=== PATIENT | female | born 1960 | race Caucasian/White ===

== ENCOUNTER 2022-02-03 14:49 | Emergency (ER) | payer MEDICARE, OTHER ==
[2022-02-03 15:02] VITALS: TEMP 98.2
[2022-02-03] MEDS ORDERED: IPRATROPIUM-ALBUTEROL 3 ML NEB INHALATION STA ×2 (15:13→16:11)
[2022-02-03] MEDS ORDERED: SODIUM CHLORIDE 0.9% 1,000 ML IV STA (15:13)
[2022-02-03] MEDS ORDERED: methylPREDNISolone SOD SUCCI 125 MG/2 ML VIAL IV STA (15:13)
[2022-02-03 15:46] LABS: Basophils # (A) 0.1 k/uL (0-0.2); Basophils % (A) 1 %; Eosinophils # (A) 0.1 k/uL (0-0.7); Eosinophils % (A) 1 %; HGB 11.3 gm/dL (11.4-16.0); Lymphocytes # (A) 1.2 k/uL (1.0-4.8); Lymphocytes % (A) 8 %; MCH 28.9 pg (25.0-35.0); MCHC 33.3 g/dL (31.0-37.0); MCV 86.7 fL (80.0-100.0); Mean Platelet Volume 7.1; Monocytes # (A) 0.4 k/uL (0-1.0); Monocytes % (A) 3 %; Neutrophils # (A) 12.4 k/uL (1.3-7.7); Neutrophils % (A) 88 %; Platelet Count 276 k/uL (150-450); RBC 3.92 m/uL (3.80-5.40); RDW 15.2 % (11.5-15.5); WBC 14.2 k/uL (3.8-10.6)
[2022-02-03 15:56] LABS: ALT 45 U/L (4-34); AST 24 U/L (14-36); African American GFR (CKD) >90 (>60 ml/min/1.73 sqM); Albumin 4.1 g/dL (3.5-5.0); Alkaline Phosphatase 73 U/L (38-126); Anion Gap 10 mmol/L; Blood Urea Nitrogen 16 mg/dL (7-17); Calcium 9.3 mg/dL (8.4-10.2); Carbon Dioxide 25 mmol/L (22-30); Chloride 102 mmol/L (98-107); Glucose 116 mg/dL (74-99); Non-African American GFR(CKD) >90 (>60 ml/min/1.73 sqM); Potassium 3.7 mmol/L (3.5-5.1); Sodium 137 mmol/L (137-145); Total Bilirubin 1.2 mg/dL (0.2-1.3); Total Protein 6.4 g/dL (6.3-8.2)
--- NOTE | 2022-02-03 15:58 | XR ---
EXAMINATION TYPE: XR chest 2V DATE OF EXAM: 02/03/2022 COMPARISON: NONE HISTORY: Short of breath TECHNIQUE: 2 views FINDINGS: Heart is normal. Lungs are clear of infiltrate. No heart failure. There are no hilar masses . Costophrenic angles are clear. IMPRESSION: No active cardiopulmonary disease. Normal heart.
[2022-02-03 16:02] LABS: INR 0.9 (<1.2); Prothrombin Time 10.1 sec (9.0-12.0)
[2022-02-03] MEDS ORDERED: AZITHROMYCIN 500 MG in SODIUM CHLORIDE 0.9% 250 ML IVPB STA (16:08)
[2022-02-03 16:14] LABS: Partial Thromboplastin Time 20.3 sec (22.0-30.0)
[2022-02-03 16:16] VITALS: RESP 18
[2022-02-03 17:11] VITALS: PULSE 92
--- NOTE | 2022-02-03 17:29 | ED ---
SOB HPI - General Chief Complaint: Shortness of Breath Stated Complaint: RUSTY,COPD Time Seen by Provider: 02/03/22 15:05 Source: patient Mode of arrival: ambulatory Limitations: no limitations - History of Present Illness Initial Comments: Patient is a 61-year-old female with past medical history of COPD who presents with a chief complaint of shortness of breath. Patient states she noticed "her breathing is worse than normal". Reports dry cough. Family states patient refuses to use her inhaler and nebulizer at home for shortness of breath. She denies fever, chills, upper respiratory symptoms, chest pain, palpitations, dizziness, abdominal pain, nausea, vomiting, diarrhea. Denies leg pain or leg swelling. Patient states she quit smoking tobacco 7-8 months ago. States she smoked half a pack of cigarettes per day for several years. She wears supplemental oxygen at home nasal cannula 3 L. She follows with Dr. Cardona. - Related Data Previous Rx's Medication Instructions Recorded Azithromycin [Zithromax Z Pack] 1 tab PO DIRECTED #6 tab 02/03/22 predniSONE 50 mg PO DAILY #5 tab 02/03/22 Allergies Allergy/AdvReac Type Severity Reaction Status Date / Time ampicillin Allergy Rash/Hives Verified 02/03/22 15:02 Review of Systems ROS Statement: Those systems with pertinent positive or pertinent negative responses have been documented in the HPI. ROS Other: All systems not noted in ROS Statement are negative. Past Medical History Past Medical History: Asthma, Coronary Artery Disease (CAD), COPD History of Any Multi-Drug Resistant Organisms: None Reported Past Surgical History: Unable to Obtain Past Psychological History: No Psychological Hx Reported Smoking Status: Former smoker Past Alcohol Use History: None Reported Past Drug Use History: None Reported General Exam Limitations: no limitations General appearance: alert, in no apparent distress Head exam: Present: atraumatic, normocephalic, normal inspection Eye exam: Present: normal appearance, PERRL, EOMI. Absent: scleral icterus, conjunctival injection, periorbital swelling Respiratory exam: Present: normal lung sounds bilaterally, wheezes (mild in upper airways). Absent: respiratory distress, rales, rhonchi, stridor, decreased breath sounds, prolonged expiratory Cardiovascular Exam: Present: normal rhythm, tachycardia, normal heart sounds. Absent: regular rate, systolic murmur, diastolic murmur, rubs, gallop, clicks GI/Abdominal exam: Present: soft, normal bowel sounds. Absent: distended, tenderness, guarding, rebound, rigid Neurological exam: Present: alert, oriented X3, CN II-XII intact Psychiatric exam: Present: normal affect, normal mood Skin exam: Present: warm, dry, intact, normal color. Absent: rash Course Vital Signs 02/03/22 02/03/22 02/03/22 14:59 15:13 15:58 Temperature 98.2 F Pulse Rate 116 H 90 Respiratory 20 18 Rate Blood Pressure 150/100 O2 Sat by Pulse 99 Oximetry 02/03/22 02/03/22 02/03/22 16:06 17:00 17:10 Temperature Pulse Rate 90 96 92 Respiratory Rate Blood Pressure O2 Sat by Pulse Oximetry 02/03/22 17:40 Temperature Pulse Rate 92 Respiratory 18 Rate Blood Pressure 142/84 O2 Sat by Pulse 96 Oximetry Medical Decision Making - Medical Decision Making This is a COPD patient presenting with shortness of breath. Patient in no apparent distress. Oxygen saturation is 99% on 3 L nasal cannula. Mild wheezing heard throughout the upper airways. Laboratory studies obtained. There is mild leukocytosis of 14.2. COVID-19 and influenza are not detected. Other laboratory studies are relatively unremarkable. Patient given Solu-Medrol and prophylactically treated with azithromycin. She had 2 breathing treatments with some improvement of wheezing and breathing. I did recommend patient receive a third breathing treatment however patient refused. Patient stable condition and will be discharged with prednisone and azithromycin. She will follow up with a corn cutter. Dr. Del Rio is my attending. - Lab Data Result diagrams: 02/03/22 15:32 02/03/22 15:32 Lab Results 02/03/22 02/03/22 02/03/22 Range/Units 15:32 15:32 15:32 WBC 14.2 H (3.8-10.6) k/uL RBC 3.92 (3.80-5.40) m/uL Hgb 11.3 L (11.4-16.0) gm/dL Hct 34.0 (34.0-46.0) % MCV 86.7 (80.0-100.0) fL MCH 28.9 (25.0-35.0) pg MCHC 33.3 (31.0-37.0) g/dL RDW 15.2 (11.5-15.5) % Plt Count 276 (150-450) k/uL MPV 7.1 Neutrophils % 88 % Lymphocytes % 8 % Monocytes % 3 % Eosinophils % 1 % Basophils % 1 % Neutrophils # 12.4 H (1.3-7.7) k/uL Lymphocytes # 1.2 (1.0-4.8) k/uL Monocytes # 0.4 (0-1.0) k/uL Eosinophils # 0.1 (0-0.7) k/uL Basophils # 0.1 (0-0.2) k/uL PT 10.1 (9.0-12.0) sec INR 0.9 (<1.2) APTT 20.3 L (22.0-30.0) sec Sodium 137 (137-145) mmol/L Potassium 3.7 (3.5-5.1) mmol/L Chloride 102 (98-107) mmol/L Carbon Dioxide 25 (22-30) mmol/L Anion Gap 10 mmol/L BUN 16 (7-17) mg/dL Creatinine 0.55 (0.52-1.04) mg/dL Est GFR (CKD-EPI)AfAm >90 (>60 ml/min/1.73 sqM) Est GFR (CKD-EPI)NonAf >90 (>60 ml/min/1.73 sqM) Glucose 116 H (74-99) mg/dL Plasma Lactic Acid Omer (0.7-2.0) mmol/L Calcium 9.3 (8.4-10.2) mg/dL Total Bilirubin 1.2 (0.2-1.3) mg/dL AST 24 (14-36) U/L ALT 45 H (4-34) U/L Alkaline Phosphatase 73 (38-126) U/L Troponin I (0.000-0.034) ng/mL NT-Pro-B Natriuret Pep pg/mL Total Protein 6.4 (6.3-8.2) g/dL Albumin 4.1 (3.5-5.0) g/dL Coronavirus (PCR) (Not Detectd) Influenza Type A RNA (Not Detectd) Influenza Type B (PCR) (Not Detectd) 02/03/22 02/03/22 02/03/22 Range/Units 15:32 15:32 15:32 WBC (3.8-10.6) k/uL RBC (3.80-5.40) m/uL Hgb (11.4-16.0) gm/dL Hct (34.0-46.0) % MCV (80.0-100.0) fL MCH (25.0-35.0) pg MCHC (31.0-37.0) g/dL RDW (11.5-15.5) % Plt Count (150-450) k/uL MPV Neutrophils % % Lymphocytes % % Monocytes % % Eosinophils % % Basophils % % Neutrophils # (1.3-7.7) k/uL Lymphocytes # (1.0-4.8) k/uL Monocytes # (0-1.0) k/uL Eosinophils # (0-0.7) k/uL Basophils # (0-0.2) k/uL PT (9.0-12.0) sec INR (<1.2) APTT (22.0-30.0) sec Sodium (137-145) mmol/L Potassium (3.5-5.1) mmol/L Chloride (98-107) mmol/L Carbon Dioxide (22-30) mmol/L Anion Gap mmol/L BUN (7-17) mg/dL Creatinine (0.52-1.04) mg/dL Est GFR (CKD-EPI)AfAm (>60 ml/min/1.73 sqM) Est GFR (CKD-EPI)NonAf (>60 ml/min/1.73 sqM) Glucose (74-99) mg/dL Plasma Lactic Acid Omer 0.8 (0.7-2.0) mmol/L Calcium (8.4-10.2) mg/dL Total Bilirubin (0.2-1.3) mg/dL AST (14-36) U/L ALT (4-34) U/L Alkaline Phosphatase (38-126) U/L Troponin I <0.012 (0.000-0.034) ng/mL NT-Pro-B Natriuret Pep 60 pg/mL Total Protein (6.3-8.2) g/dL Albumin (3.5-5.0) g/dL Coronavirus (PCR) (Not Detectd) Influenza Type A RNA (Not Detectd) Influenza Type B (PCR) (Not Detectd) 02/03/22 02/03/22 Range/Units 15:32 15:32 WBC (3.8-10.6) k/uL RBC (3.80-5.40) m/uL Hgb (11.4-16.0) gm/dL Hct (34.0-46.0) % MCV (80.0-100.0) fL MCH (25.0-35.0) pg MCHC (31.0-37.0) g/dL RDW (11.5-15.5) % Plt Count (150-450) k/uL MPV Neutrophils % % Lymphocytes % % Monocytes % % Eosinophils % % Basophils % % Neutrophils # (1.3-7.7) k/uL Lymphocytes # (1.0-4.8) k/uL Monocytes # (0-1.0) k/uL Eosinophils # (0-0.7) k/uL Basophils # (0-0.2) k/uL PT (9.0-12.0) sec INR (<1.2) APTT (22.0-30.0) sec Sodium (137-145) mmol/L Potassium (3.5-5.1) mmol/L Chloride (98-107) mmol/L Carbon Dioxide (22-30) mmol/L Anion Gap mmol/L BUN (7-17) mg/dL Creatinine (0.52-1.04) mg/dL Est GFR (CKD-EPI)AfAm (>60 ml/min/1.73 sqM) Est GFR (CKD-EPI)NonAf (>60 ml/min/1.73 sqM) Glucose (74-99) mg/dL Plasma Lactic Acid Omer (0.7-2.0) mmol/L Calcium (8.4-10.2) mg/dL Total Bilirubin (0.2-1.3) mg/dL AST (14-36) U/L ALT (4-34) U/L Alkaline Phosphatase (38-126) U/L Troponin I (0.000-0.034) ng/mL NT-Pro-B Natriuret Pep pg/mL Total Protein (6.3-8.2) g/dL Albumin (3.5-5.0) g/dL Coronavirus (PCR) Not Detected (Not Detectd) Influenza Type A RNA Not Detected (Not Detectd) Influenza Type B (PCR) Not Detected (Not Detectd) Disposition Clinical Impression: COPD exacerbation Disposition: HOME SELF-CARE Instructions (If sedation given, give patient instructions): COPD (Chronic Obstructive Pulmonary Disease) (ED), Chronic Lung Disease and Infection Prevention (ED) Additional Instructions: Please take medication as directed. It is very important you'll continue breathing treatments at home. Follow-up with corn cutter in one to 2 days. Return to the emergency department if you experience new, concerning, or worsen ing symptoms. Prescriptions: predniSONE 50 mg PO DAILY #5 tab Azithromycin [Zithromax Z Pack] 1 tab PO DIRECTED #6 tab Is patient prescribed a controlled substance at d/c from ED?: No Referrals: None,Stated [Primary Care Provider] - 1-2 days Time of Disposition: 17:29
[2022-02-03 17:41] VITALS: BP 142/84
== END 2022-02-03 18:10 | disposition home or self-care (01) ==
LOC: EC 14:49
DX: J44.1 Chronic obstructive pulmonary disease with (acute) exacerbation (principal); I25.10 Atherosclerotic heart disease of native coronary artery without angina pectoris; Z87.891 Personal history of nicotine dependence; Z20.822 Contact with and (suspected) exposure to COVID-19; Z88.1 Allergy status to other antibiotic agents
CPT/HCPCS: 36415; 94640 ×2; 93005; 83880; 80053; 83605; 84484; 85025; 85610; 85730; 87502; 87635; 71046; 99285; 96375; 96365; 96361; J2930; J0456

== ENCOUNTER 2023-01-24 14:20 | Inpatient (IN) | payer MEDICARE, OTHER ==
[2023-01-24] MEDS ORDERED: ETOMIDATE 2 MG/ML 10 ML VIAL IVP STA (14:30)
[2023-01-24] MEDS ORDERED: SUCCINYLCHOLINE CHLORIDE 200 MG/10 ML VIAL IV ONE (14:30)
[2023-01-24] MEDS ORDERED: ALBUTEROL NEBULIZED 2.5 MG/3 ML INHALATION STA (14:31)
[2023-01-24] MEDS ORDERED: IPRATROPIUM 0.5 MG/2.5 ML NEBU INHALATION STA (14:31)
[2023-01-24] MEDS ORDERED: DEXAMETHASONE SOD PHOSPHATE 10 MG/ML 1 ML VIAL IVP STA (14:34)
[2023-01-24] MEDS: MAGNESIUM SULFATE-D5W PMX 1 GM in DEXTROSE/WATER 1 100ML.BAG IVPB SCH ×2 (14:53→17:02)
[2023-01-24 14:56] LABS: ALT 33 U/L (4-34); AST 61 U/L (14-36); African American GFR (CKD) >90 (>60 ml/min/1.73 sqM); Albumin 4.6 g/dL (3.5-5.0); Alkaline Phosphatase 100 U/L (38-126); Anion Gap 11 mmol/L; Blood Urea Nitrogen 25 mg/dL (7-17); Calcium 8.9 mg/dL (8.4-10.2); Carbon Dioxide 33 mmol/L (22-30); Chloride 99 mmol/L (98-107); Glucose 154 mg/dL (74-99); Lipase 49 U/L (23-300); Magnesium 2.1 mg/dL (1.6-2.3); Non-African American GFR(CKD) >90 (>60 ml/min/1.73 sqM); Sodium 143 mmol/L (137-145); Total Bilirubin 1.1 mg/dL (0.2-1.3)
[2023-01-24] MEDS ORDERED: ALBUTEROL NEB (CONC) 2.5 MG/0.5 ML INHALATION STA (14:56)
[2023-01-24 15:04] LABS: NT-Pro-B-Type Natriuretic Pept 1450 pg/mL
--- NOTE | 2023-01-24 15:17 | XR ---
EXAMINATION TYPE: XR chest 1V portable DATE OF EXAM: 01/24/2023 COMPARISON: 02/03/2022 HISTORY: ET tube placement TECHNIQUE: Single frontal view of the chest is obtained. FINDINGS: There is no focal air space opacity, pleural effusion, or pneumothorax seen. The cardiac silhouette size is within normal limits. The osseous structures are intact. ET tube 3 cm above britta na. NG tube seen coursing into the abdomen. Tip not included. Underlying COPD and pulmonary fibrosis. Linear density right upper lobe typical scar or atelectasis. IMPRESSION: 1. ET tube 3 cm above prerna. 2. Correlate for COPD and pulmonary fibrosis.
[2023-01-24 15:27] LABS: Anisocytosis Slight; Basophils % (A) 0 %; Eosinophils % (A) 0 %; HGB 8.7 gm/dL (11.4-16.0); Hypochromasia Marked; Lymphocytes # (A) 0.7 k/uL (1.0-4.8); Lymphocytes % (A) 8 %; MCH 22.8 pg (25.0-35.0); MCHC 29.9 g/dL (31.0-37.0); MCV 76.3 fL (80.0-100.0); Mean Platelet Volume 7.9; Microcytosis Slight; Monocytes # (A) 0.5 k/uL (0-1.0); Monocytes % (A) 6 %; Neutrophils # (A) 7.1 k/uL (1.3-7.7); Neutrophils % (A) 84 %; Platelet Count 483 k/uL (150-450); Poikilocytosis Slight; RDW 17.7 % (11.5-15.5); WBC 8.4 k/uL (3.8-10.6)
[2023-01-24 15:33] LABS: Allen Test Performed? Yes
[2023-01-24 15:35] LABS: ABG Base Excess 6.2 mmol/L; ABG HCO3 34 mmol/L (21-25); ABG Oxygen Saturation 99.5 % (94-97); ABG PCO2 88 mmHg (35-45); ABG PO2 >400 mmHg (83-108); ABG TCO2 37 mmol/L (19-24)
[2023-01-24 15:51] LABS: Prothrombin Time 10.2 sec (9.0-12.0)
[2023-01-24 15:55] LABS: Partial Thromboplastin Time 20.6 sec (22.0-30.0)
[2023-01-24] MEDS ORDERED: NALOXONE 0.4 MG/ML 1 ML VIAL IV PRN (16:47)
--- NOTE | 2023-01-24 16:47 | ED ---
General Adult HPI - General Chief complaint: Shortness of Breath Stated complaint: RUSTY Time Seen by Provider: 01/24/23 14:30 Source: EMS Mode of arrival: EMS Limitations: altered mental status - History of Present Illness Initial comments: This is a 62-year-old female with a reported past medical history including COPD presents emergency department via EMS for increasing short of breath or difficulty in breathing. The patient on arrival was unable to speak any words secondary to her shortness of breath and was using accessory muscles for breathing. The patient cannot for any further history at this time and EMS cannot provide any further history at this time either. - Related Data Home Medications Medication Instructions Recorded Confirmed Albuterol Sulfate [Albuterol 2 puff PO RT-QID 01/24/23 01/24/23 Sulfate Hfa] Budesonide/Formoterol Fumarate 2 puff INHALATION RT-BID 01/24/23 01/24/23 [Symbicort 160-4.5 Mcg Inhaler] Escitalopram [Lexapro] 20 mg PO DAILY 01/24/23 01/24/23 Ipratropium-Albuterol Nebulize 3 ml INHALATION RT-Q4H 01/24/23 01/24/23 [Duoneb 0.5 mg-3 mg/3 ml Soln] Mirtazapine [Remeron] 15 mg PO HS 01/24/23 01/24/23 Montelukast Sodium 10 mg PO HS 01/24/23 01/24/23 Pantoprazole Sodium [Protonix] 40 mg PO DAILY PRN 01/24/23 01/24/23 Pregabalin [Lyrica] 100 mg PO BID 01/24/23 01/24/23 dilTIAZem HCL [dilTIAZem HCL 24Hr 120 mg PO DAILY 01/24/23 01/24/23 ER] Allergies Allergy/AdvReac Type Severity Reaction Status Date / Time ampicillin Allergy Rash/Hives Verified 02/03/22 15:02 Review of Systems ROS Statement: Those systems with pertinent positive or pertinent negative responses have been documented in the HPI. ROS Other: All systems not noted in ROS Statement are negative. Past Medical History Past Medical History: Asthma, Coronary Artery Disease (CAD), COPD History of Any Multi-Drug Resistant Organisms: None Reported Past Surgical History: Unable to Obtain Past Psychological History: No Psychological Hx Reported Smoking Status: Former smoker Past Alcohol Use History: None Reported Past Drug Use History: None Reported General Exam Limitations: altered mental status (ANOx0) General appearance: obtunded, in distress (2/2 respiratory distress) Head exam: Present: atraumatic, normocephalic, normal inspection Eye exam: Present: normal appearance, PERRL Pupils: Present: normal accommodation ENT exam: Present: normal exam, normal oropharynx, mucous membranes moist Neck exam: Present: normal inspection, full ROM Respiratory exam: Present: respiratory distress, wheezes, accessory muscle use, decreased breath sounds, prolonged expiratory Cardiovascular Exam: Present: normal rhythm, tachycardia GI/Abdominal exam: Present: soft, normal bowel sounds Extremities exam: Present: normal inspection, full ROM Back exam: Present: normal inspection, full ROM Neurological exam: Present: altered (ANOx0) Psychiatric exam: Present: agitated Skin exam: Present: warm, dry Course Vital Signs 01/24/23 01/24/23 01/24/23 14:30 14:40 14:45 Temperature 98.7 F Pulse Rate 136 H Respiratory 24 24 Rate Blood Pressure 134/95 O2 Sat by Pulse 100 Oximetry Fraction of 100 Inspired Oxygen (FIO2) 01/24/23 01/24/23 01/24/23 14:50 15:10 15:15 Temperature 98.1 F Pulse Rate 113 H 117 H 111 H Respiratory 18 Rate Blood Pressure 133/84 O2 Sat by Pulse 100 Oximetry Fraction of Inspired Oxygen (FIO2) 01/24/23 01/24/23 01/24/23 15:30 15:42 15:44 Temperature Pulse Rate 109 H Respiratory 18 Rate Blood Pressure 133/81 O2 Sat by Pulse 100 Oximetry Fraction of 50 50 Inspired Oxygen (FIO2) 01/24/23 01/24/23 01/24/23 15:45 16:00 16:15 Temperature Pulse Rate 111 H 108 H 110 H Respiratory 18 18 18 Rate Blood Pressure 132/78 130/78 124/73 O2 Sat by Pulse 100 100 100 Oximetry Fraction of Inspired Oxygen (FIO2) EKG Findings - EKG Comments: EKG Findings:: An EKG was obtained and was interpreted by myself showing a rate of 132, CO interval 118, QR jain of 81 and QTC of 357. This EKG showed a sinus tachycardia with a short CO interval however there was no ST segment elevation or depression noted. Procedures - Intubation Sedative: Etomidate Mg Given: 20 Paralytic: Succinylcholine Mg Given: 80 Laryngoscope: Sona Size: 4 ET Tube Size: 7.5 ET Tube Uncuffed: No Tube Secured Depth (cm): 24 Tube Secured Location: lips Tube Placement Confirmation: visualized tube passing through cords, equal breath sounds bilaterally Patient Tolerated Procedure: well Intubation Complications: none Medical Decision Making - Medical Decision Making Was pt. sent in by a medical professional or institution ([facility], [facility], urgent care, hospital, or senior living...) When possible be specific @ -No Did you speak to anyone other than the patient for history (EMS, parent, family, police, friend...)? What history was obtained from this source @ -Yes, EMS gave a limited history of worsening shortness of breath today and a history of COPD. Did you review nursing and triage notes (agree or disagree)? Why? @ -I reviewed and agree with nursing and triage notes Were old charts reviewed (outside hosp., previous admission, EMS record, old EKG, old radiological studies, urgent care reports/EKG's, senior living records)? Report findings @ -No old charts were reviewed Differential Diagnosis (chest pain, altered mental status, abdominal pain women, abdominal pain men, vaginal bleeding, weakness, fever, dyspnea, syncope, headache, dizziness, GI bleed, back pain, seizure, CVA, palpatations, mental health)? @ -COPD exacerbation, pneumonia, pneumothorax EKG interpreted by me (3pts min.). @ -As above X-rays interpreted by me (1pt min.). @ -CXR was obtained and was interpreted by myself showing COPD and pulmonary fibrosis with an ET tube in place at 3 cm above the prerna. CT interpreted by me (1pt min.). @ -None done U/S interpreted by me (1pt. min.). @ -None done What testing was considered but not performed or refused? (CT, X-rays, U/S, labs)? Why? @ -None What meds were considered but not given or refused? Why? @ -None Did you discuss the management of the patient with other professionals (professionals i.e. [facility] Murguia, [facility], lab, RT, psych nurse, criminal justice social worker, documentation liaison, teacher, fire officer, case finisher)? Give summary @ -Yes, group burner machine, Dr. Dubon was contacted and accepted the patient to the ICU. The primary care physician covering was also accepted for admission. Was smoking cessation discussed for >3mins.? @ -No Was critical care preformed (if so, how long)? @ -Yes, see above Were there social determinants of health that impacted care today? How? (Homelessness, low income, unemployed, alcoholism, drug addiction, transportation, low edu. Level, literacy, decrease access to med. care, senior living, rehab)? @ -No Was there de-escalation of care discussed even if they declined (Discuss DNR or withdrawal of care, Hospice)? DNR status @ -No What co-morbidities impacted this encounter? (DM, HTN, Smoking, COPD, CAD, Cancer, CVA, ARF, Chemo, Hep., AIDS, mental health diagnosis, sleep apnea, morbid obesity)? @ -COPD Was patient admitted / discharged? Hospital course, mention meds given and route, prescriptions, significant lab abnormalities, going to OR and other pertinent info. @ -The patient was seen and evaluated in emergency department. Immediately on arrival, the patient was in severe respiratory distress and could not speak any words. Due to this, the patient was intubated on arrival for airway protection. Laboratory workup was otherwise within normal limits and the patient did have improvement while on the ventilator. The patient did receive an in-line breathing treatment of albuterol and ipratropium as well as Decadron and magnesium. The patient did remain stable and was accepted for admission to the intensive care unit. The patient was admitted in stable condition. Undiagnosed new problem with uncertain prognosis? @ -No Drug Therapy requiring intensive monitoring for toxicity (Heparin, Nitro, Insulin, Cardizem)? @ -Propofol Were any procedures done? @ -Intubation Diagnosis/symptom? @ -Ventilator dependent respiratory failure, COPD exacerbation Acute, or Chronic, or Acute on Chronic? @ -Acute Uncomplicated (without systemic symptoms) or Complicated (systemic symptoms)? @ -Complicated Side effects of treatment? @ -No Exacerbation, Progression, or Severe Exacerbation? @ -Severe exacerbation Poses a threat to life or bodily function? How? (Chest pain, [place], [place], pneumonia, PE, COPD, DKA, ARF, appy, cholecystitis, CVA, Diverticulitis, Homicidal, Suicidal, threat to staff... and all critical care pts) @ -Yes, ventilator dependency can lead to permanent damage and possible . - Lab Data Result diagrams: 01/24/23 15:10 01/24/23 14:37 Lab Results 01/24/23 01/24/23 01/24/23 Range/Units 14:37 14:37 15:10 WBC 8.4 (3.8-10.6) k/uL RBC 3.80 (3.80-5.40) m/uL Hgb 8.7 L (11.4-16.0) gm/dL Hct 29.0 L (34.0-46.0) % MCV 76.3 L (80.0-100.0) fL MCH 22.8 L (25.0-35.0) pg MCHC 29.9 L (31.0-37.0) g/dL RDW 17.7 H (11.5-15.5) % Plt Count 483 H (150-450) k/uL MPV 7.9 Neutrophils % 84 % Lymphocytes % 8 % Monocytes % 6 % Eosinophils % 0 % Basophils % 0 % Neutrophils # 7.1 (1.3-7.7) k/uL Lymphocytes # 0.7 L (1.0-4.8) k/uL Monocytes # 0.5 (0-1.0) k/uL Eosinophils # 0.0 (0-0.7) k/uL Basophils # 0.0 (0-0.2) k/uL Hypochromasia Marked Poikilocytosis Slight Anisocytosis Slight Microcytosis Slight PT (9.0-12.0) sec INR (<1.2) APTT (22.0-30.0) sec Sample Site ABG pH (7.35-7.45) ABG pCO2 (35-45) mmHg ABG pO2 (83-108) mmHg ABG HCO3 (21-25) mmol/L ABG Total CO2 (19-24) mmol/L ABG O2 Saturation (94-97) % ABG Base Excess mmol/L Edgardo Test FiO2 % Sodium 143 (137-145) mmol/L Potassium 5.0 (3.5-5.1) mmol/L Chloride 99 (98-107) mmol/L Carbon Dioxide 33 H (22-30) mmol/L Anion Gap 11 mmol/L BUN 25 H (7-17) mg/dL Creatinine 0.71 (0.52-1.04) mg/dL Est GFR (CKD-EPI)AfAm >90 (>60 ml/min/1.73 sqM) Est GFR (CKD-EPI)NonAf >90 (>60 ml/min/1.73 sqM) Glucose 154 H (74-99) mg/dL Calcium 8.9 (8.4-10.2) mg/dL Magnesium 2.1 (1.6-2.3) mg/dL Total Bilirubin 1.1 (0.2-1.3) mg/dL AST 61 H (14-36) U/L ALT 33 (4-34) U/L Alkaline Phosphatase 100 (38-126) U/L Troponin I 0.053 H* (0.000-0.034) ng/mL NT-Pro-B Natriuret Pep 1450 pg/mL Total Protein 8.0 (6.3-8.2) g/dL Albumin 4.6 (3.5-5.0) g/dL Lipase 49 (23-300) U/L 01/24/23 01/24/23 Range/Units 15:10 15:28 WBC (3.8-10.6) k/uL RBC (3.80-5.40) m/uL Hgb (11.4-16.0) gm/dL Hct (34.0-46.0) % MCV (80.0-100.0) fL MCH (25.0-35.0) pg MCHC (31.0-37.0) g/dL RDW (11.5-15.5) % Plt Count (150-450) k/uL MPV Neutrophils % % Lymphocytes % % Monocytes % % Eosinophils % % Basophils % % Neutrophils # (1.3-7.7) k/uL Lymphocytes # (1.0-4.8) k/uL Monocytes # (0-1.0) k/uL Eosinophils # (0-0.7) k/uL Basophils # (0-0.2) k/uL Hypochromasia Poikilocytosis Anisocytosis Microcytosis PT 10.2 (9.0-12.0) sec INR 1.0 (<1.2) APTT 20.6 L (22.0-30.0) sec Sample Site rrad ABG pH 7.20 L (7.35-7.45) ABG pCO2 88 H* (35-45) mmHg ABG pO2 >400 H (83-108) mmHg ABG HCO3 34 H (21-25) mmol/L ABG Total CO2 37 H (19-24) mmol/L ABG O2 Saturation 99.5 H (94-97) % ABG Base Excess 6.2 mmol/L Edgardo Test Yes FiO2 100 % Sodium (137-145) mmol/L Potassium (3.5-5.1) mmol/L Chloride (98-107) mmol/L Carbon Dioxide (22-30) mmol/L Anion Gap mmol/L BUN (7-17) mg/dL Creatinine (0.52-1.04) mg/dL Est GFR (CKD-EPI)AfAm (>60 ml/min/1.73 sqM) Est GFR (CKD-EPI)NonAf (>60 ml/min/1.73 sqM) Glucose (74-99) mg/dL Calcium (8.4-10.2) mg/dL Magnesium (1.6-2.3) mg/dL Total Bilirubin (0.2-1.3) mg/dL AST (14-36) U/L ALT (4-34) U/L Alkaline Phosphatase (38-126) U/L Troponin I (0.000-0.034) ng/mL NT-Pro-B Natriuret Pep pg/mL Total Protein (6.3-8.2) g/dL Albumin (3.5-5.0) g/dL Lipase (23-300) U/L Critical Care Time Critical Care Time: Yes Total Critical Care Time: 38 Disposition Clinical Impression: COPD exacerbation, Respiratory failure requiring intubation Disposition: ADMITTED IP TO THIS [facility] Condition: Serious Is patient prescribed a controlled substance at d/c from ED?: No Referrals: Dayanna Singh [Primary Care Provider] - 1-2 days Time of Disposition: 16:00 Decision to Admit Reason: Admit from EC Decision Date: 01/24/23 Decision Time: 16:00
[2023-01-24 18:17] LABS: Glucose,Whole Blood 164 mg/dL (70-110)
[2023-01-24] MEDS ORDERED: IPRATROPIUM-ALBUTEROL 3 ML NEB INHALATION PRN (18:36)
[2023-01-24 19:32] LABS: ABG Base Excess 8.2 mmol/L; ABG Glucose Whole Blood 140 mg/dL (75-99); ABG HCO3 35 mmol/L (21-25); ABG Hematocrit 25 % (34.0-46.0); ABG Ionized Calcium 4.7 mg/dL (4.5-5.3); ABG Lactic Acid Whole Blood 0.8 mmol/L (0.5-1.6); ABG Oxygen Saturation 98.8 % (94-97); ABG PCO2 67 mmHg (35-45); ABG PH 7.33 (7.35-7.45); ABG PO2 136 mmHg (83-108); ABG Potassium Whole Blood 3.9 mmol/L (3.4-4.5); ABG Sodium Whole Blood 146 mmol/L (135-146); ABG TCO2 37 mmol/L (19-24); Allen Test Performed? Yes
[2023-01-24] MEDS ORDERED: IPRATROPIUM-ALBUTEROL 3 ML NEB INHALATION SCH (20:00)
[2023-01-24] MEDS: PREGABALIN 100 MG CAP PO SCH (20:19)
[2023-01-24] MEDS: CHLORHEXIDINE GLUCONATE 15 ML CUP MUCOUS MEM SCH (20:19)
[2023-01-24] MEDS: MONTELUKAST 10 MG TAB PO SCH (20:19)
[2023-01-24] MEDS: methylPREDNISolone SOD SUCCI 125 MG/2 ML VIAL IV SCH (20:19)
[2023-01-24] MEDS: IPRATROPIUM-ALBUTEROL 3 ML NEB INHALATION SCH (20:25)
[2023-01-24] MEDS: SYMBICORT 160-4.5 MCG INHALER INHALATION SCH (20:25)
[2023-01-24] MEDS ORDERED: FUROSEMIDE 10 MG/ML 4 ML VIAL IV STA (21:08)
[2023-01-25 00:02] LABS: Glucose,Whole Blood 161 mg/dL (70-110)
[2023-01-25] MEDS: methylPREDNISolone SOD SUCCI 125 MG/2 ML VIAL IV SCH ×4 (00:30→17:59)
[2023-01-25] MEDS: HEPARIN SODIUM,PORCINE 5,000 UNIT/ML 1 ML VIAL SQ SCH ×3 (00:30→15:58)
[2023-01-25] MEDS: IPRATROPIUM-ALBUTEROL 3 ML NEB INHALATION SCH ×7 (01:49→23:32)
[2023-01-25 04:48] LABS: Anisocytosis Slight; Basophils % (A) 0 %; Eosinophils % (A) 0 %; HCT 28.7 % (34.0-46.0); HGB 8.7 gm/dL (11.4-16.0); Hypochromasia Marked; Lymphocytes # (A) 0.8 k/uL (1.0-4.8); Lymphocytes % (A) 10 %; MCH 22.8 pg (25.0-35.0); MCHC 30.4 g/dL (31.0-37.0); MCV 75.1 fL (80.0-100.0); Mean Platelet Volume 8.3; Microcytosis Moderate; Monocytes # (A) 0.3 k/uL (0-1.0); Monocytes % (A) 3 %; Neutrophils # (A) 6.6 k/uL (1.3-7.7); Neutrophils % (A) 86 %; Platelet Count 450 k/uL (150-450); RBC 3.83 m/uL (3.80-5.40); RDW 17.3 % (11.5-15.5); WBC 7.6 k/uL (3.8-10.6)
[2023-01-25 04:55] LABS: African American GFR (CKD) >90 (>60 ml/min/1.73 sqM); Blood Urea Nitrogen 22 mg/dL (7-17); Chloride 97 mmol/L (98-107); Glucose 147 mg/dL (74-99); Non-African American GFR(CKD) >90 (>60 ml/min/1.73 sqM); Potassium 3.8 mmol/L (3.5-5.1); Sodium 142 mmol/L (137-145)
[2023-01-25 05:02] LABS: Anion Gap 12 mmol/L; Carbon Dioxide 33 mmol/L (22-30)
[2023-01-25] MEDS ORDERED: Potassium Replacement Protocol 1 EACH MISC MISCELLANE PRN (05:33)
[2023-01-25 05:50] LABS: ABG Base Excess 12.1 mmol/L; ABG Glucose Whole Blood 140 mg/dL (75-99); ABG HCO3 38 mmol/L (21-25); ABG Ionized Calcium 4.5 mg/dL (4.5-5.3); ABG Oxygen Saturation 98.1 % (94-97); ABG PCO2 60 mmHg (35-45); ABG PH 7.41 (7.35-7.45); ABG PO2 98 mmHg (83-108); ABG Potassium Whole Blood 3.3 mmol/L (3.4-4.5); ABG Sodium Whole Blood 146 mmol/L (135-146); ABG TCO2 40 mmol/L (19-24); Allen Test Performed? Yes
[2023-01-25 05:56] LABS: ABG Hematocrit 24 % (34.0-46.0)
[2023-01-25] MEDS ORDERED: POTASSIUM BICARBONATE/CIT AC 20 MEQ TABLET.EFF NG-TUBE SCH (06:00)
[2023-01-25 06:08] LABS: Glucose,Whole Blood 158 mg/dL (70-110)
--- NOTE | 2023-01-25 07:45 | XR ---
EXAMINATION TYPE: XR chest 1V portable DATE OF EXAM: 01/25/2023 COMPARISON: 01/24/2023 HISTORY: Shortness of breath TECHNIQUE: Single frontal view of the chest is obtained. FINDINGS: ET and NG tube are stable. Underlying COPD with basilar atelectasis. No overt failure. No pneumothorax. No pleural effusion. Mild underlying pulmonary fibrosis suspected. IMPRESSION: COPD stable.
--- NOTE | 2023-01-25 08:25 | P.HPIM ---
History of Present Illness This is a pleasant 62 years old female with past medical history of Asthma, Coronary Artery Disease, COPD Patient presents because of shortness of breath and altered mental status, as per documentation patient has difficulty talking because of her dysonea and she was using accessory muscles. Her respiratory distress was severe and patient required intubation and mechanical ventilation while in the emergency room. patient is afebrile. Blood pressure stable Hemoglobin is 8.7. W68.4. INR 1.0 PH 7.73, pCO2 88 and 67 BMP showing creatinine 0.7, glucose 154, liver enzymes not elevated. Troponin mildly elevated at 0.05. EKG showing sinus tachycardia at 130 ProBNP is elevated 1450 chest x-ray showed COPD however there is linear right upper lobe typical scar or atelectasis per radiologist. However I think fluid overload and cephalization is also suspected per my review especially patient has elevated proBNP. Such changes did not been seen in chest x-ray about 6 months ago. Review of Systems ROS unobtainable: due to endotracheal tube Past Medical History Past Medical History: Asthma, Coronary Artery Disease (CAD), COPD History of Any Multi-Drug Resistant Organisms: None Reported Past Surgical History: Unable to Obtain Past Anesthesia/Blood Transfusion Reactions: Unable to Obtain Past Psychological History: No Psychological Hx Reported Smoking Status: Former smoker Past Alcohol Use History: None Reported Past Drug Use History: None Reported Medications and Allergies Home Medications Medication Instructions Recorded Confirmed Type Albuterol Sulfate [Albuterol 2 puff PO RT-QID 01/24/23 01/24/23 History Sulfate Hfa] Budesonide/Formoterol Fumarate 2 puff INHALATION RT-BID 01/24/23 01/24/23 Histo ry [Symbicort 160-4.5 Mcg Inhaler] Escitalopram [Lexapro] 20 mg PO DAILY 01/24/23 01/24/23 History Ipratropium-Albuterol Nebulize 3 ml INHALATION RT-Q4H 01/24/23 01/24/23 History [Duoneb 0.5 mg-3 mg/3 ml Soln] Mirtazapine [Remeron] 15 mg PO HS 01/24/23 01/24/23 History Montelukast Sodium 10 mg PO HS 01/24/23 01/24/23 History Pantoprazole Sodium [Protonix] 40 mg PO DAILY PRN 01/24/23 01/24/23 History Pregabalin [Lyrica] 100 mg PO BID 01/24/23 01/24/23 History dilTIAZem HCL [dilTIAZem HCL 24Hr 120 mg PO DAILY 01/24/23 01/24/23 History ER] Allergies Allergy/AdvReac Type Severity Reaction Status Date / Time ampicillin Allergy Rash/Hives Verified 02/03/22 15:02 Physical Exam Vitals: Vital Signs Temp Pulse Resp BP Pulse Ox FiO2 01/25/23 07:00 116 H 26 H 109/82 98 01/25/23 06:00 94 18 112/62 97 01/25/23 05:00 98 18 104/67 99 01/25/23 04:00 98.6 F 95 17 108/62 100 50 01/25/23 03:30 50 01/25/23 03:00 104 H 17 99/57 98 01/25/23 02:00 108 H 18 111/66 99 01/25/23 01:59 107 H 01/25/23 01:49 106 H 01/25/23 01:00 96 23 106/66 98 01/25/23 00:00 98.5 F 96 18 111/69 96 50 01/24/23 23:53 50 01/24/23 23:00 96 20 116/75 98 01/24/23 22:00 92 20 111/68 98 01/24/23 21:00 96 18 114/69 99 01/24/23 20:26 97 01/24/23 20:00 98.3 F 98 20 115/72 98 50 01/24/23 19:50 50 01/24/23 19:45 94 01/24/23 19:42 50 01/24/23 19:00 100 20 112/73 99 01/24/23 18:45 102 H 20 137/77 99 01/24/23 18:30 105 H 22 137/77 97 01/24/23 18:15 98.2 F 104 H 22 146/86 97 50 01/24/23 18:10 110 H 18 01/24/23 17:00 98.2 F 105 H 20 118/75 100 01/24/23 16:15 110 H 18 124/73 100 01/24/23 16:00 108 H 18 130/78 100 01/24/23 15:45 111 H 18 132/78 100 01/24/23 15:44 50 01/24/23 15:42 50 01/24/23 15:30 109 H 18 133/81 100 01/24/23 15:15 98.1 F 111 H 18 133/84 100 01/24/23 15:10 117 H 01/24/23 14:50 113 H 01/24/23 14:45 100 01/24/23 14:40 24 01/24/23 14:30 98.7 F 136 H 24 134/95 100 Intake and Output 01/24/23 01/25/23 01/25/23 22:59 06:59 14:59 Intake Total 149.660 140.659 1.837 Output Total 295 1225 30 Balance -145.340 -1084.341 -28.163 Intake: Intake, IV Titration 149.660 140.659 1.837 Amount propofoL 1,000 mg In 149.660 140.659 1.837 Empty Bag 1 bag @ 15 MCG/ KG/MIN 7.348 mls/hr IV . [id number] [facility] Rx#:[id number] Output: Urine 295 1225 30 Other: Voiding Method Indwelling Catheter Indwelling Catheter Weight 81.647 kg 70.1 kg GENERAL: The patient is intubated and sedated HEENT: Pupils are round and equally reacting to light. EOMI. No scleral icterus. No conjunctival pallor. Normocephalic, atraumatic. No pharyngeal erythema. No thyromegaly. CARDIOVASCULAR: S1 and S2 present. No murmurs, rubs, or gallops. PULMONARY: Chest is clear to auscultation, no wheezing , no crackles. ABDOMEN: Soft, nontender, nondistended, normoactive bowel sounds. No palpable organomegaly. MUSCULOSKELETAL: No joint swelling or deformity. EXTREMITIES: No cyanosis, clubbing, or pedal edema. -NEUROLOGICAL: Exam is limited by patient condition. There was suspicion of a regular in the pupils but both they are reactive to ligh.t. SKIN: No rashes. no petechiae. Results CBC & Chem 7: 01/25/23 04:21 01/25/23 04:21 Labs: Abnormal Lab Results - Last 24 Hours (Table) 01/24/23 01/24/23 01/24/23 Range/Units 14:37 14:37 15:10 Hgb 8.7 L (11.4-16.0) gm/dL Hct 29.0 L (34.0-46.0) % MCV 76.3 L (80.0-100.0) fL MCH 22.8 L (25.0-35.0) pg MCHC 29.9 L (31.0-37.0) g/dL RDW 17.7 H (11.5-15.5) % Plt Count 483 H (150-450) k/uL Lymphocytes # 0.7 L (1.0-4.8) k/uL APTT (22.0-30.0) sec ABG pH (7.35-7.45) ABG pCO2 (35-45) mmHg ABG pO2 (83-108) mmHg ABG HCO3 (21-25) mmol/L ABG Total CO2 (19-24) mmol/L ABG O2 Saturation (94-97) % ABG Hematocrit (34.0-46.0) % ABG Potassium (3.4-4.5) mmol/L ABG Glucose (75-99) mg/dL Hemoglobin (11.4-16.0) gm/dL Chloride (98-107) mmol/L Carbon Dioxide 33 H (22-30) mmol/L BUN 25 H (7-17) mg/dL Glucose 154 H (74-99) mg/dL POC Glucose (mg/dL) (70-110) mg/dL AST 61 H (14-36) U/L Troponin I 0.053 H* (0.000-0.034) ng/mL Arterial Blood Potassium (3.4-4.5) mmol/L Arterial Blood Glucose (75-99) mg/dL 01/24/23 01/24/23 01/24/23 Range/Units 15:10 15:28 18:15 Hgb (11.4-16.0) gm/dL Hct (34.0-46.0) % MCV (80.0-100.0) fL MCH (25.0-35.0) pg MCHC (31.0-37.0) g/dL RDW (11.5-15.5) % Plt Count (150-450) k/uL Lymphocytes # (1.0-4.8) k/uL APTT 20.6 L (22.0-30.0) sec ABG pH 7.20 L (7.35-7.45) ABG pCO2 88 H* (35-45) mmHg ABG pO2 >400 H (83-108) mmHg ABG HCO3 34 H (21-25) mmol/L ABG Total CO2 37 H (19-24) mmol/L ABG O2 Saturation 99.5 H (94-97) % ABG Hematocrit (34.0-46.0) % ABG Potassium (3.4-4.5) mmol/L ABG Glucose (75-99) mg/dL Hemoglobin (11.4-16.0) gm/dL Chloride (98-107) mmol/L Carbon Dioxide (22-30) mmol/L BUN (7-17) mg/dL Glucose (74-99) mg/dL POC Glucose (mg/dL) 164 H (70-110) mg/dL AST (14-36) U/L Troponin I (0.000-0.034) ng/mL Arterial Blood Potassium (3.4-4.5) mmol/L Arterial Blood Glucose (75-99) mg/dL 01/24/23 01/25/23 01/25/23 Range/Units 19:25 00:01 04:21 Hgb 8.7 L (11.4-16.0) gm/dL Hct 28.7 L (34.0-46.0) % MCV 75.1 L (80.0-100.0) fL MCH 22.8 L (25.0-35.0) pg MCHC 30.4 L (31.0-37.0) g/dL RDW 17.3 H (11.5-15.5) % Plt Count (150-450) k/uL Lymphocytes # 0.8 L (1.0-4.8) k/uL APTT (22.0-30.0) sec ABG pH 7.33 L (7.35-7.45) ABG pCO2 67 H (35-45) mmHg ABG pO2 136 H (83-108) mmHg ABG HCO3 35 H (21-25) mmol/L ABG Total CO2 37 H (19-24) mmol/L ABG O2 Saturation 98.8 H (94-97) % ABG Hematocrit 25 L (34.0-46.0) % ABG Potassium (3.4-4.5) mmol/L ABG Glucose 140 H (75-99) mg/dL Hemoglobin 8.1 L (11.4-16.0) gm/dL Chloride (98-107) mmol/L Carbon Dioxide (22-30) mmol/L BUN (7-17) mg/dL Glucose (74-99) mg/dL POC Glucose (mg/dL) 161 H (70-110) mg/dL AST (14-36) U/L Troponin I (0.000-0.034) ng/mL Arterial Blood Potassium (3.4-4.5) mmol/L Arterial Blood Glucose 140 H (75-99) mg/dL 01/25/23 01/25/23 01/25/23 Range/Units 04:21 05:55 06:07 Hgb (11.4-16.0) gm/dL Hct (34.0-46.0) % MCV (80.0-100.0) fL MCH (25.0-35.0) pg MCHC (31.0-37.0) g/dL RDW (11.5-15.5) % Plt Count (150-450) k/uL Lymphocytes # (1.0-4.8) k/uL APTT (22.0-30.0) sec ABG pH (7.35-7.45) ABG pCO2 60 H (35-45) mmHg ABG pO2 (83-108) mmHg ABG HCO3 38 H (21-25) mmol/L ABG Total CO2 40 H (19-24) mmol/L ABG O2 Saturation 98.1 H (94-97) % ABG Hematocrit 24 L (34.0-46.0) % ABG Potassium 3.3 L (3.4-4.5) mmol/L ABG Glucose 140 H (75-99) mg/dL Hemoglobin 8.0 L (11.4-16.0) gm/dL Chloride 97 L (98-107) mmol/L Carbon Dioxide 33 H (22-30) mmol/L BUN 22 H (7-17) mg/dL Glucose 147 H (74-99) mg/dL POC Glucose (mg/dL) 158 H (70-110) mg/dL AST (14-36) U/L Troponin I (0.000-0.034) ng/mL Arterial Blood Potassium 3.3 L (3.4-4.5) mmol/L Arterial Blood Glucose 140 H (75-99) mg/dL Assessment and Plan Assessment: Acute asthma/COPD exacerbation. There also may be some elements of fluid overload. Acute hypoxemic respiratory failure requiring intubation and mechanical ventilation History of depression Acute respiratory acidosis with metabolic compensation Altered mental status most likely metabolic/toxic encephalopathy. Plan: Continue with mechanical ventilation with pulmonary/critical care team on the case already the recommendation Continue with IV Solu-Medrol Continue with a bronchodilator Patient has evidence of acidosis however it looks this is gradually progressive over time as bicarb is elevated at [address] of the brain Labs and medication were reviewed.. Continue same treatment. Continue with symptomatic treatment. Resume home medication. Monitor labs and vitals. DVT and GI prophylaxis. Further recommendations as per clinical course of the patient DVT prophylaxis: Subcutaneous heparin GI Prophylaxis: Ppi PT/OT: Pending Prognosis is guarded Discussed with staff
[2023-01-25] MEDS ORDERED: FUROSEMIDE 10 MG/ML 2 ML VIAL IV ONE (08:30)
[2023-01-25] MEDS: FORMOTEROL FUMARATE 20 MCG/2 ML NEBU INHALATION SCH ×2 (08:57→20:18)
[2023-01-25] MEDS: BUDESONIDE 1 MG/2 ML NEBU INHALATION SCH ×2 (08:57→20:18)
[2023-01-25] MEDS ORDERED: DILTIAZEM CD 120 MG CAP.ER.24H PO SCH (09:00)
[2023-01-25] MEDS: SYMBICORT 160-4.5 MCG INHALER INHALATION SCH (09:01)
[2023-01-25] MEDS ORDERED: SODIUM CHLORIDE 0.9% 1,000 ML IV ONE ×2 (09:06→16:12)
[2023-01-25] MEDS: PANTOPRAZOLE 40 MG/10 ML VIAL IV SCH (09:13)
[2023-01-25] MEDS: CHLORHEXIDINE GLUCONATE 15 ML CUP MUCOUS MEM SCH ×2 (09:14→19:44)
[2023-01-25] MEDS: PREGABALIN 100 MG CAP PO SCH ×2 (09:14→19:43)
[2023-01-25] MEDS: DILTIAZEM ORAL 30 MG TAB PO SCH ×5 (09:14→22:01)
[2023-01-25] MEDS: SODIUM CHLORIDE 0.9% 1,000 ML IV SCH ×2 (09:14→17:59)
--- NOTE | 2023-01-25 11:17 | XR ---
EXAMINATION TYPE: XR chest 1V portable DATE OF EXAM: 01/25/2023 COMPARISON: 01/25/2023 HISTORY: Central line TECHNIQUE: Single frontal view of the chest is obtained. FINDINGS: There is no focal air space opacity, pleural effusion, or pneumothorax seen. The cardiac silhouette size is within normal limits. The osseous structures are intact. ET and NG tubes stable. Right-sided central line seen with tip overlying the SVC. Underlying emphysematous changes. Atherosc lerotic change aorta. IMPRESSION: Central line appears in good position with no sizable pneumothorax.
[2023-01-25 11:40] LABS: Glucose,Whole Blood 154 mg/dL (70-110)
--- NOTE | 2023-01-25 11:54 | CA ---
Transthoracic Echo Report Name: Diya Flores Age: 62 Gender: F : 1960 Exam Date: 01/25/2023 08:26 Exam Location: [facility] Ht (in): 62 Wt (lb): 180 Ordering Physician: Fadi Polanco MD Attending/Referring Phys: [id number], [employer] Person Pieter Wang Procedure CPT: Indications: rule out heart dis , chf Cardiac Hx: Technical Quality: Technically difficult study Contrast 1: Total Dose (mL): Contrast 2: Total Dose (mL): MEASUREMENTS (Male / Female) Normal Values 2D ECHO LV Diastolic Diameter PLAX 3.1 cm 4.2 - 5.9 / 3.9 - 5.3 cm IVS Diastolic Thickness 0.7 cm 0.6 - 1.0 / 0.6 - 0.9 cm LVPW Diastolic Thickness 1.1 cm 0.6 - 1.0 / 0.6 - 0.9 cm LV Relative Wall Thickness 0.6 RV Internal Dim ED PLAX 2.6 cm LV Diastolic Volume MOD BP 25.9 cm??? 67 - 155 / 56 - 104 cm??? LV Systolic Volume MOD BP 8.8 cm??? 22 - 58 / 19 - 49 cm??? LV Ejection Fraction MOD BP 66.0 % >= 55 % LV Cardiac Index MOD BP 1049.7 cm???/min???m??? LV Diastolic Volume MOD 4C 32.8 cm??? LV Systolic Volume MOD 4C 11.2 cm??? LV Ejection Fraction MOD 4C 66.0 % LV Cardiac Index MOD 4C 1325.6 cm???/min???m??? LV Diastolic Length 4C 6.1 cm LV Systolic Length 4C 4.9 cm LV Diastolic Volume MOD 2C 20.0 cm??? LV Systolic Volume MOD 2C 7.1 cm??? LV Ejection Fraction MOD 2C 64.6 % LV Cardiac Index MOD 2C 791.0 cm???/min???m??? LV Diastolic Length 2C 5.8 cm LV Systolic Length 2C 4.9 cm DOPPLER AV Peak Velocity 118.2 cm/s AV Peak Gradient 5.6 mmHg TR Peak Velocity 215.3 cm/s TR Peak Gradient 18.5 mmHg Right Ventricular Systolic Press 23.5 mmHg FINDINGS Left Ventricle Normal LV size and wall thickness. Left ventricular ejection fraction is estimated at 55-60 %. Right Ventricle Normal right ventricular size. RVSP= 23.5mmHg. Right Atrium Normal right atrial size. Left Atrium Normal left atrial size. Mitral Valve Structurally normal mitral valve. MV max gradient= 5.1mmHg. MV mean gradient= 1.7mmHg. Aortic Valve Aortic valve not well visualized. No aortic valve stenosis or regurgitation. Tricuspid Valve Tricuspid valve not well visualized. Mild TR. Pulmonic Valve Pulmonic valve not well visualized. No pulmonic regurgitation. Pericardium Normal pericardium. Aorta Normal size aortic root. CONCLUSIONS Technically difficult study Left ventricular ejection fraction 55-60% RVSP 23 No mitral regurgitation Mild tricuspid regurgitation Previewed by: Dr. Brodie Anton DO (Electronically Signed) Final Date: 25 January 2023 11:53
--- NOTE | 2023-01-25 12:30 | P.CNPUL ---
History of Present Illness Consult date: 01/25/23 Requesting physician: Fadi Polanco Reason for consult: COPD Chief complaint: Shortness of breath History of present illness: This is a 62-year-old female with known history of COPD, coronary artery disease, not familiar to our service, patient was brought into the ER yesterday in extreme respiratory distress. Patient was noted to have acute hypoxic and hypercapnic respiratory failure, she was intubated almost upon her initial presentation to the ER because she was mostly in severe respiratory distress. Shortly after intubation the patient was noted to have a pO2 of more than 400 pCO2 88 pH of 7.20. Repeat blood gases after the patient was sent to the ICU showed a pO2 of 136 pCO2 67 pH of 7.33 and her ABG this morning showed a pO2 of 98 pCO2 60 pH of 7.41. Chest x-ray on admission showed no evidence of acute process except for emphysematous changes. No evidence of infiltrate. And no evidence of congestive heart failure. Patient is now on assist control rate of 20 tidal volume 350 FiO2 50% and PEEP of 5. She is not requiring any pressors patient is on propofol at 60 mcg/kg/m. Earlier this morning on a lower dose of propofol, patient was noted to be agitated, wheezing, and clearly was not ready for weaning. Hence the dose of propofol was increased, in the meantime we are giving the patient bronchodilators in the form of one nap, she is also on Pulmicort and Perforomist, and I added Solu-Medrol. Patient is also on antibiotics empirically. WBC count is 7.6 hemoglobin is 8.7, basic metabolic profile is normal bicarb is high 33 BUN is 22 creatinine 0.70 Review of Systems ROS unobtainable: due to endotracheal tube Past Medical History Past Medical History: Asthma, Coronary Artery Disease (CAD), COPD History of Any Multi-Drug Resistant Organisms: None Reported Past Surgical History: Unable to Obtain Past Anesthesia/Blood Transfusion Reactions: Unable to Obtain Past Psychological History: No Psychological Hx Reported Smoking Status: Former smoker Past Alcohol Use History: None Reported Past Drug Use History: None Reported Medications and Allergies Home Medications Medication Instructions Recorded Confirmed Type Albuterol Sulfate [Albuterol 2 puff PO RT-QID 01/24/23 01/24/23 History Sulfate Hfa] Budesonide/Formoterol Fumarate 2 puff INHALATION RT-BID 01/24/23 01/24/23 History [Symbicort 160-4.5 Mcg Inhaler] Escitalopram [Lexapro] 20 mg PO DAILY 01/24/23 01/24/23 History Ipratropium-Albuterol Nebulize 3 ml INHALATION RT-Q4H 01/24/23 01/24/23 History [Duoneb 0.5 mg-3 mg/3 ml Soln] Mirtazapine [Remeron] 15 mg PO HS 01/24/23 01/24/23 History Montelukast Sodium 10 mg PO HS 01/24/23 01/24/23 History Pantoprazole Sodium [Protonix] 40 mg PO DAILY PRN 01/24/23 01/24/23 History Pregabalin [Lyrica] 100 mg PO BID 01/24/23 01/24/23 History dilTIAZem HCL [dilTIAZem HCL 24Hr 120 mg PO DAILY 01/24/23 01/24/23 History ER] Allergies Allergy/AdvReac Type Severity Reaction Status Date / Time ampicillin Allergy Rash/Hives Verified 02/03/22 15:02 Physical Exam Vitals: Vital Signs Temp Pulse Resp BP Pulse Ox FiO2 01/25/23 12:15 96 01/25/23 12:00 50 01/25/23 09:30 98 01/25/23 09:14 100 01/25/23 09:13 100 01/25/23 08:58 100 01/25/23 08:43 50 01/25/23 08:30 50 01/25/23 08:15 50 01/25/23 08:00 99.4 F 120 H 26 H 127/75 98 50 01/25/23 07:45 114 H 23 126/82 97 50 01/25/23 07:30 116 H 25 H 125/74 97 50 01/25/23 07:15 118 H 25 H 130/113 93 L 50 01/25/23 07:00 116 H 26 H 109/82 98 50 01/25/23 06:45 50 01/25/23 06:30 50 01/25/23 06:15 50 01/25/23 06:00 94 18 112/62 97 50 01/25/23 05:45 50 01/25/23 05:30 50 01/25/23 05:16 50 01/25/23 05:00 98 18 104/67 99 50 01/25/23 04:45 50 01/25/23 04:30 50 01/25/23 04:15 50 01/25/23 04:00 98.6 F 95 17 108/62 100 50 01/25/23 03:45 50 01/25/23 03:30 50 01/25/23 03:00 104 H 17 99/57 98 01/25/23 02:00 108 H 18 111/66 99 01/25/23 01:59 107 H 01/25/23 01:49 106 H 01/25/23 01:00 96 23 106/66 98 01/25/23 00:00 98.5 F 96 18 111/69 96 50 01/24/23 23:53 50 01/24/23 23:00 96 20 116/75 98 01/24/23 22:00 92 20 111/68 98 01/24/23 21:00 96 18 114/69 99 01/24/23 20:26 97 01/24/23 20:00 98.3 F 98 20 115/72 98 50 01/24/23 19:50 50 01/24/23 19:45 94 01/24/23 19:42 50 01/24/23 19:00 100 20 112/73 99 01/24/23 18:45 102 H 20 137/77 99 01/24/23 18:30 105 H 22 137/77 97 01/24/23 18:15 98.2 F 104 H 22 146/86 97 50 01/24/23 18:10 110 H 18 01/24/23 17:00 98.2 F 105 H 20 118/75 100 01/24/23 16:15 110 H 18 124/73 100 01/24/23 16:00 108 H 18 130/78 100 01/24/23 15:45 111 H 18 132/78 100 01/24/23 15:44 50 01/24/23 15:42 50 01/24/23 15:30 109 H 18 133/81 100 01/24/23 15:15 98.1 F 111 H 18 133/84 100 01/24/23 15:10 117 H 01/24/23 14:50 113 H 01/24/23 14:45 100 01/24/23 14:40 24 01/24/23 14:30 98.7 F 136 H 24 134/95 100 Intake and Output 01/24/23 01/25/23 01/25/23 22:59 06:59 14:59 Intake Total 149.660 394.915 8955.408 Output Total 295 1225 110 Balance -145.340 -5880.435 2015.408 Intake: IV 1226 0.9 20 Pressure Bags 6 Sodium Chloride 0.9% 1, 200 000 ml @ 100 mls/hr IV . Q10H [facility] Rx#:[id number] Sodium Chloride 0.9% 1, 1000 000 ml @ 999 mls/hr IV . Q1H1M [facility] Rx#:[id number] Intake, IV Titration 149.660 140.659 96.408 Amount propofoL 1,000 mg In 149.660 140.659 96.408 Empty Bag 1 bag @ 15 MCG/ KG/MIN 7.348 mls/hr IV . [id number] [facility] Rx#:[id number] Other 60 Output: Urine 295 1225 110 Other: Voiding Method Indwelling Catheter Indwelling Catheter Indwelling Catheter Weight 81.647 kg 70.1 kg 68.4 kg GENERAL: Revealed a 62-year-old female intubated, mechanically ventilated, sedated, on propofol. HEENT: PERRLA, EOMI, nonicteric, no neck masses, no JVD, endotracheal tube and orogastric tube are intact CARDIOVASCULAR: Distant S1 and S2, no S3 gallop, no murmur. PULMONARY: Scattered rhonchi noted bilaterally. Some wheezing. Symmetrical chest expansion ABDOMEN: Soft nontender no megaly no rebound no guarding MUSCULOSKELETAL: No deformities, cannot assess range of motion EXTREMITIES: No clubbing edema or cyanosis. -NEUROLOGICAL: Could not be assessed patient is fully sedated. SKIN: No rashes Psychiatric: Could not assess Results - Laboratory Findings CBC and BMP: 01/25/23 04:21 01/25/23 04:21 ABG ABG pH 7.41 (7.35-7.45) 01/25/23 05:55 ABG pCO2 60 mmHg (35-45) H 01/25/23 05:55 ABG pO2 98 mmHg (83-108) 01/25/23 05:55 ABG O2 Saturation 98.1 % (94-97) H 01/25/23 05:55 PT/INR, D-dimer PT 10.2 sec (9.0-12.0) 01/24/23 15:10 INR 1.0 (<1.2) 01/24/23 15:10 Abnormal lab findings: Abnormal Labs 01/24/23 01/24/23 01/24/23 14:37 14:37 15:10 Hgb 8.7 L Hct 29.0 L MCV 76.3 L MCH 22.8 L MCHC 29.9 L RDW 17.7 H Plt Count 483 H Lymphocytes # 0.7 L APTT ABG pH ABG pCO2 ABG pO2 ABG HCO3 ABG Total CO2 ABG O2 Saturation ABG Hematocrit ABG Potassium ABG Glucose Hemoglobin Chloride Carbon Dioxide 33 H BUN 25 H Glucose 154 H POC Glucose (mg/dL) AST 61 H Troponin I 0.053 H* Procalcitonin Arterial Blood Potassium Arterial Blood Glucose 01/24/23 01/24/23 01/24/23 15:10 15:28 18:15 Hgb Hct MCV MCH MCHC RDW Plt Count Lymphocytes # APTT 20.6 L ABG pH 7.20 L ABG pCO2 88 H* ABG pO2 >400 H ABG HCO3 34 H ABG Total CO2 37 H ABG O2 Saturation 99.5 H ABG Hematocrit ABG Potassium ABG Glucose Hemoglobin Chloride Carbon Dioxide BUN Glucose POC Glucose (mg/dL) 164 H AST Troponin I Procalcitonin Arterial Blood Potassium Arterial Blood Glucose 01/24/23 01/25/23 01/25/23 19:25 00:01 04:21 Hgb 8.7 L Hct 28.7 L MCV 75.1 L MCH 22.8 L MCHC 30.4 L RDW 17.3 H Plt Count Lymphocytes # 0.8 L APTT ABG pH 7.33 L ABG pCO2 67 H ABG pO2 136 H ABG HCO3 35 H ABG Total CO2 37 H ABG O2 Saturation 98.8 H ABG Hematocrit 25 L ABG Potassium ABG Glucose 140 H Hemoglobin 8.1 L Chloride Carbon Dioxide BUN Glucose POC Glucose (mg/dL) 161 H AST Troponin I Procalcitonin Arterial Blood Potassium Arterial Blood Glucose 140 H 01/25/23 01/25/23 01/25/23 04:21 04:21 05:55 Hgb Hct MCV MCH MCHC RDW Plt Count Lymphocytes # APTT ABG pH ABG pCO2 60 H ABG pO2 ABG HCO3 38 H ABG Total CO2 40 H ABG O2 Saturation 98.1 H ABG Hematocrit 24 L ABG Potassium 3.3 L ABG Glucose 140 H Hemoglobin 8.0 L Chloride 97 L Carbon Dioxide 33 H BUN 22 H Glucose 147 H POC Glucose (mg/dL) AST Troponin I Procalcitonin 0.14 H Arterial Blood Potassium 3.3 L Arterial Blood Glucose 140 H 01/25/23 01/25/23 06:07 11:38 Hgb Hct MCV MCH MCHC RDW Plt Count Lymphocytes # APTT ABG pH ABG pCO2 ABG pO2 ABG HCO3 ABG Total CO2 ABG O2 Saturation ABG Hematocrit ABG Potassium ABG Glucose Hemoglobin Chloride Carbon Dioxide BUN Glucose POC Glucose (mg/dL) 158 H 154 H AST Troponin I Procalcitonin Arterial Blood Potassium Arterial Blood Glucose - Diagnostic Findings Chest x-ray: image reviewed (No evidence of acute process noted on the chest x- ray, endotracheal tube is in proper position) Assessment and Plan Assessment: Impression: Acute hypoxic and hypercapnic respiratory failure, requiring intubation and mechanical ventilation Acute exacerbation of COPD No evidence of pneumonia based on chest x-ray findings History of depression History of underlying coronary artery disease Recommendation: Continue ventilatory support, patient is not ready for weaning Continue IV Solu-Medrol Continue bronchodilators and steroids 6 nutritional support/enteral feeding to be started today Continue sedation patient is not ready for weaning Continue GI and DVT prophylaxis. Empiric antibiotics considering her COPD presentation and possible tracheobronchitis again no clear-cut evidence of pneumonia., Patient does have slightly elevated protein at the level Patient is critically ill We will continue to follow. Time with Patient: Greater than 30
--- NOTE | 2023-01-25 12:51 | OP ---
OPERATIVE REPORT DATE OF SERVICE : PROCEDURE PERFORMED: Placement of right subclavian triple-lumen catheter. PREOPERATIVE DIAGNOSIS: Acute hypoxic and hypercapnic respiratory failure. POSTOPERATIVE DIAGNOSIS: Acute hypoxic and hypercapnic respiratory failure. ANESTHESIA USED: 2 mL of 1% lidocaine. DESCRIPTION OF PROCEDURE: The patient was placed in a Trendelenburg position, the area of the right IJ region and the right subclavian region were prepared in a sterile fashion, drapes were applied. Attempts were made to cannulate the right internal jugular vein, but could not access the right internal jugular vein. Then, using the infraclavicular approach, I was able to cannulate the right subclavian vein easily, a guidewire was placed, and the area around the guidewire was dilated. Then a triple-lumen catheter was inserted over the guidewire, and the guidewire was removed. Good blood flow in the 3 different ports of the triple-lumen catheter. Line was secured using 3.0 silk sutures. Chest x-ray showed no complications and adequate placement of the triple-lumen catheter going through the right subclavian vein. MMODL / IJN: [id number] /
--- NOTE | 2023-01-25 12:58 | OP ---
OPERATIVE REPORT DATE OF SERVICE : PROCEDURE PERFORMED: Placement of left radial arterial line. PREOPERATIVE DIAGNOSIS: Acute hypoxic and hypercapnic respiratory failure. POSTOPERATIVE DIAGNOSIS: Acute hypoxic and hypercapnic respiratory failure. ANESTHESIA USED: None deployed. DESCRIPTION OF PROCEDURE: The left wrist was prepared in a sterile fashion. Drapes were applied. The left radial artery was palpated, cannulated easily and a guidewire was placed. A Cook's catheter was inserted over the guidewire, and the guidewire was removed. Good blood flow, good waveform, no complications, line was secured using 3.0 silk sutures. MMODL / IJN: [id number] /
[2023-01-25 17:58] LABS: Glucose,Whole Blood 158 mg/dL (70-110)
[2023-01-25] MEDS: MONTELUKAST 10 MG TAB PO SCH (19:43)
--- NOTE | 2023-01-25 21:57 | CT ---
EXAMINATION TYPE: CT brain wo con DATE OF EXAM: 01/25/2023 HISTORY: AMS, pupils asymmetry CT DLP: 1092.4 mGycm. Automated Exposure Control for Dose Reduction was Utilized. TECHNIQUE: CT scan of the head is performed without contrast. COMPARISON: None. FINDINGS: There is no acute intracranial hemorrhage or midline shift identified. There is no mass or mass effect. No definite new attenuation defect. The globes are intact and the visualized sinuses are clear. IMPRESSION: No acute process.
[2023-01-26] MEDS: HEPARIN SODIUM,PORCINE 5,000 UNIT/ML 1 ML VIAL SQ SCH ×3 (00:05→16:27)
[2023-01-26] MEDS: methylPREDNISolone SOD SUCCI 125 MG/2 ML VIAL IV SCH ×4 (00:05→17:55)
[2023-01-26 00:14] LABS: Glucose,Whole Blood 197 mg/dL (70-110)
[2023-01-26] MEDS: IPRATROPIUM-ALBUTEROL 3 ML NEB INHALATION SCH ×5 (03:44→19:58)
[2023-01-26] MEDS: SODIUM CHLORIDE 0.9% 1,000 ML IV SCH ×2 (04:09→14:45)
[2023-01-26 05:51] LABS: Glucose,Whole Blood 176 mg/dL (70-110)
[2023-01-26 06:15] LABS: ABG Base Excess 8.5 mmol/L; ABG HCO3 34 mmol/L (21-25); ABG Oxygen Saturation 95.9 % (94-97); ABG PCO2 61 mmHg (35-45); ABG PH 7.36 (7.35-7.45); ABG PO2 83 mmHg (83-108); ABG TCO2 36 mmol/L (19-24); Allen Test Performed? Yes
[2023-01-26 06:27] LABS: African American GFR (CKD) >90 (>60 ml/min/1.73 sqM); Anion Gap 4 mmol/L; Blood Urea Nitrogen 21 mg/dL (7-17); Calcium 8.4 mg/dL (8.4-10.2); Carbon Dioxide 34 mmol/L (22-30); Chloride 104 mmol/L (98-107); Glucose 161 mg/dL (74-99); Non-African American GFR(CKD) >90 (>60 ml/min/1.73 sqM); Potassium 3.6 mmol/L (3.5-5.1); Sodium 142 mmol/L (137-145)
[2023-01-26 06:31] LABS: Anisocytosis Slight; Basophils % (A) 0 %; Eosinophils % (A) 0 %; HCT 25.7 % (34.0-46.0); HGB 7.7 gm/dL (11.4-16.0); Hypochromasia Marked; Lymphocytes # (A) 0.4 k/uL (1.0-4.8); Lymphocytes % (A) 3 %; MCH 23.1 pg (25.0-35.0); MCHC 30.1 g/dL (31.0-37.0); MCV 76.7 fL (80.0-100.0); Mean Platelet Volume 8.5; Microcytosis Slight; Monocytes # (A) 0.7 k/uL (0-1.0); Monocytes % (A) 5 %; Neutrophils % (A) 91 %; Platelet Count 433 k/uL (150-450); RBC 3.35 m/uL (3.80-5.40); RDW 17.2 % (11.5-15.5); WBC 13.2 k/uL (3.8-10.6)
--- NOTE | 2023-01-26 06:49 | XR ---
EXAMINATION TYPE: XR chest 1V portable DATE OF EXAM: 01/26/2023 CLINICAL HISTORY: Difficulty breathing tube placement. TECHNIQUE: Single AP portable semiupright view of the chest is obtained. COMPARISON: Chest x-ray from one day earlier and older studies. FINDINGS: Stable endotracheal and orogastric tubes. Stable right-sided subclavian central venous cat heter. Lungs remain grossly clear. Some chronic changes are felt present. Cardiac silhouette size stable and within normal limits. Osseous structures are intact. IMPRESSION: 1. No new acute pulmonary process. No significant change from one day earlier.
[2023-01-26] MEDS ORDERED: POTASSIUM BICARBONATE/CIT AC 20 MEQ TABLET.EFF NG-TUBE SCH (07:00)
[2023-01-26] MEDS: FORMOTEROL FUMARATE 20 MCG/2 ML NEBU INHALATION SCH ×2 (08:25→19:58)
[2023-01-26] MEDS: BUDESONIDE 1 MG/2 ML NEBU INHALATION SCH ×2 (08:25→19:58)
[2023-01-26] MEDS: CHLORHEXIDINE GLUCONATE 15 ML CUP MUCOUS MEM SCH ×2 (08:31→21:41)
[2023-01-26] MEDS: PANTOPRAZOLE 40 MG/10 ML VIAL IV SCH (08:32)
[2023-01-26] MEDS: DILTIAZEM ORAL 30 MG TAB PO SCH ×4 (08:32→22:09)
[2023-01-26] MEDS: PREGABALIN 100 MG CAP PO SCH ×2 (08:33→21:41)
[2023-01-26] MEDS ORDERED: VANCOMYCIN IV PER PHARMACY 1 EACH MISC MISCELLANE PRN (11:36)
--- NOTE | 2023-01-26 11:40 | P.PN ---
"Subjective Progress Note Date: 01/26/23 Principal diagnosis: Acute hypoxic and hypercapnic respiratory failure secondary to acute exacerbation of COPD This is a 62-year-old female with known history of COPD, coronary artery disease, not familiar to our service, patient was brought into the ER yesterday in extreme respiratory distress. Patient was noted to have acute hypoxic and hypercapnic respiratory failure, she was intubated almost upon her initial presentation to the ER because she was mostly in severe respiratory distress. Shortly after intubation the patient was noted to have a pO2 of more than 400 pCO2 88 pH of 7.20. Repeat blood gases after the patient was sent to the ICU showed a pO2 of 136 pCO2 67 pH of 7.33 and her ABG this morning showed a pO2 of 98 pCO2 60 pH of 7.41. Chest x-ray on admission showed no evidence of acute process except for emphysematous changes. No evidence of infiltrate. And no evidence of congestive heart failure. Patient is now on assist control rate of 20 tidal volume 350 FiO2 50% and PEEP of 5. She is not requiring any pressors patient is on propofol at 60 mcg/kg/m. Earlier this morning on a lower dose of propofol, patient was noted to be agitated, wheezing, and clearly was not ready for weaning. Hence the dose of propofol was increased, in the meantime we are giving the patient bronchodilators in the form of one nap, she is also on Pulmicort and Perforomist, and I added Solu-Medrol. Patient is also on antibiotics empirically. WBC count is 7.6 hemoglobin is 8.7, basic metabolic profile is normal bicarb is high 33 BUN is 22 creatinine 0.70 Patient was reevaluated today on 01/26/2023, patient is basically about the same. Remains intubated and mechanically ventilated, she is on assist control rate of 20 tidal volume 350 FiO2 40% and PEEP of 5 ABG showed a pO2 of 83 pCO2 61 pH of 7.36. This morning the patient is noted to be not synchronous with the ventilator, she is having breath stacking, hence I had to increase her propofol to 75 mcg/kg/m from 60 mcg/kg/m. And obviously the patient is not quite ready for any weaning trials. Remains on ceftriaxone empirically, patient has good urine output, brain CT is negative, Dilaudid was added for agitation along with higher dose of propofol. Chest x-ray no evidence of active disease. WBC count is 13.2 hemoglobin is 7.7 electrolytes are normal sputum Gram stain is showing presumptive staph aureus. Hence we will give the patient is dose of vancomycin and decide on further treatment if this turns out to be MRSA or MSSA. Objective - Vital Signs Vital signs: Vital Signs Temp 99.9 F H 01/26/23 08:00 Pulse 90 01/26/23 11:00 Resp 20 01/26/23 11:00 BP 109/69 01/25/23 21:00 Pulse Ox 96 01/26/23 11:00 FiO2 40 01/26/23 08:56 Intake & Output 01/25/23 01/26/23 01/26/23 18:59 06:59 18:59 Intake Total 3477.959 1905.416 806.736 Output Total 320 685 460 Balance 3157.959 1220.416 346.736 Weight 68.4 kg 71.3 kg Intake: IV 3018 1272 580 0.9 20 Pressure Bags 48 72 30 Sodium Chloride 0.9% 1, 900 1200 500 000 ml @ 100 mls/hr IV . Q10H [facility] Rx#:[id number] Sodium Chloride 0.9% 1, 1000 000 ml @ 999 mls/hr IV . Q1H1M [facility] Rx#:[id number] Sodium Chloride 0.9% 1, 1000 000 ml @ 999 mls/hr IV . Q1H1M [facility] Rx#:[id number] cefTRIAXone 1 gm In 50 50 Sodium Chloride 0.9% 50 ml @ 100 mls/hr IVPB Q24HR [facility] Rx#:[id number] Intake, IV Titration 309.959 240.416 108.736 Amount propofoL 1,000 mg In 309.959 240.416 108.736 Empty Bag 1 bag @ 15 MCG/ KG/MIN 7.348 mls/hr IV . [id number] [facility] Rx#:[id number] Tube Feeding 60 303 88 Other 90 90 30 Output: Urine 320 685 460 Other: Voiding Method Indwelling Catheter Indwelling Catheter ABP, PAP, CO, CI - Last Documented Arterial Blood Pressure 123/67 - Exam Physical exam: GENERAL: Revealed a 62-year-old female intubated, mechanically ventilated, on fentanyl and she is also on propofol HEENT: PERRLA, EOMI, nonicteric, no neck masses, no JVD, endotracheal tube and orogastric tube are intact CARDIOVASCULAR: Distant S1 and S2, no S3 gallop, no murmur. PULMONARY: Scattered rhonchi noted bilaterally. Diminished breath sounds at the bases ABDOMEN: Soft nontender no megaly no rebound no guarding MUSCULOSKELETAL: No deformities, cannot assess range of motion EXTREMITIES: No clubbing edema or cyanosis. -NEUROLOGICAL: Could not be assessed patient is fully sedated. SKIN: No rashes Psychiatric: Could not assess - Labs CBC & Chem 7: 01/26/23 06:00 01/26/23 06:00 Labs: Abnormal Lab Results - Last 24 Hours (Table) 01/25/23 01/25/23 01/26/23 Range/Units 11:38 17:56 00:13 WBC (3.8-10.6) k/uL RBC (3.80-5.40) m/uL Hgb (11.4-16.0) gm/dL Hct (34.0-46.0) % MCV (80.0-100.0) fL MCH (25.0-35.0) pg MCHC (31.0-37.0) g/dL RDW (11.5-15.5) % Neutrophils # (1.3-7.7) k/uL Lymphocytes # (1.0-4.8) k/uL ABG pCO2 (35-45) mmHg ABG HCO3 (21-25) mmol/L ABG Total CO2 (19-24) mmol/L Carbon Dioxide (22-30) mmol/L BUN (7-17) mg/dL Glucose (74-99) mg/dL POC Glucose (mg/dL) 154 H 158 H 197 H (70-110) mg/dL 01/26/23 01/26/23 01/26/23 Range/Units 05:49 06:00 06:00 WBC 13.2 H (3.8-10.6) k/uL RBC 3.35 L (3.80-5.40) m/uL Hgb 7.7 L (11.4-16.0) gm/dL Hct 25.7 L (34.0-46.0) % MCV 76.7 L (80.0-100.0) fL MCH 23.1 L (25.0-35.0) pg MCHC 30.1 L (31.0-37.0) g/dL RDW 17.2 H (11.5-15.5) % Neutrophils # 12.0 H (1.3-7.7) k/uL Lymphocytes # 0.4 L (1.0-4.8) k/uL ABG pCO2 (35-45) mmHg ABG HCO3 (21-25) mmol/L ABG Total CO2 (19-24) mmol/L Carbon Dioxide 34 H (22-30) mmol/L BUN 21 H (7-17) mg/dL Glucose 161 H (74-99) mg/dL POC Glucose (mg/dL) 176 H (70-110) mg/dL 01/26/23 Range/Units 06:08 WBC (3.8-10.6) k/uL RBC (3.80-5.40) m/uL Hgb (11.4-16.0) gm/dL Hct (34.0-46.0) % MCV (80.0-100.0) fL MCH (25.0-35.0) pg MCHC (31.0-37.0) g/dL RDW (11.5-15.5) % Neutrophils # (1.3-7.7) k/uL Lymphocytes # (1.0-4.8) k/uL ABG pCO2 61 H (35-45) mmHg ABG HCO3 34 H (21-25) mmol/L ABG Total CO2 36 H (19-24) mmol/L Carbon Dioxide (22-30) mmol/L BUN (7-17) mg/dL Glucose (74-99) mg/dL POC Glucose (mg/dL) (70-110) mg/dL Microbiology - Last 24 Hours (Table) 01/24/23 22:17 Gram Stain - Preliminary Sputum Sputum Culture - Preliminary Presumptive Staph aureus Assessment and Plan Assessment: Impression: Acute hypoxic and hypercapnic respiratory failure, requiring intubation and mechanical ventilation Acute exacerbation of COPD No evidence of pneumonia based on chest x-ray findings History of depression History of underlying coronary artery disease Positive sputum for staph aureus, sensitivity and final identification is pending Recommendation: Continue ventilatory support, patient is not ready for weaning Continue IV Solu-Medrol Continue bronchodilators and steroids Continue nutritional support/enteral feeding patient does have some residual will give the patient |trickle feedings Continue sedation patient is not ready for weaning Continue GI and DVT prophylaxis. Empiric antibiotics considering her COPD presentation and possible tracheobronchitis again no clear-cut evidence of pneumonia., Considering the patient has staph aureus in the sputum, will empirically start vancomycin Patient is critically ill Critical care time is over 30 minutes We will continue to follow. Time with Patient: Greater than 30"
[2023-01-26 12:06] LABS: Glucose,Whole Blood 176 mg/dL (70-110)
[2023-01-26] MEDS: HYDROmorphone 1 MG/ML 1 ML SYRINGE IVP PRN ×2 (12:21→21:08)
--- NOTE | 2023-01-26 12:50 | P.PN ---
Subjective Progress Note Date: 01/26/23 62 years old female with past medical history of Asthma, Coronary Artery Disease, COPD Patient presents because of shortness of breath and altered mental status, as per documentation patient has difficulty talking because of her dysonea and she was using accessory muscles. Her respiratory distress was severe and patient required intubation and mechanical ventilation while in the emergency room. PH 7.73, pCO2 88 and 67 BMP showing creatinine 0.7, glucose 154, liver enzymes not elevated. Troponin mildly elevated at 0.05. EKG showing sinus tachycardia at 130 ProBNP is elevated 1450 chest x-ray showed COPD however there is linear right upper lobe typical scar or atelectasis per radiologist. 01/26: Patient seen and evaluated and bedside. Intubated, sedated with propofol. Critical care team following Objective - Vital Signs Vital signs: Vital Signs Temp 97.8 F 01/26/23 12:30 Pulse 98 01/26/23 12:41 Resp 16 01/26/23 12:30 BP 109/69 01/26/23 12:00 Pulse Ox 95 01/26/23 12:30 FiO2 40 01/26/23 12:30 Intake & Output 01/25/23 01/26/23 01/26/23 18:59 06:59 18:59 Intake Total 3477.959 1905.416 806.736 Output Total 320 685 460 Balance 3157.959 1220.416 346.736 Weight 68.4 kg 71.3 kg Intake: IV 3018 1272 580 0.9 20 Pressure Bags 48 72 30 Sodium Chloride 0.9% 1, 900 1200 500 000 ml @ 100 mls/hr IV . Q10H [facility] Rx#:[id number] Sodium Chloride 0.9% 1, 1000 000 ml @ 999 mls/hr IV . Q1H1M [facility] Rx#:[id number] Sodium Chloride 0.9% 1, 1000 000 ml @ 999 mls/hr IV . Q1H1M [facility] Rx#:[id number] cefTRIAXone 1 gm In 50 50 Sodium Chloride 0.9% 50 ml @ 100 mls/hr IVPB Q24HR [facility] Rx#:[id number] Intake, IV Titration 309.959 240.416 108.736 Amount propofoL 1,000 mg In 309.959 240.416 108.736 Empty Bag 1 bag @ 15 MCG/ KG/MIN 7.348 mls/hr IV . [id number] [facility] Rx#:[id number] Tube Feeding 60 303 88 Other 90 90 30 Output: Urine 320 685 460 Other: Voiding Method Indwelling Catheter Indwelling Catheter ABP, PAP, CO, CI - Last Documented Arterial Blood Pressure 83/72 - Exam PHYSICAL EXAMINATION: GENERAL: The patient is alert and oriented x0, intubated and sedated HEENT: Pupils are round and equally reacting to light. CARDIOVASCULAR: S1 and S2 present. No murmurs, rubs, or gallops. PULMONARY: Intubated, breath sounds equal bilaterally ABDOMEN: Soft, nontender, nondistended, normoactive bowel sounds. MUSCULOSKELETAL: No joint swelling or deformity. EXTREMITIES: No cyanosis, clubbing, or pedal edema. NEUROLOGICAL: Intubated and sedated, exam limited - Labs CBC & Chem 7: 01/26/23 06:00 01/26/23 06:00 Labs: Abnormal Lab Results - Last 24 Hours (Table) 01/25/23 01/26/23 01/26/23 Range/Units 17:56 00:13 05:49 WBC (3.8-10.6) k/uL RBC (3.80-5.40) m/uL Hgb (11.4-16.0) gm/dL Hct (34.0-46.0) % MCV (80.0-100.0) fL MCH (25.0-35.0) pg MCHC (31.0-37.0) g/dL RDW (11.5-15.5) % Neutrophils # (1.3-7.7) k/uL Lymphocytes # (1.0-4.8) k/uL ABG pCO2 (35-45) mmHg ABG HCO3 (21-25) mmol/L ABG Total CO2 (19-24) mmol/L Carbon Dioxide (22-30) mmol/L BUN (7-17) mg/dL Glucose (74-99) mg/dL POC Glucose (mg/dL) 158 H 197 H 176 H (70-110) mg/dL 01/26/23 01/26/23 01/26/23 Range/Units 06:00 06:00 06:08 WBC 13.2 H (3.8-10.6) k/uL RBC 3.35 L (3.80-5.40) m/uL Hgb 7.7 L (11.4-16.0) gm/dL Hct 25.7 L (34.0-46.0) % MCV 76.7 L (80.0-100.0) fL MCH 23.1 L (25.0-35.0) pg MCHC 30.1 L (31.0-37.0) g/dL RDW 17.2 H (11.5-15.5) % Neutrophils # 12.0 H (1.3-7.7) k/uL Lymphocytes # 0.4 L (1.0-4.8) k/uL ABG pCO2 61 H (35-45) mmHg ABG HCO3 34 H (21-25) mmol/L ABG Total CO2 36 H (19-24) mmol/L Carbon Dioxide 34 H (22-30) mmol/L BUN 21 H (7-17) mg/dL Glucose 161 H (74-99) mg/dL POC Glucose (mg/dL) (70-110) mg/dL 01/26/23 Range/Units 12:05 WBC (3.8-10.6) k/uL RBC (3.80-5.40) m/uL Hgb (11.4-16.0) gm/dL Hct (34.0-46.0) % MCV (80.0-100.0) fL MCH (25.0-35.0) pg MCHC (31.0-37.0) g/dL RDW (11.5-15.5) % Neutrophils # (1.3-7.7) k/uL Lymphocytes # (1.0-4.8) k/uL ABG pCO2 (35-45) mmHg ABG HCO3 (21-25) mmol/L ABG Total CO2 (19-24) mmol/L Carbon Dioxide (22-30) mmol/L BUN (7-17) mg/dL Glucose (74-99) mg/dL POC Glucose (mg/dL) 176 H (70-110) mg/dL Microbiology - Last 24 Hours (Table) 01/24/23 22:17 Gram Stain - Preliminary Sputum Sputum Culture - Preliminary Presumptive Staph aureus Assessment and Plan Assessment: Assessment and plan * Acute hypoxic respiratory failure with COPD exacerbation * Staph aureus pneumonia * Status post intubation requiring mechanical ventilation * Acute encephalopathy metabolic * Coronary artery disease * In regards to COPD exacerbation continue patient on steroids, continue breathing treatments, intubated and sedated, managed by ICU * Continue patient on Rocephin, day 2, continue vancomycin * Follow up on sputum cultures, growing staph aureus * In regards to encephalopathy CT head obtained negative * CODE STATUS is full code patient remains critically ill
[2023-01-26] MEDS ORDERED: VANCOMYCIN 1,500 MG in SODIUM CHLORIDE 0.9% 500 ML 500 ML IVPB ONE (13:00)
[2023-01-26 18:10] LABS: Glucose,Whole Blood 172 mg/dL (70-110)
[2023-01-26] MEDS ORDERED: DILTIAZEM ORAL 30 MG TAB PO STA (21:32)
[2023-01-26] MEDS: MONTELUKAST 10 MG TAB PO SCH (21:41)
[2023-01-27] MEDS ORDERED: DILTIAZEM ORAL 30 MG TAB PO ONE
[2023-01-27] MEDS: IPRATROPIUM-ALBUTEROL 3 ML NEB INHALATION SCH ×6 (00:19→19:57)
[2023-01-27] MEDS: HEPARIN SODIUM,PORCINE 5,000 UNIT/ML 1 ML VIAL SQ SCH ×4 (00:23→23:21)
[2023-01-27] MEDS: VANCOMYCIN 1,250 MG in SODIUM CHLORIDE 0.9% 250 ML IVPB SCH ×3 (00:23→23:22)
[2023-01-27] MEDS: methylPREDNISolone SOD SUCCI 125 MG/2 ML VIAL IV SCH ×5 (00:23→23:21)
[2023-01-27] MEDS: SODIUM CHLORIDE 0.9% 1,000 ML IV SCH ×3 (00:34→19:03)
[2023-01-27 00:39] LABS: Glucose,Whole Blood 171 mg/dL (70-110)
[2023-01-27] MEDS: HYDROmorphone 1 MG/ML 1 ML SYRINGE IVP PRN ×5 (01:15→23:59)
--- NOTE | 2023-01-27 01:15 | XR ---
EXAM: XR Chest, 1 View CLINICAL HISTORY: ITS.REASON XR Reason: NG placement. TECHNIQUE: Frontal view of the chest. COMPARISON: 01/26/2023 FINDINGS: Lungs: No consolidation. No overt edema. Pleural space: No pleural effusion. No pneumothorax. Heart: Unremarkable. No cardiomegaly. Tubes, lines and devices: Endotracheal tube terminates 2.8 cm above the prerna. Right subclavian central line terminates within the right atrium. Esophagogastric tube is looped within the gastric fundus, distal end pointed retrograde within the distal thoracic esophagus. IMPRESSION: Esophagogastric tube is looped within the gastric fundus, distal end pointed retrograde within the distal thoracic esophagus.
[2023-01-27 05:38] LABS: Glucose,Whole Blood 187 mg/dL (70-110)
[2023-01-27 06:06] LABS: Allen Test Performed? Yes
[2023-01-27 06:07] LABS: ABG PCO2 63 mmHg (35-45); ABG PH 7.29 (7.35-7.45); ABG PO2 76 mmHg (83-108)
--- NOTE | 2023-01-27 06:40 | XR ---
EXAMINATION TYPE: XR chest 1V portable DATE OF EXAM: 01/27/2023 CLINICAL HISTORY: Difficulty breathing progress study. TECHNIQUE: Single AP portable semiupright view of the chest is obtained. COMPARISON: Chest x-ray from one day earlier and older studies FINDINGS: Stable endotracheal and orogastric tubes. Stable right-sided subclavian central venous cat heter. Chronic parenchymal changes are redemonstrated. No new suspicious focal airspace opacity. Cardiac debi houette size stable and within normal limits. Osseous structures are intact. IMPRESSION: 1. No new acute pulmonary process. No significant change from one day earlier.
[2023-01-27] MEDS: INSULIN ASPART (NovoLOG) 100 UNIT/ML VIAL SQ SCH ×3 (06:59→17:30)
[2023-01-27 08:03] LABS: Anisocytosis Slight; HCT 26.6 % (34.0-46.0); HGB 7.8 gm/dL (11.4-16.0); Hypochromasia Marked; MCHC 29.5 g/dL (31.0-37.0); Mean Platelet Volume 8.1; Microcytosis Slight; Platelet Count 455 k/uL (150-450); RBC 3.41 m/uL (3.80-5.40); RDW 17.8 % (11.5-15.5); WBC 12.6 k/uL (3.8-10.6)
[2023-01-27 08:16] LABS: African American GFR (CKD) >90 (>60 ml/min/1.73 sqM); Anion Gap 4 mmol/L; Blood Urea Nitrogen 24 mg/dL (7-17); Calcium 8.2 mg/dL (8.4-10.2); Carbon Dioxide 30 mmol/L (22-30); Chloride 110 mmol/L (98-107); Glucose 151 mg/dL (74-99); Non-African American GFR(CKD) >90 (>60 ml/min/1.73 sqM); Potassium 4.2 mmol/L (3.5-5.1); Sodium 144 mmol/L (137-145)
[2023-01-27] MEDS: FORMOTEROL FUMARATE 20 MCG/2 ML NEBU INHALATION SCH ×2 (08:52→19:57)
[2023-01-27] MEDS: BUDESONIDE 1 MG/2 ML NEBU INHALATION SCH ×2 (08:52→19:57)
[2023-01-27] MEDS: PREGABALIN 100 MG CAP PO SCH ×2 (09:18→20:19)
[2023-01-27] MEDS: PANTOPRAZOLE 40 MG/10 ML VIAL IV SCH (09:18)
[2023-01-27] MEDS: CHLORHEXIDINE GLUCONATE 15 ML CUP MUCOUS MEM SCH ×2 (09:19→20:19)
[2023-01-27] MEDS: DILTIAZEM ORAL 30 MG TAB PO SCH ×4 (09:19→22:11)
--- NOTE | 2023-01-27 10:32 | P.PN ---
"Subjective Progress Note Date: 01/27/23 Principal diagnosis: Acute hypoxic and hypercapnic respiratory failure secondary to acute exacerbation of COPD This is a 62-year-old female with known history of COPD, coronary artery disease, not familiar to our service, patient was brought into the ER yesterday in extreme respiratory distress. Patient was noted to have acute hypoxic and hypercapnic respiratory failure, she was intubated almost upon her initial presentation to the ER because she was mostly in severe respiratory distress. Shortly after intubation the patient was noted to have a pO2 of more than 400 pCO2 88 pH of 7.20. Repeat blood gases after the patient was sent to the ICU showed a pO2 of 136 pCO2 67 pH of 7.33 and her ABG this morning showed a pO2 of 98 pCO2 60 pH of 7.41. Chest x-ray on admission showed no evidence of acute process except for emphysematous changes. No evidence of infiltrate. And no evidence of congestive heart failure. Patient is now on assist control rate of 20 tidal volume 350 FiO2 50% and PEEP of 5. She is not requiring any pressors patient is on propofol at 60 mcg/kg/m. Earlier this morning on a lower dose of propofol, patient was noted to be agitated, wheezing, and clearly was not ready for weaning. Hence the dose of propofol was increased, in the meantime we are giving the patient bronchodilators in the form of one nap, she is also on Pulmicort and Perforomist, and I added Solu-Medrol. Patient is also on antibiotics empirically. WBC count is 7.6 hemoglobin is 8.7, basic metabolic profile is normal bicarb is high 33 BUN is 22 creatinine 0.70 Patient was reevaluated today on 01/26/2023, patient is basically about the same. Remains intubated and mechanically ventilated, she is on assist control rate of 20 tidal volume 350 FiO2 40% and PEEP of 5 ABG showed a pO2 of 83 pCO2 61 pH of 7.36. This morning the patient is noted to be not synchronous with the ventilator, she is having breath stacking, hence I had to increase her propofol to 75 mcg/kg/m from 60 mcg/kg/m. And obviously the patient is not quite ready for any weaning trials. Remains on ceftriaxone empirically, patient has good urine output, brain CT is negative, Dilaudid was added for agitation along with higher dose of propofol. Chest x-ray no evidence of active disease. WBC count is 13.2 hemoglobin is 7.7 electrolytes are normal sputum Gram stain is showing presumptive staph aureus. Hence we will give the patient is dose of vancomycin and decide on further treatment if this turns out to be MRSA or MSSA. Reevaluated today on 01/27/2023, patient remains in the ICU, intubated and mechanically ventilated. Patient is on assist control rate of 20 increased to 22 today tidal volume 350 FiO2 50% PEEP of 5 ABG showed a pO2 of 76 pCO2 63 pH of 7.29 continues to have enteral feeding but this is more of a trickle feeding, patient has relatively intermittently high residual. She is on propofol at 70 mcg/kg/m 0.9 normal saline at 100 mL/h vital HPI at 10 mL per hour she is receiving Dilaudid intermittently and she remains on vancomycin and ceftriaxone empirically. Chest x-ray is not showing any significant abnormality her staph aureus in the sputum is MSSA hence we will discontinue vancomycin. However will continue Rocephin. WBC count is 12.6 hemoglobin 7.8 electrolytes are normal renal profile is normal, chest x-ray showed no evidence of infiltrate. Objective - Vital Signs Vital signs: Vital Signs Temp 97.6 F 01/27/23 09:00 Pulse 70 01/27/23 09:09 Resp 10 L 01/27/23 09:00 BP 132/72 01/27/23 09:00 Pulse Ox 98 01/27/23 09:00 FiO2 50 01/27/23 09:00 Intake & Output 01/26/23 01/27/23 01/27/23 18:59 06:59 18:59 Intake Total 2412.815 2189.637 694.000 Output Total 665 370 140 Balance 8109.945 4389.637 554.000 Intake: IV 1822 1522 524 Pressure Bags 72 72 24 Sodium Chloride 0.9% 1, 1200 1200 400 000 ml @ 100 mls/hr IV . Q10H [facility] Rx#:[id number] Vancomycin 1,500 mg In 500 250 Sodium Chloride 0.9% 500 ml 500 ml @ 167 mls/hr IVPB ONCE [facility] Rx#: [id number] cefTRIAXone 1 gm In 50 100 Sodium Chloride 0.9% 50 ml @ 100 mls/hr IVPB Q24HR [facility] Rx#:[id number] Intake, IV Titration 292.815 442.637 100.000 Amount propofoL 1,000 mg In 292.815 442.637 100.000 Empty Bag 1 bag @ 15 MCG/ KG/MIN 7.348 mls/hr IV . [id number] [facility] Rx#:[id number] Tube Feeding 148 135 10 Other 150 90 60 Output: Urine 665 370 140 Other: Voiding Method Indwelling Catheter Indwelling Catheter ABP, PAP, CO, CI - Last Documented Arterial Blood Pressure 112/70 - Exam Physical exam: GENERAL: Revealed a 62-year-old female intubated, mechanically ventilated, on propofol, and Dilaudid as needed HEENT: PERRLA, EOMI, nonicteric, no neck masses, no JVD, endotracheal tube and orogastric tube are intact CARDIOVASCULAR: Distant S1 and S2, no S3 gallop, no murmur. PULMONARY: Scattered rhonchi noted bilaterally. Diminished breath sounds at the bases ABDOMEN: Soft nontender no megaly no rebound no guarding MUSCULOSKELETAL: No deformities, cannot assess range of motion EXTREMITIES: No clubbing edema or cyanosis. -NEUROLOGICAL: Could not assess because of sedation however the patient will be given a sedation interruption today and hopefully could assess mental status SKIN: No rashes Psychiatric: Could not assess - Labs CBC & Chem 7: 01/27/23 07:05 01/27/23 07:00 Labs: Abnormal Lab Results - Last 24 Hours (Table) 01/26/23 01/26/23 01/27/23 Range/Units 12:05 18:09 00:37 WBC (3.8-10.6) k/uL RBC (3.80-5.40) m/uL Hgb (11.4-16.0) gm/dL Hct (34.0-46.0) % MCV (80.0-100.0) fL MCH (25.0-35.0) pg MCHC (31.0-37.0) g/dL RDW (11.5-15.5) % Plt Count (150-450) k/uL ABG pH (7.35-7.45) ABG pCO2 (35-45) mmHg ABG pO2 (83-108) mmHg Chloride (98-107) mmol/L BUN (7-17) mg/dL Glucose (74-99) mg/dL POC Glucose (mg/dL) 176 H 172 H 171 H (70-110) mg/dL Calcium (8.4-10.2) mg/dL 01/27/23 01/27/23 01/27/23 Range/Units 05:35 06:00 07:00 WBC (3.8-10.6) k/uL RBC (3.80-5.40) m/uL Hgb (11.4-16.0) gm/dL Hct (34.0-46.0) % MCV (80.0-100.0) fL MCH (25.0-35.0) pg MCHC (31.0-37.0) g/dL RDW (11.5-15.5) % Plt Count (150-450) k/uL ABG pH 7.29 L (7.35-7.45) ABG pCO2 63 H (35-45) mmHg ABG pO2 76 L (83-108) mmHg Chloride 110 H (98-107) mmol/L BUN 24 H (7-17) mg/dL Glucose 151 H (74-99) mg/dL POC Glucose (mg/dL) 187 H (70-110) mg/dL Calcium 8.2 L (8.4-10.2) mg/dL 01/27/23 Range/Units 07:05 WBC 12.6 H (3.8-10.6) k/uL RBC 3.41 L (3.80-5.40) m/uL Hgb 7.8 L (11.4-16.0) gm/dL Hct 26.6 L (34.0-46.0) % MCV 78.0 L (80.0-100.0) fL MCH 23.0 L (25.0-35.0) pg MCHC 29.5 L (31.0-37.0) g/dL RDW 17.8 H (11.5-15.5) % Plt Count 455 H (150-450) k/uL ABG pH (7.35-7.45) ABG pCO2 (35-45) mmHg ABG pO2 (83-108) mmHg Chloride (98-107) mmol/L BUN (7-17) mg/dL Glucose (74-99) mg/dL POC Glucose (mg/dL) (70-110) mg/dL Calcium (8.4-10.2) mg/dL Microbiology - Last 24 Hours (Table) 01/24/23 22:17 Gram Stain - Final Sputum Sputum Culture - Final Staphylococcus aureus Assessment and Plan Assessment: Impression: Acute hypoxic and hypercapnic respiratory failure, requiring intubation and mechanical ventilation Acute exacerbation of COPD No evidence of pneumonia based on chest x-ray findings History of depression History of underlying coronary artery disease Positive sputum for staph aureus,/MSSA Recommendation: Continue ventilatory support, patient is not ready for weaning however will hold sedation today and hopefully addressed mental status Continue IV Solu-Medrol Continue bronchodilators and steroids Continue nutritional support/enteral feeding patient does have some residual will give the patient |trickle feedings Discontinue vancomycin and continue Rocephin Continue GI and DVT prophylaxis. Patient is critically ill Not ready for weaning or extubation at this point. Critical care time is over 30 minutes We will continue to follow. Time with Patient: Greater than 30"
--- NOTE | 2023-01-27 11:57 | P.PN ---
Subjective Progress Note Date: 01/27/23 62 years old female with past medical history of Asthma, Coronary Artery Disease, COPD Patient presents because of shortness of breath and altered mental status, as per documentation patient has difficulty talking because of her dysonea and she was using accessory muscles. Her respiratory distress was severe and patient required intubation and mechanical ventilation while in the emergency room. PH 7.73, pCO2 88 and 67 BMP showing creatinine 0.7, glucose 154, liver enzymes not elevated. Troponin mildly elevated at 0.05. EKG showing sinus tachycardia at 130 ProBNP is elevated 1450 chest x-ray showed COPD however there is linear right upper lobe typical scar or atelectasis per radiologist. 01/26: Patient seen and evaluated and bedside. Intubated, sedated with propofol. Critical care team following 01/27: Patient continued to remain intubated, failed trial of weaning from ventilation back on propofol. Continue current medications including Cardizem, Rocephin electrolytes reviewed, vitals reviewed Objective - Vital Signs Vital signs: Vital Signs Temp 97.6 F 01/27/23 09:00 Pulse 76 01/27/23 11:00 Resp 22 01/27/23 11:00 BP 97/52 01/27/23 11:00 Pulse Ox 97 01/27/23 11:00 FiO2 50 01/27/23 09:00 Intake & Output 01/26/23 01/27/23 01/27/23 18:59 06:59 18:59 Intake Total 2412.815 2189.637 826.371 Output Total 665 370 175 Balance 5614.455 8193.637 651.371 Weight 74.2 kg Intake: IV 1822 1522 630 Pressure Bags 72 72 30 Sodium Chloride 0.9% 1, 1200 1200 500 000 ml @ 100 mls/hr IV . Q10H [facility] Rx#:[id number] Vancomycin 1,500 mg In 500 250 Sodium Chloride 0.9% 500 ml 500 ml @ 167 mls/hr IVPB ONCE ONE Rx#: [id number] cefTRIAXone 1 gm In 50 100 Sodium Chloride 0.9% 50 ml @ 100 mls/hr IVPB Q24HR [facility] Rx#:[id number] Intake, IV Titration 292.815 442.637 116.371 Amount propofoL 1,000 mg In 292.815 442.637 116.371 Empty Bag 1 bag @ 15 MCG/ KG/MIN 7.348 mls/hr IV . [id number] [facility] Rx#:[id number] Tube Feeding 148 135 20 Other 150 90 60 Output: Urine 665 370 175 Other: Voiding Method Indwelling Catheter Indwelling Catheter ABP, PAP, CO, CI - Last Documented Arterial Blood Pressure 103/58 - Exam PHYSICAL EXAMINATION: GENERAL: The patient is alert and oriented x0, intubated and sedated HEENT: Pupils are round and equally reacting to light. CARDIOVASCULAR: S1 and S2 present. No murmurs, rubs, or gallops. PULMONARY: Intubated, breath sounds equal bilaterally ABDOMEN: Soft, nontender, nondistended, normoactive bowel sounds. MUSCULOSKELETAL: No joint swelling or deformity. EXTREMITIES: Bilateral lower extremity edema NEUROLOGICAL: Intubated and sedated, exam limited - Labs CBC & Chem 7: 01/27/23 07:05 01/27/23 07:00 Labs: Abnormal Lab Results - Last 24 Hours (Table) 01/26/23 01/26/23 01/27/23 Range/Units 12:05 18:09 00:37 WBC (3.8-10.6) k/uL RBC (3.80-5.40) m/uL Hgb (11.4-16.0) gm/dL Hct (34.0-46.0) % MCV (80.0-100.0) fL MCH (25.0-35.0) pg MCHC (31.0-37.0) g/dL RDW (11.5-15.5) % Plt Count (150-450) k/uL ABG pH (7.35-7.45) ABG pCO2 (35-45) mmHg ABG pO2 (83-108) mmHg Chloride (98-107) mmol/L BUN (7-17) mg/dL Glucose (74-99) mg/dL POC Glucose (mg/dL) 176 H 172 H 171 H (70-110) mg/dL Calcium (8.4-10.2) mg/dL 01/27/23 01/27/23 01/27/23 Range/Units 05:35 06:00 07:00 WBC (3.8-10.6) k/uL RBC (3.80-5.40) m/uL Hgb (11.4-16.0) gm/dL Hct (34.0-46.0) % MCV (80.0-100.0) fL MCH (25.0-35.0) pg MCHC (31.0-37.0) g/dL RDW (11.5-15.5) % Plt Count (150-450) k/uL ABG pH 7.29 L (7.35-7.45) ABG pCO2 63 H (35-45) mmHg ABG pO2 76 L (83-108) mmHg Chloride 110 H (98-107) mmol/L BUN 24 H (7-17) mg/dL Glucose 151 H (74-99) mg/dL POC Glucose (mg/dL) 187 H (70-110) mg/dL Calcium 8.2 L (8.4-10.2) mg/dL 01/27/23 Range/Units 07:05 WBC 12.6 H (3.8-10.6) k/uL RBC 3.41 L (3.80-5.40) m/uL Hgb 7.8 L (11.4-16.0) gm/dL Hct 26.6 L (34.0-46.0) % MCV 78.0 L (80.0-100.0) fL MCH 23.0 L (25.0-35.0) pg MCHC 29.5 L (31.0-37.0) g/dL RDW 17.8 H (11.5-15.5) % Plt Count 455 H (150-450) k/uL ABG pH (7.35-7.45) ABG pCO2 (35-45) mmHg ABG pO2 (83-108) mmHg Chloride (98-107) mmol/L BUN (7-17) mg/dL Glucose (74-99) mg/dL POC Glucose (mg/dL) (70-110) mg/dL Calcium (8.4-10.2) mg/dL Microbiology - Last 24 Hours (Table) 01/24/23 22:17 Gram Stain - Final Sputum Sputum Culture - Final Staphylococcus aureus Assessment and Plan Assessment: Assessment and plan * Acute hypoxic respiratory failure with COPD exacerbation * Staph aureus pneumonia * Status post intubation requiring mechanical ventilation * Acute encephalopathy metabolic * Coronary artery disease * In regards to COPD exacerbation continue patient on steroids, continue br eathing treatments, intubated and sedated, managed by ICU * Continue patient on Rocephin, day 3, continue vancomycin * Follow up on sputum cultures, growing staph aureus * In regards to encephalopathy CT head obtained negative * CODE STATUS is full code patient remains critically ill
[2023-01-27 12:00] LABS: Glucose,Whole Blood 154 mg/dL (70-110)
[2023-01-27 16:58] LABS: Glucose,Whole Blood 161 mg/dL (70-110)
[2023-01-27] MEDS: MONTELUKAST 10 MG TAB PO SCH (20:19)
[2023-01-27 23:37] LABS: Glucose,Whole Blood 193 mg/dL (70-110)
[2023-01-28] MEDS: INSULIN ASPART (NovoLOG) 100 UNIT/ML VIAL SQ SCH ×4 (00:13→18:39)
[2023-01-28] MEDS: IPRATROPIUM-ALBUTEROL 3 ML NEB INHALATION SCH ×6 (01:28→20:49)
[2023-01-28] MEDS ORDERED: CISATRACURIUM 2 MG/ML 5 ML VIAL IV ONE ×2 (02:04→02:07)
[2023-01-28] MEDS: fentaNYL (PF). 1,000 MCG in SODIUM CHLORIDE 0.9% 80 ML IV SCH (02:18)
[2023-01-28] MEDS: CISATRACURIUM 200 MG in SODIUM CHLORIDE 0.9% 180 ML IV SCH (02:32)
--- NOTE | 2023-01-28 02:34 | XR ---
EXAM: XR Chest, 1 View CLINICAL HISTORY: ITS.REASON XR Reason: Assess lung status, desaturation TECHNIQUE: Frontal view of the chest. COMPARISON: No relevant prior studies available. FINDINGS: Lungs: The lungs are moderately expanded without focal airspace consolidation. The pulmonary vascular demonstrates no significant radiographic abnormality. Pleural space: Unremarkable. No pneumothorax. No large pleural effusion. Heart: Unremarkable. No cardiomegaly. Mediastinum: The mediastinal contours are unremarkable. No tracheal deviation. Bones/joints: Unremarkable. Tubes, lines and devices: The endotracheal tube (ETT) is in satisfactory position with tip 3.2 cm above the prerna. Nasogastric tube tip cannot be seen but is below the diaphragm. A right subclavian central line extends to the cavoatrial junction. IMPRESSION: No focal consolidation. No pleural effusion or pneumothorax. Support tubes and lines, as detailed above.
[2023-01-28 05:21] LABS: Anisocytosis Slight; HCT 25.5 % (34.0-46.0); HGB 7.3 gm/dL (11.4-16.0); Hypochromasia Marked; MCHC 28.5 g/dL (31.0-37.0); MCV 80.7 fL (80.0-100.0); Mean Platelet Volume 8.3; Microcytosis Slight; Platelet Count 432 k/uL (150-450); RBC 3.16 m/uL (3.80-5.40); RDW 17.5 % (11.5-15.5); WBC 12.2 k/uL (3.8-10.6)
[2023-01-28 05:34] LABS: Glucose,Whole Blood 176 mg/dL (70-110)
[2023-01-28 05:46] LABS: African American GFR (CKD) >90 (>60 ml/min/1.73 sqM); Anion Gap 6 mmol/L; Blood Urea Nitrogen 27 mg/dL (7-17); Calcium 7.9 mg/dL (8.4-10.2); Carbon Dioxide 26 mmol/L (22-30); Chloride 113 mmol/L (98-107); Glucose 159 mg/dL (74-99); Non-African American GFR(CKD) >90 (>60 ml/min/1.73 sqM); Potassium 4.6 mmol/L (3.5-5.1); Sodium 145 mmol/L (137-145)
[2023-01-28] MEDS: SODIUM CHLORIDE 0.9% 1,000 ML IV SCH ×2 (06:11→16:51)
[2023-01-28] MEDS: methylPREDNISolone SOD SUCCI 125 MG/2 ML VIAL IV SCH ×4 (06:11→23:09)
[2023-01-28 06:21] LABS: ABG HCO3 30 mmol/L (21-25); ABG PCO2 66 mmHg (35-45); ABG PH 7.26 (7.35-7.45); ABG PO2 119 mmHg (83-108); Allen Test Performed? Yes
[2023-01-28 06:22] LABS: ABG TCO2 32 mmol/L (19-24)
[2023-01-28] MEDS: FORMOTEROL FUMARATE 20 MCG/2 ML NEBU INHALATION SCH ×2 (07:56→20:49)
[2023-01-28] MEDS: BUDESONIDE 1 MG/2 ML NEBU INHALATION SCH ×2 (07:56→20:49)
[2023-01-28] MEDS: ARTIFICIAL TEARS-HYPROMELLOSE DROPS 15 ML BTL BOTH EYES SCH ×5 (08:10→23:09)
[2023-01-28] MEDS: HEPARIN SODIUM,PORCINE 5,000 UNIT/ML 1 ML VIAL SQ SCH ×3 (08:10→23:08)
[2023-01-28] MEDS: DILTIAZEM ORAL 30 MG TAB PO SCH ×4 (08:11→21:02)
[2023-01-28] MEDS: PANTOPRAZOLE 40 MG/10 ML VIAL IV SCH (08:11)
[2023-01-28] MEDS: PREGABALIN 100 MG CAP PO SCH ×2 (08:11→21:02)
[2023-01-28] MEDS: CHLORHEXIDINE GLUCONATE 15 ML CUP MUCOUS MEM SCH ×2 (08:12→19:46)
[2023-01-28] MEDS ORDERED: VANCOMYCIN TROUGH DUE 1 EACH MISC MISCELLANE ONE (11:00)
--- NOTE | 2023-01-28 11:24 | P.PN ---
Subjective Progress Note Date: 01/28/23 Principal diagnosis: Respiratory failure. This is a 62-year-old female with known history of COPD, coronary artery disease, not familiar to our service, patient was brought into the ER yesterday in extreme respiratory distress. Patient was noted to have acute hypoxic and hypercapnic respiratory failure, she was intubated almost upon her initial presentation to the ER because she was mostly in severe respiratory distress. Shortly after intubation the patient was noted to have a pO2 of more than 400 pCO2 88 pH of 7.20. Repeat blood gases after the patient was sent to the ICU showed a pO2 of 136 pCO2 67 pH of 7.33 and her ABG this morning showed a pO2 of 98 pCO2 60 pH of 7.41. Chest x-ray on admission showed no evidence of acute process except for emphysematous changes. No evidence of infiltrate. And no evidence of congestive heart failure. Patient is now on assist control rate of 20 tidal volume 350 FiO2 50% and PEEP of 5. She is not requiring any pressors patient is on propofol at 60 mcg/kg/m. Earlier this morning on a lower dose of propofol, patient was noted to be agitated, wheezing, and clearly was not ready for weaning. Hence the dose of propofol was increased, in the meantime we are giving the patient bronchodilators in the form of one nap, she is also on Pulmicort and Perforomist, and I added Solu-Medrol. Patient is also on antibiotics empirically. WBC count is 7.6 hemoglobin is 8.7, basic metabolic profile is normal bicarb is high 33 BUN is 22 creatinine 0.70 Patient was reevaluated today on 01/26/2023, patient is basically about the same. Remains intubated and mechanically ventilated, she is on assist control rate of 20 tidal volume 350 FiO2 40% and PEEP of 5 ABG showed a pO2 of 83 pCO2 61 pH of 7.36. This morning the patient is noted to be not synchronous with the ventilator, she is having breath stacking, hence I had to increase her propofol to 75 mcg/kg/m from 60 mcg/kg/m. And obviously the patient is not quite ready for any weaning trials. Remains on ceftriaxone empirically, patient has good urine output, brain CT is negative, Dilaudid was added for agitation along with higher dose of propofol. Chest x-ray no evidence of active disease. WBC count is 13.2 hemoglobin is 7.7 electrolytes are normal sputum Gram stain is showing presumptive staph aureus. Hence we will give the patient is dose of vancomycin and decide on further treatment if this turns out to be MRSA or MSSA. Reevaluated today on 01/27/2023, patient remains in the ICU, intubated and mechanically ventilated. Patient is on assist control rate of 20 increased to 22 today tidal volume 350 FiO2 50% PEEP of 5 ABG showed a pO2 of 76 pCO2 63 pH of 7.29 continues to have enteral feeding but this is more of a trickle feeding, patient has relatively intermittently high residual. She is on propofol at 70 mcg/kg/m 0.9 normal saline at 100 mL/h vital HPI at 10 mL per hour she is receiving Dilaudid intermittently and she remains on vancomycin and ceftriaxone empirically. Chest x-ray is not showing any significant abnormality her staph aureus in the sputum is MSSA hence we will discontinue vancomycin. However will continue Rocephin. WBC count is 12.6 hemoglobin 7.8 electrolytes are normal renal profile is normal, chest x-ray showed no evidence of infiltrate. Progress note dated 01/28/2023. This is a 62-year-old female admitted to the hospital on January 24. She was admitted with a diagnosis of COPD exacerbation. The patient was intubated on the same day, January 24. She remains on the ventilator. She is on volume assist control, rate 22, tidal volume 350, FiO2 40%, PEEP of 5. Blood gases show pO2 of 119, pCO2 of 66, and a pH is 7.26. Last night, the patient had very high peak airway pressures, and a large difference between peak airway pressure and plateau pressure. The patient was adequately sedated, and receiving pain medication, and thus, was paralyzed. I spoke to my nurse practitioner about that this morning. The patient is currently on Nimbex at 1 mcg/kg/m, fentanyl at 0.5 mcg/kg/h, propofol at 60 mcg/kg/m. The patient's getting saline at 100 mL an hour, and vital high protein, at 10 mL, with a goal of 29. The blood gases were done on 50%. White count 12.2, hemoglobin 7.3, hematocrit 25.5, and platelet count 432,000. Sodium 145, potassium 4.6, chlorides 113, CO2 26, BUN 27, creatinine 0.58. Sputum was positive for Staphylococcus aureus. Chest x- ray shows no focal consolidation, pleural effusion, or pneumothorax. Objective - Vital Signs Vital signs: Vital Signs Temp 98 F 01/28/23 08:00 Pulse 82 01/28/23 11:07 Resp 22 01/28/23 11:07 BP 104/54 01/28/23 11:00 Pulse Ox 95 01/28/23 11:00 FiO2 40 01/28/23 11:02 Intake & Output 01/27/23 01/28/23 01/28/23 18:59 06:59 18:59 Intake Total 2263.707 1984.914 840.293 Output Total 450 510 230 Balance 4289.475 0931.914 610.293 Weight 74.2 kg 78.7 kg Intake: IV 1728 1383 515 Pressure Bags 78 33 15 Sodium Chloride 0.9% 1, 1300 1100 500 000 ml @ 100 mls/hr IV . Q10H [facility] Rx#:[id number] Vancomycin 1,250 mg In 250 250 Sodium Chloride 0.9% 250 ml @ 125 mls/hr IVPB Q12H [facility] Rx#:[id number] cefTRIAXone 1 gm In 100 Sodium Chloride 0.9% 50 ml @ 100 mls/hr IVPB Q24HR [facility] Rx#:[id number] Intake, IV Titration 285.707 401.914 195.293 Amount Cisatracurium 200 mg In 55.99 Sodium Chloride 0.9% 180 ml @ 1 MCG/KG/MIN 4.452 mls/hr IV .Q24H [facility] Rx#: [id number] cefTRIAXone 1 gm In 50 Sodium Chloride 0.9% 50 ml @ 100 mls/hr IVPB Q24HR [facility] Rx#:[id number] fentaNYL (PF). 1,000 mcg 14.8 In Sodium Chloride 0.9% 80 ml @ 0.5 MCG/KG/HR 3. 71 mls/hr IV .Q24H [facility] Rx #:[id number] propofoL 1,000 mg In 285.707 401.914 74.503 Empty Bag 1 bag @ 15 MCG/ KG/MIN 7.348 mls/hr IV . [id number] [facility] Rx#:[id number] Tube Feeding 100 110 60 Other 150 90 70 Output: Urine 450 510 230 Other: Voiding Method Indwelling Catheter Indwelling Catheter Indwelling Catheter ABP, PAP, CO, CI - Last Documented Arterial Blood Pressure 111/73 - Exam No acute distress, sedated, paralyzed, with an orally placed endotracheal tube. HEENT examination is grossly unremarkable. Neck supple. Full range of motion. No adenopathy thyromegaly or neck vein distention. Cardiovascular examination reveals regular rhythm rate. S1-S2 normal. No S3 or S4. No discernible murmur noted. Heart rate 82 bpm. Lungs reveal scattered expiratory rhonchi. No wheezes or crackles. Breath sounds are equal bilaterally. Saturations are in the mid 90s. Abdomen soft bowel sounds are heard. No masses or tenderness. Extremities are intact. No cyanosis clubbing or edema. Skin is without rash or lesion. Neurologic examination cannot be assessed as the patient's currently sedated and paralyzed. - Labs CBC & Chem 7: 01/28/23 04:31 01/28/23 04:31 Labs: Abnormal Lab Results - Last 24 Hours (Table) 01/27/23 01/27/23 01/27/23 Range/Units 11:59 16:56 23:36 WBC (3.8-10.6) k/uL RBC (3.80-5.40) m/uL Hgb (11.4-16.0) gm/dL Hct (34.0-46.0) % MCH (25.0-35.0) pg MCHC (31.0-37.0) g/dL RDW (11.5-15.5) % ABG pH (7.35-7.45) ABG pCO2 (35-45) mmHg ABG pO2 (83-108) mmHg ABG HCO3 (21-25) mmol/L ABG Total CO2 (19-24) mmol/L ABG O2 Saturation (94-97) % Chloride (98-107) mmol/L BUN (7-17) mg/dL Glucose (74-99) mg/dL POC Glucose (mg/dL) 154 H 161 H 193 H (70-110) mg/dL Calcium (8.4-10.2) mg/dL 01/28/23 01/28/23 01/28/23 Range/Units 04:31 04:31 05:32 WBC 12.2 H (3.8-10.6) k/uL RBC 3.16 L (3.80-5.40) m/uL Hgb 7.3 L (11.4-16.0) gm/dL Hct 25.5 L (34.0-46.0) % MCH 23.0 L (25.0-35.0) pg MCHC 28.5 L (31.0-37.0) g/dL RDW 17.5 H (11.5-15.5) % ABG pH (7.35-7.45) ABG pCO2 (35-45) mmHg ABG pO2 (83-108) mmHg ABG HCO3 (21-25) mmol/L ABG Total CO2 (19-24) mmol/L ABG O2 Saturation (94-97) % Chloride 113 H (98-107) mmol/L BUN 27 H (7-17) mg/dL Glucose 159 H (74-99) mg/dL POC Glucose (mg/dL) 176 H (70-110) mg/dL Calcium 7.9 L (8.4-10.2) mg/dL 01/28/23 Range/Units 06:11 WBC (3.8-10.6) k/uL RBC (3.80-5.40) m/uL Hgb (11.4-16.0) gm/dL Hct (34.0-46.0) % MCH (25.0-35.0) pg MCHC (31.0-37.0) g/dL RDW (11.5-15.5) % ABG pH 7.26 L (7.35-7.45) ABG pCO2 66 H (35-45) mmHg ABG pO2 119 H (83-108) mmHg ABG HCO3 30 H (21-25) mmol/L ABG Total CO2 32 H (19-24) mmol/L ABG O2 Saturation 99.0 H (94-97) % Chloride (98-107) mmol/L BUN (7-17) mg/dL Glucose (74-99) mg/dL POC Glucose (mg/dL) (70-110) mg/dL Calcium (8.4-10.2) mg/dL Microbiology - Last 24 Hours (Table) 01/24/23 22:17 Gram Stain - Final Sputum Sputum Culture - Final Staphylococcus aureus Assessment and Plan Assessment: Acute hypoxemic and hypercapnic respiratory failure, requiring intubation and mechanical ventilation, beginning on January 24. Acute exacerbation of COPD. History of depression. Coronary artery disease. Methicillin sensitive staph aureus tracheobronchitis/bronchopneumonia. Plan: Plan dated 01/28/2023. The patient will continue on ventilatory support. The patient had very high peak airway pressures last night, and a significant difference between peak and plateau pressure, and required paralysis. The patient will continue on Solu- Medrol, and bronchodilators. In addition, the patient continues on antibiotics in the form of Rocephin. Also, the patient continues on tube feedings, with vital high protein. We continue with GI and DVT prophylaxis. Patient is very critically ill. Not ready for extubation at this time. Additional recommendations and suggestions are forthcoming. Prognosis is certainly guarded. Time with Patient: Greater than 30
[2023-01-28 11:45] LABS: Glucose,Whole Blood 182 mg/dL (70-110)
[2023-01-28 18:30] LABS: Glucose,Whole Blood 170 mg/dL (70-110)
[2023-01-28] MEDS: MONTELUKAST 10 MG TAB PO SCH (21:02)
--- NOTE | 2023-01-28 23:39 | P.PN ---
Subjective This is a pleasant 62 years old female with past medical history of Asthma, Coronary Artery Disease, COPD Patient presents because of shortness of breath and altered mental status, as per documentation patient has difficulty talking because of her dysonea and she was using accessory muscles. Her respiratory distress was severe and patient required intubation and mechanical ventilation while in the emergency room. patient is afebrile. Blood pressure stable Hemoglobin is 8.7. W68.4. INR 1.0 PH 7.73, pCO2 88 and 67 BMP showing creatinine 0.7, glucose 154, liver enzymes not elevated. Troponin mildly elevated at 0.05. EKG showing sinus tachycardia at 130 ProBNP is elevated 1450 chest x-ray showed COPD however there is linear right upper lobe typical scar or atelectasis per radiologist. However I think fluid overload and cephalization is also suspected per my review especially patient has elevated proBNP. Such changes did not been seen in chest x-ray about 6 months ago. 01/28/2023 Patient remains intubated and sedated with pulmonary/critical care team followed closely She has high PEEP normal she remains on ceftriaxone, salmeterol 60 mg and normal saline Patient also sputum culture is growing MSSA. Residual thousand, hemoglobin 7.3. Objective - Vital Signs Vital signs: Vital Signs Temp 98 F 01/28/23 08:00 Pulse 76 01/28/23 13:00 Resp 22 01/28/23 13:00 BP 100/54 01/28/23 13:00 Pulse Ox 97 01/28/23 13:00 FiO2 40 01/28/23 12:00 Intake & Output 01/27/23 01/28/23 01/28/23 18:59 06:59 18:59 Intake Total 2263.707 5932.215 1137.693 Output Total 450 510 350 Balance 4158.218 1051.914 873.693 Weight 74.2 kg 78.7 kg 78.7 kg Intake: IV 1728 1383 721 Pressure Bags 78 33 21 Sodium Chloride 0.9% 1, 1300 1100 700 000 ml @ 100 mls/hr IV . Q10H [facility] Rx#:[id number] Vancomycin 1,250 mg In 250 250 Sodium Chloride 0.9% 250 ml @ 125 mls/hr IVPB Q12H [facility] Rx#:[id number] cefTRIAXone 1 gm In 100 Sodium Chloride 0.9% 50 ml @ 100 mls/hr IVPB Q24HR [facility] Rx#:[id number] Intake, IV Titration 285.707 401.914 302.693 Amount Cisatracurium 200 mg In 55.99 Sodium Chloride 0.9% 180 ml @ 1 MCG/KG/MIN 4.452 mls/hr IV .Q24H [facility] Rx#: [id number] cefTRIAXone 1 gm In 50 Sodium Chloride 0.9% 50 ml @ 100 mls/hr IVPB Q24HR [facility] Rx#:[id number] fentaNYL (PF). 1,000 mcg 22.2 In Sodium Chloride 0.9% 80 ml @ 0.5 MCG/KG/HR 3. 71 mls/hr IV .Q24H [facility] Rx #:[id number] propofoL 1,000 mg In 285.707 401.914 174.503 Empty Bag 1 bag @ 15 MCG/ KG/MIN 7.348 mls/hr IV . [id number] [facility] Rx#:[id number] Tube Feeding 100 110 100 Other 150 90 100 Output: Urine 450 510 350 Other: Voiding Method Indwelling Catheter Indwelling Catheter Indwelling Catheter ABP, PAP, CO, CI - Last Documented Arterial Blood Pressure 111/73 - Exam -GENERAL: The patient is intubated and sedated. HEENT: Pupils are round and equally reacting to light. EOMI. No scleral icterus. No conjunctival pallor. Normocephalic, atraumatic. No pharyngeal erythema. No thyromegaly. CARDIOVASCULAR: S1 and S2 present. No murmurs, rubs, or gallops. PULMONARY: Chest is clear to auscultation, no wheezing , no crackles. ABDOMEN: Soft, nontender, nondistended, normoactive bowel sounds. No palpable organomegaly. MUSCULOSKELETAL: No joint swelling or deformity. EXTREMITIES: No cyanosis, clubbing, or pedal edema. NEUROLOGICAL: Gross neurological examination did not reveal any focal deficits. SKIN: No rashes. no petechiae. - Labs CBC & Chem 7: 01/28/23 04:31 01/28/23 04:31 Labs: Abnormal Lab Results - Last 24 Hours (Table) 01/27/23 01/27/23 01/28/23 Range/Units 16:56 23:36 04:31 WBC 12.2 H (3.8-10.6) k/uL RBC 3.16 L (3.80-5.40) m/uL Hgb 7.3 L (11.4-16.0) gm/dL Hct 25.5 L (34.0-46.0) % MCH 23.0 L (25.0-35.0) pg MCHC 28.5 L (31.0-37.0) g/dL RDW 17.5 H (11.5-15.5) % ABG pH (7.35-7.45) ABG pCO2 (35-45) mmHg ABG pO2 (83-108) mmHg ABG HCO3 (21-25) mmol/L ABG Total CO2 (19-24) mmol/L ABG O2 Saturation (94-97) % Chloride (98-107) mmol/L BUN (7-17) mg/dL Glucose (74-99) mg/dL POC Glucose (mg/dL) 161 H 193 H (70-110) mg/dL Calcium (8.4-10.2) mg/dL 01/28/23 01/28/23 01/28/23 Range/Units 04:31 05:32 06:11 WBC (3.8-10.6) k/uL RBC (3.80-5.40) m/uL Hgb (11.4-16.0) gm/dL Hct (34.0-46.0) % MCH (25.0-35.0) pg MCHC (31.0-37.0) g/dL RDW (11.5-15.5) % ABG pH 7.26 L (7.35-7.45) ABG pCO2 66 H (35-45) mmHg ABG pO2 119 H (83-108) mmHg ABG HCO3 30 H (21-25) mmol/L ABG Total CO2 32 H (19-24) mmol/L ABG O2 Saturation 99.0 H (94-97) % Chloride 113 H (98-107) mmol/L BUN 27 H (7-17) mg/dL Glucose 159 H (74-99) mg/dL POC Glucose (mg/dL) 176 H (70-110) mg/dL Calcium 7.9 L (8.4-10.2) mg/dL 01/28/23 Range/Units 11:44 WBC (3.8-10.6) k/uL RBC (3.80-5.40) m/uL Hgb (11.4-16.0) gm/dL Hct (34.0-46.0) % MCH (25.0-35.0) pg MCHC (31.0-37.0) g/dL RDW (11.5-15.5) % ABG pH (7.35-7.45) ABG pCO2 (35-45) mmHg ABG pO2 (83-108) mmHg ABG HCO3 (21-25) mmol/L ABG Total CO2 (19-24) mmol/L ABG O2 Saturation (94-97) % Chloride (98-107) mmol/L BUN (7-17) mg/dL Glucose (74-99) mg/dL POC Glucose (mg/dL) 182 H (70-110) mg/dL Calcium (8.4-10.2) mg/dL Microbiology - Last 24 Hours (Table) 01/24/23 22:17 Gram Stain - Final Sputum Sputum Culture - Final Staphylococcus aureus Assessment and Plan Assessment: Acute asthma/COPD exacerbation. Acute hypoxemic respiratory failure requiring intubation and mechanical ventilation Acute tracheobronchitis secondary to MSSA History of depression Acute respiratory acidosis with metabolic compensation Altered mental status most likely metabolic/toxic encephalopathy. Plan: Continue with mechanical ventilation with pulmonary/critical care team on the case already the recommendation Continue with IV Solu-Medrol Continue with a bronchodilator Continue ceftriaxone Labs and medication were reviewed.. Continue same treatment. Continue with symptomatic treatment. Resume home medication. Monitor labs and vitals. DVT and GI prophylaxis. Further recommendations as per clinical course of the patient DVT prophylaxis: Subcutaneous heparin GI Prophylaxis: Ppi PT/OT: Pending Prognosis is guarded Discussed with staff
[2023-01-28 23:52] LABS: Glucose,Whole Blood 175 mg/dL (70-110)
[2023-01-29] MEDS: INSULIN ASPART (NovoLOG) 100 UNIT/ML VIAL SQ SCH ×4 (00:04→17:43)
[2023-01-29] MEDS: IPRATROPIUM-ALBUTEROL 3 ML NEB INHALATION SCH ×7 (00:15→23:20)
[2023-01-29] MEDS: fentaNYL (PF). 1,000 MCG in SODIUM CHLORIDE 0.9% 80 ML IV SCH (03:40)
[2023-01-29] MEDS: ARTIFICIAL TEARS-HYPROMELLOSE DROPS 15 ML BTL BOTH EYES SCH ×5 (04:20→20:46)
[2023-01-29] MEDS: SODIUM CHLORIDE 0.9% 1,000 ML IV SCH ×3 (04:22→23:09)
[2023-01-29 05:54] LABS: Glucose,Whole Blood 179 mg/dL (70-110)
[2023-01-29 05:55] LABS: ABG Base Excess 5.4 mmol/L; ABG HCO3 29 mmol/L (21-25); ABG Oxygen Saturation 98.7 % (94-97); ABG PCO2 37 mmHg (35-45); ABG PO2 139 mmHg (83-108); ABG TCO2 30 mmol/L (19-24); Allen Test Performed? Yes
[2023-01-29] MEDS: methylPREDNISolone SOD SUCCI 125 MG/2 ML VIAL IV SCH ×3 (06:05→17:43)
[2023-01-29] MEDS: CISATRACURIUM 200 MG in SODIUM CHLORIDE 0.9% 180 ML IV SCH (07:01)
[2023-01-29 07:52] LABS: Anisocytosis Slight; Basophils % (A) 0 %; Eosinophils % (A) 0 %; HGB 7.6 gm/dL (11.4-16.0); Hypochromasia Marked; Lymphocytes # (A) 0.5 k/uL (1.0-4.8); Lymphocytes % (A) 4 %; MCH 23.1 pg (25.0-35.0); MCHC 29.1 g/dL (31.0-37.0); MCV 79.5 fL (80.0-100.0); Mean Platelet Volume 8.5; Microcytosis Slight; Monocytes # (A) 0.5 k/uL (0-1.0); Monocytes % (A) 4 %; Neutrophils # (A) 11.1 k/uL (1.3-7.7); Neutrophils % (A) 91 %; Platelet Count 425 k/uL (150-450); RBC 3.28 m/uL (3.80-5.40); RDW 17.7 % (11.5-15.5); WBC 12.3 k/uL (3.8-10.6)
[2023-01-29] MEDS: BUDESONIDE 1 MG/2 ML NEBU INHALATION SCH ×2 (07:52→19:41)
[2023-01-29] MEDS: FORMOTEROL FUMARATE 20 MCG/2 ML NEBU INHALATION SCH ×2 (07:52→19:41)
[2023-01-29] MEDS: PANTOPRAZOLE 40 MG/10 ML VIAL IV SCH (08:11)
[2023-01-29] MEDS: CHLORHEXIDINE GLUCONATE 15 ML CUP MUCOUS MEM SCH ×2 (08:11→20:46)
[2023-01-29] MEDS: HEPARIN SODIUM,PORCINE 5,000 UNIT/ML 1 ML VIAL SQ SCH ×2 (08:12→16:02)
[2023-01-29] MEDS: PREGABALIN 100 MG CAP PO SCH ×2 (08:12→20:46)
[2023-01-29] MEDS: DILTIAZEM ORAL 30 MG TAB PO SCH ×4 (08:12→20:58)
[2023-01-29 08:15] LABS: African American GFR (CKD) >90 (>60 ml/min/1.73 sqM); Anion Gap 5 mmol/L; Blood Urea Nitrogen 30 mg/dL (7-17); Calcium 7.8 mg/dL (8.4-10.2); Carbon Dioxide 26 mmol/L (22-30); Chloride 113 mmol/L (98-107); Glucose 170 mg/dL (74-99); Magnesium 2.7 mg/dL (1.6-2.3); Non-African American GFR(CKD) >90 (>60 ml/min/1.73 sqM); Potassium 4.6 mmol/L (3.5-5.1); Sodium 144 mmol/L (137-145)
--- NOTE | 2023-01-29 09:07 | XR ---
EXAMINATION TYPE: XR chest 1V portable DATE OF EXAM: 01/29/2023 COMPARISON: 01/28/2023 HISTORY: Shortness of breath TECHNIQUE: Single frontal view of the chest is obtained. FINDINGS: ET and NG tube and central line stable. Diffuse emphysematous changes bilateral consolidat ion small effusion. Coarsened interstitium. Diffuse osteopenia. IMPRESSION: COPD with bilateral infiltrate and small effusion correlate for mild venous congestion.
--- NOTE | 2023-01-29 11:12 | P.PN ---
Subjective This is a pleasant 62 years old female with past medical history of Asthma, Coronary Artery Disease, COPD Patient presents because of shortness of breath and altered mental status, as per documentation patient has difficulty talking because of her dysonea and she was using accessory muscles. Her respiratory distress was severe and patient required intubation and mechanical ventilation while in the emergency room. patient is afebrile. Blood pressure stable Hemoglobin is 8.7. W68.4. INR 1.0 PH 7.73, pCO2 88 and 67 BMP showing creatinine 0.7, glucose 154, liver enzymes not elevated. Troponin mildly elevated at 0.05. EKG showing sinus tachycardia at 130 ProBNP is elevated 1450 chest x-ray showed COPD however there is linear right upper lobe typical scar or atelectasis per radiologist. However I think fluid overload and cephalization is also suspected per my review especially patient has elevated proBNP. Such changes did not been seen in chest x-ray about 6 months ago. 01/28/2023 Patient remains intubated and sedated with pulmonary/critical care team followed closely She has high PEEP normal she remains on ceftriaxone, salmeterol 60 mg and normal saline Patient also sputum culture is growing MSSA. Residual thousand, hemoglobin 7.3. 01/29/2023 Patient remains intubated and sedated. Her PEEP today is 5 and FiO2 40%. Afebrile. Vitals stable. Labs looked the same, WBC 12.3 K, hemoglobin 7.6. Chest x-ray from today showing COPD with bilateral infiltrates She is on ceftriaxone, salu medrol 60 mg and normal saline at 100 mL per hour Objective - Vital Signs Vital signs: Vital Signs Temp 98 F 01/29/23 08:00 Pulse 89 01/29/23 09:00 Resp 22 01/29/23 09:00 BP 111/57 01/29/23 09:00 Pulse Ox 94 L 01/29/23 09:00 FiO2 30 01/29/23 10:58 Intake & Output 01/28/23 01/29/23 01/29/23 18:59 06:59 18:59 Intake Total 5342.683 8514.492 727.182 Output Total 675 665 175 Balance 1711.135 9426.492 552.182 Weight 78.7 kg 81.2 kg Intake: IV 1236 1236 309 Pressure Bags 36 36 9 Sodium Chloride 0.9% 1, 1200 1200 300 000 ml @ 100 mls/hr IV . Q10H [facility] Rx#:[id number] Intake, IV Titration 421.193 460.492 282.182 Amount Cisatracurium 200 mg In 55.99 133.226 Sodium Chloride 0.9% 180 ml @ 1 MCG/KG/MIN 4.452 mls/hr IV .Q24H [facility] Rx#: [id number] cefTRIAXone 1 gm In 50 50 Sodium Chloride 0.9% 50 ml @ 100 mls/hr IVPB Q24HR [facility] Rx#:[id number] fentaNYL (PF). 1,000 mcg 40.7 97.81 In Sodium Chloride 0.9% 80 ml @ 0.5 MCG/KG/HR 3. 71 mls/hr IV .Q24H [facility] Rx #:[id number] propofoL 1,000 mg In 274.503 362.682 98.956 Empty Bag 1 bag @ 15 MCG/ KG/MIN 7.348 mls/hr IV . [id number] [facility] Rx#:[id number] Tube Feeding 202 264 66 Other 130 160 70 Output: Urine 675 665 175 Other: Voiding Method Indwelling Catheter Indwelling Catheter ABP, PAP, CO, CI - Last Documented Arterial Blood Pressure 111/73 - Exam -GENERAL: The patient is intubated and sedated. HEENT: Pupils are round and equally reacting to light. EOMI. No scleral icterus. No conjunctival pallor. Normocephalic, atraumatic. No pharyngeal erythema. No thyromegaly. CARDIOVASCULAR: S1 and S2 present. No murmurs, rubs, or gallops. PULMONARY: Chest is clear to auscultation, no wheezing , no crackles. ABDOMEN: Soft, nontender, nondistended, normoactive bowel sounds. No palpable organomegaly. MUSCULOSKELETAL: No joint swelling or deformity. EXTREMITIES: No cyanosis, clubbing, or pedal edema. NEUROLOGICAL: Gross neurological examination did not reveal any focal deficits. SKIN: No rashes. no petechiae. - Labs CBC & Chem 7: 01/29/23 05:08 01/29/23 05:08 Labs: Abnormal Lab Results - Last 24 Hours (Table) 01/28/23 01/28/23 01/28/23 Range/Units 11:44 18:28 23:50 WBC (3.8-10.6) k/uL RBC (3.80-5.40) m/uL Hgb (11.4-16.0) gm/dL Hct (34.0-46.0) % MCV (80.0-100.0) fL MCH (25.0-35.0) pg MCHC (31.0-37.0) g/dL RDW (11.5-15.5) % Neutrophils # (1.3-7.7) k/uL Lymphocytes # (1.0-4.8) k/uL ABG pH (7.35-7.45) ABG pO2 (83-108) mmHg ABG HCO3 (21-25) mmol/L ABG Total CO2 (19-24) mmol/L ABG O2 Saturation (94-97) % Chloride (98-107) mmol/L BUN (7-17) mg/dL Creatinine (0.52-1.04) mg/dL Glucose (74-99) mg/dL POC Glucose (mg/dL) 182 H 170 H 175 H (70-110) mg/dL Calcium (8.4-10.2) mg/dL Magnesium (1.6-2.3) mg/dL 01/29/23 01/29/23 01/29/23 Range/Units 05:08 05:08 05:46 WBC 12.3 H (3.8-10.6) k/uL RBC 3.28 L (3.80-5.40) m/uL Hgb 7.6 L (11.4-16.0) gm/dL Hct 26.0 L (34.0-46.0) % MCV 79.5 L (80.0-100.0) fL MCH 23.1 L (25.0-35.0) pg MCHC 29.1 L (31.0-37.0) g/dL RDW 17.7 H (11.5-15.5) % Neutrophils # 11.1 H (1.3-7.7) k/uL Lymphocytes # 0.5 L (1.0-4.8) k/uL ABG pH 7.50 H (7.35-7.45) ABG pO2 139 H (83-108) mmHg ABG HCO3 29 H (21-25) mmol/L ABG Total CO2 30 H (19-24) mmol/L ABG O2 Saturation 98.7 H (94-97) % Chloride 113 H (98-107) mmol/L BUN 30 H (7-17) mg/dL Creatinine 0.50 L (0.52-1.04) mg/dL Glucose 170 H (74-99) mg/dL POC Glucose (mg/dL) (70-110) mg/dL Calcium 7.8 L (8.4-10.2) mg/dL Magnesium 2.7 H (1.6-2.3) mg/dL 01/29/23 Range/Units 05:53 WBC (3.8-10.6) k/uL RBC (3.80-5.40) m/uL Hgb (11.4-16.0) gm/dL Hct (34.0-46.0) % MCV (80.0-100.0) fL MCH (25.0-35.0) pg MCHC (31.0-37.0) g/dL RDW (11.5-15.5) % Neutrophils # (1.3-7.7) k/uL Lymphocytes # (1.0-4.8) k/uL ABG pH (7.35-7.45) ABG pO2 (83-108) mmHg ABG HCO3 (21-25) mmol/L ABG Total CO2 (19-24) mmol/L ABG O2 Saturation (94-97) % Chloride (98-107) mmol/L BUN (7-17) mg/dL Creatinine (0.52-1.04) mg/dL Glucose (74-99) mg/dL POC Glucose (mg/dL) 179 H (70-110) mg/dL Calcium (8.4-10.2) mg/dL Magnesium (1.6-2.3) mg/dL Assessment and Plan Assessment: Acute asthma/COPD exacerbation. Acute hypoxemic respiratory failure requiring intubation and mechanical ventilation Acute tracheobronchitis secondary to MSSA History of depression Acute respiratory acidosis with metabolic compensation Altered mental status most likely metabolic/toxic encephalopathy. Plan: Continue with mechanical ventilation with pulmonary/critical care team on the case already the recommendation Continue with IV Solu-Medrol Continue with a bronchodilator Continue ceftriaxone Labs and medication were reviewed.. Continue same treatment. Continue with symptomatic treatment. Resume home medication. Monitor labs and vitals. DVT and GI prophylaxis. Further recommendations as per clinical course of the wilmer ent DVT prophylaxis: Subcutaneous heparin GI Prophylaxis: Ppi PT/OT: Pending Prognosis is guarded Discussed with staff
--- NOTE | 2023-01-29 12:09 | P.PN ---
Subjective Progress Note Date: 01/29/23 Principal diagnosis: Respiratory failure. This is a 62-year-old female with known history of COPD, coronary artery disease, not familiar to our service, patient was brought into the ER yesterday in extreme respiratory distress. Patient was noted to have acute hypoxic and hypercapnic respiratory failure, she was intubated almost upon her initial presentation to the ER because she was mostly in severe respiratory distress. Shortly after intubation the patient was noted to have a pO2 of more than 400 pCO2 88 pH of 7.20. Repeat blood gases after the patient was sent to the ICU showed a pO2 of 136 pCO2 67 pH of 7.33 and her ABG this morning showed a pO2 of 98 pCO2 60 pH of 7.41. Chest x-ray on admission showed no evidence of acute process except for emphysematous changes. No evidence of infiltrate. And no evidence of congestive heart failure. Patient is now on assist control rate of 20 tidal volume 350 FiO2 50% and PEEP of 5. She is not requiring any pressors patient is on propofol at 60 mcg/kg/m. Earlier this morning on a lower dose of propofol, patient was noted to be agitated, wheezing, and clearly was not ready for weaning. Hence the dose of propofol was increased, in the meantime we are giving the patient bronchodilators in the form of one nap, she is also on Pulmicort and Perforomist, and I added Solu-Medrol. Patient is also on antibiotics empirically. WBC count is 7.6 hemoglobin is 8.7, basic metabolic profile is normal bicarb is high 33 BUN is 22 creatinine 0.70 Patient was reevaluated today on 01/26/2023, patient is basically about the same. Remains intubated and mechanically ventilated, she is on assist control rate of 20 tidal volume 350 FiO2 40% and PEEP of 5 ABG showed a pO2 of 83 pCO2 61 pH of 7.36. This morning the patient is noted to be not synchronous with the ventilator, she is having breath stacking, hence I had to increase her propofol to 75 mcg/kg/m from 60 mcg/kg/m. And obviously the patient is not quite ready for any weaning trials. Remains on ceftriaxone empirically, patient has good urine output, brain CT is negative, Dilaudid was added for agitation along with higher dose of propofol. Chest x-ray no evidence of active disease. WBC count is 13.2 hemoglobin is 7.7 electrolytes are normal sputum Gram stain is showing presumptive staph aureus. Hence we will give the patient is dose of vancomycin and decide on further treatment if this turns out to be MRSA or MSSA. Reevaluated today on 01/27/2023, patient remains in the ICU, intubated and mechanically ventilated. Patient is on assist control rate of 20 increased to 22 today tidal volume 350 FiO2 50% PEEP of 5 ABG showed a pO2 of 76 pCO2 63 pH of 7.29 continues to have enteral feeding but this is more of a trickle feeding, patient has relatively intermittently high residual. She is on propofol at 70 mcg/kg/m 0.9 normal saline at 100 mL/h vital HPI at 10 mL per hour she is receiving Dilaudid intermittently and she remains on vancomycin and ceftriaxone empirically. Chest x-ray is not showing any significant abnormality her staph aureus in the sputum is MSSA hence we will discontinue vancomycin. However will continue Rocephin. WBC count is 12.6 hemoglobin 7.8 electrolytes are normal renal profile is normal, chest x-ray showed no evidence of infiltrate. Progress note dated 01/28/2023. This is a 62-year-old female admitted to the hospital on January 24. She was admitted with a diagnosis of COPD exacerbation. The patient was intubated on the same day, January 24. She remains on the ventilator. She is on volume assist control, rate 22, tidal volume 350, FiO2 40%, PEEP of 5. Blood gases show pO2 of 119, pCO2 of 66, and a pH is 7.26. Last night, the patient had very high peak airway pressures, and a large difference between peak airway pressure and plateau pressure. The patient was adequately sedated, and receiving pain medication, and thus, was paralyzed. I spoke to my nurse practitioner about that this morning. The patient is currently on Nimbex at 1 mcg/kg/m, fentanyl at 0.5 mcg/kg/h, propofol at 60 mcg/kg/m. The patient's getting saline at 100 mL an hour, and vital high protein, at 10 mL, with a goal of 29. The blood gases were done on 50%. White count 12.2, hemoglobin 7.3, hematocrit 25.5, and platelet count 432,000. Sodium 145, potassium 4.6, chlorides 113, CO2 26, BUN 27, creatinine 0.58. Sputum was positive for Staphylococcus aureus. Chest x- ray shows no focal consolidation, pleural effusion, or pneumothorax. Progress note dated 01/29/2023. This is a 62-year-old female admitted to the hospital on January 24. She was admitted with a diagnosis of COPD exacerbation. The patient was intubated on the same day, January 24. She remains on the ventilator. The patient's current ventilator settings include the volume assist control, rate of 22, tidal volume 350, FiO2 40%, and PEEP of 5. Arterial blood gases show a PaO2 of 139, pCO2 37, and pH is 7.5. The FiO2 was reduced from 40%, down to 30%. The patient's getting saline at 100 mL an hour, fentanyl at 0.5 mcg/kg/h, propofol 60 mcg/kg/m, and Nimbex at 1.5 mcg/kg/m. The patient's getting vital high protein at 22 mL an hour. The goal today is to get the patient off Nimbex if possible. The patient's peak airway pressures in the high 30 range. White count 12.3, hemoglobin 7.6, hematocrit 26, and platelet count normal. Sodium 144, potassium 4.6, chlorides 113, CO2 26, BUN 30, creatinine 0.5. Sputum was positive for oxacillin sensitive Staphylococcus aureus. Chest x-ray shows changes of COPD, with bilateral basilar infiltrates. Objective - Vital Signs Vital signs: Vital Signs Temp 98 F 01/29/23 08:00 Pulse 90 01/29/23 11:00 Resp 22 01/29/23 11:00 BP 105/55 01/29/23 11:00 Pulse Ox 85 L 01/29/23 11:00 FiO2 30 01/29/23 11:00 Intake & Output 01/28/23 01/29/23 01/29/23 18:59 06:59 18:59 Intake Total 2695.388 9232.492 977.182 Output Total 675 665 300 Balance 8991.403 0270.492 677.182 Weight 78.7 kg 81.2 kg Intake: IV 1236 1236 515 Pressure Bags 36 36 15 Sodium Chloride 0.9% 1, 1200 1200 500 000 ml @ 100 mls/hr IV . Q10H [facility] Rx#:[id number] Intake, IV Titration 421.193 460.492 282.182 Amount Cisatracurium 200 mg In 55.99 133.226 Sodium Chloride 0.9% 180 ml @ 1 MCG/KG/MIN 4.452 mls/hr IV .Q24H [facility] Rx#: [id number] cefTRIAXone 1 gm In 50 50 Sodium Chloride 0.9% 50 ml @ 100 mls/hr IVPB Q24HR [facility] Rx#:[id number] fentaNYL (PF). 1,000 mcg 40.7 97.81 In Sodium Chloride 0.9% 80 ml @ 0.5 MCG/KG/HR 3. 71 mls/hr IV .Q24H [facility] Rx #:[id number] propofoL 1,000 mg In 274.503 362.682 98.956 Empty Bag 1 bag @ 15 MCG/ KG/MIN 7.348 mls/hr IV . [id number] [facility] Rx#:[id number] Tube Feeding 202 264 110 Other 130 160 70 Output: Urine 675 665 300 Other: Voiding Method Indwelling Catheter Indwelling Catheter Indwelling Catheter ABP, PAP, CO, CI - Last Documented Arterial Blood Pressure 111/73 - Exam No acute distress, sedated, paralyzed, with an orally placed endotracheal tube. HEENT examination is grossly unremarkable. Neck supple. Full range of motion. No adenopathy thyromegaly or neck vein distention. Cardiovascular examination reveals regular rhythm rate. S1-S2 normal. No S3 or S4. No discernible murmur noted. Heart rate 90 bpm. Lungs reveal scattered expiratory rhonchi. No wheezes or crackles. Breath sounds are equal bilaterally. Saturations are in the mid 90s. Abdomen soft bowel sounds are heard. No masses or tenderness. Extremities are intact. No cyanosis clubbing or edema. Skin is without rash or lesion. Neurologic examination cannot be assessed as the patient's currently sedated and paralyzed. - Labs CBC & Chem 7: 01/29/23 05:08 01/29/23 05:08 Labs: Abnormal Lab Results - Last 24 Hours (Table) 01/28/23 01/28/23 01/29/23 Range/Units 18:28 23:50 05:08 WBC 12.3 H (3.8-10.6) k/uL RBC 3.28 L (3.80-5.40) m/uL Hgb 7.6 L (11.4-16.0) gm/dL Hct 26.0 L (34.0-46.0) % MCV 79.5 L (80.0-100.0) fL MCH 23.1 L (25.0-35.0) pg MCHC 29.1 L (31.0-37.0) g/dL RDW 17.7 H (11.5-15.5) % Neutrophils # 11.1 H (1.3-7.7) k/uL Lymphocytes # 0.5 L (1.0-4.8) k/uL ABG pH (7.35-7.45) ABG pO2 (83-108) mmHg ABG HCO3 (21-25) mmol/L ABG Total CO2 (19-24) mmol/L ABG O2 Saturation (94-97) % Chloride (98-107) mmol/L BUN (7-17) mg/dL Creatinine (0.52-1.04) mg/dL Glucose (74-99) mg/dL POC Glucose (mg/dL) 170 H 175 H (70-110) mg/dL Calcium (8.4-10.2) mg/dL Magnesium (1.6-2.3) mg/dL 01/29/23 01/29/23 01/29/23 Range/Units 05:08 05:46 05:53 WBC (3.8-10.6) k/uL RBC (3.80-5.40) m/uL Hgb (11.4-16.0) gm/dL Hct (34.0-46.0) % MCV (80.0-100.0) fL MCH (25.0-35.0) pg MCHC (31.0-37.0) g/dL RDW (11.5-15.5) % Neutrophils # (1.3-7.7) k/uL Lymphocytes # (1.0-4.8) k/uL ABG pH 7.50 H (7.35-7.45) ABG pO2 139 H (83-108) mmHg ABG HCO3 29 H (21-25) mmol/L ABG Total CO2 30 H (19-24) mmol/L ABG O2 Saturation 98.7 H (94-97) % Chloride 113 H (98-107) mmol/L BUN 30 H (7-17) mg/dL Creatinine 0.50 L (0.52-1.04) mg/dL Glucose 170 H (74-99) mg/dL POC Glucose (mg/dL) 179 H (70-110) mg/dL Calcium 7.8 L (8.4-10.2) mg/dL Magnesium 2.7 H (1.6-2.3) mg/dL Assessment and Plan Assessment: Acute hypoxemic and hypercapnic respiratory failure, requiring intubation and mechanical ventilation, beginning on January 24. Acute exacerbation of COPD, severe, with high peak airway pressures, and severe bronchospasm, requiring heavy sedation and paralysis. History of depression. Coronary artery disease. Methicillin sensitive staph aureus tracheobronchitis/bronchopneumonia. Plan: Plan dated 01/28/2023. The patient will continue on ventilatory support. The patient had very high peak airway pressures last night, and a significant difference between peak and plateau pressure, and required paralysis. The patient will continue on Solu- Medrol, and bronchodilators. In addition, the patient continues on antibiotics in the form of Rocephin. Also, the patient continues on tube feedings, with vital high protein. We continue with GI and DVT prophylaxis. Patient is very critically ill. Not ready for extubation at this time. Additional recommendations and suggestions are forthcoming. Prognosis is certainly guarded. Plan dated 01/29/2023. The patient continues with ventilatory support. The patient continues on propofol, fentanyl, and Nimbex. We will attempt to wean the patient off of Ni mbex today. Labs, x-rays, and medications are reviewed. The patient remains critically ill. She remains on GI and DVT prophylaxis. The patient's sputum revealed evidence of oxacillin sensitive Staphylococcus aureus. The patient remains on Rocephin. Additional recommendations and suggestions are forthcoming. We will continue to follow the patient, and make recommendations along the way. Prognosis is certainly guarded. Time with Patient: Greater than 30
[2023-01-29 12:11] LABS: Glucose,Whole Blood 172 mg/dL (70-110)
[2023-01-29 17:24] LABS: Glucose,Whole Blood 177 mg/dL (70-110)
[2023-01-29] MEDS: MONTELUKAST 10 MG TAB PO SCH (20:46)
[2023-01-29 23:56] LABS: Glucose,Whole Blood 176 mg/dL (70-110)
[2023-01-30] MEDS: ARTIFICIAL TEARS-HYPROMELLOSE DROPS 15 ML BTL BOTH EYES SCH ×6 (00:10→20:12)
[2023-01-30] MEDS: methylPREDNISolone SOD SUCCI 125 MG/2 ML VIAL IV SCH ×5 (00:11→23:54)
[2023-01-30] MEDS: INSULIN ASPART (NovoLOG) 100 UNIT/ML VIAL SQ SCH ×4 (00:11→18:05)
[2023-01-30] MEDS: HEPARIN SODIUM,PORCINE 5,000 UNIT/ML 1 ML VIAL SQ SCH ×3 (00:11→17:07)
[2023-01-30] MEDS: fentaNYL (PF). 1,000 MCG in SODIUM CHLORIDE 0.9% 80 ML IV SCH (03:50)
[2023-01-30] MEDS: IPRATROPIUM-ALBUTEROL 3 ML NEB INHALATION SCH ×6 (04:02→23:43)
[2023-01-30 04:46] LABS: Anisocytosis Slight; Basophils % (A) 0 %; Eosinophils % (A) 0 %; HCT 26.5 % (34.0-46.0); HGB 7.7 gm/dL (11.4-16.0); Hypochromasia Marked; Lymphocytes # (A) 0.5 k/uL (1.0-4.8); Lymphocytes % (A) 4 %; MCH 22.6 pg (25.0-35.0); MCHC 29.1 g/dL (31.0-37.0); MCV 77.7 fL (80.0-100.0); Mean Platelet Volume 8.2; Microcytosis Slight; Monocytes # (A) 0.5 k/uL (0-1.0); Monocytes % (A) 4 %; Neutrophils # (A) 12.4 k/uL (1.3-7.7); Neutrophils % (A) 92 %; Platelet Count 456 k/uL (150-450); Poikilocytosis Slight; RBC 3.41 m/uL (3.80-5.40); RDW 17.9 % (11.5-15.5); WBC 13.6 k/uL (3.8-10.6)
[2023-01-30 04:51] LABS: ABG Base Excess 7.5 mmol/L; ABG HCO3 32 mmol/L (21-25); ABG Oxygen Saturation 94.8 % (94-97); ABG PCO2 52 mmHg (35-45); ABG PO2 64 mmHg (83-108); ABG TCO2 34 mmol/L (19-24); Allen Test Performed? Yes
[2023-01-30 04:59] LABS: African American GFR (CKD) >90 (>60 ml/min/1.73 sqM); Anion Gap 0 mmol/L; Blood Urea Nitrogen 34 mg/dL (7-17); Calcium 7.9 mg/dL (8.4-10.2); Carbon Dioxide 32 mmol/L (22-30); Chloride 114 mmol/L (98-107); Glucose 166 mg/dL (74-99); Non-African American GFR(CKD) >90 (>60 ml/min/1.73 sqM); Potassium 4.7 mmol/L (3.5-5.1); Sodium 146 mmol/L (137-145)
[2023-01-30 06:14] LABS: Glucose,Whole Blood 173 mg/dL (70-110)
[2023-01-30] MEDS: CISATRACURIUM 200 MG in SODIUM CHLORIDE 0.9% 180 ML IV SCH (06:49)
[2023-01-30] MEDS: FORMOTEROL FUMARATE 20 MCG/2 ML NEBU INHALATION SCH ×2 (08:07→21:02)
[2023-01-30] MEDS: BUDESONIDE 1 MG/2 ML NEBU INHALATION SCH ×2 (08:07→21:02)
--- NOTE | 2023-01-30 08:24 | XR ---
EXAMINATION TYPE: XR chest 1V portable DATE OF EXAM: 01/30/2023 COMPARISON: 01/29/2023 HISTORY: Shortness of breath TECHNIQUE: Single frontal view of the chest is obtained. FINDINGS: ET and NG tube and central line stable. Diffuse emphysematous changes bilateral consolidat ion small effusion. Coarsened interstitium. Diffuse osteopenia. IMPRESSION: COPD with bilateral infiltrate and small effusion correlate for mild venous congestion.
[2023-01-30] MEDS: PANTOPRAZOLE 40 MG/10 ML VIAL IV SCH (09:02)
[2023-01-30] MEDS: CHLORHEXIDINE GLUCONATE 15 ML CUP MUCOUS MEM SCH ×2 (09:03→20:13)
[2023-01-30] MEDS: SODIUM CHLORIDE 0.9% 1,000 ML IV SCH ×2 (09:03→17:07)
--- NOTE | 2023-01-30 10:47 | OP ---
OPERATIVE REPORT DATE OF SERVICE : PROCEDURES PERFORMED: Bronchoscopy, airway examination, therapeutic lavage, BAL of right lower lobe. The operators were Dr. Hernandez and Dr. Katy Kemp. The patient's procedure took place in room #255 ICU. There was informed consent and universal timeout. The patient was sedated with propofol and paralyzed with Nimbex. The patient was placed on 100% oxygen on the ventilator. PREOPERATIVE DIAGNOSES: Airway secretions and increased airways resistance and bronchospasm. POSTOPERATIVE DIAGNOSES: Airway secretions and increased airways resistance and bronchospasm. The patient was placed on 100% oxygen. The bronchoscope was inserted through the bronchoscope adapter connected to the endotracheal tube. The bronchoscope was pushed through the endotracheal tube into the trachea. There were thick secretions noted in the distal trachea. The tip of the tube was above the tracheal prerna. There were thick secretions noted going across the tracheal prerna. Next, we did a thorough examination of the right upper lobe and its 3 segments, right middle lobe and its 3 segments, right lower lobe and its 5 segments, left upper lobe proper and its 2 segments, lingula and its 2 segments, and left lower lobe and its 4 segments. There was thick viscid secretions noted throughout. They were purulent in nature. They were difficult to suction. Saline was used to help suction the secretions. The underlying mucosa was very erythematous and hyperemic. It bled very easily. There was no dominant mass or tumor. The bronchoscope was then wedged into the right lower lobe. We did a formal BAL. Roughly 25-30 mL of fluid was recovered. The patient tolerated the procedure well. Additional saline was used to suction any additional secretions. The bronchoscope was then withdrawn. The patient tolerated the procedure well. There was no immediate complication. MMODL / IJN: [id number] / MTDD
[2023-01-30] MEDS: DILTIAZEM ORAL 30 MG TAB PO SCH ×4 (10:49→21:00)
[2023-01-30] MEDS: PREGABALIN 100 MG CAP PO SCH ×2 (10:49→21:00)
--- NOTE | 2023-01-30 10:50 | PCN ---
PROCEDURE NOTE PROCEDURE: Right femoral arterial line. PREOPERATIVE DIAGNOSES: 1. Hypotension. 2. Administration of fluids. 3. Frequent blood draws. POSTOPERATIVE DIAGNOSES: 1. Hypotension. 2. Administration of fluids. 3. Frequent blood draws. Director Of Strategic Communications: Dr. Hernandez CO-GAS ANALYST: Dr. Kemp. There was informed consent and universal timeout. ARTERIAL LINE PLACEMENT: Indications: Hemodynamic monitoring. A time-out was completed verifying correct patient, procedure, site, positioning, and implant(s) or special equipment if applicable. Edgardo's test was performed to ensure adequate perfusion. The patient's right/left wrist or right/left groin was prepped and draped in sterile fashion. 1% Lidocaine was used to anesthetize the area. An 18G Arrow arterial line was introduced into the radial/femoral artery. The catheter was threaded over the guide wire and the needle was removed with appropriate pulsatile blood return. Blood loss was minimal. The catheter was then sutured in place to the skin and a sterile dressing applied. Perfusion to the extremity distal to the point of catheter insertion was checked and found to be adequate. The patient tolerated the procedure well and there were no complications. We used the right femoral artery. There was no immediate complication. There was good blood return and waveform. The patient tolerated the procedure well. The catheter was sutured in place. A sterile dressing was applied by the nurse. VARGHESE / DERRICKN: [id number] / MTDD
[2023-01-30 12:27] LABS: Glucose,Whole Blood 172 mg/dL (70-110)
--- NOTE | 2023-01-30 12:54 | P.PN ---
Subjective Progress Note Date: 01/30/23 Principal diagnosis: Respiratory failure. This is a 62-year-old female with known history of COPD, coronary artery disease, not familiar to our service, patient was brought into the ER yesterday in extreme respiratory distress. Patient was noted to have acute hypoxic and hypercapnic respiratory failure, she was intubated almost upon her initial presentation to the ER because she was mostly in severe respiratory distress. Shortly after intubation the patient was noted to have a pO2 of more than 400 pCO2 88 pH of 7.20. Repeat blood gases after the patient was sent to the ICU showed a pO2 of 136 pCO2 67 pH of 7.33 and her ABG this morning showed a pO2 of 98 pCO2 60 pH of 7.41. Chest x-ray on admission showed no evidence of acute process except for emphysematous changes. No evidence of infiltrate. And no evidence of congestive heart failure. Patient is now on assist control rate of 20 tidal volume 350 FiO2 50% and PEEP of 5. She is not requiring any pressors patient is on propofol at 60 mcg/kg/m. Earlier this morning on a lower dose of propofol, patient was noted to be agitated, wheezing, and clearly was not ready for weaning. Hence the dose of propofol was increased, in the meantime we are giving the patient bronchodilators in the form of one nap, she is also on Pulmicort and Perforomist, and I added Solu-Medrol. Patient is also on antibiotics empirically. WBC count is 7.6 hemoglobin is 8.7, basic metabolic profile is normal bicarb is high 33 BUN is 22 creatinine 0.70 Patient was reevaluated today on 01/26/2023, patient is basically about the same. Remains intubated and mechanically ventilated, she is on assist control rate of 20 tidal volume 350 FiO2 40% and PEEP of 5 ABG showed a pO2 of 83 pCO2 61 pH of 7.36. This morning the patient is noted to be not synchronous with the ventilator, she is having breath stacking, hence I had to increase her propofol to 75 mcg/kg/m from 60 mcg/kg/m. And obviously the patient is not quite ready for any weaning trials. Remains on ceftriaxone empirically, patient has good urine output, brain CT is negative, Dilaudid was added for agitation along with higher dose of propofol. Chest x-ray no evidence of active disease. WBC count is 13.2 hemoglobin is 7.7 electrolytes are normal sputum Gram stain is showing presumptive staph aureus. Hence we will give the patient is dose of vancomycin and decide on further treatment if this turns out to be MRSA or MSSA. Reevaluated today on 01/27/2023, patient remains in the ICU, intubated and mechanically ventilated. Patient is on assist control rate of 20 increased to 22 today tidal volume 350 FiO2 50% PEEP of 5 ABG showed a pO2 of 76 pCO2 63 pH of 7.29 continues to have enteral feeding but this is more of a trickle feeding, patient has relatively intermittently high residual. She is on propofol at 70 mcg/kg/m 0.9 normal saline at 100 mL/h vital HPI at 10 mL per hour she is receiving Dilaudid intermittently and she remains on vancomycin and ceftriaxone empirically. Chest x-ray is not showing any significant abnormality her staph aureus in the sputum is MSSA hence we will discontinue vancomycin. However will continue Rocephin. WBC count is 12.6 hemoglobin 7.8 electrolytes are normal renal profile is normal, chest x-ray showed no evidence of infiltrate. Progress note dated 01/28/2023. This is a 62-year-old female admitted to the hospital on January 24. She was admitted with a diagnosis of COPD exacerbation. The patient was intubated on the same day, January 24. She remains on the ventilator. She is on volume assist control, rate 22, tidal volume 350, FiO2 40%, PEEP of 5. Blood gases show pO2 of 119, pCO2 of 66, and a pH is 7.26. Last night, the patient had very high peak airway pressures, and a large difference between peak airway pressure and plateau pressure. The patient was adequately sedated, and receiving pain medication, and thus, was paralyzed. I spoke to my nurse practitioner about that this morning. The patient is currently on Nimbex at 1 mcg/kg/m, fentanyl at 0.5 mcg/kg/h, propofol at 60 mcg/kg/m. The patient's getting saline at 100 mL an hour, and vital high protein, at 10 mL, with a goal of 29. The blood gases were done on 50%. White count 12.2, hemoglobin 7.3, hematocrit 25.5, and platelet count 432,000. Sodium 145, potassium 4.6, chlorides 113, CO2 26, BUN 27, creatinine 0.58. Sputum was positive for Staphylococcus aureus. Chest x- ray shows no focal consolidation, pleural effusion, or pneumothorax. Progress note dated 01/29/2023. This is a 62-year-old female admitted to the hospital on January 24. She was admitted with a diagnosis of COPD exacerbation. The patient was intubated on the same day, January 24. She remains on the ventilator. The patient's current ventilator settings include the volume assist control, rate of 22, tidal volume 350, FiO2 40%, and PEEP of 5. Arterial blood gases show a PaO2 of 139, pCO2 37, and pH is 7.5. The FiO2 was reduced from 40%, down to 30%. The patient's getting saline at 100 mL an hour, fentanyl at 0.5 mcg/kg/h, propofol 60 mcg/kg/m, and Nimbex at 1.5 mcg/kg/m. The patient's getting vital high protein at 22 mL an hour. The goal today is to get the patient off Nimbex if possible. The patient's peak airway pressures in the high 30 range. White count 12.3, hemoglobin 7.6, hematocrit 26, and platelet count normal. Sodium 144, potassium 4.6, chlorides 113, CO2 26, BUN 30, creatinine 0.5. Sputum was positive for oxacillin sensitive Staphylococcus aureus. Chest x-ray shows changes of COPD, with bilateral basilar infiltrates. Progress note dated 01/30/2023. 62-year-old female admitted to the hospital on January 24, with a diagnosis of COPD exacerbation. She ended up being intubated on the same day, remains on the ventilator. The patient is on volume assist control, rate 22, tidal volume, 350, FiO2 40%,. Blood gases show pO2 of 64, pCO2 of 52, and a pH is 7.4. The patient remains on Nimbex at 1.5 mcg/kg/m, saline at 100 mL an hour, propofol 60 mcg/kg/m, and fentanyl 0.5 mcg/kg/h. Tube feedings on hold. The patient is to have a bronchoscopy and BAL today, and, we will replace and arterial line that went bad. White count is 13.6, hemoglobin 7.7, hematocrit 26.5, and platelet count is 456,000. Sodium 146, potassium 4.7, chlorides 114, CO2 32, BUN 34, and creatinine 0.52. Sputum from January 24 shows evidence of Staphylococcus aureus. Chest x-ray shows COPD with bibasilar infiltrates, right greater than left. Objective - Vital Signs Vital signs: Vital Signs Temp 98.5 F 01/30/23 12:00 Pulse 96 01/30/23 12:00 Resp 22 01/30/23 12:00 BP 111/54 01/30/23 11:00 Pulse Ox 96 01/30/23 12:00 FiO2 40 01/30/23 12:00 Intake & Output 01/29/23 01/30/23 01/30/23 18:59 06:59 18:59 Intake Total 2237.789 1909.695 774 Output Total 725 825 420 Balance 1978.881 3980.695 354 Weight 83.7 kg Intake: IV 1236 1236 624 Pressure Bags 36 36 24 Sodium Chloride 0.9% 1, 1200 1200 600 000 ml @ 100 mls/hr IV . Q10H [facility] Rx#:[id number] Intake, IV Titration 577.789 529.695 150 Amount Cisatracurium 200 mg In 168.731 114.973 Sodium Chloride 0.9% 180 ml @ 1 MCG/KG/MIN 4.452 mls/hr IV .Q24H [facility] Rx#: [id number] cefTRIAXone 1 gm In 50 50 Sodium Chloride 0.9% 50 ml @ 100 mls/hr IVPB Q24HR [facility] Rx#:[id number] fentaNYL (PF). 1,000 mcg 60.102 39.898 In Sodium Chloride 0.9% 80 ml @ 0.5 MCG/KG/HR 3. 71 mls/hr IV .Q24H [facility] Rx #:[id number] propofoL 1,000 mg In 298.956 374.824 100 Empty Bag 1 bag @ 15 MCG/ KG/MIN 7.348 mls/hr IV . [id number] [facility] Rx#:[id number] Tube Feeding 264 44 0 Other 160 100 Output: Urine 725 825 420 Other: Voiding Method Indwelling Catheter Indwelling Catheter ABP, PAP, CO, CI - Last Documented Arterial Blood Pressure 128/64 - Exam No acute distress, sedated, paralyzed, with an orally placed endotracheal tube. HEENT examination is grossly unremarkable. Neck supple. Full range of motion. No adenopathy thyromegaly or neck vein distention. Cardiovascular examination reveals regular rhythm rate. S1-S2 normal. No S3 or S4. No discernible murmur noted. Heart rate 96 bpm. Lungs reveal scattered expiratory rhonchi. No wheezes or crackles. Breath sounds are equal bilaterally. Saturations are 96%. Abdomen soft bowel sounds are heard. No masses or tenderness. Extremities are intact. No cyanosis clubbing or edema. Skin is without rash or lesion. Neurologic examination cannot be assessed as the patient's currently sedated and paralyzed. - Labs CBC & Chem 7: 01/30/23 04:04 01/30/23 04:04 Labs: Abnormal Lab Results - Last 24 Hours (Table) 01/29/23 01/29/23 01/30/23 Range/Units 17:22 23:54 04:04 WBC 13.6 H (3.8-10.6) k/uL RBC 3.41 L (3.80-5.40) m/uL Hgb 7.7 L (11.4-16.0) gm/dL Hct 26.5 L (34.0-46.0) % MCV 77.7 L (80.0-100.0) fL MCH 22.6 L (25.0-35.0) pg MCHC 29.1 L (31.0-37.0) g/dL RDW 17.9 H (11.5-15.5) % Plt Count 456 H (150-450) k/uL Neutrophils # 12.4 H (1.3-7.7) k/uL Lymphocytes # 0.5 L (1.0-4.8) k/uL ABG pCO2 (35-45) mmHg ABG pO2 (83-108) mmHg ABG HCO3 (21-25) mmol/L ABG Total CO2 (19-24) mmol/L Sodium (137-145) mmol/L Chloride (98-107) mmol/L Carbon Dioxide (22-30) mmol/L BUN (7-17) mg/dL Glucose (74-99) mg/dL POC Glucose (mg/dL) 177 H 176 H (70-110) mg/dL Calcium (8.4-10.2) mg/dL 01/30/23 01/30/23 01/30/23 Range/Units 04:04 04:37 06:12 WBC (3.8-10.6) k/uL RBC (3.80-5.40) m/uL Hgb (11.4-16.0) gm/dL Hct (34.0-46.0) % MCV (80.0-100.0) fL MCH (25.0-35.0) pg MCHC (31.0-37.0) g/dL RDW (11.5-15.5) % Plt Count (150-450) k/uL Neutrophils # (1.3-7.7) k/uL Lymphocytes # (1.0-4.8) k/uL ABG pCO2 52 H (35-45) mmHg ABG pO2 64 L (83-108) mmHg ABG HCO3 32 H (21-25) mmol/L ABG Total CO2 34 H (19-24) mmol/L Sodium 146 H (137-145) mmol/L Chloride 114 H (98-107) mmol/L Carbon Dioxide 32 H (22-30) mmol/L BUN 34 H (7-17) mg/dL Glucose 166 H (74-99) mg/dL POC Glucose (mg/dL) 173 H (70-110) mg/dL Calcium 7.9 L (8.4-10.2) mg/dL 01/30/23 Range/Units 12:24 WBC (3.8-10.6) k/uL RBC (3.80-5.40) m/uL Hgb (11.4-16.0) gm/dL Hct (34.0-46.0) % MCV (80.0-100.0) fL MCH (25.0-35.0) pg MCHC (31.0-37.0) g/dL RDW (11.5-15.5) % Plt Count (150-450) k/uL Neutrophils # (1.3-7.7) k/uL Lymphocytes # (1.0-4.8) k/uL ABG pCO2 (35-45) mmHg ABG pO2 (83-108) mmHg ABG HCO3 (21-25) mmol/L ABG Total CO2 (19-24) mmol/L Sodium (137-145) mmol/L Chloride (98-107) mmol/L Carbon Dioxide (22-30) mmol/L BUN (7-17) mg/dL Glucose (74-99) mg/dL POC Glucose (mg/dL) 172 H (70-110) mg/dL Calcium (8.4-10.2) mg/dL Assessment and Plan Assessment: Acute hypoxemic and hypercapnic respiratory failure, requiring intubation and mechanical ventilation, beginning on January 24. S/P bronchoscopy, and BAL, right lower lobe, for increased airway secretions, 01/30/2023. Acute exacerbation of COPD, severe, with high peak airway pressures, and severe bronchospasm, requiring heavy sedation and paralysis. History of depression. Coronary artery disease. Methicillin sensitive staph aureus tracheobronchitis/bronchopneumonia. Plan: Plan dated 01/28/2023. The patient will continue on ventilatory support. The patient had very high peak airway pressures last night, and a significant difference between peak and plateau pressure, and required paralysis. The patient will continue on Solu- Medrol, and bronchodilators. In addition, the patient continues on antibiotics in the form of Rocephin. Also, the patient continues on tube feedings, with vital high protein. We continue with GI and DVT prophylaxis. Patient is very critically ill. Not ready for extubation at this time. Additional recommendations and suggestions are forthcoming. Prognosis is certainly guarded. Plan dated 01/29/2023. The patient continues with ventilatory support. The patient continues on propofol, fentanyl, and Nimbex. We will attempt to wean the patient off of Nimbex today. Labs, x-rays, and medications are reviewed. The patient remains critically ill. She remains on GI and DVT prophylaxis. The patient's sputum revealed evidence of oxacillin sensitive Staphylococcus aureus. The patient remains on Rocephin. Additional recommendations and suggestions are forthcoming. We will continue to follow the patient, and make recommendations along the way. Prognosis is certainly guarded. Plan dated 01/30/2023. The patient underwent bronchoscopy, airway examination, and BAL, right lower lobe today. She had significant airway secretions. The secretions are quite thick, and inspissated. Samples from the right lower lobe, were sent to [facility] for analysis. In addition, we placed a right femoral arterial line. The patient tolerated that procedure well. Labs, x-rays, and medications are all reviewed. Yesterday, we attempted a daily interruption of sedation, and the patient's airway pressures became very high. She had to be re-sedated and paralyzed. Continue to follow the patient and make recommendations along the way. She does remain on GI and DVT prophylaxis. The patient remains on Rocephin. Time with Patient: Greater than 30
[2023-01-30 13:40] VITALS: BP 98/55
[2023-01-30 17:36] LABS: Glucose,Whole Blood 170 mg/dL (70-110)
--- NOTE | 2023-01-30 19:13 | P.PN ---
Subjective This is a pleasant 62 years old female with past medical history of Asthma, Coronary Artery Disease, COPD Patient presents because of shortness of breath and altered mental status, as per documentation patient has difficulty talking because of her dysonea and she was using accessory muscles. Her respiratory distress was severe and patient required intubation and mechanical ventilation while in the emergency room. patient is afebrile. Blood pressure stable Hemoglobin is 8.7. W68.4. INR 1.0 PH 7.73, pCO2 88 and 67 BMP showing creatinine 0.7, glucose 154, liver enzymes not elevated. Troponin mildly elevated at 0.05. EKG showing sinus tachycardia at 130 ProBNP is elevated 1450 chest x-ray showed COPD however there is linear right upper lobe typical scar or atelectasis per radiologist. However I think fluid overload and cephalization is also suspected per my review especially patient has elevated proBNP. Such changes did not been seen in chest x-ray about 6 months ago. 01/28/2023 Patient remains intubated and sedated with pulmonary/critical care team followed closely She has high PEEP normal she remains on ceftriaxone, salmeterol 60 mg and normal saline Patient also sputum culture is growing MSSA. Residual thousand, hemoglobin 7.3. 01/29/2023 Patient remains intubated and sedated. Her PEEP today is 5 and FiO2 40%. Afebrile. Vitals stable. Labs looked the same, WBC 12.3 K, hemoglobin 7.6. Chest x-ray from today showing COPD with bilateral infiltrates She is on ceftriaxone, salu medrol 60 mg and normal saline at 100 mL per hour 01/30/2023 Remains intubation and sedated area She is slow to improve therefore she underwent bronchoscopy with bronchoalveolar lavage with removal of thick secretions with normal saline. Mucosa inflamed and bleeds easily. No tumors found. She is on ceftriaxone, salu medrol 60 mg and normal saline at 100 mL per hour repeat checks in the morning Objective - Vital Signs Vital signs: Vital Signs Temp 98.1 F 01/30/23 04:00 Pulse 99 01/30/23 10:41 Resp 22 01/30/23 07:00 BP 103/57 01/30/23 07:00 Pulse Ox 97 01/30/23 07:00 FiO2 100 01/30/23 10:41 Intake & Output 01/29/23 01/30/23 01/30/23 18:59 06:59 18:59 Intake Total 2237.789 1909.695 203 Output Total 725 825 80 Balance 9633.086 7084.695 123 Weight 83.7 kg Intake: IV 1236 1236 103 Pressure Bags 36 36 3 Sodium Chloride 0.9% 1, 1200 1200 100 000 ml @ 100 mls/hr IV . Q10H [facility] Rx#:[id number] Intake, IV Titration 577.789 529.695 100 Amount Cisatracurium 200 mg In 168.731 114.973 Sodium Chloride 0.9% 180 ml @ 1 MCG/KG/MIN 4.452 mls/hr IV .Q24H [facility] Rx#: [id number] cefTRIAXone 1 gm In 50 Sodium Chloride 0.9% 50 ml @ 100 mls/hr IVPB Q24HR [facility] Rx#:[id number] fentaNYL (PF). 1,000 mcg 60.102 39.898 In Sodium Chloride 0.9% 80 ml @ 0.5 MCG/KG/HR 3. 71 mls/hr IV .Q24H [facility] Rx #:[id number] propofoL 1,000 mg In 298.956 374.824 100 Empty Bag 1 bag @ 15 MCG/ KG/MIN 7.348 mls/hr IV . [id number] [facility] Rx#:[id number] Tube Feeding 264 44 0 Other 160 100 Output: Urine 725 825 80 Other: Voiding Method Indwelling Catheter Indwelling Catheter ABP, PAP, CO, CI - Last Documented Arterial Blood Pressure 111/73 - Exam -GENERAL: The patient is intubated and sedated. HEENT: Pupils are round and equally reacting to light. EOMI. No scleral icterus. No conjunctival pallor. Normocephalic, atraumatic. No pharyngeal erythema. No thyromegaly. CARDIOVASCULAR: S1 and S2 present. No murmurs, rubs, or gallops. PULMONARY: Chest is clear to auscultation, no wheezing , no crackles. ABDOMEN: Soft, nontender, nondistended, normoactive bowel sounds. No palpable organomegaly. MUSCULOSKELETAL: No joint swelling or deformity. EXTREMITIES: No cyanosis, clubbing, or pedal edema. NEUROLOGICAL: Gross neurological examination did not reveal any focal deficits. SKIN: No rashes. no petechiae. - Labs CBC & Chem 7: 01/30/23 04:04 01/30/23 04:04 Labs: Abnormal Lab Results - Last 24 Hours (Table) 01/29/23 01/29/23 01/29/23 Range/Units 12:09 17:22 23:54 WBC (3.8-10.6) k/uL RBC (3.80-5.40) m/uL Hgb (11.4-16.0) gm/dL Hct (34.0-46.0) % MCV (80.0-100.0) fL MCH (25.0-35.0) pg MCHC (31.0-37.0) g/dL RDW (11.5-15.5) % Plt Count (150-450) k/uL Neutrophils # (1.3-7.7) k/uL Lymphocytes # (1.0-4.8) k/uL ABG pCO2 (35-45) mmHg ABG pO2 (83-108) mmHg ABG HCO3 (21-25) mmol/L ABG Total CO2 (19-24) mmol/L Sodium (137-145) mmol/L Chloride (98-107) mmol/L Carbon Dioxide (22-30) mmol/L BUN (7-17) mg/dL Glucose (74-99) mg/dL POC Glucose (mg/dL) 172 H 177 H 176 H (70-110) mg/dL Calcium (8.4-10.2) mg/dL 01/30/23 01/30/23 01/30/23 Range/Units 04:04 04:04 04:37 WBC 13.6 H (3.8-10.6) k/uL RBC 3.41 L (3.80-5.40) m/uL Hgb 7.7 L (11.4-16.0) gm/dL Hct 26.5 L (34.0-46.0) % MCV 77.7 L (80.0-100.0) fL MCH 22.6 L (25.0-35.0) pg MCHC 29.1 L (31.0-37.0) g/dL RDW 17.9 H (11.5-15.5) % Plt Count 456 H (150-450) k/uL Neutrophils # 12.4 H (1.3-7.7) k/uL Lymphocytes # 0.5 L (1.0-4.8) k/uL ABG pCO2 52 H (35-45) mmHg ABG pO2 64 L (83-108) mmHg ABG HCO3 32 H (21-25) mmol/L ABG Total CO2 34 H (19-24) mmol/L Sodium 146 H (137-145) mmol/L Chloride 114 H (98-107) mmol/L Carbon Dioxide 32 H (22-30) mmol/L BUN 34 H (7-17) mg/dL Glucose 166 H (74-99) mg/dL POC Glucose (mg/dL) (70-110) mg/dL Calcium 7.9 L (8.4-10.2) mg/dL 01/30/23 Range/Units 06:12 WBC (3.8-10.6) k/uL RBC (3.80-5.40) m/uL Hgb (11.4-16.0) gm/dL Hct (34.0-46.0) % MCV (80.0-100.0) fL MCH (25.0-35.0) pg MCHC (31.0-37.0) g/dL RDW (11.5-15.5) % Plt Count (150-450) k/uL Neutrophils # (1.3-7.7) k/uL Lymphocytes # (1.0-4.8) k/uL ABG pCO2 (35-45) mmHg ABG pO2 (83-108) mmHg ABG HCO3 (21-25) mmol/L ABG Total CO2 (19-24) mmol/L Sodium (137-145) mmol/L Chloride (98-107) mmol/L Carbon Dioxide (22-30) mmol/L BUN (7-17) mg/dL Glucose (74-99) mg/dL POC Glucose (mg/dL) 173 H (70-110) mg/dL Calcium (8.4-10.2) mg/dL Assessment and Plan Assessment: Acute asthma/COPD exacerbation. Acute hypoxemic respiratory failure requiring intubation and mechanical ventilation Acute tracheobronchitis secondary to MSSA History of depression Acute respiratory acidosis with metabolic compensation Altered mental status most likely metabolic/toxic encephalopathy. Plan: Continue with mechanical ventilation with pulmonary/critical care team on the case already the recommendation Continue with IV Solu-Medrol Continue with a bronchodilator Continue ceftriaxone Labs and medication were reviewed.. Continue same treatment. Continue with symptomatic treatment. Resume home medication. Monitor labs and vitals. DVT and GI prophylaxis. Further recommendations as per clinical course of the patient DVT prophylaxis: Subcutaneous heparin GI Prophylaxis: Ppi PT/OT: Pending Prognosis is guarded Discussed with staff
[2023-01-30] MEDS: MONTELUKAST 10 MG TAB PO SCH (21:00)
[2023-01-30 23:40] LABS: Glucose,Whole Blood 177 mg/dL (70-110)
[2023-01-31] MEDS: HEPARIN SODIUM,PORCINE 5,000 UNIT/ML 1 ML VIAL SQ SCH ×4 (00:01→23:38)
[2023-01-31] MEDS: ARTIFICIAL TEARS-HYPROMELLOSE DROPS 15 ML BTL BOTH EYES SCH ×7 (00:01→23:38)
[2023-01-31] MEDS: SODIUM CHLORIDE 0.9% 1,000 ML IV SCH (01:14)
[2023-01-31] MEDS: IPRATROPIUM-ALBUTEROL 3 ML NEB INHALATION SCH ×6 (03:13→23:41)
[2023-01-31 05:08] LABS: Glucose,Whole Blood 164 mg/dL (70-110)
[2023-01-31] MEDS: INSULIN ASPART (NovoLOG) 100 UNIT/ML VIAL SQ SCH ×5 (05:09→23:37)
[2023-01-31] MEDS: methylPREDNISolone SOD SUCCI 125 MG/2 ML VIAL IV SCH ×4 (05:09→23:37)
[2023-01-31 05:52] LABS: ABG Base Excess 7.8 mmol/L; ABG HCO3 34 mmol/L (21-25); ABG Oxygen Saturation 94.1 % (94-97); ABG PCO2 66 mmHg (35-45); ABG PH 7.32 (7.35-7.45); ABG PO2 74 mmHg (83-108); ABG TCO2 36 mmol/L (19-24)
[2023-01-31] MEDS: CISATRACURIUM 200 MG in SODIUM CHLORIDE 0.9% 180 ML IV SCH ×3 (06:02→20:12)
[2023-01-31] MEDS: fentaNYL (PF). 1,000 MCG in SODIUM CHLORIDE 0.9% 80 ML IV SCH ×2 (06:02→06:44)
[2023-01-31 07:17] LABS: Anisocytosis Slight; Basophils % (A) 0 %; Eosinophils % (A) 0 %; HCT 26.8 % (34.0-46.0); HGB 7.8 gm/dL (11.4-16.0); Hypochromasia Marked; Lymphocytes # (A) 0.6 k/uL (1.0-4.8); Lymphocytes % (A) 3 %; MCH 22.6 pg (25.0-35.0); MCHC 29.1 g/dL (31.0-37.0); MCV 77.5 fL (80.0-100.0); Mean Platelet Volume 9.2; Microcytosis Slight; Monocytes # (A) 0.7 k/uL (0-1.0); Monocytes % (A) 4 %; Neutrophils # (A) 16.1 k/uL (1.3-7.7); Neutrophils % (A) 92 %; Platelet Count 422 k/uL (150-450); Poikilocytosis Slight; RBC 3.45 m/uL (3.80-5.40); RDW 17.9 % (11.5-15.5); WBC 17.5 k/uL (3.8-10.6)
[2023-01-31 07:26] LABS: African American GFR (CKD) >90 (>60 ml/min/1.73 sqM); Anion Gap 0 mmol/L; Blood Urea Nitrogen 34 mg/dL (7-17); Calcium 7.7 mg/dL (8.4-10.2); Carbon Dioxide 34 mmol/L (22-30); Chloride 112 mmol/L (98-107); Glucose 168 mg/dL (74-99); Non-African American GFR(CKD) >90 (>60 ml/min/1.73 sqM); Potassium 4.3 mmol/L (3.5-5.1); Sodium 146 mmol/L (137-145)
[2023-01-31] MEDS: CHLORHEXIDINE GLUCONATE 15 ML CUP MUCOUS MEM SCH ×2 (08:02→19:43)
[2023-01-31] MEDS: PANTOPRAZOLE 40 MG/10 ML VIAL IV SCH (08:02)
[2023-01-31] MEDS: PREGABALIN 100 MG CAP PO SCH ×2 (08:04→21:26)
[2023-01-31] MEDS: DILTIAZEM ORAL 30 MG TAB PO SCH ×4 (08:04→21:26)
[2023-01-31] MEDS: BUDESONIDE 1 MG/2 ML NEBU INHALATION SCH ×2 (08:04→19:57)
[2023-01-31] MEDS: FORMOTEROL FUMARATE 20 MCG/2 ML NEBU INHALATION SCH ×2 (08:05→19:57)
[2023-01-31 08:18] LABS: Appearance,BF Cloudy (Clear); RBC, Body Fluid 230 /UL (0-2000)
[2023-01-31] MEDS ORDERED: FUROSEMIDE 10 MG/ML 10 ML VIAL IV STA (09:09)
[2023-01-31] MEDS: HYDROmorphone 1 MG/ML 1 ML SYRINGE IVP PRN ×2 (09:15→18:09)
--- NOTE | 2023-01-31 09:21 | XR ---
EXAMINATION TYPE: XR chest 1V portable DATE OF EXAM: 01/31/2023 Comparison: 01/30/2023 Clinical History: 62-year-old female mechanical ventilation Findings: ET and NG tube are satisfactory. Heart normal size. Mild hyperinflation. Patchy bibasilar opacities. Right subclavian CVC tip in the upper right atrium. Impression: COPD with similar mild patchy bibasilar opacities/infiltrates.
--- NOTE | 2023-01-31 11:43 | P.PN ---
Subjective Progress Note Date: 01/31/23 Principal diagnosis: Respiratory failure. This is a 62-year-old female with known history of COPD, coronary artery disease, not familiar to our service, patient was brought into the ER yesterday in extreme respiratory distress. Patient was noted to have acute hypoxic and hypercapnic respiratory failure, she was intubated almost upon her initial presentation to the ER because she was mostly in severe respiratory distress. Shortly after intubation the patient was noted to have a pO2 of more than 400 pCO2 88 pH of 7.20. Repeat blood gases after the patient was sent to the ICU showed a pO2 of 136 pCO2 67 pH of 7.33 and her ABG this morning showed a pO2 of 98 pCO2 60 pH of 7.41. Chest x-ray on admission showed no evidence of acute process except for emphysematous changes. No evidence of infiltrate. And no evidence of congestive heart failure. Patient is now on assist control rate of 20 tidal volume 350 FiO2 50% and PEEP of 5. She is not requiring any pressors patient is on propofol at 60 mcg/kg/m. Earlier this morning on a lower dose of propofol, patient was noted to be agitated, wheezing, and clearly was not ready for weaning. Hence the dose of propofol was increased, in the meantime we are giving the patient bronchodilators in the form of one nap, she is also on Pulmicort and Perforomist, and I added Solu-Medrol. Patient is also on antibiotics empirically. WBC count is 7.6 hemoglobin is 8.7, basic metabolic profile is normal bicarb is high 33 BUN is 22 creatinine 0.70 Patient was reevaluated today on 01/26/2023, patient is basically about the same. Remains intubated and mechanically ventilated, she is on assist control rate of 20 tidal volume 350 FiO2 40% and PEEP of 5 ABG showed a pO2 of 83 pCO2 61 pH of 7.36. This morning the patient is noted to be not synchronous with the ventilator, she is having breath stacking, hence I had to increase her propofol to 75 mcg/kg/m from 60 mcg/kg/m. And obviously the patient is not quite ready for any weaning trials. Remains on ceftriaxone empirically, patient has good urine output, brain CT is negative, Dilaudid was added for agitation along with higher dose of propofol. Chest x-ray no evidence of active disease. WBC count is 13.2 hemoglobin is 7.7 electrolytes are normal sputum Gram stain is showing presumptive staph aureus. Hence we will give the patient is dose of vancomycin and decide on further treatment if this turns out to be MRSA or MSSA. Reevaluated today on 01/27/2023, patient remains in the ICU, intubated and mechanically ventilated. Patient is on assist control rate of 20 increased to 22 today tidal volume 350 FiO2 50% PEEP of 5 ABG showed a pO2 of 76 pCO2 63 pH of 7.29 continues to have enteral feeding but this is more of a trickle feeding, patient has relatively intermittently high residual. She is on propofol at 70 mcg/kg/m 0.9 normal saline at 100 mL/h vital HPI at 10 mL per hour she is receiving Dilaudid intermittently and she remains on vancomycin and ceftriaxone empirically. Chest x-ray is not showing any significant abnormality her staph aureus in the sputum is MSSA hence we will discontinue vancomycin. However will continue Rocephin. WBC count is 12.6 hemoglobin 7.8 electrolytes are normal renal profile is normal, chest x-ray showed no evidence of infiltrate. Progress note dated 01/28/2023. This is a 62-year-old female admitted to the hospital on January 24. She was admitted with a diagnosis of COPD exacerbation. The patient was intubated on the same day, January 24. She remains on the ventilator. She is on volume assist control, rate 22, tidal volume 350, FiO2 40%, PEEP of 5. Blood gases show pO2 of 119, pCO2 of 66, and a pH is 7.26. Last night, the patient had very high peak airway pressures, and a large difference between peak airway pressure and plateau pressure. The patient was adequately sedated, and receiving pain medication, and thus, was paralyzed. I spoke to my nurse practitioner about that this morning. The patient is currently on Nimbex at 1 mcg/kg/m, fentanyl at 0.5 mcg/kg/h, propofol at 60 mcg/kg/m. The patient's getting saline at 100 mL an hour, and vital high protein, at 10 mL, with a goal of 29. The blood gases were done on 50%. White count 12.2, hemoglobin 7.3, hematocrit 25.5, and platelet count 432,000. Sodium 145, potassium 4.6, chlorides 113, CO2 26, BUN 27, creatinine 0.58. Sputum was positive for Staphylococcus aureus. Chest x- ray shows no focal consolidation, pleural effusion, or pneumothorax. Progress note dated 01/29/2023. This is a 62-year-old female admitted to the hospital on January 24. She was admitted with a diagnosis of COPD exacerbation. The patient was intubated on the same day, January 24. She remains on the ventilator. The patient's current ventilator settings include the volume assist control, rate of 22, tidal volume 350, FiO2 40%, and PEEP of 5. Arterial blood gases show a PaO2 of 139, pCO2 37, and pH is 7.5. The FiO2 was reduced from 40%, down to 30%. The patient's getting saline at 100 mL an hour, fentanyl at 0.5 mcg/kg/h, propofol 60 mcg/kg/m, and Nimbex at 1.5 mcg/kg/m. The patient's getting vital high protein at 22 mL an hour. The goal today is to get the patient off Nimbex if possible. The patient's peak airway pressures in the high 30 range. White count 12.3, hemoglobin 7.6, hematocrit 26, and platelet count normal. Sodium 144, potassium 4.6, chlorides 113, CO2 26, BUN 30, creatinine 0.5. Sputum was positive for oxacillin sensitive Staphylococcus aureus. Chest x-ray shows changes of COPD, with bilateral basilar infiltrates. Progress note dated 01/30/2023. 62-year-old female admitted to the hospital on January 24, with a diagnosis of COPD exacerbation. She ended up being intubated on the same day, remains on the ventilator. The patient is on volume assist control, rate 22, tidal volume, 350, FiO2 40%,. Blood gases show pO2 of 64, pCO2 of 52, and a pH is 7.4. The patient remains on Nimbex at 1.5 mcg/kg/m, saline at 100 mL an hour, propofol 60 mcg/kg/m, and fentanyl 0.5 mcg/kg/h. Tube feedings on hold. The patient is to have a bronchoscopy and BAL today, and, we will replace and arterial line that went bad. White count is 13.6, hemoglobin 7.7, hematocrit 26.5, and platelet count is 456,000. Sodium 146, potassium 4.7, chlorides 114, CO2 32, BUN 34, and creatinine 0.52. Sputum from January 24 shows evidence of Staphylococcus aureus. Chest x-ray shows COPD with bibasilar infiltrates, right greater than left. Progress note dated 01/31/2023. 62-year-old female admitted to the hospital on January 24, with a diagnosis of COPD exacerbation. She was intubated for respiratory failure on the same day. She remains on the ventilator. She is on volume assist control, rate 22, tidal volume 350, FiO2 35%, PEEP of 5. Blood gases show pO2 74, pCO2 of 66, and pH is 7.32. The patient's on propofol at 60 mcg/kg/m, Nimbex at 1.5 mcg/kg/m, and fentanyl at 0.5 mcg/kg/h. The patient is getting saline at 100 mL an hour, and also vital high protein at 10 mL an hour, with a goal of 22. White count 17.5, he moves some 0.8, hematocrit 26.8, and platelet count 422,000. Sodium 146, p otassium 4.3, chlorides 112, CO2 34, BUN 34, and creatinine 0.45. Sputum from January 24 was positive for methicillin sensitive staph aureus. Chest x-ray from this morning shows changes of COPD, and is largely unchanged. Objective - Vital Signs Vital signs: Vital Signs Temp 98.0 F 01/31/23 08:00 Pulse 89 01/31/23 11:00 Resp 22 01/31/23 11:00 BP 98/55 01/30/23 13:00 Pulse Ox 96 01/31/23 11:00 FiO2 35 01/31/23 11:23 Intake & Output 01/30/23 01/31/23 01/31/23 18:59 06:59 18:59 Intake Total 8267.571 5652.805 779.195 Output Total 744 465 3897 Balance 574.582 9571.805 -530.805 Weight 84.8 kg Intake: IV 1260 1272 370 Pressure Bags 60 72 30 Sodium Chloride 0.9% 1, 1200 1200 340 000 ml @ 10 mls/hr IV . Q24H [facility] Rx#:[id number] Intake, IV Titration 347.487 375.805 329.195 Amount Cisatracurium 200 mg In 171.847 Sodium Chloride 0.9% 180 ml @ 1 MCG/KG/MIN 4.452 mls/hr IV .Q24H [facility] Rx#: [id number] cefTRIAXone 1 gm In 50 50 Sodium Chloride 0.9% 50 ml @ 100 mls/hr IVPB Q24HR [facility] Rx#:[id number] propofoL 1,000 mg In 297.487 375.805 107.348 Empty Bag 1 bag @ 15 MCG/ KG/MIN 7.348 mls/hr IV . [id number] [facility] Rx#:[id number] Tube Feeding 0 110 50 Other 150 30 Output: Urine 170 797 9504 Other: Voiding Method Indwelling Catheter Indwelling Catheter Indwelling Catheter ABP, PAP, CO, CI - Last Documented Arterial Blood Pressure 117/57 - Exam No acute distress, sedated, paralyzed, with an orally placed endotracheal tube. HEENT examination is grossly unremarkable. Neck supple. Full range of motion. No adenopathy thyromegaly or neck vein distention. Cardiovascular examination reveals regular rhythm rate. S1-S2 normal. No S3 or S4. No discernible murmur noted. Heart rate 89 bpm. Lungs reveal scattered expiratory rhonchi. No wheezes or crackles. Breath sounds are equal bilaterally. Saturations are 96%. Abdomen soft bowel sounds are heard. No masses or tenderness. Extremities are intact. No cyanosis clubbing or edema. Skin is without rash or lesion. Neurologic examination cannot be assessed as the patient's currently sedated and paralyzed. - Labs CBC & Chem 7: 01/31/23 07:05 01/31/23 07:05 Labs: Abnormal Lab Results - Last 24 Hours (Table) 01/30/23 01/30/23 01/30/23 Range/Units 10:00 12:24 17:35 WBC (3.8-10.6) k/uL RBC (3.80-5.40) m/uL Hgb (11.4-16.0) gm/dL Hct (34.0-46.0) % MCV (80.0-100.0) fL MCH (25.0-35.0) pg MCHC (31.0-37.0) g/dL RDW (11.5-15.5) % Neutrophils # (1.3-7.7) k/uL Lymphocytes # (1.0-4.8) k/uL ABG pH (7.35-7.45) ABG pCO2 (35-45) mmHg ABG pO2 (83-108) mmHg ABG HCO3 (21-25) mmol/L ABG Total CO2 (19-24) mmol/L Sodium (137-145) mmol/L Chloride (98-107) mmol/L Carbon Dioxide (22-30) mmol/L BUN (7-17) mg/dL Creatinine (0.52-1.04) mg/dL Glucose (74-99) mg/dL POC Glucose (mg/dL) 172 H 170 H (70-110) mg/dL Calcium (8.4-10.2) mg/dL Fluid Appearance Cloudy A (Clear) 01/30/23 01/31/23 01/31/23 Range/Units 23:38 05:05 05:06 WBC (3.8-10.6) k/uL RBC (3.80-5.40) m/uL Hgb (11.4-16.0) gm/dL Hct (34.0-46.0) % MCV (80.0-100.0) fL MCH (25.0-35.0) pg MCHC (31.0-37.0) g/dL RDW (11.5-15.5) % Neutrophils # (1.3-7.7) k/uL Lymphocytes # (1.0-4.8) k/uL ABG pH 7.32 L (7.35-7.45) ABG pCO2 66 H (35-45) mmHg ABG pO2 74 L (83-108) mmHg ABG HCO3 34 H (21-25) mmol/L ABG Total CO2 36 H (19-24) mmol/L Sodium (137-145) mmol/L Chloride (98-107) mmol/L Carbon Dioxide (22-30) mmol/L BUN (7-17) mg/dL Creatinine (0.52-1.04) mg/dL Glucose (74-99) mg/dL POC Glucose (mg/dL) 177 H 164 H (70-110) mg/dL Calcium (8.4-10.2) mg/dL Fluid Appearance (Clear) 01/31/23 01/31/23 Range/Units 07:05 07:05 WBC 17.5 H (3.8-10.6) k/uL RBC 3.45 L (3.80-5.40) m/uL Hgb 7.8 L (11.4-16.0) gm/dL Hct 26.8 L (34.0-46.0) % MCV 77.5 L (80.0-100.0) fL MCH 22.6 L (25.0-35.0) pg MCHC 29.1 L (31.0-37.0) g/dL RDW 17.9 H (11.5-15.5) % Neutrophils # 16.1 H (1.3-7.7) k/uL Lymphocytes # 0.6 L (1.0-4.8) k/uL ABG pH (7.35-7.45) ABG pCO2 (35-45) mmHg ABG pO2 (83-108) mmHg ABG HCO3 (21-25) mmol/L ABG Total CO2 (19-24) mmol/L Sodium 146 H (137-145) mmol/L Chloride 112 H (98-107) mmol/L Carbon Dioxide 34 H (22-30) mmol/L BUN 34 H (7-17) mg/dL Creatinine 0.45 L (0.52-1.04) mg/dL Glucose 168 H (74-99) mg/dL POC Glucose (mg/dL) (70-110) mg/dL Calcium 7.7 L (8.4-10.2) mg/dL Fluid Appearance (Clear) Assessment and Plan Assessment: Acute hypoxemic and hypercapnic respiratory failure, requiring intubation and mechanical ventilation, beginning on January 24. S/P bronchoscopy, and BAL, right lower lobe, for increased airway secretions, 01/30/2023. Acute exacerbation of COPD, severe, with high peak airway pressures, and severe bronchospasm, requiring heavy sedation and paralysis. History of depression. Coronary artery disease. Methicillin sensitive staph aureus tracheobronchitis/bronchopneumonia. Plan: Plan dated 01/28/2023. The patient will continue on ventilatory support. The patient had very high peak airway pressures last night, and a significant difference between peak and plateau pressure, and required paralysis. The patient will continue on Solu- Medrol, and bronchodilators. In addition, the patient continues on antibiotics in the form of Rocephin. Also, the patient continues on tube feedings, with vital high protein. We continue with GI and DVT prophylaxis. Patient is very critically ill. Not ready for extubation at this time. Additional recommendations and suggestions are forthcoming. Prognosis is certainly guarded. Plan dated 01/29/2023. The patient continues with ventilatory support. The patient continues on propofol, fentanyl, and Nimbex. We will attempt to wean the patient off of Nimbex today. Labs, x-rays, and medications are reviewed. The patient remains critically ill. She remains on GI and DVT prophylaxis. The patient's sputum revealed evidence of oxacillin sensitive Staphylococcus aureus. The patient remains on Rocephin. Additional recommendations and suggestions are forthcoming. We will continue to follow the patient, and make recommendations along the way. Prognosis is certainly guarded. Plan dated 01/30/2023. The patient underwent bronchoscopy, airway examination, and BAL, right lower lobe today. She had significant airway secretions. The secretions are quite thick, and inspissated. Samples from the right lower lobe, were sent to lab oratory for analysis. In addition, we placed a right femoral arterial line. The patient tolerated that procedure well. Labs, x-rays, and medications are all reviewed. Yesterday, we attempted a daily interruption of sedation, and the patient's airway pressures became very high. She had to be re-sedated and paralyzed. Continue to follow the patient and make recommendations along the way. She does remain on GI and DVT prophylaxis. The patient remains on Rocephin. Plan dated 01/31/2023. The patient will have another trial of being off the paralytic. The patient requires the paralytic to be added back, we will recommend a tracheostomy and PEG tube placement. In addition, the saline running at 100 mL an hour, will be turned down to KVO. The patient will get Lasix 60 mg IV push times one dose. We'll also DC the Rocephin. If the patient is able to stay off the Nimbex, we might consider a daily interruption of sedation with a spontaneous breathing trial. If she does not tolerate it, tracheostomy and PEG tube is recommended. Labs, x-rays, medications are reviewed. The patient's overall prognosis remains guarded. We will continue to follow and make recommendations along the way. Time with Patient: Greater than 30
[2023-01-31 11:50] LABS: Glucose,Whole Blood 196 mg/dL (70-110)
[2023-01-31 11:59] LABS: Nucleated Cells, Body Fluid 165 /UL
--- NOTE | 2023-01-31 12:16 | XR ---
EXAMINATION TYPE: XR abdomen 1V DATE OF EXAM: 01/31/2023 COMPARISON: NONE HISTORY: Abdominal distention TECHNIQUE: One view abdominal series FINDINGS: The osseous structures are intact. The bowel gas pattern is nonspecific. Lung bases are clear. NG t ube noted. A catheter overlying the bladder or rectum. Calcifications in pelvis. There is a right fem oral line. Bilateral hip arthropathy. IMPRESSION: 1. Nonspecific abdomen.
--- NOTE | 2023-01-31 13:25 | P.PN ---
Subjective This is a pleasant 62 years old female with past medical history of Asthma, Coronary Artery Disease, COPD Patient presents because of shortness of breath and altered mental status, as per documentation patient has difficulty talking because of her dysonea and she was using accessory muscles. Her respiratory distress was severe and patient required intubation and mechanical ventilation while in the emergency room. patient is afebrile. Blood pressure stable Hemoglobin is 8.7. W68.4. INR 1.0 PH 7.73, pCO2 88 and 67 BMP showing creatinine 0.7, glucose 154, liver enzymes not elevated. Troponin mildly elevated at 0.05. EKG showing sinus tachycardia at 130 ProBNP is elevated 1450 chest x-ray showed COPD however there is linear right upper lobe typical scar or atelectasis per radiologist. However I think fluid overload and cephalization is also suspected per my review especially patient has elevated proBNP. Such changes did not been seen in chest x-ray about 6 months ago. 01/28/2023 Patient remains intubated and sedated with pulmonary/critical care team followed closely She has high PEEP normal she remains on ceftriaxone, salmeterol 60 mg and normal saline Patient also sputum culture is growing MSSA. Residual thousand, hemoglobin 7.3. 01/29/2023 Patient remains intubated and sedated. Her PEEP today is 5 and FiO2 40%. Afebrile. Vitals stable. Labs looked the same, WBC 12.3 K, hemoglobin 7.6. Chest x-ray from today showing COPD with bilateral infiltrates She is on ceftriaxone, salu medrol 60 mg and normal saline at 100 mL per hour 01/30/2023 Remains intubation and sedated area She is slow to improve therefore she underwent bronchoscopy with bronchoalveolar lavage with removal of thick secretions with normal saline. Mucosa inflamed and bleeds easily. No tumors found. She is on ceftriaxone, salu medrol 60 mg and normal saline at 100 mL per hour repeat checks in the morning 01/31/2023 Patient remains in the ICU intubated and sedated status post bronchoscopy yesterday. Pulmonary/critical care following closely. WBC is 17,000, hemoglobin 7.8 Abdominal x-ray nonspecific, chest x-ray showed COPD with patchy bibasilar opacity. Today, Rocephin was discontinued. Patient normal saline and admitted the per h our was stopped and patient given Lasix 60 mg 1. Discontinue IV fluids and patient given 1 time dose of Lasix. Objective - Vital Signs Vital signs: Vital Signs Temp 98.1 F 01/31/23 12:00 Pulse 120 H 01/31/23 13:00 Resp 16 01/31/23 13:00 BP 98/55 01/30/23 13:00 Pulse Ox 88 L 01/31/23 13:00 FiO2 35 01/31/23 13:01 Intake & Output 01/30/23 01/31/23 01/31/23 18:59 06:59 18:59 Intake Total 3698.202 2091.805 901.181 Output Total 992 365 9003 Balance 401.619 0518.805 -1153.819 Weight 84.8 kg 84.8 kg Intake: IV 1260 1272 422 Pressure Bags 60 72 42 Sodium Chloride 0.9% 1, 1200 1200 380 000 ml @ 10 mls/hr IV . Q24H [facility] Rx#:[id number] Intake, IV Titration 347.487 375.805 349.181 Amount Cisatracurium 200 mg In 178.525 Sodium Chloride 0.9% 180 ml @ 1 MCG/KG/MIN 4.452 mls/hr IV .Q24H [facility] Rx#: [id number] cefTRIAXone 1 gm In 50 50 Sodium Chloride 0.9% 50 ml @ 100 mls/hr IVPB Q24HR [facility] Rx#:[id number] propofoL 1,000 mg In 297.487 375.805 120.656 Empty Bag 1 bag @ 15 MCG/ KG/MIN 7.348 mls/hr IV . [id number] [facility] Rx#:[id number] Tube Feeding 0 110 70 Other 150 60 Output: Urine 513 354 6270 Other: Voiding Method Indwelling Catheter Indwelling Catheter Indwelling Catheter ABP, PAP, CO, CI - Last Documented Arterial Blood Pressure 153/68 - Exam -GENERAL: The patient is intubated and sedated. HEENT: Pupils are round and equally reacting to light. EOMI. No scleral icterus. No conjunctival pallor. Normocephalic, atraumatic. No pharyngeal erythema. No thyromegaly. CARDIOVASCULAR: S1 and S2 present. No murmurs, rubs, or gallops. PULMONARY: Chest is clear to auscultation, no wheezing , no crackles. ABDOMEN: Soft, nontender, nondistended, normoactive bowel sounds. No palpable organomegaly. MUSCULOSKELETAL: No joint swelling or deformity. EXTREMITIES: No cyanosis, clubbing, or pedal edema. NEUROLOGICAL: Gross neurological examination did not reveal any focal deficits. SKIN: No rashes. no petechiae. - Labs CBC & Chem 7: 01/31/23 07:05 01/31/23 07:05 Labs: Abnormal Lab Results - Last 24 Hours (Table) 01/30/23 01/30/23 01/30/23 Range/Units 10:00 17:35 23:38 WBC (3.8-10.6) k/uL RBC (3.80-5.40) m/uL Hgb (11.4-16.0) gm/dL Hct (34.0-46.0) % MCV (80.0-100.0) fL MCH (25.0-35.0) pg MCHC (31.0-37.0) g/dL RDW (11.5-15.5) % Neutrophils # (1.3-7.7) k/uL Lymphocytes # (1.0-4.8) k/uL ABG pH (7.35-7.45) ABG pCO2 (35-45) mmHg ABG pO2 (83-108) mmHg ABG HCO3 (21-25) mmol/L ABG Total CO2 (19-24) mmol/L Sodium (137-145) mmol/L Chloride (98-107) mmol/L Carbon Dioxide (22-30) mmol/L BUN (7-17) mg/dL Creatinine (0.52-1.04) mg/dL Glucose (74-99) mg/dL POC Glucose (mg/dL) 170 H 177 H (70-110) mg/dL Calcium (8.4-10.2) mg/dL Fluid Appearance Cloudy A (Clear) 01/31/23 01/31/23 01/31/23 Range/Units 05:05 05:06 07:05 WBC 17.5 H (3.8-10.6) k/uL RBC 3.45 L (3.80-5.40) m/uL Hgb 7.8 L (11.4-16.0) gm/dL Hct 26.8 L (34.0-46.0) % MCV 77.5 L (80.0-100.0) fL MCH 22.6 L (25.0-35.0) pg MCHC 29.1 L (31.0-37.0) g/dL RDW 17.9 H (11.5-15.5) % Neutrophils # 16.1 H (1.3-7.7) k/uL Lymphocytes # 0.6 L (1.0-4.8) k/uL ABG pH 7.32 L (7.35-7.45) ABG pCO2 66 H (35-45) mmHg ABG pO2 74 L (83-108) mmHg ABG HCO3 34 H (21-25) mmol/L ABG Total CO2 36 H (19-24) mmol/L Sodium (137-145) mmol/L Chloride (98-107) mmol/L Carbon Dioxide (22-30) mmol/L BUN (7-17) mg/dL Creatinine (0.52-1.04) mg/dL Glucose (74-99) mg/dL POC Glucose (mg/dL) 164 H (70-110) mg/dL Calcium (8.4-10.2) mg/dL Fluid Appearance (Clear) 01/31/23 01/31/23 Range/Units 07:05 11:48 WBC (3.8-10.6) k/uL RBC (3.80-5.40) m/uL Hgb (11.4-16.0) gm/dL Hct (34.0-46.0) % MCV (80.0-100.0) fL MCH (25.0-35.0) pg MCHC (31.0-37.0) g/dL RDW (11.5-15.5) % Neutrophils # (1.3-7.7) k/uL Lymphocytes # (1.0-4.8) k/uL ABG pH (7.35-7.45) ABG pCO2 (35-45) mmHg ABG pO2 (83-108) mmHg ABG HCO3 (21-25) mmol/L ABG Total CO2 (19-24) mmol/L Sodium 146 H (137-145) mmol/L Chloride 112 H (98-107) mmol/L Carbon Dioxide 34 H (22-30) mmol/L BUN 34 H (7-17) mg/dL Creatinine 0.45 L (0.52-1.04) mg/dL Glucose 168 H (74-99) mg/dL POC Glucose (mg/dL) 196 H (70-110) mg/dL Calcium 7.7 L (8.4-10.2) mg/dL Fluid Appearance (Clear) Assessment and Plan Assessment: Acute asthma/COPD exacerbation. Acute hypoxemic respiratory failure requiring intubation and mechanical ventilation Acute tracheobronchitis secondary to MSSA History of depression Acute respiratory acidosis with metabolic compensation Altered mental status most likely metabolic/toxic encephalopathy. Plan: Continue with mechanical ventilation with pulmonary/critical care team on the case already the recommendation Continue with IV Solu-Medrol Continue with a bronchodilator Continue ceftriaxone Labs and medication were reviewed.. Continue same treatment. Continue with symptomatic treatment. Resume home medication. Monitor labs and vitals. DVT and GI prophylaxis. Further recommendations as per clinical course of the patient DVT prophylaxis: Subcutaneous heparin GI Prophylaxis: Ppi PT/OT: Pending Prognosis is guarded Discussed with staff
[2023-01-31 17:39] LABS: Glucose,Whole Blood 167 mg/dL (70-110)
[2023-01-31] MEDS: MONTELUKAST 10 MG TAB PO SCH (21:26)
[2023-01-31 23:33] LABS: Glucose,Whole Blood 185 mg/dL (70-110)
[2023-02-01] MEDS: HYDROmorphone 1 MG/ML 1 ML SYRINGE IVP PRN ×5 (01:00→22:05)
[2023-02-01] MEDS: IPRATROPIUM-ALBUTEROL 3 ML NEB INHALATION SCH ×5 (03:37→20:14)
[2023-02-01] MEDS: ARTIFICIAL TEARS-HYPROMELLOSE DROPS 15 ML BTL BOTH EYES SCH ×6 (04:24→23:58)
[2023-02-01 04:42] LABS: Anisocytosis Slight; HCT 25.6 % (34.0-46.0); HGB 7.6 gm/dL (11.4-16.0); Hypochromasia Marked; MCH 22.6 pg (25.0-35.0); MCHC 29.8 g/dL (31.0-37.0); Mean Platelet Volume 8.4; Microcytosis Moderate; Platelet Count 416 k/uL (150-450); Poikilocytosis Slight; RBC 3.37 m/uL (3.80-5.40); RDW 18.1 % (11.5-15.5); WBC 16.4 k/uL (3.8-10.6)
[2023-02-01 04:54] LABS: African American GFR (CKD) >90 (>60 ml/min/1.73 sqM); Anion Gap -3 mmol/L; Blood Urea Nitrogen 42 mg/dL (7-17); Calcium 7.9 mg/dL (8.4-10.2); Carbon Dioxide 40 mmol/L (22-30); Chloride 110 mmol/L (98-107); Glucose 178 mg/dL (74-99); Non-African American GFR(CKD) >90 (>60 ml/min/1.73 sqM); Potassium 4.6 mmol/L (3.5-5.1); Sodium 147 mmol/L (137-145)
[2023-02-01 05:06] LABS: Glucose,Whole Blood 180 mg/dL (70-110)
[2023-02-01] MEDS: methylPREDNISolone SOD SUCCI 125 MG/2 ML VIAL IV SCH ×4 (05:09→23:57)
[2023-02-01] MEDS: INSULIN ASPART (NovoLOG) 100 UNIT/ML VIAL SQ SCH ×4 (05:09→23:58)
[2023-02-01] MEDS: SODIUM CHLORIDE 0.9% 1,000 ML IV SCH (05:10)
[2023-02-01 06:29] LABS: ABG Base Excess 11.8 mmol/L; ABG HCO3 38 mmol/L (21-25); ABG Oxygen Saturation 92.6 % (94-97); ABG PCO2 69 mmHg (35-45); ABG PH 7.35 (7.35-7.45); ABG PO2 68 mmHg (83-108); ABG TCO2 40 mmol/L (19-24); Allen Test Performed? Yes
[2023-02-01] MEDS: BUDESONIDE 1 MG/2 ML NEBU INHALATION SCH ×2 (08:18→20:14)
[2023-02-01] MEDS: FORMOTEROL FUMARATE 20 MCG/2 ML NEBU INHALATION SCH ×2 (08:18→20:14)
--- NOTE | 2023-02-01 08:26 | XR ---
EXAMINATION TYPE: XR chest 1V portable DATE OF EXAM: 02/01/2023 COMPARISON: 01/31/2023 HISTORY: Shortness of breath TECHNIQUE: Single frontal view of the chest is obtained. FINDINGS: ET tube, NG tube and central line stable. Underlying COPD with biapical pleural thickening . Subsegmental atelectasis at the lung bases. Heart size normal. Atherosclerotic change aorta. IMPRESSION: COPD with basilar atelectasis.
[2023-02-01] MEDS: CHLORHEXIDINE GLUCONATE 15 ML CUP MUCOUS MEM SCH ×2 (09:07→20:45)
[2023-02-01] MEDS: PREGABALIN 100 MG CAP PO SCH ×2 (09:08→20:45)
[2023-02-01] MEDS: DILTIAZEM ORAL 30 MG TAB PO SCH ×4 (09:08→21:01)
[2023-02-01] MEDS: HEPARIN SODIUM,PORCINE 5,000 UNIT/ML 1 ML VIAL SQ SCH ×3 (09:08→23:57)
[2023-02-01] MEDS: DEXTROSE 5% IN WATER 1,000 ML IV SCH (09:09)
[2023-02-01] MEDS: PANTOPRAZOLE 40 MG/10 ML VIAL IV SCH (09:12)
[2023-02-01] MEDS ORDERED: bisacodyL 10 MG SUPP RECTAL PRN (09:20)
[2023-02-01] MEDS: polyethylene glycoL 3350 17 GM POWD.PACK PO SCH (10:11)
--- NOTE | 2023-02-01 10:48 | P.GSCN ---
History of Present Illness Consult date: 02/01/23 History of present illness: CHIEF COMPLAINT: Shortness of breath Reason for consult tracheostomy and PEG tube placement HISTORY OF PRESENT ILLNESS: This is a 62-year-old female who presented to the hospital with worsening shortness of breath on 01/24/2023 and diagnosed with a COPD exacerbation, MSSA tracheal bronchitis/bronchopneumonia and respiratory failure. She required to be intubated and placed on mechanical ventilation. Patient remains in the ICU intubated and is currently requiring Nimbex. Surgical service has been consulted for tracheostomy and PEG tube placement. Patient seen and examined with Dr. aj PAST MEDICAL HISTORY: Asthma, Coronary Artery Disease (CAD), COPD PAST SURGICAL HISTORY: See below MEDICATIONS: See below ALLERGIES: See below SOCIAL HISTORY: No illicit drug use. REVIEW OF SYSTEMS: Unable to obtain. Patient intubated and sedated PHYSICAL EXAM: VITAL SIGNS: Reviewed GENERAL: no acute distress. HEENT: Neck supple ABDOMEN: Soft. Obese. Nondistended. NEUROLOGIC: Intubated and sedated LABORATORY DATA: WBC 16.4 Hgb 7.6 platelets 416 Sodium 147 potassium is 4.6 creatinine 0.53 Albumin 4.6 IMAGING: Abdominal x-ray nonspecific abdomen Chest x-ray COPD with basilar atelectasis ASSESSMENT: 1. Acute respiratory failure with COPD exacerbation, tracheal bronchitis/bronchopneumonia 2. Mild protein calorie malnutrition PLAN: -Patient scheduled for tracheostomy and PEG tube placement on 02/04/[address] Aj -Tube feeds will need to be held after midnight Saturday -Continue ICU management -Continue supportive care Thank you for this consultation Physician Court Reporter note has been reviewed by physician. Signing provider agrees with the documented findings, assessment, and plan of care. Past Medical History Past Medical History: Asthma, Coronary Artery Disease (CAD), COPD History of Any Multi-Drug Resistant Organisms: None Reported Past Surgical History: Unable to Obtain Past Anesthesia/Blood Transfusion Reactions: Unable to Obtain Past Psychological History: No Psychological Hx Reported Smoking Status: Former smoker Past Alcohol Use History: None Reported Past Drug Use History: None Reported Medications and Allergies Home Medications Medication Instructions Recorded Confirmed Type Albuterol Sulfate [Albuterol 2 puff PO RT-QID 01/24/23 01/24/23 History Sulfate Hfa] Budesonide/Formoterol Fumarate 2 puff INHALATION RT-BID 01/24/23 01/24/23 History [Symbicort 160-4.5 Mcg Inhaler] Escitalopram [Lexapro] 20 mg PO DAILY 01/24/23 01/24/23 History Ipratropium-Albuterol Nebulize 3 ml INHALATION RT-Q4H 01/24/23 01/24/23 History [Duoneb 0.5 mg-3 mg/3 ml Soln] Mirtazapine [Remeron] 15 mg PO HS 01/24/23 01/24/23 History Montelukast Sodium 10 mg PO HS 01/24/23 01/24/23 History Pantoprazole Sodium [Protonix] 40 mg PO DAILY PRN 01/24/23 01/24/23 History Pregabalin [Lyrica] 100 mg PO BID 01/24/23 01/24/23 History dilTIAZem HCL [dilTIAZem HCL 24Hr 120 mg PO DAILY 01/24/23 01/24/23 History ER] Allergies Allergy/AdvReac Type Severity Reaction Status Date / Time ampicillin Allergy Rash/Hives Verified 02/03/22 15:02 Surgical - Exam Vital Signs Temp Pulse Resp BP Pulse Ox 98.7 F 136 H 24 134/95 100 01/24/23 14:30 01/24/23 14:30 01/24/23 14:30 01/24/23 14:30 01/24/23 14:30 Results - Labs 02/01/23 04:36 02/01/23 04:36 Abnormal Lab Results - Last 24 Hours (Table) 01/30/23 01/31/23 01/31/23 Range/Units 10:00 11:48 17:37 WBC (3.8-10.6) k/uL RBC (3.80-5.40) m/uL Hgb (11.4-16.0) gm/dL Hct (34.0-46.0) % MCV (80.0-100.0) fL MCH (25.0-35.0) pg MCHC (31.0-37.0) g/dL RDW (11.5-15.5) % ABG pCO2 (35-45) mmHg ABG pO2 (83-108) mmHg ABG HCO3 (21-25) mmol/L ABG Total CO2 (19-24) mmol/L ABG O2 Saturation (94-97) % Sodium (137-145) mmol/L Chloride (98-107) mmol/L Carbon Dioxide (22-30) mmol/L BUN (7-17) mg/dL Glucose (74-99) mg/dL POC Glucose (mg/dL) 196 H 167 H (70-110) mg/dL Calcium (8.4-10.2) mg/dL Fluid Appearance Cloudy A (Clear) 01/31/23 02/01/23 02/01/23 Range/Units 23:32 04:36 04:36 WBC 16.4 H (3.8-10.6) k/uL RBC 3.37 L (3.80-5.40) m/uL Hgb 7.6 L (11.4-16.0) gm/dL Hct 25.6 L (34.0-46.0) % MCV 76.0 L (80.0-100.0) fL MCH 22.6 L (25.0-35.0) pg MCHC 29.8 L (31.0-37.0) g/dL RDW 18.1 H (11.5-15.5) % ABG pCO2 (35-45) mmHg ABG pO2 (83-108) mmHg ABG HCO3 (21-25) mmol/L ABG Total CO2 (19-24) mmol/L ABG O2 Saturation (94-97) % Sodium 147 H (137-145) mmol/L Chloride 110 H (98-107) mmol/L Carbon Dioxide 40 H (22-30) mmol/L BUN 42 H (7-17) mg/dL Glucose 178 H (74-99) mg/dL POC Glucose (mg/dL) 185 H (70-110) mg/dL Calcium 7.9 L (8.4-10.2) mg/dL Fluid Appearance (Clear) 02/01/23 02/01/23 Range/Units 05:04 06:25 WBC (3.8-10.6) k/uL RBC (3.80-5.40) m/uL Hgb (11.4-16.0) gm/dL Hct (34.0-46.0) % MCV (80.0-100.0) fL MCH (25.0-35.0) pg MCHC (31.0-37.0) g/dL RDW (11.5-15.5) % ABG pCO2 69 H (35-45) mmHg ABG pO2 68 L (83-108) mmHg ABG HCO3 38 H (21-25) mmol/L ABG Total CO2 40 H (19-24) mmol/L ABG O2 Saturation 92.6 L (94-97) % Sodium (137-145) mmol/L Chloride (98-107) mmol/L Carbon Dioxide (22-30) mmol/L BUN (7-17) mg/dL Glucose (74-99) mg/dL POC Glucose (mg/dL) 180 H (70-110) mg/dL Calcium (8.4-10.2) mg/dL Fluid Appearance (Clear) Microbiology - Last 24 Hours (Table) 01/30/23 10:00 Gram Stain - Preliminary Bronchoalviolar Lavage - Right 01/30/23 10:00 Acid Fast Bacilli Smear - Preliminary Bronchoalviolar Lavage - Right Diabetes panel 02/01/23 Range/Units 04:36 Sodium 147 H (137-145) mmol/L Potassium 4.6 (3.5-5.1) mmol/L Chloride 110 H (98-107) mmol/L Carbon Dioxide 40 H (22-30) mmol/L BUN 42 H (7-17) mg/dL Creatinine 0.53 (0.52-1.04) mg/dL Glucose 178 H (74-99) mg/dL Calcium 7.9 L (8.4-10.2) mg/dL Calcium panel 02/01/23 Range/Units 04:36 Calcium 7.9 L (8.4-10.2) mg/dL Pituitary panel 02/01/23 Range/Units 04:36 Sodium 147 H (137-145) mmol/L Potassium 4.6 (3.5-5.1) mmol/L Chloride 110 H (98-107) mmol/L Carbon Dioxide 40 H (22-30) mmol/L BUN 42 H (7-17) mg/dL Creatinine 0.53 (0.52-1.04) mg/dL Glucose 178 H (74-99) mg/dL Calcium 7.9 L (8.4-10.2) mg/dL Adrenal panel 02/01/23 Range/Units 04:36 Sodium 147 H (137-145) mmol/L Potassium 4.6 (3.5-5.1) mmol/L Chloride 110 H (98-107) mmol/L Carbon Dioxide 40 H (22-30) mmol/L BUN 42 H (7-17) mg/dL Creatinine 0.53 (0.52-1.04) mg/dL Glucose 178 H (74-99) mg/dL Calcium 7.9 L (8.4-10.2) mg/dL
--- NOTE | 2023-02-01 10:58 | P.PN ---
Subjective Progress Note Date: 02/01/23 Principal diagnosis: Respiratory failure. This is a 62-year-old female with known history of COPD, coronary artery disease, not familiar to our service, patient was brought into the ER yesterday in extreme respiratory distress. Patient was noted to have acute hypoxic and hypercapnic respiratory failure, she was intubated almost upon her initial presentation to the ER because she was mostly in severe respiratory distress. Shortly after intubation the patient was noted to have a pO2 of more than 400 pCO2 88 pH of 7.20. Repeat blood gases after the patient was sent to the ICU showed a pO2 of 136 pCO2 67 pH of 7.33 and her ABG this morning showed a pO2 of 98 pCO2 60 pH of 7.41. Chest x-ray on admission showed no evidence of acute process except for emphysematous changes. No evidence of infiltrate. And no evidence of congestive heart failure. Patient is now on assist control rate of 20 tidal volume 350 FiO2 50% and PEEP of 5. She is not requiring any pressors patient is on propofol at 60 mcg/kg/m. Earlier this morning on a lower dose of propofol, patient was noted to be agitated, wheezing, and clearly was not ready for weaning. Hence the dose of propofol was increased, in the meantime we are giving the patient bronchodilators in the form of one nap, she is also on Pulmicort and Perforomist, and I added Solu-Medrol. Patient is also on antibiotics empirically. WBC count is 7.6 hemoglobin is 8.7, basic metabolic profile is normal bicarb is high 33 BUN is 22 creatinine 0.70 Patient was reevaluated today on 01/26/2023, patient is basically about the same. Remains intubated and mechanically ventilated, she is on assist control rate of 20 tidal volume 350 FiO2 40% and PEEP of 5 ABG showed a pO2 of 83 pCO2 61 pH of 7.36. This morning the patient is noted to be not synchronous with the ventilator, she is having breath stacking, hence I had to increase her propofol to 75 mcg/kg/m from 60 mcg/kg/m. And obviously the patient is not quite ready for any weaning trials. Remains on ceftriaxone empirically, patient has good urine output, brain CT is negative, Dilaudid was added for agitation along with higher dose of propofol. Chest x-ray no evidence of active disease. WBC count is 13.2 hemoglobin is 7.7 electrolytes are normal sputum Gram stain is showing presumptive staph aureus. Hence we will give the patient is dose of vancomycin and decide on further treatment if this turns out to be MRSA or MSSA. Reevaluated today on 01/27/2023, patient remains in the ICU, intubated and mechanically ventilated. Patient is on assist control rate of 20 increased to 22 today tidal volume 350 FiO2 50% PEEP of 5 ABG showed a pO2 of 76 pCO2 63 pH of 7.29 continues to have enteral feeding but this is more of a trickle feeding, patient has relatively intermittently high residual. She is on propofol at 70 mcg/kg/m 0.9 normal saline at 100 mL/h vital HPI at 10 mL per hour she is receiving Dilaudid intermittently and she remains on vancomycin and ceftriaxone empirically. Chest x-ray is not showing any significant abnormality her staph aureus in the sputum is MSSA hence we will discontinue vancomycin. However will continue Rocephin. WBC count is 12.6 hemoglobin 7.8 electrolytes are normal renal profile is normal, chest x-ray showed no evidence of infiltrate. Progress note dated 01/28/2023. This is a 62-year-old female admitted to the hospital on January 24. She was admitted with a diagnosis of COPD exacerbation. The patient was intubated on the same day, January 24. She remains on the ventilator. She is on volume assist control, rate 22, tidal volume 350, FiO2 40%, PEEP of 5. Blood gases show pO2 of 119, pCO2 of 66, and a pH is 7.26. Last night, the patient had very high peak airway pressures, and a large difference between peak airway pressure and plateau pressure. The patient was adequately sedated, and receiving pain medication, and thus, was paralyzed. I spoke to my nurse practitioner about that this morning. The patient is currently on Nimbex at 1 mcg/kg/m, fentanyl at 0.5 mcg/kg/h, propofol at 60 mcg/kg/m. The patient's getting saline at 100 mL an hour, and vital high protein, at 10 mL, with a goal of 29. The blood gases were done on 50%. White count 12.2, hemoglobin 7.3, hematocrit 25.5, and platelet count 432,000. Sodium 145, potassium 4.6, chlorides 113, CO2 26, BUN 27, creatinine 0.58. Sputum was positive for Staphylococcus aureus. Chest x- ray shows no focal consolidation, pleural effusion, or pneumothorax. Progress note dated 01/29/2023. This is a 62-year-old female admitted to the hospital on January 24. She was admitted with a diagnosis of COPD exacerbation. The patient was intubated on the same day, January 24. She remains on the ventilator. The patient's current ventilator settings include the volume assist control, rate of 22, tidal volume 350, FiO2 40%, and PEEP of 5. Arterial blood gases show a PaO2 of 139, pCO2 37, and pH is 7.5. The FiO2 was reduced from 40%, down to 30%. The patient's getting saline at 100 mL an hour, fentanyl at 0.5 mcg/kg/h, propofol 60 mcg/kg/m, and Nimbex at 1.5 mcg/kg/m. The patient's getting vital high protein at 22 mL an hour. The goal today is to get the patient off Nimbex if possible. The patient's peak airway pressures in the high 30 range. White count 12.3, hemoglobin 7.6, hematocrit 26, and platelet count normal. Sodium 144, potassium 4.6, chlorides 113, CO2 26, BUN 30, creatinine 0.5. Sputum was positive for oxacillin sensitive Staphylococcus aureus. Chest x-ray shows changes of COPD, with bilateral basilar infiltrates. Progress note dated 01/30/2023. 62-year-old female admitted to the hospital on January 24, with a diagnosis of COPD exacerbation. She ended up being intubated on the same day, remains on the ventilator. The patient is on volume assist control, rate 22, tidal volume, 350, FiO2 40%,. Blood gases show pO2 of 64, pCO2 of 52, and a pH is 7.4. The patient remains on Nimbex at 1.5 mcg/kg/m, saline at 100 mL an hour, propofol 60 mcg/kg/m, and fentanyl 0.5 mcg/kg/h. Tube feedings on hold. The patient is to have a bronchoscopy and BAL today, and, we will replace and arterial line that went bad. White count is 13.6, hemoglobin 7.7, hematocrit 26.5, and platelet count is 456,000. Sodium 146, potassium 4.7, chlorides 114, CO2 32, BUN 34, and creatinine 0.52. Sputum from January 24 shows evidence of Staphylococcus aureus. Chest x-ray shows COPD with bibasilar infiltrates, right greater than left. Progress note dated 01/31/2023. 62-year-old female admitted to the hospital on January 24, with a diagnosis of COPD exacerbation. She was intubated for respiratory failure on the same day. She remains on the ventilator. She is on volume assist control, rate 22, tidal volume 350, FiO2 35%, PEEP of 5. Blood gases show pO2 74, pCO2 of 66, and pH is 7.32. The patient's on propofol at 60 mcg/kg/m, Nimbex at 1.5 mcg/kg/m, and fentanyl at 0.5 mcg/kg/h. The patient is getting saline at 100 mL an hour, and also vital high protein at 10 mL an hour, with a goal of 22. White count 17.5, he moves some 0.8, hematocrit 26.8, and platelet count 422,000. Sodium 146, p otassium 4.3, chlorides 112, CO2 34, BUN 34, and creatinine 0.45. Sputum from January 24 was positive for methicillin sensitive staph aureus. Chest x-ray from this morning shows changes of COPD, and is largely unchanged. Progress note dated 02/01/2023. 62-year-old female admitted to the hospital on January 24, with a diagnosis of COPD exacerbation. She was intubated for respiratory failure on the same day. She remains on the ventilator. Currently, the patient is on volume assist contr ol, rate 22, tidal [place] 350, FiO2 35%, and PEEP of 5. Blood gases show pO2 68, pCO2 69, and a pH is 7.35. Remains on Nimbex at 2 mcg/kg/m, fentanyl at 0.5 mcg/kg/h, saline at 20 mL an hour, and propofol at 40 mcg/kg/m. 2 feedings were on hold for possible tracheostomy and PEG tube placement today. Unfortunately, he cannot be done toe Saturday. Tube feedings will be re-started. In addition, saline is converted D5W at 40 mL an hour. White count of 16.4, hemoglobin 7.6, hematocrit 25.6, and platelet count is 460,000. Sodium 147, potassium 4.6, chlorides 110, CO2 40, BUN 42, and creatinine 0.53. Chest x-ray is essentially unchanged showing COPD, with bibasilar atelectasis. Objective - Vital Signs Vital signs: Vital Signs Temp 98.0 F 02/01/23 08:00 Pulse 98 02/01/23 10:00 Resp 22 02/01/23 10:00 BP 98/55 01/30/23 13:00 Pulse Ox 93 L 02/01/23 10:00 FiO2 35 02/01/23 08:19 Intake & Output 01/31/23 02/01/23 02/01/23 18:59 06:59 18:59 Intake Total 1191.073 644.565 134 Output Total 2405 880 310 Balance -1213.927 -235.435 -176 Weight 84.8 kg 83.5 kg Intake: IV 552 312 134 Dextrose 5% in Water 1, 40 000 ml @ 40 mls/hr IV . Q24H [facility] Rx#:[id number] Pressure Bags 72 72 24 Sodium Chloride 0.9% 1, 480 240 70 000 ml @ 10 mls/hr IV . Q24H [facility] Rx#:[id number] Intake, IV Titration 439.073 224.565 Amount Cisatracurium 200 mg In 178.525 4.749 Sodium Chloride 0.9% 180 ml @ 1 MCG/KG/MIN 4.452 mls/hr IV .Q24H [facility] Rx#: [id number] cefTRIAXone 1 gm In 50 Sodium Chloride 0.9% 50 ml @ 100 mls/hr IVPB Q24HR [facility] Rx#:[id number] propofoL 1,000 mg In 210.548 219.816 Empty Bag 1 bag @ 15 MCG/ KG/MIN 7.348 mls/hr IV . [id number] [facility] Rx#:[id number] Tube Feeding 110 78 Other 90 30 Output: Urine 2405 880 310 Other: Voiding Method Indwelling Catheter Indwelling Catheter Indwelling Catheter ABP, PAP, CO, CI - Last Documented Arterial Blood Pressure 139/62 - Exam No acute distress, sedated, paralyzed, with an orally placed endotracheal tube. HEENT examination is grossly unremarkable. Neck supple. Full range of motion. No adenopathy thyromegaly or neck vein distention. Cardiovascular examination reveals regular rhythm rate. S1-S2 normal. No S3 or S4. No discernible murmur noted. Heart rate 98 bpm. Lungs reveal scattered expiratory rhonchi. No wheezes or crackles. Breath sounds are equal bilaterally. Saturations are 93 %. Abdomen soft bowel sounds are heard. No masses or tenderness. Extremities are intact. No cyanosis clubbing or edema. Skin is without rash or lesion. Neurologic examination cannot be assessed as the patient's currently sedated and paralyzed. - Labs CBC & Chem 7: 02/01/23 04:36 02/01/23 04:36 Labs: Abnormal Lab Results - Last 24 Hours (Table) 01/31/23 01/31/23 01/31/23 Range/Units 11:48 17:37 23:32 WBC (3.8-10.6) k/uL RBC (3.80-5.40) m/uL Hgb (11.4-16.0) gm/dL Hct (34.0-46.0) % MCV (80.0-100.0) fL MCH (25.0-35.0) pg MCHC (31.0-37.0) g/dL RDW (11.5-15.5) % ABG pCO2 (35-45) mmHg ABG pO2 (83-108) mmHg ABG HCO3 (21-25) mmol/L ABG Total CO2 (19-24) mmol/L ABG O2 Saturation (94-97) % Sodium (137-145) mmol/L Chloride (98-107) mmol/L Carbon Dioxide (22-30) mmol/L BUN (7-17) mg/dL Glucose (74-99) mg/dL POC Glucose (mg/dL) 196 H 167 H 185 H (70-110) mg/dL Calcium (8.4-10.2) mg/dL 02/01/23 02/01/23 02/01/23 Range/Units 04:36 04:36 05:04 WBC 16.4 H (3.8-10.6) k/uL RBC 3.37 L (3.80-5.40) m/uL Hgb 7.6 L (11.4-16.0) gm/dL Hct 25.6 L (34.0-46.0) % MCV 76.0 L (80.0-100.0) fL MCH 22.6 L (25.0-35.0) pg MCHC 29.8 L (31.0-37.0) g/dL RDW 18.1 H (11.5-15.5) % ABG pCO2 (35-45) mmHg ABG pO2 (83-108) mmHg ABG HCO3 (21-25) mmol/L ABG Total CO2 (19-24) mmol/L ABG O2 Saturation (94-97) % Sodium 147 H (137-145) mmol/L Chloride 110 H (98-107) mmol/L Carbon Dioxide 40 H (22-30) mmol/L BUN 42 H (7-17) mg/dL Glucose 178 H (74-99) mg/dL POC Glucose (mg/dL) 180 H (70-110) mg/dL Calcium 7.9 L (8.4-10.2) mg/dL 02/01/23 Range/Units 06:25 WBC (3.8-10.6) k/uL RBC (3.80-5.40) m/uL Hgb (11.4-16.0) gm/dL Hct (34.0-46.0) % MCV (80.0-100.0) fL MCH (25.0-35.0) pg MCHC (31.0-37.0) g/dL RDW (11.5-15.5) % ABG pCO2 69 H (35-45) mmHg ABG pO2 68 L (83-108) mmHg ABG HCO3 38 H (21-25) mmol/L ABG Total CO2 40 H (19-24) mmol/L ABG O2 Saturation 92.6 L (94-97) % Sodium (137-145) mmol/L Chloride (98-107) mmol/L Carbon Dioxide (22-30) mmol/L BUN (7-17) mg/dL Glucose (74-99) mg/dL POC Glucose (mg/dL) (70-110) mg/dL Calcium (8.4-10.2) mg/dL Microbiology - Last 24 Hours (Table) 01/30/23 10:00 Gram Stain - Preliminary Bronchoalviolar Lavage - Right 01/30/23 10:00 Acid Fast Bacilli Smear - Preliminary Bronchoalviolar Lavage - Right Assessment and Plan Assessment: Acute hypoxemic and hypercapnic respiratory failure, requiring intubation and mechanical ventilation, beginning on January 24. S/P bronchoscopy, and BAL, right lower lobe, for increased airway secretions, 01/30/2023. Acute exacerbation of COPD, severe, with high peak airway pressures, and severe bronchospasm, requiring heavy sedation and paralysis. History of depression. Coronary artery disease. Methicillin sensitive staph aureus tracheobronchitis/bronchopneumonia. Plan: Plan dated 01/28/2023. The patient will continue on ventilatory support. The patient had very high peak airway pressures last night, and a significant difference between peak and plateau pressure, and required paralysis. The patient will continue on Solu- Medrol, and bronchodilators. In addition, the patient continues on antibiotics in the form of Rocephin. Also, the patient continues on tube feedings, with vital high protein. We continue with GI and DVT prophylaxis. Patient is very critically ill. Not ready for extubation at this time. Additional recommendations and suggestions are forthcoming. Prognosis is certainly guarded. Plan dated 01/29/2023. The patient continues with ventilatory support. The patient continues on propofol, fentanyl, and Nimbex. We will attempt to wean the patient off of Nimbex today. Labs, x-rays, and medications are reviewed. The patient remains critically ill. She remains on GI and DVT prophylaxis. The patient's sputum revealed evidence of oxacillin sensitive Staphylococcus aureus. The patient remains on Rocephin. Additional recommendations and suggestions are forthcoming. We will continue to follow the patient, and make recommendations along the way. Prognosis is certainly guarded. Plan dated 01/30/2023. The patient underwent bronchoscopy, airway examination, and BAL, right lower lobe today. She had significant airway secretions. The secretions are quite thick, and inspissated. Samples from the right lower lobe, were sent to laboratory for analysis. In addition, we placed a right femoral arterial line. The patient tolerated that procedure well. Labs, x-rays, and medications are all reviewed. Yesterday, we attempted a daily interruption of sedation, and the patient's airway pressures became very high. She had to be re-sedated and paralyzed. Continue to follow the patient and make recommendations along the way. She does remain on GI and DVT prophylaxis. The patient remains on Rocephin. Plan dated 01/31/2023. The patient will have another trial of being off the paralytic. The patient requires the paralytic to be added back, we will recommend a tracheostomy and PEG tube placement. In addition, the saline running at 100 mL an hour, will be turned down to KVO. The patient will get Lasix 60 mg IV push times one dose. We'll also DC the Rocephin. If the patient is able to stay off the Nimbex, we might consider a daily interruption of sedation with a spontaneous breathing trial. If she does not tolerate it, tracheostomy and PEG tube is recommended. Labs, x-rays, medications are reviewed. The patient's overall prognosis remains guarded. We will continue to follow and make recommendations along the way. Plan dated 02/01/2023. Unfortunately, the patient could not tolerate being off the paralytic. Sometime last night, we had to re-sedated her, and start the Nimbex going again. The patient will be seen by surgery for possible tracheostomy and PEG tube placement. That may not be able to be done until Saturday. The patient continues on all other appropriate medications. Labs, x-rays, and medications are reviewed. In addition, the patient saline will be converted to D5W at 40 mL an hour. Tube feedings will be resumed. We will continue to follow the patient and make recommendations along the way. Prognosis is guarded. Time with Patient: Greater than 30
[2023-02-01 12:43] LABS: Glucose,Whole Blood 181 mg/dL (70-110)
[2023-02-01] MEDS: fentaNYL (PF). 1,000 MCG in SODIUM CHLORIDE 0.9% 80 ML IV SCH (13:30)
--- NOTE | 2023-02-01 15:12 | P.PN ---
Subjective Progress Note Date: 02/01/23 62 years old female with past medical history of Asthma, Coronary Artery Disease, COPD Patient presents because of shortness of breath and altered mental status, as per documentation patient has difficulty talking because of her dysonea and she was using accessory muscles. Her respiratory distress was severe and patient required intubation and mechanical ventilation while in the emergency room. patient is afebrile. Blood pressure stable Hemoglobin is 8.7. W68.4. INR 1.0 PH 7.73, pCO2 88 and 67 BMP showing creatinine 0.7, glucose 154, liver enzymes not elevated. Troponin mildly elevated at 0.05. EKG showing sinus tachycardia at 130 ProBNP is elevated 1450 chest x-ray showed COPD however there is linear right upper lobe typical scar or atelectasis per radiologist. However I think fluid overload and cephalization is also suspected per my review especially patient has elevated proBNP. Such changes did not been seen in chest x-ray about 6 months ago. Objective - Vital Signs Vital signs: Vital Signs Temp 98.0 F 02/01/23 08:00 Pulse 92 02/01/23 09:00 Resp 22 02/01/23 09:00 BP 98/55 01/30/23 13:00 Pulse Ox 92 L 02/01/23 09:00 FiO2 35 02/01/23 08:19 Intake & Output 01/31/23 02/01/23 02/01/23 18:59 06:59 18:59 Intake Total 1191.073 644.565 78 Output Total 2405 880 210 Balance -1213.927 -235.435 -132 Weight 84.8 kg 83.5 kg Intake: IV 552 312 78 Pressure Bags 72 72 18 Sodium Chloride 0.9% 1, 480 240 60 000 ml @ 10 mls/hr IV . Q24H [facility] Rx#:[id number] Intake, IV Titration 439.073 224.565 Amount Cisatracurium 200 mg In 178.525 4.749 Sodium Chloride 0.9% 180 ml @ 1 MCG/KG/MIN 4.452 mls/hr IV .Q24H [facility] Rx#: [id number] cefTRIAXone 1 gm In 50 Sodium Chloride 0.9% 50 ml @ 100 mls/hr IVPB Q24HR [facility] Rx#:[id number] propofoL 1,000 mg In 210.548 219.816 Empty Bag 1 bag @ 15 MCG/ KG/MIN 7.348 mls/hr IV . [id number] [facility] Rx#:[id number] Tube Feeding 110 78 Other 90 30 Output: Urine 2405 880 210 Other: Voiding Method Indwelling Catheter Indwelling Catheter Indwelling Catheter ABP, PAP, CO, CI - Last Documented Arterial Blood Pressure 131/60 - Exam -GENERAL: The patient is intubated and sedated. HEENT: Pupils are round and equally reacting to light. EOMI. No scleral icterus. No conjunctival pallor. Normocephalic, atraumatic. No pharyngeal erythema. No thyromegaly. CARDIOVASCULAR: S1 and S2 present. No murmurs, rubs, or gallops. PULMONARY: Chest is clear to auscultation, no wheezing , no crackles. ABDOMEN: Soft, nontender, nondistended, normoactive bowel sounds. No palpable organomegaly. MUSCULOSKELETAL: No joint swelling or deformity. EXTREMITIES: No cyanosis, clubbing, or pedal edema. NEUROLOGICAL: Gross neurological examination did not reveal any focal deficits. SKIN: No rashes. no petechiae. - Labs CBC & Chem 7: 02/01/23 04:36 02/01/23 04:36 Labs: Abnormal Lab Results - Last 24 Hours (Table) 01/31/23 01/31/23 01/31/23 Range/Units 11:48 17:37 23:32 WBC (3.8-10.6) k/uL RBC (3.80-5.40) m/uL Hgb (11.4-16.0) gm/dL Hct (34.0-46.0) % MCV (80.0-100.0) fL MCH (25.0-35.0) pg MCHC (31.0-37.0) g/dL RDW (11.5-15.5) % ABG pCO2 (35-45) mmHg ABG pO2 (83-108) mmHg ABG HCO3 (21-25) mmol/L ABG Total CO2 (19-24) mmol/L ABG O2 Saturation (94-97) % Sodium (137-145) mmol/L Chloride (98-107) mmol/L Carbon Dioxide (22-30) mmol/L BUN (7-17) mg/dL Glucose (74-99) mg/dL POC Glucose (mg/dL) 196 H 167 H 185 H (70-110) mg/dL Calcium (8.4-10.2) mg/dL 02/01/23 02/01/23 02/01/23 Range/Units 04:36 04:36 05:04 WBC 16.4 H (3.8-10.6) k/uL RBC 3.37 L (3.80-5.40) m/uL Hgb 7.6 L (11.4-16.0) gm/dL Hct 25.6 L (34.0-46.0) % MCV 76.0 L (80.0-100.0) fL MCH 22.6 L (25.0-35.0) pg MCHC 29.8 L (31.0-37.0) g/dL RDW 18.1 H (11.5-15.5) % ABG pCO2 (35-45) mmHg ABG pO2 (83-108) mmHg ABG HCO3 (21-25) mmol/L ABG Total CO2 (19-24) mmol/L ABG O2 Saturation (94-97) % Sodium 147 H (137-145) mmol/L Chloride 110 H (98-107) mmol/L Carbon Dioxide 40 H (22-30) mmol/L BUN 42 H (7-17) mg/dL Glucose 178 H (74-99) mg/dL POC Glucose (mg/dL) 180 H (70-110) mg/dL Calcium 7.9 L (8.4-10.2) mg/dL 02/01/23 Range/Units 06:25 WBC (3.8-10.6) k/uL RBC (3.80-5.40) m/uL Hgb (11.4-16.0) gm/dL Hct (34.0-46.0) % MCV (80.0-100.0) fL MCH (25.0-35.0) pg MCHC (31.0-37.0) g/dL RDW (11.5-15.5) % ABG pCO2 69 H (35-45) mmHg ABG pO2 68 L (83-108) mmHg ABG HCO3 38 H (21-25) mmol/L ABG Total CO2 40 H (19-24) mmol/L ABG O2 Saturation 92.6 L (94-97) % Sodium (137-145) mmol/L Chloride (98-107) mmol/L Carbon Dioxide (22-30) mmol/L BUN (7-17) mg/dL Glucose (74-99) mg/dL POC Glucose (mg/dL) (70-110) mg/dL Calcium (8.4-10.2) mg/dL Microbiology - Last 24 Hours (Table) 01/30/23 10:00 Gram Stain - Preliminary Bronchoalviolar Lavage - Right 01/30/23 10:00 Acid Fast Bacilli Smear - Preliminary Bronchoalviolar Lavage - Right Assessment and Plan Assessment: Acute asthma/COPD exacerbation. Acute hypoxemic respiratory failure requiring intubation and mechanical ventilat ion Acute tracheobronchitis secondary to MSSA History of depression Acute respiratory acidosis with metabolic compensation Altered mental status most likely metabolic/toxic encephalopathy. Plan: Continue with mechanical ventilation with pulmonary/critical care team on the case already the recommendation Continue with IV Solu-Medrol Continue with a bronchodilator Continue ceftriaxone Labs and medication were reviewed.. Continue same treatment. Continue with symptomatic treatment. Resume home medication. Monitor labs and vitals. DVT and GI prophylaxis. Further recommendations as per clinical course of the patient DVT prophylaxis: Subcutaneous heparin GI Prophylaxis: Ppi PT/OT: Pending Prognosis is guarded
[2023-02-01] MEDS: CISATRACURIUM 200 MG in SODIUM CHLORIDE 0.9% 180 ML IV SCH (17:38)
[2023-02-01 17:40] LABS: Glucose,Whole Blood 189 mg/dL (70-110)
[2023-02-01] MEDS: MONTELUKAST 10 MG TAB PO SCH (20:46)
[2023-02-01 23:48] LABS: Glucose,Whole Blood 218 mg/dL (70-110)
[2023-02-02] MEDS: IPRATROPIUM-ALBUTEROL 3 ML NEB INHALATION SCH ×7 (00:55→23:50)
[2023-02-02] MEDS: HYDROmorphone 1 MG/ML 1 ML SYRINGE IVP PRN ×5 (01:24→23:39)
[2023-02-02] MEDS: ARTIFICIAL TEARS-HYPROMELLOSE DROPS 15 ML BTL BOTH EYES SCH ×6 (04:48→23:41)
[2023-02-02] MEDS: DEXTROSE 5% IN WATER 1,000 ML IV SCH (05:05)
[2023-02-02 05:14] LABS: Anisocytosis Slight; HCT 26.9 % (34.0-46.0); HGB 7.9 gm/dL (11.4-16.0); Hypochromasia Marked; MCH 22.3 pg (25.0-35.0); MCHC 29.2 g/dL (31.0-37.0); MCV 76.3 fL (80.0-100.0); Mean Platelet Volume 8.3; Microcytosis Slight; Platelet Count 402 k/uL (150-450); RBC 3.52 m/uL (3.80-5.40); RDW 18.2 % (11.5-15.5)
[2023-02-02 05:55] LABS: African American GFR (CKD) >90 (>60 ml/min/1.73 sqM); Blood Urea Nitrogen 37 mg/dL (7-17); Calcium 7.7 mg/dL (8.4-10.2); Chloride 106 mmol/L (98-107); Glucose 204 mg/dL (74-99); Magnesium 2.9 mg/dL (1.6-2.3); Non-African American GFR(CKD) >90 (>60 ml/min/1.73 sqM); Phosphorus 3.7 mg/dL (2.5-4.5); Potassium 4.7 mmol/L (3.5-5.1); Sodium 145 mmol/L (137-145)
[2023-02-02 06:04] LABS: Anion Gap 4 mmol/L
[2023-02-02 06:17] LABS: Glucose,Whole Blood 229 mg/dL (70-110)
[2023-02-02 06:22] LABS: Carbon Dioxide 35 mmol/L (22-30)
[2023-02-02 06:22] LABS: ABG Base Excess 11.6 mmol/L; ABG HCO3 37 mmol/L (21-25); ABG Oxygen Saturation 92.4 % (94-97); ABG PCO2 69 mmHg (35-45); ABG PH 7.34 (7.35-7.45); ABG PO2 67 mmHg (83-108); ABG TCO2 40 mmol/L (19-24); Allen Test Performed? Yes
[2023-02-02] MEDS: INSULIN ASPART (NovoLOG) 100 UNIT/ML VIAL SQ SCH ×4 (06:28→23:41)
[2023-02-02] MEDS: methylPREDNISolone SOD SUCCI 125 MG/2 ML VIAL IV SCH ×4 (06:28→23:42)
--- NOTE | 2023-02-02 06:43 | XR ---
EXAMINATION TYPE: XR chest 1V portable DATE OF EXAM: 02/02/2023 COMPARISON: 02/01/2023 HISTORY: Shortness of breath TECHNIQUE: Single frontal view of the chest is obtained. FINDINGS: There is an ET tube approximately 4.7 cm above the prerna. There is a central venous catheter in the SVC. There is an NG tube within the stomach. There is no pleural effusion or pneumothorax. Heart size normal and the pulmonary vasculature is within normal limits. The lungs are clear of airspace consolidation/opacity. The osseous structures are intact. IMPRESSION: 1. ET tube approximately 4.7 cm above the prerna. 2. No acute cardiopulmonary disease. 3. No significant interval change.
[2023-02-02] MEDS: FORMOTEROL FUMARATE 20 MCG/2 ML NEBU INHALATION SCH ×2 (08:10→20:33)
[2023-02-02] MEDS: BUDESONIDE 1 MG/2 ML NEBU INHALATION SCH ×2 (08:10→20:33)
--- NOTE | 2023-02-02 09:34 | P.PN ---
Subjective Progress Note Date: 02/02/23 Principal diagnosis: Respiratory failure Patient remains on the ventilator. FiO2 35%. Hemodynamically stable. Objective - Vital Signs Vital signs: Vital Signs Temp 98.0 F 02/02/23 08:00 Pulse 92 02/02/23 09:00 Resp 22 02/02/23 09:00 BP 98/55 01/30/23 13:00 Pulse Ox 96 02/02/23 09:00 FiO2 35 02/02/23 08:14 Intake & Output 02/01/23 02/02/23 02/02/23 18:59 06:59 18:59 Intake Total 4199.055 6609.739 73 Output Total 850 905 50 Balance 294.191 508.739 23 Weight 83.5 kg 84.9 kg Intake: IV 502 652 46 Dextrose 5% in Water 1, 360 480 40 000 ml @ 40 mls/hr IV . Q24H [facility] Rx#:[id number] Pressure Bags 72 72 6 Sodium Chloride 0.9% 1, 70 100 000 ml @ 10 mls/hr IV . Q24H [facility] Rx#:[id number] Intake, IV Titration 366.191 347.739 Amount Cisatracurium 200 mg In 181.345 Sodium Chloride 0.9% 180 ml @ 1 MCG/KG/MIN 4.452 mls/hr IV .Q24H [facility] Rx#: [id number] fentaNYL (PF). 1,000 mcg 61.586 In Sodium Chloride 0.9% 80 ml @ 0.5 MCG/KG/HR 3. 71 mls/hr IV .Q24H [facility] Rx #:[id number] propofoL 1,000 mg In 184.846 286.153 Empty Bag 1 bag @ 15 MCG/ KG/MIN 7.348 mls/hr IV . [id number] [facility] Rx#:[id number] Tube Feeding 216 324 27 Other 60 90 Output: Urine 850 905 50 Other: Voiding Method Indwelling Catheter Indwelling Catheter # Bowel Movements 1 ABP, PAP, CO, CI - Last Documented Arterial Blood Pressure 119/60 - Exam Abdomen: Soft, nontender, nondistended - Labs CBC & Chem 7: 02/02/23 05:00 02/02/23 05:00 Labs: Abnormal Lab Results - Last 24 Hours (Table) 02/01/23 02/01/23 02/01/23 Range/Units 12:41 17:31 23:46 WBC (3.8-10.6) k/uL RBC (3.80-5.40) m/uL Hgb (11.4-16.0) gm/dL Hct (34.0-46.0) % MCV (80.0-100.0) fL MCH (25.0-35.0) pg MCHC (31.0-37.0) g/dL RDW (11.5-15.5) % ABG pH (7.35-7.45) ABG pCO2 (35-45) mmHg ABG pO2 (83-108) mmHg ABG HCO3 (21-25) mmol/L ABG Total CO2 (19-24) mmol/L ABG O2 Saturation (94-97) % Carbon Dioxide (22-30) mmol/L BUN (7-17) mg/dL Creatinine (0.52-1.04) mg/dL Glucose (74-99) mg/dL POC Glucose (mg/dL) 181 H 189 H 218 H (70-110) mg/dL Calcium (8.4-10.2) mg/dL Magnesium (1.6-2.3) mg/dL 02/02/23 02/02/23 02/02/23 Range/Units 05:00 05:00 06:15 WBC 19.0 H (3.8-10.6) k/uL RBC 3.52 L (3.80-5.40) m/uL Hgb 7.9 L (11.4-16.0) gm/dL Hct 26.9 L (34.0-46.0) % MCV 76.3 L (80.0-100.0) fL MCH 22.3 L (25.0-35.0) pg MCHC 29.2 L (31.0-37.0) g/dL RDW 18.2 H (11.5-15.5) % ABG pH (7.35-7.45) ABG pCO2 (35-45) mmHg ABG pO2 (83-108) mmHg ABG HCO3 (21-25) mmol/L ABG Total CO2 (19-24) mmol/L ABG O2 Saturation (94-97) % Carbon Dioxide 35 H (22-30) mmol/L BUN 37 H (7-17) mg/dL Creatinine 0.45 L (0.52-1.04) mg/dL Glucose 204 H (74-99) mg/dL POC Glucose (mg/dL) 229 H (70-110) mg/dL Calcium 7.7 L (8.4-10.2) mg/dL Magnesium 2.9 H (1.6-2.3) mg/dL 02/02/23 Range/Units 06:16 WBC (3.8-10.6) k/uL RBC (3.80-5.40) m/uL Hgb (11.4-16.0) gm/dL Hct (34.0-46.0) % MCV (80.0-100.0) fL MCH (25.0-35.0) pg MCHC (31.0-37.0) g/dL RDW (11.5-15.5) % ABG pH 7.34 L (7.35-7.45) ABG pCO2 69 H (35-45) mmHg ABG pO2 67 L (83-108) mmHg ABG HCO3 37 H (21-25) mmol/L ABG Total CO2 40 H (19-24) mmol/L ABG O2 Saturation 92.4 L (94-97) % Carbon Dioxide (22-30) mmol/L BUN (7-17) mg/dL Creatinine (0.52-1.04) mg/dL Glucose (74-99) mg/dL POC Glucose (mg/dL) (70-110) mg/dL Calcium (8.4-10.2) mg/dL Magnesium (1.6-2.3) mg/dL Microbiology - Last 24 Hours (Table) 01/30/23 10:00 Gram Stain - Preliminary Bronchoalviolar Lavage - Right Bronchial Washings Culture - Preliminary Presumptive Staph aureus Assessment and Plan (1) Respiratory failure requiring intubation Narrative/Plan: 62-year-old female with Shannon dependence secondary to COPD exacerbation. Patient scheduled for tracheostomy and PEG tube placement on Saturday. Family still considering her options however. Current Visit: Yes Status: Acute Code(s): J96.90 - RESPIRATORY FAILURE, UNSP, UNSP W HYPOXIA OR HYPERCAPNIA SNOMED Code(s): 791095252
[2023-02-02] MEDS: PREGABALIN 100 MG CAP PO SCH ×2 (10:11→20:46)
[2023-02-02] MEDS: DILTIAZEM ORAL 30 MG TAB PO SCH ×4 (10:11→21:00)
[2023-02-02] MEDS: CHLORHEXIDINE GLUCONATE 15 ML CUP MUCOUS MEM SCH ×2 (10:12→20:46)
[2023-02-02] MEDS: bisacodyL 5 MG TABLET.DR PO SCH (10:12)
[2023-02-02] MEDS: HEPARIN SODIUM,PORCINE 5,000 UNIT/ML 1 ML VIAL SQ SCH ×3 (10:12→23:41)
[2023-02-02] MEDS: PANTOPRAZOLE 40 MG/10 ML VIAL IV SCH (10:12)
[2023-02-02] MEDS: polyethylene glycoL 3350 17 GM POWD.PACK PO SCH (10:16)
--- NOTE | 2023-02-02 11:26 | P.PN ---
Subjective Progress Note Date: 02/02/23 Principal diagnosis: Respiratory failure. This is a 62-year-old female with known history of COPD, coronary artery disease, not familiar to our service, patient was brought into the ER yesterday in extreme respiratory distress. Patient was noted to have acute hypoxic and hypercapnic respiratory failure, she was intubated almost upon her initial presentation to the ER because she was mostly in severe respiratory distress. Shortly after intubation the patient was noted to have a pO2 of more than 400 pCO2 88 pH of 7.20. Repeat blood gases after the patient was sent to the ICU showed a pO2 of 136 pCO2 67 pH of 7.33 and her ABG this morning showed a pO2 of 98 pCO2 60 pH of 7.41. Chest x-ray on admission showed no evidence of acute process except for emphysematous changes. No evidence of infiltrate. And no evidence of congestive heart failure. Patient is now on assist control rate of 20 tidal volume 350 FiO2 50% and PEEP of 5. She is not requiring any pressors patient is on propofol at 60 mcg/kg/m. Earlier this morning on a lower dose of propofol, patient was noted to be agitated, wheezing, and clearly was not ready for weaning. Hence the dose of propofol was increased, in the meantime we are giving the patient bronchodilators in the form of one nap, she is also on Pulmicort and Perforomist, and I added Solu-Medrol. Patient is also on antibiotics empirically. WBC count is 7.6 hemoglobin is 8.7, basic metabolic profile is normal bicarb is high 33 BUN is 22 creatinine 0.70 Patient was reevaluated today on 01/26/2023, patient is basically about the same. Remains intubated and mechanically ventilated, she is on assist control rate of 20 tidal volume 350 FiO2 40% and PEEP of 5 ABG showed a pO2 of 83 pCO2 61 pH of 7.36. This morning the patient is noted to be not synchronous with the ventilator, she is having breath stacking, hence I had to increase her propofol to 75 mcg/kg/m from 60 mcg/kg/m. And obviously the patient is not quite ready for any weaning trials. Remains on ceftriaxone empirically, patient has good urine output, brain CT is negative, Dilaudid was added for agitation along with higher dose of propofol. Chest x-ray no evidence of active disease. WBC count is 13.2 hemoglobin is 7.7 electrolytes are normal sputum Gram stain is showing presumptive staph aureus. Hence we will give the patient is dose of vancomycin and decide on further treatment if this turns out to be MRSA or MSSA. Reevaluated today on 01/27/2023, patient remains in the ICU, intubated and mechanically ventilated. Patient is on assist control rate of 20 increased to 22 today tidal volume 350 FiO2 50% PEEP of 5 ABG showed a pO2 of 76 pCO2 63 pH of 7.29 continues to have enteral feeding but this is more of a trickle feeding, patient has relatively intermittently high residual. She is on propofol at 70 mcg/kg/m 0.9 normal saline at 100 mL/h vital HPI at 10 mL per hour she is receiving Dilaudid intermittently and she remains on vancomycin and ceftriaxone empirically. Chest x-ray is not showing any significant abnormality her staph aureus in the sputum is MSSA hence we will discontinue vancomycin. However will continue Rocephin. WBC count is 12.6 hemoglobin 7.8 electrolytes are normal renal profile is normal, chest x-ray showed no evidence of infiltrate. Progress note dated 01/28/2023. This is a 62-year-old female admitted to the hospital on January 24. She was admitted with a diagnosis of COPD exacerbation. The patient was intubated on the same day, January 24. She remains on the ventilator. She is on volume assist control, rate 22, tidal volume 350, FiO2 40%, PEEP of 5. Blood gases show pO2 of 119, pCO2 of 66, and a pH is 7.26. Last night, the patient had very high peak airway pressures, and a large difference between peak airway pressure and plateau pressure. The patient was adequately sedated, and receiving pain medication, and thus, was paralyzed. I spoke to my nurse practitioner about that this morning. The patient is currently on Nimbex at 1 mcg/kg/m, fentanyl at 0.5 mcg/kg/h, propofol at 60 mcg/kg/m. The patient's getting saline at 100 mL an hour, and vital high protein, at 10 mL, with a goal of 29. The blood gases were done on 50%. White count 12.2, hemoglobin 7.3, hematocrit 25.5, and platelet count 432,000. Sodium 145, potassium 4.6, chlorides 113, CO2 26, BUN 27, creatinine 0.58. Sputum was positive for Staphylococcus aureus. Chest x- ray shows no focal consolidation, pleural effusion, or pneumothorax. Progress note dated 01/29/2023. This is a 62-year-old female admitted to the hospital on January 24. She was admitted with a diagnosis of COPD exacerbation. The patient was intubated on the same day, January 24. She remains on the ventilator. The patient's current ventilator settings include the volume assist control, rate of 22, tidal volume 350, FiO2 40%, and PEEP of 5. Arterial blood gases show a PaO2 of 139, pCO2 37, and pH is 7.5. The FiO2 was reduced from 40%, down to 30%. The patient's getting saline at 100 mL an hour, fentanyl at 0.5 mcg/kg/h, propofol 60 mcg/kg/m, and Nimbex at 1.5 mcg/kg/m. The patient's getting vital high protein at 22 mL an hour. The goal today is to get the patient off Nimbex if possible. The patient's peak airway pressures in the high 30 range. White count 12.3, hemoglobin 7.6, hematocrit 26, and platelet count normal. Sodium 144, potassium 4.6, chlorides 113, CO2 26, BUN 30, creatinine 0.5. Sputum was positive for oxacillin sensitive Staphylococcus aureus. Chest x-ray shows changes of COPD, with bilateral basilar infiltrates. Progress note dated 01/30/2023. 62-year-old female admitted to the hospital on January 24, with a diagnosis of COPD exacerbation. She ended up being intubated on the same day, remains on the ventilator. The patient is on volume assist control, rate 22, tidal volume, 350, FiO2 40%,. Blood gases show pO2 of 64, pCO2 of 52, and a pH is 7.4. The patient remains on Nimbex at 1.5 mcg/kg/m, saline at 100 mL an hour, propofol 60 mcg/kg/m, and fentanyl 0.5 mcg/kg/h. Tube feedings on hold. The patient is to have a bronchoscopy and BAL today, and, we will replace and arterial line that went bad. White count is 13.6, hemoglobin 7.7, hematocrit 26.5, and platelet count is 456,000. Sodium 146, potassium 4.7, chlorides 114, CO2 32, BUN 34, and creatinine 0.52. Sputum from January 24 shows evidence of Staphylococcus aureus. Chest x-ray shows COPD with bibasilar infiltrates, right greater than left. Progress note dated 01/31/2023. 62-year-old female admitted to the hospital on January 24, with a diagnosis of COPD exacerbation. She was intubated for respiratory failure on the same day. She remains on the ventilator. She is on volume assist control, rate 22, tidal volume 350, FiO2 35%, PEEP of 5. Blood gases show pO2 74, pCO2 of 66, and pH is 7.32. The patient's on propofol at 60 mcg/kg/m, Nimbex at 1.5 mcg/kg/m, and fentanyl at 0.5 mcg/kg/h. The patient is getting saline at 100 mL an hour, and also vital high protein at 10 mL an hour, with a goal of 22. White count 17.5, he moves some 0.8, hematocrit 26.8, and platelet count 422,000. Sodium 146, p otassium 4.3, chlorides 112, CO2 34, BUN 34, and creatinine 0.45. Sputum from January 24 was positive for methicillin sensitive staph aureus. Chest x-ray from this morning shows changes of COPD, and is largely unchanged. Progress note dated 02/01/2023. 62-year-old female admitted to the hospital on January 24, with a diagnosis of COPD exacerbation. She was intubated for respiratory failure on the same day. She remains on the ventilator. Currently, the patient is on volume assist contr ol, rate 22, tidal [place] 350, FiO2 35%, and PEEP of 5. Blood gases show pO2 68, pCO2 69, and a pH is 7.35. Remains on Nimbex at 2 mcg/kg/m, fentanyl at 0.5 mcg/kg/h, saline at 20 mL an hour, and propofol at 40 mcg/kg/m. 2 feedings were on hold for possible tracheostomy and PEG tube placement today. Unfortunately, he cannot be done toe Saturday. Tube feedings will be re-started. In addition, saline is converted D5W at 40 mL an hour. White count of 16.4, hemoglobin 7.6, hematocrit 25.6, and platelet count is 460,000. Sodium 147, potassium 4.6, chlorides 110, CO2 40, BUN 42, and creatinine 0.53. Chest x-ray is essentially unchanged showing COPD, with bibasilar atelectasis. Progress note dated 02/02/2023. 62-year-old female admitted to the hospital on January 24, with a diagnosis of COPD exacerbation. The patient was intubated for respiratory failure on the same day remains on the ventilator. The patient is on volume assist control, rate 22, tidal volume 350, FiO2 35%, and PEEP of 5. Blood gases show pO2 67, pCO2 69, and a pH is 7.34. The patient's on fentanyl 1 mcg/kg/h, Nimbex at 2 mcg/kg/m, propofol at 45 mcg/kg/m. The patient's getting dextrose at 40 mL an hour, and vital high protein at 22 mL an hour which is goal. The patient is a DO NOT RESUSCITATE. White count 19, he lobe 7.9, hematocrit 26.9, with a normal platelet count. Sodium 145, potassium 4.7, chlorides 106, CO2 35, BUN 37, creatinine 0.45. Sputum from January 24 showed Staphylococcus aureus. BAL from January 30, also shows Staphylococcus aureus. Chest x-rays essentially unchanged. No significant abnormalities seen on chest x-ray. Objective - Vital Signs Vital signs: Vital Signs Temp 98.0 F 02/02/23 08:00 Pulse 92 02/02/23 11:09 Resp 22 02/02/23 09:00 BP 98/55 01/30/23 13:00 Pulse Ox 96 02/02/23 09:00 FiO2 35 02/02/23 10:54 Intake & Output 02/01/23 02/02/23 02/02/23 18:59 06:59 18:59 Intake Total 6901.500 0069.739 143.607 Output Total 850 905 50 Balance 294.191 508.739 93.607 Weight 83.5 kg 84.9 kg Intake: IV 502 652 46 Dextrose 5% in Water 1, 360 480 40 000 ml @ 40 mls/hr IV . Q24H [facility] Rx#:[id number] Pressure Bags 72 72 6 Sodium Chloride 0.9% 1, 70 100 000 ml @ 10 mls/hr IV . Q24H [facility] Rx#:[id number] Intake, IV Titration 366.191 347.739 70.607 Amount Cisatracurium 200 mg In 181.345 Sodium Chloride 0.9% 180 ml @ 1 MCG/KG/MIN 4.452 mls/hr IV .Q24H [facility] Rx#: [id number] fentaNYL (PF). 1,000 mcg 61.586 In Sodium Chloride 0.9% 80 ml @ 0.5 MCG/KG/HR 3. 71 mls/hr IV .Q24H [facility] Rx #:[id number] propofoL 1,000 mg In 184.846 286.153 70.607 Empty Bag 1 bag @ 15 MCG/ KG/MIN 7.348 mls/hr IV . [id number] [facility] Rx#:[id number] Tube Feeding 216 324 27 Other 60 90 Output: Urine 850 905 50 Other: Voiding Method Indwelling Catheter Indwelling Catheter # Bowel Movements 1 ABP, PAP, CO, CI - Last Documented Arterial Blood Pressure 119/60 - Exam No acute distress, sedated, paralyzed, with an orally placed endotracheal tube. HEENT examination is grossly unremarkable. Neck supple. Full range of motion. No adenopathy thyromegaly or neck vein distention. Cardiovascular examination reveals regular rhythm rate. S1-S2 normal. No S3 or S4. No discernible murmur noted. Heart rate 92 bpm. Lungs reveal scattered expiratory rhonchi. No wheezes or crackles. Breath sounds are equal bilaterally. Saturations are 96 %. Abdomen soft bowel sounds are heard. No masses or tenderness. Extremities are intact. No cyanosis clubbing or edema. Skin is without rash or lesion. Neurologic examination cannot be assessed as the patient's currently sedated and paralyzed. - Labs CBC & Chem 7: 02/02/23 05:00 02/02/23 05:00 Labs: Abnormal Lab Results - Last 24 Hours (Table) 02/01/23 02/01/23 02/01/23 Range/Units 12:41 17:31 23:46 WBC (3.8-10.6) k/uL RBC (3.80-5.40) m/uL Hgb (11.4-16.0) gm/dL Hct (34.0-46.0) % MCV (80.0-100.0) fL MCH (25.0-35.0) pg MCHC (31.0-37.0) g/dL RDW (11.5-15.5) % ABG pH (7.35-7.45) ABG pCO2 (35-45) mmHg ABG pO2 (83-108) mmHg ABG HCO3 (21-25) mmol/L ABG Total CO2 (19-24) mmol/L ABG O2 Saturation (94-97) % Carbon Dioxide (22-30) mmol/L BUN (7-17) mg/dL Creatinine (0.52-1.04) mg/dL Glucose (74-99) mg/dL POC Glucose (mg/dL) 181 H 189 H 218 H (70-110) mg/dL Calcium (8.4-10.2) mg/dL Magnesium (1.6-2.3) mg/dL 02/02/23 02/02/23 02/02/23 Range/Units 05:00 05:00 06:15 WBC 19.0 H (3.8-10.6) k/uL RBC 3.52 L (3.80-5.40) m/uL Hgb 7.9 L (11.4-16.0) gm/dL Hct 26.9 L (34.0-46.0) % MCV 76.3 L (80.0-100.0) fL MCH 22.3 L (25.0-35.0) pg MCHC 29.2 L (31.0-37.0) g/dL RDW 18.2 H (11.5-15.5) % ABG pH (7.35-7.45) ABG pCO2 (35-45) mmHg ABG pO2 (83-108) mmHg ABG HCO3 (21-25) mmol/L ABG Total CO2 (19-24) mmol/L ABG O2 Saturation (94-97) % Carbon Dioxide 35 H (22-30) mmol/L BUN 37 H (7-17) mg/dL Creatinine 0.45 L (0.52-1.04) mg/dL Glucose 204 H (74-99) mg/dL POC Glucose (mg/dL) 229 H (70-110) mg/dL Calcium 7.7 L (8.4-10.2) mg/dL Magnesium 2.9 H (1.6-2.3) mg/dL 02/02/23 Range/Units 06:16 WBC (3.8-10.6) k/uL RBC (3.80-5.40) m/uL Hgb (11.4-16.0) gm/dL Hct (34.0-46.0) % MCV (80.0-100.0) fL MCH (25.0-35.0) pg MCHC (31.0-37.0) g/dL RDW (11.5-15.5) % ABG pH 7.34 L (7.35-7.45) ABG pCO2 69 H (35-45) mmHg ABG pO2 67 L (83-108) mmHg ABG HCO3 37 H (21-25) mmol/L ABG Total CO2 40 H (19-24) mmol/L ABG O2 Saturation 92.4 L (94-97) % Carbon Dioxide (22-30) mmol/L BUN (7-17) mg/dL Creatinine (0.52-1.04) mg/dL Glucose (74-99) mg/dL POC Glucose (mg/dL) (70-110) mg/dL Calcium (8.4-10.2) mg/dL Magnesium (1.6-2.3) mg/dL Microbiology - Last 24 Hours (Table) 01/30/23 10:00 Gram Stain - Final Bronchoalviolar Lavage - Right Bronchial Washings Culture - Final Staphylococcus aureus Assessment and Plan Assessment: Acute hypoxemic and hypercapnic respiratory failure, requiring intubation and mechanical ventilation, beginning on January 24. S/P bronchoscopy, and BAL, right lower lobe, for increased airway secretions, 01/30/2023. Acute exacerbation of COPD, severe, with high peak airway pressures, and severe bronchospasm, requiring heavy sedation and paralysis. History of depression. Coronary artery disease. Methicillin sensitive staph aureus tracheobronchitis/bronchopneumonia. Plan: Plan dated 01/28/2023. The patient will continue on ventilatory support. The patient had very high peak airway pressures last night, and a significant difference between peak and plateau pressure, and required paralysis. The patient will continue on Solu- Medrol, and bronchodilators. In addition, the patient continues on antibiotics in the form of Rocephin. Also, the patient continues on tube feedings, with vital high protein. We continue with GI and DVT prophylaxis. Patient is very critically ill. Not ready for extubation at this time. Additional recommendations and suggestions are forthcoming. Prognosis is certainly guarded. Plan dated 01/29/2023. The patient continues with ventilatory support. The patient continues on propofol, fentanyl, and Nimbex. We will attempt to wean the patient off of Nimbex today. Labs, x-rays, and medications are reviewed. The patient remains critically ill. She remains on GI and DVT prophylaxis. The patient's sputum revealed evidence of oxacillin sensitive Staphylococcus aureus. The patient remains on Rocephin. Additional recommendations and suggestions are forthcoming. We will continue to follow the patient, and make recommendations along the way. Prognosis is certainly guarded. Plan dated 01/30/2023. The patient underwent bronchoscopy, airway examination, and BAL, right lower lobe today. She had significant airway secretions. The secretions are quite thick, and inspissated. Samples from the right lower lobe, were sent to [facility] for analysis. In addition, we placed a right femoral arterial line. The patient tolerated that procedure well. Labs, x-rays, and medications are all reviewed. Yesterday, we attempted a daily interruption of sedation, and the patient's airway pressures became very high. She had to be re-sedated and paralyzed. Continue to follow the patient and make recommendations along the way. She does remain on GI and DVT prophylaxis. The patient remains on Rocephin. Plan dated 01/31/2023. The patient will have another trial of being off the paralytic. The patient requires the paralytic to be added back, we will recommend a tracheostomy and PEG tube placement. In addition, the saline running at 100 mL an hour, will be turned down to KVO. The patient will get Lasix 60 mg IV push times one dose. We'll also DC the Rocephin. If the patient is able to stay off the Nimbex, we might consider a daily interruption of sedation with a spontaneous breathing trial. If she does not tolerate it, tracheostomy and PEG tube is recommended. Labs, x-rays, medications are reviewed. The patient's overall prognosis remains guarded. We will continue to follow and make recommendations along the way. Plan dated 02/01/2023. Unfortunately, the patient could not tolerate being off the paralytic. Sometime last night, we had to re-sedated her, and start the Nimbex going again. The patient will be seen by surgery for possible tracheostomy and PEG tube placement. That may not be able to be done until Saturday. The patient continues on all other appropriate medications. Labs, x-rays, and medications are reviewed. In addition, the patient saline will be converted to D5W at 40 mL an hour. Tube feedings will be resumed. We will continue to follow the patient and make recommendations along the way. Prognosis is guarded. Plan dated 02/02/2023. I spoke to the patient's sister today. I explained my rationale why I was pushing for a tracheostomy and PEG tube placement on Saturday. She was going to talk to the other family members, and come to a decision. If they decided not to go forward with a tracheostomy and PEG tube, than likely, this will make the patient comfort care. The patient is ready a no code patient. The patient continues on appropriate medications including fentanyl, Nimbex, propofol. Blood gases are reviewed. The patient is getting tube feedings. We will cont inue to follow make recommendations along the way. The patient is a DO NOT RESUSCITATE patient. Labs, x-rays, and medications are reviewed. Time with Patient: Greater than 30
[2023-02-02 12:19] LABS: Glucose,Whole Blood 189 mg/dL (70-110)
[2023-02-02 16:57] LABS: Glucose,Whole Blood 212 mg/dL (70-110)
[2023-02-02] MEDS: MONTELUKAST 10 MG TAB PO SCH (20:46)
[2023-02-02 23:21] LABS: Glucose,Whole Blood 231 mg/dL (70-110)
[2023-02-03] MEDS: fentaNYL (PF). 1,000 MCG in SODIUM CHLORIDE 0.9% 80 ML IV SCH ×2 (00:31→12:37)
[2023-02-03] MEDS: IPRATROPIUM-ALBUTEROL 3 ML NEB INHALATION SCH ×6 (03:27→23:49)
[2023-02-03 04:20] LABS: Glucose,Whole Blood 228 mg/dL (70-110)
[2023-02-03] MEDS: ARTIFICIAL TEARS-HYPROMELLOSE DROPS 15 ML BTL BOTH EYES SCH ×5 (04:35→22:52)
[2023-02-03] MEDS: DEXTROSE 5% IN WATER 1,000 ML IV SCH (04:36)
[2023-02-03 05:22] LABS: African American GFR (CKD) >90 (>60 ml/min/1.73 sqM); Blood Urea Nitrogen 37 mg/dL (7-17); Calcium 7.7 mg/dL (8.4-10.2); Chloride 103 mmol/L (98-107); Glucose 209 mg/dL (74-99); Non-African American GFR(CKD) >90 (>60 ml/min/1.73 sqM); Sodium 142 mmol/L (137-145)
[2023-02-03 05:29] LABS: Anion Gap 2 mmol/L
[2023-02-03] MEDS: INSULIN ASPART (NovoLOG) 100 UNIT/ML VIAL SQ SCH ×3 (05:40→18:52)
[2023-02-03] MEDS: methylPREDNISolone SOD SUCCI 125 MG/2 ML VIAL IV SCH ×3 (05:41→18:52)
[2023-02-03 05:43] LABS: Carbon Dioxide 37 mmol/L (22-30)
[2023-02-03 06:02] LABS: Anisocytosis Slight; Basophils % (A) 0 %; Eosinophils % (A) 0 %; HCT 27.3 % (34.0-46.0); HGB 7.9 gm/dL (11.4-16.0); Hypochromasia Marked; Lymphocytes # (A) 0.4 k/uL (1.0-4.8); Lymphocytes % (A) 3 %; MCH 22.5 pg (25.0-35.0); MCHC 28.9 g/dL (31.0-37.0); Microcytosis Slight; Monocytes # (A) 0.6 k/uL (0-1.0); Monocytes % (A) 4 %; Neutrophils # (A) 15.7 k/uL (1.3-7.7); Neutrophils % (A) 93 %; Platelet Count 339 k/uL (150-450); RDW 17.9 % (11.5-15.5); WBC 16.9 k/uL (3.8-10.6)
[2023-02-03 06:21] LABS: ABG Base Excess 13.9 mmol/L; ABG HCO3 39 mmol/L (21-25); ABG Oxygen Saturation 93.8 % (94-97); ABG PCO2 68 mmHg (35-45); ABG PH 7.37 (7.35-7.45); ABG PO2 70 mmHg (83-108); ABG TCO2 41 mmol/L (19-24); Allen Test Performed? Yes
[2023-02-03] MEDS: PREGABALIN 100 MG CAP PO SCH ×2 (08:05→22:52)
[2023-02-03] MEDS: CHLORHEXIDINE GLUCONATE 15 ML CUP MUCOUS MEM SCH ×2 (08:05→22:50)
[2023-02-03] MEDS: HEPARIN SODIUM,PORCINE 5,000 UNIT/ML 1 ML VIAL SQ SCH ×2 (08:05→15:40)
[2023-02-03] MEDS: DILTIAZEM ORAL 30 MG TAB PO SCH ×4 (08:05→22:52)
[2023-02-03] MEDS: PANTOPRAZOLE 40 MG/10 ML VIAL IV SCH (08:05)
[2023-02-03] MEDS: polyethylene glycoL 3350 17 GM POWD.PACK PO SCH (08:06)
[2023-02-03] MEDS: bisacodyL 5 MG TABLET.DR PO SCH (08:06)
[2023-02-03] MEDS: FORMOTEROL FUMARATE 20 MCG/2 ML NEBU INHALATION SCH ×2 (08:19→20:20)
[2023-02-03] MEDS: BUDESONIDE 1 MG/2 ML NEBU INHALATION SCH ×2 (08:20→20:20)
--- NOTE | 2023-02-03 08:27 | XR ---
EXAMINATION TYPE: XR chest 1V portable DATE OF EXAM: 02/03/2023 COMPARISON: 02/02/2023 HISTORY: Shortness of breath TECHNIQUE: Single frontal view of the chest is obtained. FINDINGS: ET tube is 4.2 cm above the prerna. There is been no change in the right sided PICC line or NG tube. Lungs remain clear. There is no pleural effusion or pneumothorax. Heart and pulmonary vasculature are normal. The osseous structures are intact IMPRESSION: 1. No acute cardiopulmonary disease. 2. ET tube 4.2 cm above the prerna.
--- NOTE | 2023-02-03 09:18 | P.PN ---
Subjective Progress Note Date: 02/02/23 62 years old female with past medical history of Asthma, Coronary Artery Disease, COPD Patient presents because of shortness of breath and altered mental status, as per documentation patient has difficulty talking because of her dysonea and she was using accessory muscles. Her respiratory distress was severe and patient required intubation and mechanical ventilation while in the emergency room. patient is afebrile. Blood pressure stable Hemoglobin is 8.7. W68.4. INR 1.0 PH 7.73, pCO2 88 and 67 BMP showing creatinine 0.7, glucose 154, liver enzymes not elevated. Troponin mildly elevated at 0.05. EKG showing sinus tachycardia at 130 ProBNP is elevated 1450 chest x-ray showed COPD however there is linear right upper lobe typical scar or atelectasis per radiologist. However I think fluid overload and cephalization is also suspected per my review especially patient has elevated proBNP. Such changes did not been seen in chest x-ray about 6 months ago. 02/02/2023 Patient is seen and evaluated in ICU; remains intubated Vital signs reviewed reveals temperature of 98, pulse 82, respiration 22 and blood pressure of 9855 -- Blood gases completed this morning reveal pO2 67, pCO2 69, and a pH is 7.34; White count 19, he lobe 7.9, hematocrit 26.9, with a normal platelet count. Sodium 145, potassium 4.7, chlorides 106, CO2 35, BUN 37, creatinine 0.45. Sputum from January 24 showed Staphylococcus aureus. --BAL from January 30, also shows Staphylococcus aureus. --Chest x-rays essentially unchanged. -- Family to make a decision/tracheostomy and PEG tube placement Patient remains DO NOT RESUSCITATE Objective - Vital Signs Vital signs: Vital Signs Temp 98.4 F 02/02/23 04:00 Pulse 90 02/02/23 08:20 Resp 22 02/02/23 07:00 BP 98/55 01/30/23 13:00 Pulse Ox 93 L 02/02/23 07:00 FiO2 35 02/02/23 08:14 Intake & Output 02/01/23 02/02/23 02/02/23 18:59 06:59 18:59 Intake Total 9063.488 5220.739 73 Output Total 850 905 50 Balance 294.191 508.739 23 Weight 83.5 kg 84.9 kg Intake: IV 502 652 46 Dextrose 5% in Water 1, 360 480 40 000 ml @ 40 mls/hr IV . Q24H [facility] Rx#:[id number] Pressure Bags 72 72 6 Sodium Chloride 0.9% 1, 70 100 000 ml @ 10 mls/hr IV . Q24H [facility] Rx#:[id number] Intake, IV Titration 366.191 347.739 Amount Cisatracurium 200 mg In 181.345 Sodium Chloride 0.9% 180 ml @ 1 MCG/KG/MIN 4.452 mls/hr IV .Q24H [facility] Rx#: [id number] fentaNYL (PF). 1,000 mcg 61.586 In Sodium Chloride 0.9% 80 ml @ 0.5 MCG/KG/HR 3. 71 mls/hr IV .Q24H [facility] Rx #:[id number] propofoL 1,000 mg In 184.846 286.153 Empty Bag 1 bag @ 15 MCG/ KG/MIN 7.348 mls/hr IV . [id number] [facility] Rx#:[id number] Tube Feeding 216 324 27 Other 60 90 Output: Urine 850 905 50 Other: Voiding Method Indwelling Catheter Indwelling Catheter # Bowel Movements 1 ABP, PAP, CO, CI - Last Documented Arterial Blood Pressure 115/58 - Exam -GENERAL: The patient is intubated and sedated. HEENT: Pupils are round and equally reacting to light. EOMI. No scleral icterus. No conjunctival pallor. Normocephalic, atraumatic. No pharyngeal erythema. No thyromegaly. CARDIOVASCULAR: S1 and S2 present. No murmurs, rubs, or gallops. PULMONARY: Chest is clear to auscultation, no wheezing , no crackles. ABDOMEN: Soft, nontender, nondistended, normoactive bowel sounds. No palpable organomegaly. MUSCULOSKELETAL: No joint swelling or deformity. EXTREMITIES: No cyanosis, clubbing, or pedal edema. NEUROLOGICAL: Gross neurological examination did not reveal any focal deficits. SKIN: No rashes. no petechiae. - Labs CBC & Chem 7: 02/03/23 04:15 02/03/23 04:15 Labs: Abnormal Lab Results - Last 24 Hours (Table) 02/01/23 02/01/23 02/01/23 Range/Units 12:41 17:31 23:46 WBC (3.8-10.6) k/uL RBC (3.80-5.40) m/uL Hgb (11.4-16.0) gm/dL Hct (34.0-46.0) % MCV (80.0-100.0) fL MCH (25.0-35.0) pg MCHC (31.0-37.0) g/dL RDW (11.5-15.5) % ABG pH (7.35-7.45) ABG pCO2 (35-45) mmHg ABG pO2 (83-108) mmHg ABG HCO3 (21-25) mmol/L ABG Total CO2 (19-24) mmol/L ABG O2 Saturation (94-97) % Carbon Dioxide (22-30) mmol/L BUN (7-17) mg/dL Creatinine (0.52-1.04) mg/dL Glucose (74-99) mg/dL POC Glucose (mg/dL) 181 H 189 H 218 H (70-110) mg/dL Calcium (8.4-10.2) mg/dL Magnesium (1.6-2.3) mg/dL 02/02/23 02/02/23 02/02/23 Range/Units 05:00 05:00 06:15 WBC 19.0 H (3.8-10.6) k/uL RBC 3.52 L (3.80-5.40) m/uL Hgb 7.9 L (11.4-16.0) gm/dL Hct 26.9 L (34.0-46.0) % MCV 76.3 L (80.0-100.0) fL MCH 22.3 L (25.0-35.0) pg MCHC 29.2 L (31.0-37.0) g/dL RDW 18.2 H (11.5-15.5) % ABG pH (7.35-7.45) ABG pCO2 (35-45) mmHg ABG pO2 (83-108) mmHg ABG HCO3 (21-25) mmol/L ABG Total CO2 (19-24) mmol/L ABG O2 Saturation (94-97) % Carbon Dioxide 35 H (22-30) mmol/L BUN 37 H (7-17) mg/dL Creatinine 0.45 L (0.52-1.04) mg/dL Glucose 204 H (74-99) mg/dL POC Glucose (mg/dL) 229 H (70-110) mg/dL Calcium 7.7 L (8.4-10.2) mg/dL Magnesium 2.9 H (1.6-2.3) mg/dL 02/02/23 Range/Units 06:16 WBC (3.8-10.6) k/uL RBC (3.80-5.40) m/uL Hgb (11.4-16.0) gm/dL Hct (34.0-46.0) % MCV (80.0-100.0) fL MCH (25.0-35.0) pg MCHC (31.0-37.0) g/dL RDW (11.5-15.5) % ABG pH 7.34 L (7.35-7.45) ABG pCO2 69 H (35-45) mmHg ABG pO2 67 L (83-108) mmHg ABG HCO3 37 H (21-25) mmol/L ABG Total CO2 40 H (19-24) mmol/L ABG O2 Saturation 92.4 L (94-97) % Carbon Dioxide (22-30) mmol/L BUN (7-17) mg/dL Creatinine (0.52-1.04) mg/dL Glucose (74-99) mg/dL POC Glucose (mg/dL) (70-110) mg/dL Calcium (8.4-10.2) mg/dL Magnesium (1.6-2.3) mg/dL Microbiology - Last 24 Hours (Table) 01/30/23 10:00 Gram Stain - Preliminary Bronchoalviolar Lavage - Right Bronchial Washings Culture - Preliminary Presumptive Staph aureus Assessment and Plan Assessment: Acute asthma/COPD exacerbation. Acute hypoxemic respiratory failure requiring intubation and mechanical ventilat ion Acute tracheobronchitis secondary to MSSA History of depression Acute respiratory acidosis with metabolic compensation Altered mental status most likely metabolic/toxic encephalopathy. Plan: Continue with mechanical ventilation with pulmonary/critical care team on the case already the recommendation Continue with IV Solu-Medrol Continue with a bronchodilator Continue ceftriaxone Labs and medication were reviewed.. Continue same treatment. Continue with symptomatic treatment. Resume home medication. Monitor labs and vitals. DVT and GI prophylaxis. Further recommendations as per clinical course of the patient DVT prophylaxis: Subcutaneous heparin GI Prophylaxis: Ppi PT/OT: Pending Prognosis is guarded
--- NOTE | 2023-02-03 10:05 | P.PN ---
Subjective Progress Note Date: 02/03/23 Principal diagnosis: Respiratory failure Patient remains on the ventilator. FiO2 35%. Hemodynamically stable. Patient is afebrile. White blood cell count 16.9. Objective - Vital Signs Vital signs: Vital Signs Temp 98.0 F 02/03/23 04:00 Pulse 94 02/03/23 08:41 Resp 22 02/03/23 07:00 BP 98/55 01/30/23 13:00 Pulse Ox 93 L 02/03/23 07:00 FiO2 35 02/03/23 07:50 Intake & Output 02/02/23 02/03/23 02/03/23 18:59 06:59 18:59 Intake Total 662.271 9139.361 176 Output Total 660 780 100 Balance 147.229 418.361 76 Weight 85.7 kg Intake: IV 552 552 92 Dextrose 5% in Water 1, 480 480 80 000 ml @ 40 mls/hr IV . Q24H [facility] Rx#:[id number] Pressure Bags 72 72 12 Intake, IV Titration 228.229 259.361 Amount fentaNYL (PF). 1,000 mcg 9.151 In Sodium Chloride 0.9% 80 ml @ 0.5 MCG/KG/HR 3. 71 mls/hr IV .Q24H [facility] Rx #:[id number] propofoL 1,000 mg In 228.229 250.210 Empty Bag 1 bag @ 15 MCG/ KG/MIN 7.348 mls/hr IV . [id number] [facility] Rx#:[id number] Tube Feeding 27 297 54 Other 90 30 Output: Urine 660 780 100 Other: Voiding Method Indwelling Catheter Indwelling Catheter # Bowel Movements 1 ABP, PAP, CO, CI - Last Documented Arterial Blood Pressure 130/61 - Exam Abdomen: Soft, nontender, nondistended - Labs CBC & Chem 7: 02/03/23 04:15 02/03/23 04:15 Labs: Abnormal Lab Results - Last 24 Hours (Table) 02/02/23 02/02/23 02/02/23 Range/Units 12:14 16:56 23:18 WBC (3.8-10.6) k/uL RBC (3.80-5.40) m/uL Hgb (11.4-16.0) gm/dL Hct (34.0-46.0) % MCV (80.0-100.0) fL MCH (25.0-35.0) pg MCHC (31.0-37.0) g/dL RDW (11.5-15.5) % Neutrophils # (1.3-7.7) k/uL Lymphocytes # (1.0-4.8) k/uL ABG pCO2 (35-45) mmHg ABG pO2 (83-108) mmHg ABG HCO3 (21-25) mmol/L ABG Total CO2 (19-24) mmol/L ABG O2 Saturation (94-97) % Carbon Dioxide (22-30) mmol/L BUN (7-17) mg/dL Creatinine (0.52-1.04) mg/dL Glucose (74-99) mg/dL POC Glucose (mg/dL) 189 H 212 H 231 H (70-110) mg/dL Calcium (8.4-10.2) mg/dL 02/03/23 02/03/23 02/03/23 Range/Units 04:15 04:15 04:18 WBC 16.9 H (3.8-10.6) k/uL RBC 3.50 L (3.80-5.40) m/uL Hgb 7.9 L (11.4-16.0) gm/dL Hct 27.3 L (34.0-46.0) % MCV 78.0 L (80.0-100.0) fL MCH 22.5 L (25.0-35.0) pg MCHC 28.9 L (31.0-37.0) g/dL RDW 17.9 H (11.5-15.5) % Neutrophils # 15.7 H (1.3-7.7) k/uL Lymphocytes # 0.4 L (1.0-4.8) k/uL ABG pCO2 (35-45) mmHg ABG pO2 (83-108) mmHg ABG HCO3 (21-25) mmol/L ABG Total CO2 (19-24) mmol/L ABG O2 Saturation (94-97) % Carbon Dioxide 37 H (22-30) mmol/L BUN 37 H (7-17) mg/dL Creatinine 0.48 L (0.52-1.04) mg/dL Glucose 209 H (74-99) mg/dL POC Glucose (mg/dL) 228 H (70-110) mg/dL Calcium 7.7 L (8.4-10.2) mg/dL 02/03/23 Range/Units 06:16 WBC (3.8-10.6) k/uL RBC (3.80-5.40) m/uL Hgb (11.4-16.0) gm/dL Hct (34.0-46.0) % MCV (80.0-100.0) fL MCH (25.0-35.0) pg MCHC (31.0-37.0) g/dL RDW (11.5-15.5) % Neutrophils # (1.3-7.7) k/uL Lymphocytes # (1.0-4.8) k/uL ABG pCO2 68 H (35-45) mmHg ABG pO2 70 L (83-108) mmHg ABG HCO3 39 H (21-25) mmol/L ABG Total CO2 41 H (19-24) mmol/L ABG O2 Saturation 93.8 L (94-97) % Carbon Dioxide (22-30) mmol/L BUN (7-17) mg/dL Creatinine (0.52-1.04) mg/dL Glucose (74-99) mg/dL POC Glucose (mg/dL) (70-110) mg/dL Calcium (8.4-10.2) mg/dL Microbiology - Last 24 Hours (Table) 01/30/23 10:00 Gram Stain - Final Bronchoalviolar Lavage - Right Bronchial Washings Culture - Final Staphylococcus aureus Assessment and Plan (1) Respiratory failure requiring intubation Narrative/Plan: Patient remains on the ventilator. The family apparently remains interested in tracheostomy and PEG tube placement. This is currently scheduled for tomorrow. Current Visit: Yes Status: Acute Code(s): J96.90 - RESPIRATORY FAILURE, UNSP, UNSP W HYPOXIA OR HYPERCAPNIA SNOMED Code(s): 472344995
[2023-02-03] MEDS: CISATRACURIUM 200 MG in SODIUM CHLORIDE 0.9% 180 ML IV SCH (11:00)
--- NOTE | 2023-02-03 11:54 | P.PN ---
Subjective Progress Note Date: 02/03/23 Principal diagnosis: Respiratory failure. This is a 62-year-old female with known history of COPD, coronary artery disease, not familiar to our service, patient was brought into the ER yesterday in extreme respiratory distress. Patient was noted to have acute hypoxic and hypercapnic respiratory failure, she was intubated almost upon her initial presentation to the ER because she was mostly in severe respiratory distress. Shortly after intubation the patient was noted to have a pO2 of more than 400 pCO2 88 pH of 7.20. Repeat blood gases after the patient was sent to the ICU showed a pO2 of 136 pCO2 67 pH of 7.33 and her ABG this morning showed a pO2 of 98 pCO2 60 pH of 7.41. Chest x-ray on admission showed no evidence of acute process except for emphysematous changes. No evidence of infiltrate. And no evidence of congestive heart failure. Patient is now on assist control rate of 20 tidal volume 350 FiO2 50% and PEEP of 5. She is not requiring any pressors patient is on propofol at 60 mcg/kg/m. Earlier this morning on a lower dose of propofol, patient was noted to be agitated, wheezing, and clearly was not ready for weaning. Hence the dose of propofol was increased, in the meantime we are giving the patient bronchodilators in the form of one nap, she is also on Pulmicort and Perforomist, and I added Solu-Medrol. Patient is also on antibiotics empirically. WBC count is 7.6 hemoglobin is 8.7, basic metabolic profile is normal bicarb is high 33 BUN is 22 creatinine 0.70 Patient was reevaluated today on 01/26/2023, patient is basically about the same. Remains intubated and mechanically ventilated, she is on assist control rate of 20 tidal volume 350 FiO2 40% and PEEP of 5 ABG showed a pO2 of 83 pCO2 61 pH of 7.36. This morning the patient is noted to be not synchronous with the ventilator, she is having breath stacking, hence I had to increase her propofol to 75 mcg/kg/m from 60 mcg/kg/m. And obviously the patient is not quite ready for any weaning trials. Remains on ceftriaxone empirically, patient has good urine output, brain CT is negative, Dilaudid was added for agitation along with higher dose of propofol. Chest x-ray no evidence of active disease. WBC count is 13.2 hemoglobin is 7.7 electrolytes are normal sputum Gram stain is showing presumptive staph aureus. Hence we will give the patient is dose of vancomycin and decide on further treatment if this turns out to be MRSA or MSSA. Reevaluated today on 01/27/2023, patient remains in the ICU, intubated and mechanically ventilated. Patient is on assist control rate of 20 increased to 22 today tidal volume 350 FiO2 50% PEEP of 5 ABG showed a pO2 of 76 pCO2 63 pH of 7.29 continues to have enteral feeding but this is more of a trickle feeding, patient has relatively intermittently high residual. She is on propofol at 70 mcg/kg/m 0.9 normal saline at 100 mL/h vital HPI at 10 mL per hour she is receiving Dilaudid intermittently and she remains on vancomycin and ceftriaxone empirically. Chest x-ray is not showing any significant abnormality her staph aureus in the sputum is MSSA hence we will discontinue vancomycin. However will continue Rocephin. WBC count is 12.6 hemoglobin 7.8 electrolytes are normal renal profile is normal, chest x-ray showed no evidence of infiltrate. Progress note dated 01/28/2023. This is a 62-year-old female admitted to the hospital on January 24. She was admitted with a diagnosis of COPD exacerbation. The patient was intubated on the same day, January 24. She remains on the ventilator. She is on volume assist control, rate 22, tidal volume 350, FiO2 40%, PEEP of 5. Blood gases show pO2 of 119, pCO2 of 66, and a pH is 7.26. Last night, the patient had very high peak airway pressures, and a large difference between peak airway pressure and plateau pressure. The patient was adequately sedated, and receiving pain medication, and thus, was paralyzed. I spoke to my nurse practitioner about that this morning. The patient is currently on Nimbex at 1 mcg/kg/m, fentanyl at 0.5 mcg/kg/h, propofol at 60 mcg/kg/m. The patient's getting saline at 100 mL an hour, and vital high protein, at 10 mL, with a goal of 29. The blood gases were done on 50%. White count 12.2, hemoglobin 7.3, hematocrit 25.5, and platelet count 432,000. Sodium 145, potassium 4.6, chlorides 113, CO2 26, BUN 27, creatinine 0.58. Sputum was positive for Staphylococcus aureus. Chest x- ray shows no focal consolidation, pleural effusion, or pneumothorax. Progress note dated 01/29/2023. This is a 62-year-old female admitted to the hospital on January 24. She was admitted with a diagnosis of COPD exacerbation. The patient was intubated on the same day, January 24. She remains on the ventilator. The patient's current ventilator settings include the volume assist control, rate of 22, tidal volume 350, FiO2 40%, and PEEP of 5. Arterial blood gases show a PaO2 of 139, pCO2 37, and pH is 7.5. The FiO2 was reduced from 40%, down to 30%. The patient's getting saline at 100 mL an hour, fentanyl at 0.5 mcg/kg/h, propofol 60 mcg/kg/m, and Nimbex at 1.5 mcg/kg/m. The patient's getting vital high protein at 22 mL an hour. The goal today is to get the patient off Nimbex if possible. The patient's peak airway pressures in the high 30 range. White count 12.3, hemoglobin 7.6, hematocrit 26, and platelet count normal. Sodium 144, potassium 4.6, chlorides 113, CO2 26, BUN 30, creatinine 0.5. Sputum was positive for oxacillin sensitive Staphylococcus aureus. Chest x-ray shows changes of COPD, with bilateral basilar infiltrates. Progress note dated 01/30/2023. 62-year-old female admitted to the hospital on January 24, with a diagnosis of COPD exacerbation. She ended up being intubated on the same day, remains on the ventilator. The patient is on volume assist control, rate 22, tidal volume, 350, FiO2 40%,. Blood gases show pO2 of 64, pCO2 of 52, and a pH is 7.4. The patient remains on Nimbex at 1.5 mcg/kg/m, saline at 100 mL an hour, propofol 60 mcg/kg/m, and fentanyl 0.5 mcg/kg/h. Tube feedings on hold. The patient is to have a bronchoscopy and BAL today, and, we will replace and arterial line that went bad. White count is 13.6, hemoglobin 7.7, hematocrit 26.5, and platelet count is 456,000. Sodium 146, potassium 4.7, chlorides 114, CO2 32, BUN 34, and creatinine 0.52. Sputum from January 24 shows evidence of Staphylococcus aureus. Chest x-ray shows COPD with bibasilar infiltrates, right greater than left. Progress note dated 01/31/2023. 62-year-old female admitted to the hospital on January 24, with a diagnosis of COPD exacerbation. She was intubated for respiratory failure on the same day. She remains on the ventilator. She is on volume assist control, rate 22, tidal volume 350, FiO2 35%, PEEP of 5. Blood gases show pO2 74, pCO2 of 66, and pH is 7.32. The patient's on propofol at 60 mcg/kg/m, Nimbex at 1.5 mcg/kg/m, and fentanyl at 0.5 mcg/kg/h. The patient is getting saline at 100 mL an hour, and also vital high protein at 10 mL an hour, with a goal of 22. White count 17.5, he moves some 0.8, hematocrit 26.8, and platelet count 422,000. Sodium 146, p otassium 4.3, chlorides 112, CO2 34, BUN 34, and creatinine 0.45. Sputum from January 24 was positive for methicillin sensitive staph aureus. Chest x-ray from this morning shows changes of COPD, and is largely unchanged. Progress note dated 02/01/2023. 62-year-old female admitted to the hospital on January 24, with a diagnosis of COPD exacerbation. She was intubated for respiratory failure on the same day. She remains on the ventilator. Currently, the patient is on volume assist contr ol, rate 22, tidal [place] 350, FiO2 35%, and PEEP of 5. Blood gases show pO2 68, pCO2 69, and a pH is 7.35. Remains on Nimbex at 2 mcg/kg/m, fentanyl at 0.5 mcg/kg/h, saline at 20 mL an hour, and propofol at 40 mcg/kg/m. 2 feedings were on hold for possible tracheostomy and PEG tube placement today. Unfortunately, he cannot be done toe Saturday. Tube feedings will be re-started. In addition, saline is converted D5W at 40 mL an hour. White count of 16.4, hemoglobin 7.6, hematocrit 25.6, and platelet count is 460,000. Sodium 147, potassium 4.6, chlorides 110, CO2 40, BUN 42, and creatinine 0.53. Chest x-ray is essentially unchanged showing COPD, with bibasilar atelectasis. Progress note dated 02/02/2023. 62-year-old female admitted to the hospital on January 24, with a diagnosis of COPD exacerbation. The patient was intubated for respiratory failure on the same day remains on the ventilator. The patient is on volume assist control, rate 22, tidal volume 350, FiO2 35%, and PEEP of 5. Blood gases show pO2 67, pCO2 69, and a pH is 7.34. The patient's on fentanyl 1 mcg/kg/h, Nimbex at 2 mcg/kg/m, propofol at 45 mcg/kg/m. The patient's getting dextrose at 40 mL an hour, and vital high protein at 22 mL an hour which is goal. The patient is a DO NOT RESUSCITATE. White count 19, he lobe 7.9, hematocrit 26.9, with a normal platelet count. Sodium 145, potassium 4.7, chlorides 106, CO2 35, BUN 37, creatinine 0.45. Sputum from January 24 showed Staphylococcus aureus. BAL from January 30, also shows Staphylococcus aureus. Chest x-rays essentially unchanged. No significant abnormalities seen on chest x-ray. Progress note dated 02/03/2023. 62-year-old female admitted to the hospital on January 24, with a diagnosis of COPD exacerbation. The patient was intubated for respiratory failure, on the same day. The patient remains on mechanical ventilation. She is scheduled for a tracheostomy and PEG tube placement, tomorrow, although, the family may be having some second thoughts. Currently, she is on volume assist control, rate 22, tidal volume 350, FiO2 35%, and PEEP of 5. Blood gases showed pO2 70, pCO2 68, and pH is 7.37. The patient's currently on fentanyl 1.5 mcg/kg/h, propofol at 50 mcg/kg/m, and index 2 mcg/kg/m. The patient's also getting D5W at 40 mL an hour, and vital high protein, and 27 mL an hour, which is goal. White count 16.9, hemoglobin 7.9, hematocrit 27.3, and platelet count normal. Sodium 142, potassium 5, chlorides 103, CO2 37, BUN 37, and creatinine 0.48. Both sputum and BAL show evidence of methicillin sensitive staph aureus. Chest x-ray shows no acute cardiopulmonary disease and the tip of the endotracheal tube is 4 cm above the prerna. Objective - Vital Signs Vital signs: Vital Signs Temp 98.0 F 02/03/23 04:00 Pulse 94 02/03/23 11:25 Resp 22 02/03/23 10:00 BP 98/55 01/30/23 13:00 Pulse Ox 95 02/03/23 10:00 FiO2 35 02/03/23 11:14 Intake & Output 02/02/23 02/03/23 02/03/23 18:59 06:59 18:59 Intake Total 985.907 1596.361 322 Output Total 660 780 255 Balance 147.229 418.361 67 Weight 85.7 kg Intake: IV 552 552 184 Dextrose 5% in Water 1, 480 480 160 000 ml @ 40 mls/hr IV . Q24H [facility] Rx#:[id number] Pressure Bags 72 72 24 Intake, IV Titration 228.229 259.361 Amount fentaNYL (PF). 1,000 mcg 9.151 In Sodium Chloride 0.9% 80 ml @ 0.5 MCG/KG/HR 3. 71 mls/hr IV .Q24H [facility] Rx #:[id number] propofoL 1,000 mg In 228.229 250.210 Empty Bag 1 bag @ 15 MCG/ KG/MIN 7.348 mls/hr IV . [id number] [facility] Rx#:[id number] Tube Feeding 27 297 108 Other 90 30 Output: Urine 660 780 255 Other: Voiding Method Indwelling Catheter Indwelling Catheter Indwelling Catheter # Bowel Movements 1 ABP, PAP, CO, CI - Last Documented Arterial Blood Pressure 142/70 - Exam No acute distress, sedated, paralyzed, with an orally placed endotracheal tube. HEENT examination is grossly unremarkable. Neck supple. Full range of motion. No adenopathy thyromegaly or neck vein distention. Cardiovascular examination reveals regular rhythm rate. S1-S2 normal. No S3 or S4. No discernible murmur noted. Heart rate 94 bpm. Lungs reveal scattered expiratory rhonchi. No wheezes or crackles. Breath sounds are equal bilaterally. Saturations are 95 %. Abdomen soft bowel sounds are heard. No masses or tenderness. Extremities are intact. No cyanosis clubbing or edema. Skin is without rash or lesion. Neurologic examination cannot be assessed as the patient's currently sedated and paralyzed. - Labs CBC & Chem 7: 02/03/23 04:15 02/03/23 04:15 Labs: Abnormal Lab Results - Last 24 Hours (Table) 02/02/23 02/02/23 02/02/23 Range/Units 12:14 16:56 23:18 WBC (3.8-10.6) k/uL RBC (3.80-5.40) m/uL Hgb (11.4-16.0) gm/dL Hct (34.0-46.0) % MCV (80.0-100.0) fL MCH (25.0-35.0) pg MCHC (31.0-37.0) g/dL RDW (11.5-15.5) % Neutrophils # (1.3-7.7) k/uL Lymphocytes # (1.0-4.8) k/uL ABG pCO2 (35-45) mmHg ABG pO2 (83-108) mmHg ABG HCO3 (21-25) mmol/L ABG Total CO2 (19-24) mmol/L ABG O2 Saturation (94-97) % Carbon Dioxide (22-30) mmol/L BUN (7-17) mg/dL Creatinine (0.52-1.04) mg/dL Glucose (74-99) mg/dL POC Glucose (mg/dL) 189 H 212 H 231 H (70-110) mg/dL Calcium (8.4-10.2) mg/dL 02/03/23 02/03/23 02/03/23 Range/Units 04:15 04:15 04:18 WBC 16.9 H (3.8-10.6) k/uL RBC 3.50 L (3.80-5.40) m/uL Hgb 7.9 L (11.4-16.0) gm/dL Hct 27.3 L (34.0-46.0) % MCV 78.0 L (80.0-100.0) fL MCH 22.5 L (25.0-35.0) pg MCHC 28.9 L (31.0-37.0) g/dL RDW 17.9 H (11.5-15.5) % Neutrophils # 15.7 H (1.3-7.7) k/uL Lymphocytes # 0.4 L (1.0-4.8) k/uL ABG pCO2 (35-45) mmHg ABG pO2 (83-108) mmHg ABG HCO3 (21-25) mmol/L ABG Total CO2 (19-24) mmol/L ABG O2 Saturation (94-97) % Carbon Dioxide 37 H (22-30) mmol/L BUN 37 H (7-17) mg/dL Creatinine 0.48 L (0.52-1.04) mg/dL Glucose 209 H (74-99) mg/dL POC Glucose (mg/dL) 228 H (70-110) mg/dL Calcium 7.7 L (8.4-10.2) mg/dL 02/03/23 Range/Units 06:16 WBC (3.8-10.6) k/uL RBC (3.80-5.40) m/uL Hgb (11.4-16.0) gm/dL Hct (34.0-46.0) % MCV (80.0-100.0) fL MCH (25.0-35.0) pg MCHC (31.0-37.0) g/dL RDW (11.5-15.5) % Neutrophils # (1.3-7.7) k/uL Lymphocytes # (1.0-4.8) k/uL ABG pCO2 68 H (35-45) mmHg ABG pO2 70 L (83-108) mmHg ABG HCO3 39 H (21-25) mmol/L ABG Total CO2 41 H (19-24) mmol/L ABG O2 Saturation 93.8 L (94-97) % Carbon Dioxide (22-30) mmol/L BUN (7-17) mg/dL Creatinine (0.52-1.04) mg/dL Glucose (74-99) mg/dL POC Glucose (mg/dL) (70-110) mg/dL Calcium (8.4-10.2) mg/dL Microbiology - Last 24 Hours (Table) 01/30/23 10:00 Gram Stain - Final Bronchoalviolar Lavage - Right Bronchial Washings Culture - Final Staphylococcus aureus Assessment and Plan Assessment: Acute hypoxemic and hypercapnic respiratory failure, requiring intubation and mechanical ventilation, beginning on January 24. S/P bronchoscopy, and BAL, right lower lobe, for increased airway secretions, 01/30/2023. Acute exacerbation of COPD, severe, with high peak airway pressures, and severe bronchospasm, requiring heavy sedation and paralysis. History of depression. Coronary artery disease. Methicillin sensitive staph aureus tracheobronchitis/bronchopneumonia. Plan: Plan dated 01/28/2023. The patient will continue on ventilatory support. The patient had very high peak airway pressures last night, and a significant difference between peak and plateau pressure, and required paralysis. The patient will continue on Solu- Medrol, and bronchodilators. In addition, the patient continues on antibiotics in the form of Rocephin. Also, the patient continues on tube feedings, with vital high protein. We continue with GI and DVT prophylaxis. Patient is very critically ill. Not ready for extubation at this time. Additional recommendations and suggestions are forthcoming. Prognosis is certainly guarded. Plan dated 01/29/2023. The patient continues with ventilatory support. The patient continues on propofol, fentanyl, and Nimbex. We will attempt to wean the patient off of Nimbex today. Labs, x-rays, and medications are reviewed. The patient remains critically ill. She remains on GI and DVT prophylaxis. The patient's sputum revealed evidence of oxacillin sensitive Staphylococcus aureus. The patient remains on Rocephin. Additional recommendations and suggestions are forthcoming. We will continue to follow the patient, and make recommendations along the way. Prognosis is certainly guarded. Plan dated 01/30/2023. The patient underwent bronchoscopy, airway examination, and BAL, right lower lo be today. She had significant airway secretions. The secretions are quite thick, and inspissated. Samples from the right lower lobe, were sent to laboratory for analysis. In addition, we placed a right femoral arterial line. The patient tolerated that procedure well. Labs, x-rays, and medications are all reviewed. Yesterday, we attempted a daily interruption of sedation, and the patient's airway pressures became very high. She had to be re-sedated and paralyzed. Continue to follow the patient and make recommendations along the way. She does remain on GI and DVT prophylaxis. The patient remains on Rocephin. Plan dated 01/31/2023. The patient will have another trial of being off the paralytic. The patient requires the paralytic to be added back, we will recommend a tracheostomy and PEG tube placement. In addition, the saline running at 100 mL an hour, will be turned down to KVO. The patient will get Lasix 60 mg IV push times one dose. We'll also DC the Rocephin. If the patient is able to stay off the Nimbex, we might consider a daily interruption of sedation with a spontaneous breathing trial. If she does not tolerate it, tracheostomy and PEG tube is recommended. Labs, x-rays, medications are reviewed. The patient's overall prognosis remains guarded. We will continue to follow and make recommendations along the way. Plan dated 02/01/2023. Unfortunately, the patient could not tolerate being off the paralytic. Sometime last night, we had to re-sedated her, and start the Nimbex going again. The patient will be seen by surgery for possible tracheostomy and PEG tube placement. That may not be able to be done until Saturday. The patient continues on all other appropriate medications. Labs, x-rays, and medications are reviewed. In addition, the patient saline will be converted to D5W at 40 mL an hour. Tube feedings will be resumed. We will continue to follow the patient and make recommendations along the way. Prognosis is guarded. Plan dated 02/02/2023. I spoke to the patient's sister today. I explained my rationale why I was pushing for a tracheostomy and PEG tube placement on Saturday. She was going to talk to the other family members, and come to a decision. If they decided not to go forward with a tracheostomy and PEG tube, than likely, this will make the patient comfort care. The patient is ready a no code patient. The patient continues on appropriate medications including fentanyl, Nimbex, propofol. Blood gases are reviewed. The patient is getting tube feedings. We will continue to follow make recommendations along the way. The patient is a DO NOT RESUSCITATE patient. Labs, x-rays, and medications are reviewed. Plan dated 02/03/2023. The patient's family initially agreed to have a tracheostomy and PEG tube placed on this patient. They may be having some second thoughts. The patient remains heavily sedated, and paralyzed, because every time we take her off of paralysis, she becomes very agitated, dyssynchronous with the ventilator, with very high airway pressures, in the mid to high 50s. We will await additional input from the family. Labs, x-rays, and medications are reviewed. Prognosis is certainly guarded. Time with Patient: Greater than 30
[2023-02-03] MEDS ORDERED: MORPHINE SULFATE (100 MG/2 ML) 100 MG in SODIUM CHLORIDE 0.9% 100 ML IV SCH ×2 (12:00→12:15)
[2023-02-03] MEDS ORDERED: LORazepam 2 MG/ML INJ IV PRN (12:02)
[2023-02-03] MEDS ORDERED: ATROPINE OPHTH SOLN 1% 5ML BTL SUBLINGUAL PRN (12:02)
[2023-02-03] MEDS ORDERED: MORPHINE SULFATE 2 MG/ML SYRINGE IV PRN (12:07)
[2023-02-03] MEDS ORDERED: MORPHINE SULFATE 4 MG/ML SYRINGE IV PRN (12:07)
--- NOTE | 2023-02-03 18:02 | P.PN ---
Subjective Progress Note Date: 02/03/23 62 years old female with past medical history of Asthma, Coronary Artery Disease, COPD Patient presents because of shortness of breath and altered mental status, as per documentation patient has difficulty talking because of her dysonea and she was using accessory muscles. Her respiratory distress was severe and patient required intubation and mechanical ventilation while in the emergency room. patient is afebrile. Blood pressure stable Hemoglobin is 8.7. W68.4. INR 1.0 PH 7.73, pCO2 88 and 67 BMP showing creatinine 0.7, glucose 154, liver enzymes not elevated. Troponin mildly elevated at 0.05. EKG showing sinus tachycardia at 130 ProBNP is elevated 1450 chest x-ray showed COPD however there is linear right upper lobe typical scar or atelectasis per radiologist. However I think fluid overload and cephalization is also suspected per my review especially patient has elevated proBNP. Such changes did not been seen in chest x-ray about 6 months ago. 02/02/2023 Patient is seen and evaluated in ICU; remains intubated Vital signs reviewed reveals temperature of 98, pulse 82, respiration 22 and blood pressure of 9855 -- Blood gases completed this morning reveal pO2 67, pCO2 69, and a pH is 7.34; White count 19, he lobe 7.9, hematocrit 26.9, with a normal platelet count. Sodium 145, potassium 4.7, chlorides 106, CO2 35, BUN 37, creatinine 0.45. Sputum from January 24 showed Staphylococcus aureus. --BAL from January 30, also shows Staphylococcus aureus. --Chest x-rays essentially unchanged. -- Family to make a decision/tracheostomy and PEG tube placement Patient remains DO NOT RESUSCITATE 02/03/2023 Patient is seen and evaluated in room at bedside; family members are not present in the room; family is debating proceeding with gift of life for organ donation Vital signs reveal temperature 99.5, pulse 93, respiration 24 and blood pressure of 105/67 White count 16.9, hemoglobin 7.9, hematocrit 27.3, and platelet count normal. Sodium 142, potassium 5, chlorides 103, CO2 37, BUN 37, and creatinine 0.48. Both sputum and BAL show evidence of methicillin sensitive staph aureus. Chest x-ray shows no acute cardiopulmonary disease and the tip of the endotracheal tube is 4 cm above the prerna. Patient will remain intubated and mechanically ventilated. Family makes further decision Objective - Vital Signs Vital signs: Vital Signs Temp 98.0 F 02/03/23 04:00 Pulse 94 02/03/23 08:41 Resp 22 02/03/23 07:00 BP 98/55 01/30/23 13:00 Pulse Ox 93 L 02/03/23 07:00 FiO2 35 02/03/23 07:50 Intake & Output 02/02/23 02/03/23 02/03/23 18:59 06:59 18:59 Intake Total 505.994 1596.361 176 Output Total 660 780 100 Balance 147.229 418.361 76 Weight 85.7 kg Intake: IV 552 552 92 Dextrose 5% in Water 1, 480 480 80 000 ml @ 40 mls/hr IV . Q24H [facility] Rx#:[id number] Pressure Bags 72 72 12 Intake, IV Titration 228.229 259.361 Amount fentaNYL (PF). 1,000 mcg 9.151 In Sodium Chloride 0.9% 80 ml @ 0.5 MCG/KG/HR 3. 71 mls/hr IV .Q24H [facility] Rx #:[id number] propofoL 1,000 mg In 228.229 250.210 Empty Bag 1 bag @ 15 MCG/ KG/MIN 7.348 mls/hr IV . [id number] [facility] Rx#:[id number] Tube Feeding 27 297 54 Other 90 30 Output: Urine 660 780 100 Other: Voiding Method Indwelling Catheter Indwelling Catheter # Bowel Movements 1 ABP, PAP, CO, CI - Last Documented Arterial Blood Pressure 130/61 - Exam -GENERAL: The patient is intubated and sedated. HEENT: Pupils are round and equally reacting to light. EOMI. No scleral icterus. No conjunctival pallor. Normocephalic, atraumatic. No pharyngeal erythema. No thyromegaly. CARDIOVASCULAR: S1 and S2 present. No murmurs, rubs, or gallops. PULMONARY: Chest is clear to auscultation, no wheezing , no crackles. ABDOMEN: Soft, nontender, nondistended, normoactive bowel sounds. No palpable organomegaly. MUSCULOSKELETAL: No joint swelling or deformity. EXTREMITIES: No cyanosis, clubbing, or pedal edema. NEUROLOGICAL: Gross neurological examination did not reveal any focal deficits. SKIN: No rashes. no petechiae. - Labs CBC & Chem 7: 02/03/23 04:15 02/03/23 04:15 Labs: Abnormal Lab Results - Last 24 Hours (Table) 02/02/23 02/02/23 02/02/23 Range/Units 12:14 16:56 23:18 WBC (3.8-10.6) k/uL RBC (3.80-5.40) m/uL Hgb (11.4-16.0) gm/dL Hct (34.0-46.0) % MCV (80.0-100.0) fL MCH (25.0-35.0) pg MCHC (31.0-37.0) g/dL RDW (11.5-15.5) % Neutrophils # (1.3-7.7) k/uL Lymphocytes # (1.0-4.8) k/uL ABG pCO2 (35-45) mmHg ABG pO2 (83-108) mmHg ABG HCO3 (21-25) mmol/L ABG Total CO2 (19-24) mmol/L ABG O2 Saturation (94-97) % Carbon Dioxide (22-30) mmol/L BUN (7-17) mg/dL Creatinine (0.52-1.04) mg/dL Glucose (74-99) mg/dL POC Glucose (mg/dL) 189 H 212 H 231 H (70-110) mg/dL Calcium (8.4-10.2) mg/dL 02/03/23 02/03/23 02/03/23 Range/Units 04:15 04:15 04:18 WBC 16.9 H (3.8-10.6) k/uL RBC 3.50 L (3.80-5.40) m/uL Hgb 7.9 L (11.4-16.0) gm/dL Hct 27.3 L (34.0-46.0) % MCV 78.0 L (80.0-100.0) fL MCH 22.5 L (25.0-35.0) pg MCHC 28.9 L (31.0-37.0) g/dL RDW 17.9 H (11.5-15.5) % Neutrophils # 15.7 H (1.3-7.7) k/uL Lymphocytes # 0.4 L (1.0-4.8) k/uL ABG pCO2 (35-45) mmHg ABG pO2 (83-108) mmHg ABG HCO3 (21-25) mmol/L ABG Total CO2 (19-24) mmol/L ABG O2 Saturation (94-97) % Carbon Dioxide 37 H (22-30) mmol/L BUN 37 H (7-17) mg/dL Creatinine 0.48 L (0.52-1.04) mg/dL Glucose 209 H (74-99) mg/dL POC Glucose (mg/dL) 228 H (70-110) mg/dL Calcium 7.7 L (8.4-10.2) mg/dL 02/03/23 Range/Units 06:16 WBC (3.8-10.6) k/uL RBC (3.80-5.40) m/uL Hgb (11.4-16.0) gm/dL Hct (34.0-46.0) % MCV (80.0-100.0) fL MCH (25.0-35.0) pg MCHC (31.0-37.0) g/dL RDW (11.5-15.5) % Neutrophils # (1.3-7.7) k/uL Lymphocytes # (1.0-4.8) k/uL ABG pCO2 68 H (35-45) mmHg ABG pO2 70 L (83-108) mmHg ABG HCO3 39 H (21-25) mmol/L ABG Total CO2 41 H (19-24) mmol/L ABG O2 Saturation 93.8 L (94-97) % Carbon Dioxide (22-30) mmol/L BUN (7-17) mg/dL Creatinine (0.52-1.04) mg/dL Glucose (74-99) mg/dL POC Glucose (mg/dL) (70-110) mg/dL Calcium (8.4-10.2) mg/dL Microbiology - Last 24 Hours (Table) 01/30/23 10:00 Gram Stain - Final Bronchoalviolar Lavage - Right Bronchial Washings Culture - Final Staphylococcus aureus Assessment and Plan Assessment: Acute asthma/COPD exacerbation. Acute hypoxemic respiratory failure requiring intubation and mechanical ventilation Acute tracheobronchitis secondary to MSSA History of depression Acute respiratory acidosis with metabolic compensation Altered mental status most likely metabolic/toxic encephalopathy. Plan: Continue with mechanical ventilation with pulmonary/critical care team on the case already the recommendation Continue with IV Solu-Medrol Continue with a bronchodilator Continue ceftriaxone Labs and medication were reviewed.. Continue same treatment. Continue with symptomatic treatment. Resume home medication. Monitor labs and vitals. DVT and GI prophylaxis. Further recommendations as per clinical course of the patient DVT prophylaxis: Subcutaneous heparin GI Prophylaxis: Ppi PT/OT: Pending Prognosis is guarded
[2023-02-03 18:15] LABS: Glucose,Whole Blood 225 mg/dL (70-110)
[2023-02-03 18:55] LABS: ALT 191 U/L (4-34); AST 40 U/L (14-36); African American GFR (CKD) >90 (>60 ml/min/1.73 sqM); Albumin 2.6 g/dL (3.5-5.0); Alkaline Phosphatase 63 U/L (38-126); Amylase 101 U/L (30-110); Anion Gap 0 mmol/L; Blood Urea Nitrogen 35 mg/dL (7-17); Calcium 7.7 mg/dL (8.4-10.2); Carbon Dioxide 39 mmol/L (22-30); Chloride 101 mmol/L (98-107); Creatine Kinase 141 U/L (30-135); Glucose 201 mg/dL (74-99); Lipase 178 U/L (23-300); Magnesium 2.7 mg/dL (1.6-2.3); Non-African American GFR(CKD) >90 (>60 ml/min/1.73 sqM); Potassium 5.1 mmol/L (3.5-5.1); Sodium 140 mmol/L (137-145); Total Bilirubin 0.4 mg/dL (0.2-1.3); Total Protein 4.7 g/dL (6.3-8.2)
[2023-02-03 19:03] LABS: NT-Pro-B-Type Natriuretic Pept 460 pg/mL
[2023-02-03 19:13] LABS: Anisocytosis Slight; Basophils % (A) 0 %; Eosinophils % (A) 0 %; HCT 26.1 % (34.0-46.0); HGB 7.7 gm/dL (11.4-16.0); Hypochromasia Marked; Lymphocytes # (A) 0.8 k/uL (1.0-4.8); Lymphocytes % (A) 5 %; MCH 22.2 pg (25.0-35.0); MCHC 29.6 g/dL (31.0-37.0); Mean Platelet Volume 8.7; Microcytosis Moderate; Monocytes # (A) 0.9 k/uL (0-1.0); Monocytes % (A) 5 %; Neutrophils # (A) 16.6 k/uL (1.3-7.7); Neutrophils % (A) 90 %; Platelet Count 366 k/uL (150-450); RBC 3.48 m/uL (3.80-5.40); RDW 18.3 % (11.5-15.5); WBC 18.4 k/uL (3.8-10.6)
[2023-02-03 19:24] LABS: Partial Thromboplastin Time 28.1 sec (22.0-30.0); Prothrombin Time 10.5 sec (9.0-12.0)
[2023-02-03 19:34] LABS: Appearance,Urine Cloudy (Clear); Bilirubin,Urine Negative (Negative); Blood,Urine Negative (Negative); Budding Yeast,Urine Many /hpf; Color,Urine Colorless; Glucose,Urine (UA) 1+ (Negative); Ketones,Urine Negative (Negative); Leukocyte Esterase,Urine Negative (Negative); Mucus,Urine Rare /hpf; Nitrite,Urine Negative (Negative); Protein,Urine Negative (Negative); Specific Gravity,Urine 1.026 (1.001-1.035); Urobilinogen,Urine <2.0 mg/dL (<2.0)
[2023-02-03 20:31] LABS: ABG Base Excess 15.4 mmol/L; ABG PCO2 67 mmHg (35-45); ABG PH 7.39 (7.35-7.45); ABG PO2 69 mmHg (83-108); ABG TCO2 43 mmol/L (19-24); Allen Test Performed? Yes
[2023-02-03 20:32] LABS: ABG HCO3 40 mmol/L (21-25)
[2023-02-03] MEDS: MONTELUKAST 10 MG TAB PO SCH (22:50)
--- NOTE | 2023-02-03 23:18 | CT ---
EXAMINATION TYPE: CT abdomen pelvis w con CT DLP: 1724.8 mGycm, Automated exposure control for dose reduction was used. DATE OF EXAM: 02/03/2023 10:08 PM COMPARISON: None. CLINICAL INDICATION:Female, 62 years old with history of gift of life evaluation; TECHNIQUE: Axial CT of the abdomen and pelvis. Sagittal and coronal reformats were created on a [employer] workstation. Contrast used: mL of , (none if empty) Oral contrast used: without Oral Contrast (none if empty) FINDINGS: LOWER CHEST: Moderate bilateral pulmonary emphysema. Small bilateral pleural effusions, with adjacent atelectasis. Heart is normal in size. ABDOMEN LIVER: Mild fatty infiltration, otherwise unremarkable. Portal veins are enhancing. GALLBLADDER AND BILE DUCTS: Unremarkable. PANCREAS: Unremarkable. SPLEEN: Unremarkable. ADRENAL GLANDS: Unremarkable. KIDNEYS AND URETERS: Kidneys enhance symmetrically. There is no evidence of hydronephrosis. PELVIS BLADDER: Bladder is partially decompressed with the Marshall in its lumen, otherwise unremarkable. REPRODUCTIVE: The uterus is likely surgically absent. ABDOMEN & PELVIS STOMACH AND BOWEL: No evidence of obstruction or focal inflammatory process. NG tube terminates in th e mid to distal gastric body. Appendix is not identified with certainty, however there is no inflamma tory process seen in the RLQ. PERITONEUM/RETROPERITONEUM: No evidence of pneumoperitoneum. Small volume ascites throughout the abdo men and pelvis. VASCULATURE: Moderate atherosclerotic calcifications are present throughout the abdominal aorta and i ts branches. No evidence of aortic aneurysm. Right inguinal catheter appears to reside within the rig ht external iliac artery, correlate clinically. MUSCULOSKELETAL: No acute osseous abnormality seen. Mild/moderate chronic degenerative changes of the spine. LYMPH NODES: No gross evidence for lymphadenopathy. SOFT TISSUE/ABDOMINAL WALL: Diffuse body wall edema suggestive of mild to moderate anasarca. IMPRESSION: 1. Evidence of third spacing of fluid, including small bilateral pleural effusions, small volume asc ites, and mild to moderate anasarca. 2. Otherwise, no acute abnormality demonstrated. 3. Other chronic and likely incidental findings, as described above.
[2023-02-03 23:51] LABS: Glucose,Whole Blood 221 mg/dL (70-110)
[2023-02-04] MEDS: methylPREDNISolone SOD SUCCI 125 MG/2 ML VIAL IV SCH ×4 (00:09→18:28)
[2023-02-04] MEDS: HEPARIN SODIUM,PORCINE 5,000 UNIT/ML 1 ML VIAL SQ SCH ×3 (00:09→16:11)
[2023-02-04] MEDS: INSULIN ASPART (NovoLOG) 100 UNIT/ML VIAL SQ SCH ×4 (00:09→18:29)
[2023-02-04] MEDS: ARTIFICIAL TEARS-HYPROMELLOSE DROPS 15 ML BTL BOTH EYES SCH ×6 (00:10→19:49)
[2023-02-04 00:20] LABS: Anisocytosis Slight; Basophils % (A) 0 %; Eosinophils % (A) 0 %; HCT 27.9 % (34.0-46.0); HGB 8.3 gm/dL (11.4-16.0); Hypochromasia Marked; Lymphocytes # (A) 0.6 k/uL (1.0-4.8); Lymphocytes % (A) 3 %; MCH 22.4 pg (25.0-35.0); MCHC 29.6 g/dL (31.0-37.0); MCV 75.6 fL (80.0-100.0); Mean Platelet Volume 8.3; Microcytosis Moderate; Monocytes # (A) 0.9 k/uL (0-1.0); Monocytes % (A) 4 %; Neutrophils # (A) 18.5 k/uL (1.3-7.7); Neutrophils % (A) 92 %; Platelet Count 350 k/uL (150-450); RBC 3.69 m/uL (3.80-5.40); RDW 18.3 % (11.5-15.5); WBC 20.1 k/uL (3.8-10.6)
[2023-02-04 00:28] LABS: ALT 204 U/L (4-34); AST 49 U/L (14-36); African American GFR (CKD) >90 (>60 ml/min/1.73 sqM); Albumin 2.8 g/dL (3.5-5.0); Alkaline Phosphatase 73 U/L (38-126); Anion Gap 3 mmol/L; Blood Urea Nitrogen 33 mg/dL (7-17); Carbon Dioxide 38 mmol/L (22-30); Chloride 99 mmol/L (98-107); Glucose 191 mg/dL (74-99); Magnesium 2.7 mg/dL (1.6-2.3); Non-African American GFR(CKD) >90 (>60 ml/min/1.73 sqM); Potassium 4.9 mmol/L (3.5-5.1); Sodium 140 mmol/L (137-145); Total Bilirubin 0.5 mg/dL (0.2-1.3); Total Protein 5.3 g/dL (6.3-8.2)
[2023-02-04 00:41] LABS: Partial Thromboplastin Time 26.4 sec (22.0-30.0); Prothrombin Time 10.4 sec (9.0-12.0)
[2023-02-04] MEDS: fentaNYL (PF). 1,000 MCG in SODIUM CHLORIDE 0.9% 80 ML IV SCH ×4 (02:02→20:15)
[2023-02-04] MEDS: IPRATROPIUM-ALBUTEROL 3 ML NEB INHALATION SCH ×6 (04:04→23:55)
[2023-02-04 05:36] LABS: Glucose,Whole Blood 230 mg/dL (70-110)
[2023-02-04 05:58] LABS: ABG Base Excess 14.7 mmol/L; ABG Oxygen Saturation 95.1 % (94-97); ABG PCO2 64 mmHg (35-45); ABG PO2 74 mmHg (83-108); ABG TCO2 42 mmol/L (19-24); Allen Test Performed? Yes
[2023-02-04 05:59] LABS: ABG HCO3 40 mmol/L (21-25)
[2023-02-04 07:25] LABS: Anisocytosis Slight; Basophils % (A) 0 %; Eosinophils % (A) 0 %; HCT 25.7 % (34.0-46.0); HGB 7.8 gm/dL (11.4-16.0); Hypochromasia Marked; Lymphocytes # (A) 0.6 k/uL (1.0-4.8); Lymphocytes % (A) 4 %; MCH 22.7 pg (25.0-35.0); MCHC 30.3 g/dL (31.0-37.0); MCV 74.7 fL (80.0-100.0); Mean Platelet Volume 9.2; Microcytosis Moderate; Monocytes # (A) 0.5 k/uL (0-1.0); Monocytes % (A) 3 %; Neutrophils # (A) 15.6 k/uL (1.3-7.7); Neutrophils % (A) 93 %; Platelet Count 326 k/uL (150-450); RBC 3.44 m/uL (3.80-5.40); RDW 18.2 % (11.5-15.5); WBC 16.8 k/uL (3.8-10.6)
[2023-02-04] MEDS: FORMOTEROL FUMARATE 20 MCG/2 ML NEBU INHALATION SCH ×2 (07:32→19:47)
[2023-02-04] MEDS: BUDESONIDE 1 MG/2 ML NEBU INHALATION SCH ×2 (07:32→19:47)
[2023-02-04 07:37] LABS: Partial Thromboplastin Time 25.2 sec (22.0-30.0); Prothrombin Time 10.4 sec (9.0-12.0)
[2023-02-04 08:05] LABS: ALT 173 U/L (4-34); AST 37 U/L (14-36); African American GFR (CKD) >90 (>60 ml/min/1.73 sqM); Albumin 2.6 g/dL (3.5-5.0); Alkaline Phosphatase 57 U/L (38-126); Anion Gap -1 mmol/L; Blood Urea Nitrogen 33 mg/dL (7-17); Calcium 7.6 mg/dL (8.4-10.2); Carbon Dioxide 39 mmol/L (22-30); Chloride 100 mmol/L (98-107); Glucose 204 mg/dL (74-99); Magnesium 2.6 mg/dL (1.6-2.3); Non-African American GFR(CKD) >90 (>60 ml/min/1.73 sqM); Potassium 5.3 mmol/L (3.5-5.1); Sodium 138 mmol/L (137-145); Total Bilirubin 0.4 mg/dL (0.2-1.3); Total Protein 4.7 g/dL (6.3-8.2)
--- NOTE | 2023-02-04 08:40 | P.PN ---
Subjective Progress Note Date: 02/04/23 62-year-old female patient with advanced COPD, currently intubated on a mechanical ventilator. She has had efforts to wean and she has failed. She is a registered donor and as of yesterday, [facility] was involved in her care for solid organ donation. This morning, the patient is intubated on a mecha nical ventilator. She is currently on fentanyl running at 2 mcg/kg/h and she is also on propofol at 50 mcg/kg/m. She is sedated and paralyzed and Nimbex is running at 2.5 mcg/kg/m. She is fully sedated and paralyzed at this point in time. He is on assist-control mode of mechanical ventilation. She is on rate of 22, tidal volume of 350, FiO2 of 35% and PEEP of 5. The peak airway pressure is 41. Metastatic airway pressure is 22. No chest x-ray from today. Most recent chest x-rays from yesterday and shows some increased interstitial markings bilaterally. She was in a good location. No airspace disease or consolidations. Blood gas shows a pH of 7.4 with episodes of 64 and pO2 of 74. The echoes at 16.8 with a hemoglobin of 7.8 and a platelet count of 326. BUN is at 33 with a creatinine of 0.4 and his sodium level is at 138. UA has been negative. The bronchoscopy that was done on 01/30/2023 showed Aureus, MSSA and the patient is still on IV Rocephin. The patient remains on bronchodilators DuoNeb nebulized treatments [id number]. The patient remains on IV Solu-Me drol 60 mg IV every 6 hours. Enteral feeding was placed on hold because of high residuals. Objective - Vital Signs Vital signs: Vital Signs Temp 97.8 F 02/04/23 04:00 Pulse 82 02/04/23 08:00 Resp 22 02/04/23 07:00 BP 98/55 01/30/23 13:00 Pulse Ox 95 02/04/23 07:00 FiO2 35 02/04/23 07:29 Intake & Output 02/03/23 02/04/23 02/04/23 18:59 06:59 18:59 Intake Total 9548.522 8843.201 46 Output Total 525 450 35 Balance 701.849 561.201 11 Intake: IV 552 552 46 Dextrose 5% in Water 1, 480 480 40 000 ml @ 40 mls/hr IV . Q24H [facility] Rx#:[id number] Pressure Bags 72 72 6 Intake, IV Titration 290.849 378.201 Amount cefTRIAXone 1 gm In 50 Sodium Chloride 0.9% 50 ml @ 100 mls/hr IVPB Q24HR [facility] Rx#:[id number] fentaNYL (PF). 1,000 mcg 90.849 129.000 In Sodium Chloride 0.9% 80 ml @ 0.5 MCG/KG/HR 3. 71 mls/hr IV .Q24H [facility] Rx #:[id number] propofoL 1,000 mg In 200 199.201 Empty Bag 1 bag @ 15 MCG/ KG/MIN 7.348 mls/hr IV . [id number] [facility] Rx#:[id number] Tube Feeding 324 81 Other 60 Output: Urine 525 450 35 Other: Voiding Method Indwelling Catheter Indwelling Catheter ABP, PAP, CO, CI - Last Documented Arterial Blood Pressure 112/59 - Exam No acute distress, sedated, paralyzed, with an orally placed endotracheal tube. HEENT examination is grossly unremarkable. Neck supple. Full range of motion. No adenopathy thyromegaly or neck vein distention. Cardiovascular examination reveals regular rhythm rate. S1-S2 normal. No S3 or S4. No discernible murmur noted. Lungs reveal scattered expiratory rhonchi. No wheezes or crackles. Breath sounds are equal bilaterally. Abdomen soft bowel sounds are heard. No masses or tenderness. Extremities are intact. No cyanosis clubbing or edema. Skin is without rash or lesion. Neurologic examination cannot be assessed as the patient's currently sedated and paralyzed. - Labs CBC & Chem 7: 02/04/23 07:15 02/04/23 07:15 Labs: Abnormal Lab Results - Last 24 Hours (Table) 02/03/23 02/03/23 02/03/23 Range/Units 18:13 18:30 18:30 WBC 18.4 H (3.8-10.6) k/uL RBC 3.48 L (3.80-5.40) m/uL Hgb 7.7 L (11.4-16.0) gm/dL Hct 26.1 L (34.0-46.0) % MCV 75.0 L (80.0-100.0) fL MCH 22.2 L (25.0-35.0) pg MCHC 29.6 L (31.0-37.0) g/dL RDW 18.3 H (11.5-15.5) % Neutrophils # 16.6 H (1.3-7.7) k/uL Lymphocytes # 0.8 L (1.0-4.8) k/uL Fibrinogen 160 L (200-500) mg/dL D-Dimer 1.65 H (<0.60) mg/L FEU ABG pCO2 (35-45) mmHg ABG pO2 (83-108) mmHg ABG HCO3 (21-25) mmol/L ABG Total CO2 (19-24) mmol/L ABG O2 Saturation (94-97) % ABG Lactic Acid (0.5-1.6) mmol/L Potassium (3.5-5.1) mmol/L Carbon Dioxide (22-30) mmol/L BUN (7-17) mg/dL Creatinine (0.52-1.04) mg/dL Glucose (74-99) mg/dL POC Glucose (mg/dL) 225 H (70-110) mg/dL Calcium (8.4-10.2) mg/dL Magnesium (1.6-2.3) mg/dL AST (14-36) U/L ALT (4-34) U/L Creatine Kinase (30-135) U/L Total Protein (6.3-8.2) g/dL Albumin (3.5-5.0) g/dL Urine Appearance (Clear) Urine Glucose (UA) (Negative) Urine Mucus (None) /hpf Urine Yeast (Budding) (None) /hpf 02/03/23 02/03/23 02/03/23 Range/Units 18:30 18:30 20:26 WBC (3.8-10.6) k/uL RBC (3.80-5.40) m/uL Hgb (11.4-16.0) gm/dL Hct (34.0-46.0) % MCV (80.0-100.0) fL MCH (25.0-35.0) pg MCHC (31.0-37.0) g/dL RDW (11.5-15.5) % Neutrophils # (1.3-7.7) k/uL Lymphocytes # (1.0-4.8) k/uL Fibrinogen (200-500) mg/dL D-Dimer (<0.60) mg/L FEU ABG pCO2 67 H (35-45) mmHg ABG pO2 69 L (83-108) mmHg ABG HCO3 40 H* (21-25) mmol/L ABG Total CO2 43 H (19-24) mmol/L ABG O2 Saturation 93.0 L (94-97) % ABG Lactic Acid (0.5-1.6) mmol/L Potassium (3.5-5.1) mmol/L Carbon Dioxide 39 H (22-30) mmol/L BUN 35 H (7-17) mg/dL Creatinine 0.46 L (0.52-1.04) mg/dL Glucose 201 H (74-99) mg/dL POC Glucose (mg/dL) (70-110) mg/dL Calcium 7.7 L (8.4-10.2) mg/dL Magnesium 2.7 H (1.6-2.3) mg/dL AST 40 H (14-36) U/L ALT 191 H (4-34) U/L Creatine Kinase 141 H (30-135) U/L Total Protein 4.7 L (6.3-8.2) g/dL Albumin 2.6 L (3.5-5.0) g/dL Urine Appearance Cloudy H (Clear) Urine Glucose (UA) 1+ H (Negative) Urine Mucus Rare H (None) /hpf Urine Yeast (Budding) Many H (None) /hpf 02/03/23 02/03/23 02/03/23 Range/Units 22:50 22:50 23:49 WBC 20.1 H (3.8-10.6) k/uL RBC 3.69 L (3.80-5.40) m/uL Hgb 8.3 L (11.4-16.0) gm/dL Hct 27.9 L (34.0-46.0) % MCV 75.6 L (80.0-100.0) fL MCH 22.4 L (25.0-35.0) pg MCHC 29.6 L (31.0-37.0) g/dL RDW 18.3 H (11.5-15.5) % Neutrophils # 18.5 H (1.3-7.7) k/uL Lymphocytes # 0.6 L (1.0-4.8) k/uL Fibrinogen (200-500) mg/dL D-Dimer (<0.60) mg/L FEU ABG pCO2 (35-45) mmHg ABG pO2 (83-108) mmHg ABG HCO3 (21-25) mmol/L ABG Total CO2 (19-24) mmol/L ABG O2 Saturation (94-97) % ABG Lactic Acid (0.5-1.6) mmol/L Potassium (3.5-5.1) mmol/L Carbon Dioxide 38 H (22-30) mmol/L BUN 33 H (7-17) mg/dL Creatinine 0.45 L (0.52-1.04) mg/dL Glucose 191 H (74-99) mg/dL POC Glucose (mg/dL) 221 H (70-110) mg/dL Calcium 8.0 L (8.4-10.2) mg/dL Magnesium 2.7 H (1.6-2.3) mg/dL AST 49 H (14-36) U/L ALT 204 H (4-34) U/L Creatine Kinase (30-135) U/L Total Protein 5.3 L (6.3-8.2) g/dL Albumin 2.8 L (3.5-5.0) g/dL Urine Appearance (Clear) Urine Glucose (UA) (Negative) Urine Mucus (None) /hpf Urine Yeast (Budding) (None) /hpf 02/04/23 02/04/23 02/04/23 Range/Units 05:34 05:47 07:15 WBC 16.8 H (3.8-10.6) k/uL RBC 3.44 L (3.80-5.40) m/uL Hgb 7.8 L (11.4-16.0) gm/dL Hct 25.7 L (34.0-46.0) % MCV 74.7 L (80.0-100.0) fL MCH 22.7 L (25.0-35.0) pg MCHC 30.3 L (31.0-37.0) g/dL RDW 18.2 H (11.5-15.5) % Neutrophils # 15.6 H (1.3-7.7) k/uL Lymphocytes # 0.6 L (1.0-4.8) k/uL Fibrinogen (200-500) mg/dL D-Dimer (<0.60) mg/L FEU ABG pCO2 64 H (35-45) mmHg ABG pO2 74 L (83-108) mmHg ABG HCO3 40 H* (21-25) mmol/L ABG Total CO2 42 H (19-24) mmol/L ABG O2 Saturation (94-97) % ABG Lactic Acid (0.5-1.6) mmol/L Potassium (3.5-5.1) mmol/L Carbon Dioxide (22-30) mmol/L BUN (7-17) mg/dL Creatinine (0.52-1.04) mg/dL Glucose (74-99) mg/dL POC Glucose (mg/dL) 230 H (70-110) mg/dL Calcium (8.4-10.2) mg/dL Magnesium (1.6-2.3) mg/dL AST (14-36) U/L ALT (4-34) U/L Creatine Kinase (30-135) U/L Total Protein (6.3-8.2) g/dL Albumin (3.5-5.0) g/dL Urine Appearance (Clear) Urine Glucose (UA) (Negative) Urine Mucus (None) /hpf Urine Yeast (Budding) (None) /hpf 02/04/23 02/04/23 Range/Units 07:15 07:15 WBC (3.8-10.6) k/uL RBC (3.80-5.40) m/uL Hgb (11.4-16.0) gm/dL Hct (34.0-46.0) % MCV (80.0-100.0) fL MCH (25.0-35.0) pg MCHC (31.0-37.0) g/dL RDW (11.5-15.5) % Neutrophils # (1.3-7.7) k/uL Lymphocytes # (1.0-4.8) k/uL Fibrinogen (200-500) mg/dL D-Dimer (<0.60) mg/L FEU ABG pCO2 (35-45) mmHg ABG pO2 (83-108) mmHg ABG HCO3 (21-25) mmol/L ABG Total CO2 (19-24) mmol/L ABG O2 Saturation (94-97) % ABG Lactic Acid 1.7 H (0.5-1.6) mmol/L Potassium 5.3 H (3.5-5.1) mmol/L Carbon Dioxide 39 H (22-30) mmol/L BUN 33 H (7-17) mg/dL Creatinine 0.41 L (0.52-1.04) mg/dL Glucose 204 H (74-99) mg/dL POC Glucose (mg/dL) (70-110) mg/dL Calcium 7.6 L (8.4-10.2) mg/dL Magnesium 2.6 H (1.6-2.3) mg/dL AST 37 H (14-36) U/L ALT 173 H (4-34) U/L Creatine Kinase (30-135) U/L Total Protein 4.7 L (6.3-8.2) g/dL Albumin 2.6 L (3.5-5.0) g/dL Urine Appearance (Clear) Urine Glucose (UA) (Negative) Urine Mucus (None) /hpf Urine Yeast (Budding) (None) /hpf Assessment and Plan Plan: Acute hypoxemic and hypercapnic respiratory failure, requiring intubation and mechanical ventilation, beginning on 01/24/23. Patient is being seen today in follow-up. The patient remains intubated on a mechanical ventilator, sedated and paralyzed. Clinical impressions are quite elevated. Occupation stable. She has chronic hypoxic and hypercapnic yesterday failure. She has been a failure to wean. She has been a failure to come of the paralytics. [employer] has been involved as the patient is a registered organ donor. S/P bronchoscopy, and BAL, right lower lobe, for increased airway secretions, 01/30/2023. Cultures revealed MSSA and the patient remains on IV Rocephin. Acute exacerbation of COPD, severe History of depression. Coronary artery disease. Methicillin sensitive staph aureus tracheobronchitis/bronchopneumonia. Plan: Give the patient paralytics holiday Continue fentanyl and propofol for now Continue bronchodilators and steroids Continue IV Rocephin Start Lasix 20 mg IV every 12 hours IV fluids are currently of KVO To my understanding, the patient has not seen pulmonology in the past pH she has been on oxygen at 4 L/m nasal cannula. She is a chronic smoker. She has advanced COPD. Furthermore, she has been profoundly depressed after her daughter . She is sitting in a combination of Lexapro and Remeron an outpatient basis. She has been also actively smoking. She has failed to wean. [facility] has been involved in her care. Awaiting further recommendations from the fifth of life. We'll attempt to get off the paralytics and make further recommendations based on progress. Her prognosis remains extremely poor based on the above-mentioned. critical care evaluation done in > 30 min Time with Patient: Greater than 30
[2023-02-04] MEDS: CHLORHEXIDINE GLUCONATE 15 ML CUP MUCOUS MEM SCH ×2 (09:51→19:49)
[2023-02-04] MEDS: PANTOPRAZOLE 40 MG/10 ML VIAL IV SCH (09:51)
[2023-02-04] MEDS: FUROSEMIDE 10 MG/ML 2 ML VIAL IV SCH ×2 (09:51→19:49)
[2023-02-04] MEDS: DILTIAZEM ORAL 30 MG TAB PO SCH ×4 (09:51→19:50)
[2023-02-04] MEDS: PREGABALIN 100 MG CAP PO SCH ×2 (09:51→19:50)
[2023-02-04] MEDS: bisacodyL 5 MG TABLET.DR PO SCH (09:52)
[2023-02-04] MEDS: DEXTROSE 5% IN WATER 1,000 ML IV SCH ×2 (09:52→10:26)
[2023-02-04] MEDS: CISATRACURIUM 200 MG in SODIUM CHLORIDE 0.9% 180 ML IV SCH ×2 (10:25→20:14)
[2023-02-04 11:52] LABS: Appearance,Urine Turbid (Clear); Bilirubin,Urine Negative (Negative); Blood,Urine Negative (Negative); Budding Yeast,Urine Many /hpf; Color,Urine Colorless; Glucose,Urine (UA) Negative (Negative); Ketones,Urine Negative (Negative); Leukocyte Esterase,Urine Trace (Negative); Mucus,Urine Moderate /hpf; Nitrite,Urine Negative (Negative); PH, Urine 5.5 (5.0-8.0); Protein,Urine Negative (Negative); RBC,Urine >182 /hpf (0-5); Specific Gravity,Urine 1.022 (1.001-1.035); Squamous Epithelial Cell,Urine 2 /hpf (0-4); Urobilinogen,Urine <2.0 mg/dL (<2.0); WBC,Urine 105 /hpf (0-5)
[2023-02-04 11:57] LABS: Bilirubin, Delta 0.2 mg/dL (0.0-0.2); Bilirubin,Unconjugated 0.2 mg/dL (0.0-1.1)
[2023-02-04 12:02] LABS: Glucose,Whole Blood 176 mg/dL (70-110)
[2023-02-04 12:16] VITALS: RESP 22
[2023-02-04 13:23] LABS: ABG Base Excess 15.9 mmol/L; ABG Oxygen Saturation 92.2 % (94-97); ABG PH 7.36 (7.35-7.45); ABG PO2 67 mmHg (83-108); ABG TCO2 44 mmol/L (19-24)
[2023-02-04 13:25] LABS: ABG PCO2 73 mmHg (35-45)
[2023-02-04 13:26] LABS: ABG HCO3 41 mmol/L (21-25); Allen Test Performed? no
--- NOTE | 2023-02-04 14:20 | P.PN ---
Subjective Progress Note Date: 02/04/23 CHIEF COMPLAINT: Respiratory failure HISTORY OF PRESENT ILLNESS: Patient remains intubated and on mechanical ventilation. FiO2 40%. Patient is being evaluated for connective life. PHYSICAL EXAM: VITAL SIGNS: Reviewed. GENERAL: no acute distress. ABDOMEN: Soft. Nondistended. Neuro: Intubated and sedated ASSESSMENT: 1. Respiratory failure 2. Mild protein calorie malnutrition PLAN: -No plans for tracheostomy and PEG tube placement. Patient being evaluated for gift of life Physician Hair Baler note has been reviewed by physician. Signing provider agrees with the documented findings, assessment, and plan of care. Objective - Vital Signs Vital signs: Vital Signs Temp 97.7 F 02/04/23 12:00 Pulse 108 H 02/04/23 13:00 Resp 22 02/04/23 13:00 BP 98/55 01/30/23 13:00 Pulse Ox 95 02/04/23 13:00 FiO2 40 02/04/23 13:00 Intake & Output 02/03/23 02/04/23 02/04/23 18:59 06:59 18:59 Intake Total 4899.273 6407.201 618.134 Output Total 294 494 7202 Balance 701.849 561.201 -461.866 Weight 85.7 kg Intake: IV 552 552 82 Dextrose 5% in Water 1, 480 480 40 000 ml @ 40 mls/hr IV . Q24H [facility] Rx#:[id number] Pressure Bags 72 72 42 Intake, IV Titration 290.849 378.201 516.134 Amount Cisatracurium 200 mg In 200 Sodium Chloride 0.9% 180 ml @ 1 MCG/KG/MIN 4.452 mls/hr IV .Q24H [facility] Rx#: [id number] cefTRIAXone 1 gm In 50 50 Sodium Chloride 0.9% 50 ml @ 100 mls/hr IVPB Q24HR [facility] Rx#:[id number] fentaNYL (PF). 1,000 mcg 90.849 129.000 100 In Sodium Chloride 0.9% 80 ml @ 0.5 MCG/KG/HR 3. 71 mls/hr IV .Q24H [facility] Rx #:[id number] propofoL 1,000 mg In 200 199.201 166.134 Empty Bag 1 bag @ 15 MCG/ KG/MIN 7.348 mls/hr IV . [id number] [facility] Rx#:[id number] Tube Feeding 324 81 10 Other 60 10 Output: Urine 336 526 6994 Other: Voiding Method Indwelling Catheter Indwelling Catheter Indwelling Catheter ABP, PAP, CO, CI - Last Documented Arterial Blood Pressure 106/56 - Labs CBC & Chem 7: 02/04/23 07:15 02/04/23 07:15 Labs: Abnormal Lab Results - Last 24 Hours (Table) 02/03/23 02/03/23 02/03/23 Range/Units 18:13 18:30 18:30 WBC 18.4 H (3.8-10.6) k/uL RBC 3.48 L (3.80-5.40) m/uL Hgb 7.7 L (11.4-16.0) gm/dL Hct 26.1 L (34.0-46.0) % MCV 75.0 L (80.0-100.0) fL MCH 22.2 L (25.0-35.0) pg MCHC 29.6 L (31.0-37.0) g/dL RDW 18.3 H (11.5-15.5) % Neutrophils # 16.6 H (1.3-7.7) k/uL Lymphocytes # 0.8 L (1.0-4.8) k/uL Fibrinogen 160 L (200-500) mg/dL D-Dimer 1.65 H (<0.60) mg/L FEU ABG pCO2 (35-45) mmHg ABG pO2 (83-108) mmHg ABG HCO3 (21-25) mmol/L ABG Total CO2 (19-24) mmol/L ABG O2 Saturation (94-97) % ABG Lactic Acid (0.5-1.6) mmol/L Potassium (3.5-5.1) mmol/L Carbon Dioxide (22-30) mmol/L BUN (7-17) mg/dL Creatinine (0.52-1.04) mg/dL Glucose (74-99) mg/dL POC Glucose (mg/dL) 225 H (70-110) mg/dL Calcium (8.4-10.2) mg/dL Magnesium (1.6-2.3) mg/dL AST (14-36) U/L ALT (4-34) U/L Creatine Kinase (30-135) U/L Total Protein (6.3-8.2) g/dL Albumin (3.5-5.0) g/dL Urine Appearance (Clear) Urine Glucose (UA) (Negative) Ur Leukocyte Esterase (Negative) Urine RBC (0-5) /hpf Urine WBC (0-5) /hpf Urine WBC Clumps (None) /hpf Urine Mucus (None) /hpf Urine Yeast (Budding) (None) /hpf 02/03/23 02/03/23 02/03/23 Range/Units 18:30 18:30 20:26 WBC (3.8-10.6) k/uL RBC (3.80-5.40) m/uL Hgb (11.4-16.0) gm/dL Hct (34.0-46.0) % MCV (80.0-100.0) fL MCH (25.0-35.0) pg MCHC (31.0-37.0) g/dL RDW (11.5-15.5) % Neutrophils # (1.3-7.7) k/uL Lymphocytes # (1.0-4.8) k/uL Fibrinogen (200-500) mg/dL D-Dimer (<0.60) mg/L FEU ABG pCO2 67 H (35-45) mmHg ABG pO2 69 L (83-108) mmHg ABG HCO3 40 H* (21-25) mmol/L ABG Total CO2 43 H (19-24) mmol/L ABG O2 Saturation 93.0 L (94-97) % ABG Lactic Acid (0.5-1.6) mmol/L Potassium (3.5-5.1) mmol/L Carbon Dioxide 39 H (22-30) mmol/L BUN 35 H (7-17) mg/dL Creatinine 0.46 L (0.52-1.04) mg/dL Glucose 201 H (74-99) mg/dL POC Glucose (mg/dL) (70-110) mg/dL Calcium 7.7 L (8.4-10.2) mg/dL Magnesium 2.7 H (1.6-2.3) mg/dL AST 40 H (14-36) U/L ALT 191 H (4-34) U/L Creatine Kinase 141 H (30-135) U/L Total Protein 4.7 L (6.3-8.2) g/dL Albumin 2.6 L (3.5-5.0) g/dL Urine Appearance Cloudy H (Clear) Urine Glucose (UA) 1+ H (Negative) Ur Leukocyte Esterase (Negative) Urine RBC (0-5) /hpf Urine WBC (0-5) /hpf Urine WBC Clumps (None) /hpf Urine Mucus Rare H (None) /hpf Urine Yeast (Budding) Many H (None) /hpf 02/03/23 02/03/23 02/03/23 Range/Units 22:50 22:50 23:49 WBC 20.1 H (3.8-10.6) k/uL RBC 3.69 L (3.80-5.40) m/uL Hgb 8.3 L (11.4-16.0) gm/dL Hct 27.9 L (34.0-46.0) % MCV 75.6 L (80.0-100.0) fL MCH 22.4 L (25.0-35.0) pg MCHC 29.6 L (31.0-37.0) g/dL RDW 18.3 H (11.5-15.5) % Neutrophils # 18.5 H (1.3-7.7) k/uL Lymphocytes # 0.6 L (1.0-4.8) k/uL Fibrinogen (200-500) mg/dL D-Dimer (<0.60) mg/L FEU ABG pCO2 (35-45) mmHg ABG pO2 (83-108) mmHg ABG HCO3 (21-25) mmol/L ABG Total CO2 (19-24) mmol/L ABG O2 Saturation (94-97) % ABG Lactic Acid (0.5-1.6) mmol/L Potassium (3.5-5.1) mmol/L Carbon Dioxide 38 H (22-30) mmol/L BUN 33 H (7-17) mg/dL Creatinine 0.45 L (0.52-1.04) mg/dL Glucose 191 H (74-99) mg/dL POC Glucose (mg/dL) 221 H (70-110) mg/dL Calcium 8.0 L (8.4-10.2) mg/dL Magnesium 2.7 H (1.6-2.3) mg/dL AST 49 H (14-36) U/L ALT 204 H (4-34) U/L Creatine Kinase (30-135) U/L Total Protein 5.3 L (6.3-8.2) g/dL Albumin 2.8 L (3.5-5.0) g/dL Urine Appearance (Clear) Urine Glucose (UA) (Negative) Ur Leukocyte Esterase (Negative) Urine RBC (0-5) /hpf Urine WBC (0-5) /hpf Urine WBC Clumps (None) /hpf Urine Mucus (None) /hpf Urine Yeast (Budding) (None) /hpf 02/04/23 02/04/23 02/04/23 Range/Units 05:34 05:47 07:15 WBC 16.8 H (3.8-10.6) k/uL RBC 3.44 L (3.80-5.40) m/uL Hgb 7.8 L (11.4-16.0) gm/dL Hct 25.7 L (34.0-46.0) % MCV 74.7 L (80.0-100.0) fL MCH 22.7 L (25.0-35.0) pg MCHC 30.3 L (31.0-37.0) g/dL RDW 18.2 H (11.5-15.5) % Neutrophils # 15.6 H (1.3-7.7) k/uL Lymphocytes # 0.6 L (1.0-4.8) k/uL Fibrinogen (200-500) mg/dL D-Dimer (<0.60) mg/L FEU ABG pCO2 64 H (35-45) mmHg ABG pO2 74 L (83-108) mmHg ABG HCO3 40 H* (21-25) mmol/L ABG Total CO2 42 H (19-24) mmol/L ABG O2 Saturation (94-97) % ABG Lactic Acid (0.5-1.6) mmol/L Potassium (3.5-5.1) mmol/L Carbon Dioxide (22-30) mmol/L BUN (7-17) mg/dL Creatinine (0.52-1.04) mg/dL Glucose (74-99) mg/dL POC Glucose (mg/dL) 230 H (70-110) mg/dL Calcium (8.4-10.2) mg/dL Magnesium (1.6-2.3) mg/dL AST (14-36) U/L ALT (4-34) U/L Creatine Kinase (30-135) U/L Total Protein (6.3-8.2) g/dL Albumin (3.5-5.0) g/dL Urine Appearance (Clear) Urine Glucose (UA) (Negative) Ur Leukocyte Esterase (Negative) Urine RBC (0-5) /hpf Urine WBC (0-5) /hpf Urine WBC Clumps (None) /hpf Urine Mucus (None) /hpf Urine Yeast (Budding) (None) /hpf 02/04/23 02/04/23 02/04/23 Range/Units 07:15 07:15 11:10 WBC (3.8-10.6) k/uL RBC (3.80-5.40) m/uL Hgb (11.4-16.0) gm/dL Hct (34.0-46.0) % MCV (80.0-100.0) fL MCH (25.0-35.0) pg MCHC (31.0-37.0) g/dL RDW (11.5-15.5) % Neutrophils # (1.3-7.7) k/uL Lymphocytes # (1.0-4.8) k/uL Fibrinogen (200-500) mg/dL D-Dimer (<0.60) mg/L FEU ABG pCO2 (35-45) mmHg ABG pO2 (83-108) mmHg ABG HCO3 (21-25) mmol/L ABG Total CO2 (19-24) mmol/L ABG O2 Saturation (94-97) % ABG Lactic Acid 1.7 H (0.5-1.6) mmol/L Potassium 5.3 H (3.5-5.1) mmol/L Carbon Dioxide 39 H (22-30) mmol/L BUN 33 H (7-17) mg/dL Creatinine 0.41 L (0.52-1.04) mg/dL Glucose 204 H (74-99) mg/dL POC Glucose (mg/dL) (70-110) mg/dL Calcium 7.6 L (8.4-10.2) mg/dL Magnesium 2.6 H (1.6-2.3) mg/dL AST 37 H (14-36) U/L ALT 173 H (4-34) U/L Creatine Kinase (30-135) U/L Total Protein 4.7 L (6.3-8.2) g/dL Albumin 2.6 L (3.5-5.0) g/dL Urine Appearance Turbid H (Clear) Urine Glucose (UA) (Negative) Ur Leukocyte Esterase Trace H (Negative) Urine RBC >182 H (0-5) /hpf Urine WBC 105 H (0-5) /hpf Urine WBC Clumps Many H (None) /hpf Urine Mucus Moderate H (None) /hpf Urine Yeast (Budding) Many H (None) /hpf 02/04/23 02/04/23 Range/Units 12:00 13:21 WBC (3.8-10.6) k/uL RBC (3.80-5.40) m/uL Hgb (11.4-16.0) gm/dL Hct (34.0-46.0) % MCV (80.0-100.0) fL MCH (25.0-35.0) pg MCHC (31.0-37.0) g/dL RDW (11.5-15.5) % Neutrophils # (1.3-7.7) k/uL Lymphocytes # (1.0-4.8) k/uL Fibrinogen (200-500) mg/dL D-Dimer (<0.60) mg/L FEU ABG pCO2 73 H* (35-45) mmHg ABG pO2 67 L (83-108) mmHg ABG HCO3 41 H* (21-25) mmol/L ABG Total CO2 44 H (19-24) mmol/L ABG O2 Saturation 92.2 L (94-97) % ABG Lactic Acid (0.5-1.6) mmol/L Potassium (3.5-5.1) mmol/L Carbon Dioxide (22-30) mmol/L BUN (7-17) mg/dL Creatinine (0.52-1.04) mg/dL Glucose (74-99) mg/dL POC Glucose (mg/dL) 176 H (70-110) mg/dL Calcium (8.4-10.2) mg/dL Magnesium (1.6-2.3) mg/dL AST (14-36) U/L ALT (4-34) U/L Creatine Kinase (30-135) U/L Total Protein (6.3-8.2) g/dL Albumin (3.5-5.0) g/dL Urine Appearance (Clear) Urine Glucose (UA) (Negative) Ur Leukocyte Esterase (Negative) Urine RBC (0-5) /hpf Urine WBC (0-5) /hpf Urine WBC Clumps (None) /hpf Urine Mucus (None) /hpf Urine Yeast (Budding) (None) /hpf
--- NOTE | 2023-02-04 15:50 | P.PN ---
Subjective Progress Note Date: 02/04/23 62 years old female with past medical history of Asthma, Coronary Artery Disease, COPD Patient presents because of shortness of breath and altered mental status, as per documentation patient has difficulty talking because of her dysonea and she was using accessory muscles. Her respiratory distress was severe and patient required intubation and mechanical ventilation while in the emergency room. patient is afebrile. Blood pressure stable Hemoglobin is 8.7. W68.4. INR 1.0 PH 7.73, pCO2 88 and 67 BMP showing creatinine 0.7, glucose 154, liver enzymes not elevated. Troponin mildly elevated at 0.05. EKG showing sinus tachycardia at 130 ProBNP is elevated 1450 chest x-ray showed COPD however there is linear right upper lobe typical scar or atelectasis per radiologist. However I think fluid overload and cephalization is also suspected per my review especially patient has elevated proBNP. Such changes did not been seen in chest x-ray about 6 months ago. 02/02/2023 Patient is seen and evaluated in ICU; remains intubated Vital signs reviewed reveals temperature of 98, pulse 82, respiration 22 and blood pressure of 9855 -- Blood gases completed this morning reveal pO2 67, pCO2 69, and a pH is 7.34; White count 19, he lobe 7.9, hematocrit 26.9, with a normal platelet count. Sodium 145, potassium 4.7, chlorides 106, CO2 35, BUN 37, creatinine 0.45. Sputum from January 24 showed Staphylococcus aureus. --BAL from January 30, also shows Staphylococcus aureus. --Chest x-rays essentially unchanged. -- Family to make a decision/tracheostomy and PEG tube placement Patient remains DO NOT RESUSCITATE 02/03/2023 Patient is seen and evaluated in room at bedside; family members are not present in the room; family is debating proceeding with gift of life for organ donation Vital signs reveal temperature 99.5, pulse 93, respiration 24 and blood pressure of 105/67 White count 16.9, hemoglobin 7.9, hematocrit 27.3, and platelet count normal. Sodium 142, potassium 5, chlorides 103, CO2 37, BUN 37, and creatinine 0.48. Both sputum and BAL show evidence of methicillin sensitive staph aureus. Chest x-ray shows no acute cardiopulmonary disease and the tip of the endotracheal tube is 4 cm above the prerna. Patient will remain intubated and mechanically ventilated. Family makes further decision 02/04/2023 Patient is seen and evaluated and follow-up in the ICU currently undergoing gift of life workup as patient was a donor. Gift of life with ongoing studies being conducted. Patient will continue on medications including the following fentanyl and is maintained on Cleviprex. Patient continues on antibiotics as well. FiO2 is currently 40% with a PEEP of 5. Review of systems: Unable to obtain as patient remains on sedation and mechanical ventilation Active Medications Albuterol/Ipratropium (Ipratropium-Albuterol 3 Ml Neb) 3 ml INHALATION RT-Q2H PRN PRN Reason: Shortness Of Breath Or Wheezing Last Admin: 01/28/23 02:04 Dose: 3 ml Albuterol/Ipratropium (Ipratropium-Albuterol 3 Ml Neb) 3 ml INHALATION RT-Q4H [facility] Last Admin: 02/04/23 14:43 Dose: 3 ml Artificial Tears (Artificial Tears-Hypromellose Drops 15 Ml Btl) 2 drops BOTH EYES Q4HR [facility] Last Admin: 02/04/23 15:36 Dose: 2 drops Bisacodyl (Bisacodyl 5 Mg Tablet.Dr) 10 mg PO DAILY [facility] Last Admin: 02/04/23 09:52 Dose: Not Given Bisacodyl (Bisacodyl 10 Mg Supp) 10 mg RECTAL HS PRN PRN Reason: Constipation Last Admin: 02/01/23 17:08 Dose: 10 mg Budesonide (Budesonide 1 Mg/2 Ml Nebu) 1 mg INHALATION RT-BID [facility] Last Admin: 02/04/23 07:32 Dose: 1 mg Chlorhexidine Gluconate (Chlorhexidine Gluconate 15 Ml Cup) 15 ml MUCOUS MEM BID [facility] Last Admin: 02/04/23 09:51 Dose: 15 ml Diltiazem HCl (Diltiazem Oral 30 Mg Tab) 30 mg PO QID [facility] Last Admin: 02/04/23 11:47 Dose: 30 mg Formoterol Fumarate (Formoterol Fumarate 20 Mcg/2 Ml Nebu) 20 mcg INHALATION RT-BID [facility] Last Admin: 02/04/23 07:32 Dose: 20 mcg Furosemide (Furosemide 10 Mg/Ml 2 Ml Vial) 20 mg IV Q12HR [facility] Last Admin: 02/04/23 09:51 Dose: 20 mg Heparin Sodium (Porcine) (Heparin Sodium,Porcine 5,000 Unit/Ml 1 Ml Vial) 5,000 unit SQ Q8HR [facility] Last Admin: 02/04/23 09:51 Dose: 5,000 unit Propofol 1,000 mg/ IV Solution 100 mls @ 7.348 mls/hr IV .[id number] [facility]; Protocol Last Admin: 02/04/23 15:35 Dose: 50 mcg/kg/min, 24.494 mls/hr Fentanyl Citrate 1,000 mcg/ (Sodium Chloride) 100 mls @ 3.71 mls/hr IV .Q24H [facility]; Protocol Last Admin: 02/04/23 11:22 Dose: 2 mcg/kg/hr, 14.84 mls/hr Cisatracurium Besylate 200 mg/ (Sodium Chloride) 200 mls @ 4.452 mls/hr IV .Q24H [facility]; Protocol Last Admin: 02/04/23 10:25 Dose: 2.5 mcg/kg/min, 11.13 mls/hr Ceftriaxone Sodium 1 gm/ (Sodium Chloride) 50 mls @ 100 mls/hr IVPB Q24HR [facility]; Protocol Last Admin: 02/04/23 09:51 Dose: 100 mls/hr Insulin Aspart (Insulin Aspart (Novolog) 100 Unit/Ml Vial) 0 unit SQ Q6H [facility]; Protocol Last Admin: 02/04/23 12:06 Dose: 1 unit Methylprednisolone Sodium Succinate (Methylprednisolone Sod Succi 125 Mg/2 Ml Vial) 60 mg IV Q6HR [facility] Last Admin: 02/04/23 11:47 Dose: 60 mg Montelukast Sodium (Montelukast 10 Mg Tab) 10 mg PO HS [facility] Last Admin: 02/03/23 22:50 Dose: 10 mg Naloxone HCl (Naloxone 0.4 Mg/Ml 1 Ml Vial) 0.2 mg IV Q2M PRN PRN Reason: Opioid Reversal Pantoprazole Sodium (Pantoprazole 40 Mg/10 Ml Vial) 40 mg IV DAILY [facility] Last Admin: 02/04/23 09:51 Dose: 40 mg Pregabalin (Pregabalin 100 Mg Cap) 100 mg PO BID [facility] Last Admin: 02/04/23 09:51 Dose: 100 mg Physical exam: GENERAL: The patient is intubated and sedated. HEENT: Pupils are round and equally reacting to light. EOMI. No scleral icterus. No conjunctival pallor. Normocephalic, atraumatic. No pharyngeal erythema. No thyromegaly. CARDIOVASCULAR: S1 and S2 present. No murmurs, rubs, or gallops. PULMONARY: Chest is clear to auscultation, no wheezing , no crackles. ABDOMEN: Soft, nontender, nondistended, normoactive bowel sounds. No palpable organomegaly. MUSCULOSKELETAL: No joint swelling or deformity. EXTREMITIES: No cyanosis, clubbing, or pedal edema. NEUROLOGICAL: Gross neurological examination did not reveal any focal deficits. SKIN: No rashes. no petechiae. Assessment: Acute asthma/COPD exacerbation. Acute hypoxemic respiratory failure requiring intubation and mechanical ventilation Acute tracheobronchitis secondary to MSSA History of depression Acute respiratory acidosis with metabolic compensation Altered mental status most likely metabolic/toxic encephalopathy. No code Plan: Continue with mechanical ventilation as patient is undergoing gift of life evaluation and further workup Continue with medications as above. Patient continued on fentanyl and propofol. Patient also maintained on Cleviprex at this time Prognosis remains poor and awaiting completion of workup for gift of life for organ donation The impression and plan of care has been dictated by Jessica Leyva, Nurse Practitioner as directed. Dr. Emilie MD I have performed a history and examination and MDM of this patient, discussed the same with the dictator, and agree with the dictator's assessment and plan as written ,documented as a scribe. Based on total visit time, I have performed more than 50% of the visit. Objective - Vital Signs Vital signs: Vital Signs Temp 97.8 F 02/04/23 04:00 Pulse 82 02/04/23 08:00 Resp 22 02/04/23 07:00 BP 98/55 01/30/23 13:00 Pulse Ox 95 02/04/23 07:00 FiO2 35 02/04/23 07:29 Intake & Output 02/03/23 02/04/23 02/04/23 18:59 06:59 18:59 Intake Total 3665.744 9367.201 246 Output Total 525 450 35 Balance 701.849 561.201 211 Intake: IV 552 552 46 Dextrose 5% in Water 1, 480 480 40 000 ml @ 40 mls/hr IV . Q24H [facility] Rx#:[id number] Pressure Bags 72 72 6 Intake, IV Titration 290.849 378.201 200 Amount Cisatracurium 200 mg In 200 Sodium Chloride 0.9% 180 ml @ 1 MCG/KG/MIN 4.452 mls/hr IV .Q24H [facility] Rx#: [id number] cefTRIAXone 1 gm In 50 Sodium Chloride 0.9% 50 ml @ 100 mls/hr IVPB Q24HR [facility] Rx#:[id number] fentaNYL (PF). 1,000 mcg 90.849 129.000 In Sodium Chloride 0.9% 80 ml @ 0.5 MCG/KG/HR 3. 71 mls/hr IV .Q24H [facility] Rx #:[id number] propofoL 1,000 mg In 200 199.201 Empty Bag 1 bag @ 15 MCG/ KG/MIN 7.348 mls/hr IV . [id number] [facility] Rx#:[id number] Tube Feeding 324 81 Other 60 Output: Urine 525 450 35 Other: Voiding Method Indwelling Catheter Indwelling Catheter ABP, PAP, CO, CI - Last Documented Arterial Blood Pressure 112/59 - Labs CBC & Chem 7: 02/04/23 07:15 02/04/23 07:15 Labs: Abnormal Lab Results - Last 24 Hours (Table) 02/03/23 02/03/23 02/03/23 Range/Units 18:13 18:30 18:30 WBC 18.4 H (3.8-10.6) k/uL RBC 3.48 L (3.80-5.40) m/uL Hgb 7.7 L (11.4-16.0) gm/dL Hct 26.1 L (34.0-46.0) % MCV 75.0 L (80.0-100.0) fL MCH 22.2 L (25.0-35.0) pg MCHC 29.6 L (31.0-37.0) g/dL RDW 18.3 H (11.5-15.5) % Neutrophils # 16.6 H (1.3-7.7) k/uL Lymphocytes # 0.8 L (1.0-4.8) k/uL Fibrinogen 160 L (200-500) mg/dL D-Dimer 1.65 H (<0.60) mg/L FEU ABG pCO2 (35-45) mmHg ABG pO2 (83-108) mmHg ABG HCO3 (21-25) mmol/L ABG Total CO2 (19-24) mmol/L ABG O2 Saturation (94-97) % ABG Lactic Acid (0.5-1.6) mmol/L Potassium (3.5-5.1) mmol/L Carbon Dioxide (22-30) mmol/L BUN (7-17) mg/dL Creatinine (0.52-1.04) mg/dL Glucose (74-99) mg/dL POC Glucose (mg/dL) 225 H (70-110) mg/dL Calcium (8.4-10.2) mg/dL Magnesium (1.6-2.3) mg/dL AST (14-36) U/L ALT (4-34) U/L Creatine Kinase (30-135) U/L Total Protein (6.3-8.2) g/dL Albumin (3.5-5.0) g/dL Urine Appearance (Clear) Urine Glucose (UA) (Negative) Urine Mucus (None) /hpf Urine Yeast (Budding) (None) /hpf 02/03/23 02/03/23 02/03/23 Range/Units 18:30 18:30 20:26 WBC (3.8-10.6) k/uL RBC (3.80-5.40) m/uL Hgb (11.4-16.0) gm/dL Hct (34.0-46.0) % MCV (80.0-100.0) fL MCH (25.0-35.0) pg MCHC (31.0-37.0) g/dL RDW (11.5-15.5) % Neutrophils # (1.3-7.7) k/uL Lymphocytes # (1.0-4.8) k/uL Fibrinogen (200-500) mg/dL D-Dimer (<0.60) mg/L FEU ABG pCO2 67 H (35-45) mmHg ABG pO2 69 L (83-108) mmHg ABG HCO3 40 H* (21-25) mmol/L ABG Total CO2 43 H (19-24) mmol/L ABG O2 Saturation 93.0 L (94-97) % ABG Lactic Acid (0.5-1.6) mmol/L Potassium (3.5-5.1) mmol/L Carbon Dioxide 39 H (22-30) mmol/L BUN 35 H (7-17) mg/dL Creatinine 0.46 L (0.52-1.04) mg/dL Glucose 201 H (74-99) mg/dL POC Glucose (mg/dL) (70-110) mg/dL Calcium 7.7 L (8.4-10.2) mg/dL Magnesium 2.7 H (1.6-2.3) mg/dL AST 40 H (14-36) U/L ALT 191 H (4-34) U/L Creatine Kinase 141 H (30-135) U/L Total Protein 4.7 L (6.3-8.2) g/dL Albumin 2.6 L (3.5-5.0) g/dL Urine Appearance Cloudy H (Clear) Urine Glucose (UA) 1+ H (Negative) Urine Mucus Rare H (None) /hpf Urine Yeast (Budding) Many H (None) /hpf 02/03/23 02/03/23 02/03/23 Range/Units 22:50 22:50 23:49 WBC 20.1 H (3.8-10.6) k/uL RBC 3.69 L (3.80-5.40) m/uL Hgb 8.3 L (11.4-16.0) gm/dL Hct 27.9 L (34.0-46.0) % MCV 75.6 L (80.0-100.0) fL MCH 22.4 L (25.0-35.0) pg MCHC 29.6 L (31.0-37.0) g/dL RDW 18.3 H (11.5-15.5) % Neutrophils # 18.5 H (1.3-7.7) k/uL Lymphocytes # 0.6 L (1.0-4.8) k/uL Fibrinogen (200-500) mg/dL D-Dimer (<0.60) mg/L FEU ABG pCO2 (35-45) mmHg ABG pO2 (83-108) mmHg ABG HCO3 (21-25) mmol/L ABG Total CO2 (19-24) mmol/L ABG O2 Saturation (94-97) % ABG Lactic Acid (0.5-1.6) mmol/L Potassium (3.5-5.1) mmol/L Carbon Dioxide 38 H (22-30) mmol/L BUN 33 H (7-17) mg/dL Creatinine 0.45 L (0.52-1.04) mg/dL Glucose 191 H (74-99) mg/dL POC Glucose (mg/dL) 221 H (70-110) mg/dL Calcium 8.0 L (8.4-10.2) mg/dL Magnesium 2.7 H (1.6-2.3) mg/dL AST 49 H (14-36) U/L ALT 204 H (4-34) U/L Creatine Kinase (30-135) U/L Total Protein 5.3 L (6.3-8.2) g/dL Albumin 2.8 L (3.5-5.0) g/dL Urine Appearance (Clear) Urine Glucose (UA) (Negative) Urine Mucus (None) /hpf Urine Yeast (Budding) (None) /hpf 02/04/23 02/04/23 02/04/23 Range/Units 05:34 05:47 07:15 WBC 16.8 H (3.8-10.6) k/uL RBC 3.44 L (3.80-5.40) m/uL Hgb 7.8 L (11.4-16.0) gm/dL Hct 25.7 L (34.0-46.0) % MCV 74.7 L (80.0-100.0) fL MCH 22.7 L (25.0-35.0) pg MCHC 30.3 L (31.0-37.0) g/dL RDW 18.2 H (11.5-15.5) % Neutrophils # 15.6 H (1.3-7.7) k/uL Lymphocytes # 0.6 L (1.0-4.8) k/uL Fibrinogen (200-500) mg/dL D-Dimer (<0.60) mg/L FEU ABG pCO2 64 H (35-45) mmHg ABG pO2 74 L (83-108) mmHg ABG HCO3 40 H* (21-25) mmol/L ABG Total CO2 42 H (19-24) mmol/L ABG O2 Saturation (94-97) % ABG Lactic Acid (0.5-1.6) mmol/L Potassium (3.5-5.1) mmol/L Carbon Dioxide (22-30) mmol/L BUN (7-17) mg/dL Creatinine (0.52-1.04) mg/dL Glucose (74-99) mg/dL POC Glucose (mg/dL) 230 H (70-110) mg/dL Calcium (8.4-10.2) mg/dL Magnesium (1.6-2.3) mg/dL AST (14-36) U/L ALT (4-34) U/L Creatine Kinase (30-135) U/L Total Protein (6.3-8.2) g/dL Albumin (3.5-5.0) g/dL Urine Appearance (Clear) Urine Glucose (UA) (Negative) Urine Mucus (None) /hpf Urine Yeast (Budding) (None) /hpf 02/04/23 02/04/23 Range/Units 07:15 07:15 WBC (3.8-10.6) k/uL RBC (3.80-5.40) m/uL Hgb (11.4-16.0) gm/dL Hct (34.0-46.0) % MCV (80.0-100.0) fL MCH (25.0-35.0) pg MCHC (31.0-37.0) g/dL RDW (11.5-15.5) % Neutrophils # (1.3-7.7) k/uL Lymphocytes # (1.0-4.8) k/uL Fibrinogen (200-500) mg/dL D-Dimer (<0.60) mg/L FEU ABG pCO2 (35-45) mmHg ABG pO2 (83-108) mmHg ABG HCO3 (21-25) mmol/L ABG Total CO2 (19-24) mmol/L ABG O2 Saturation (94-97) % ABG Lactic Acid 1.7 H (0.5-1.6) mmol/L Potassium 5.3 H (3.5-5.1) mmol/L Carbon Dioxide 39 H (22-30) mmol/L BUN 33 H (7-17) mg/dL Creatinine 0.41 L (0.52-1.04) mg/dL Glucose 204 H (74-99) mg/dL POC Glucose (mg/dL) (70-110) mg/dL Calcium 7.6 L (8.4-10.2) mg/dL Magnesium 2.6 H (1.6-2.3) mg/dL AST 37 H (14-36) U/L ALT 173 H (4-34) U/L Creatine Kinase (30-135) U/L Total Protein 4.7 L (6.3-8.2) g/dL Albumin 2.6 L (3.5-5.0) g/dL Urine Appearance (Clear) Urine Glucose (UA) (Negative) Urine Mucus (None) /hpf Urine Yeast (Budding) (None) /hpf
[2023-02-04 16:52] LABS: ALT 203 U/L (4-34); AST 48 U/L (14-36); African American GFR (CKD) >90 (>60 ml/min/1.73 sqM); Albumin 2.8 g/dL (3.5-5.0); Alkaline Phosphatase 60 U/L (38-126); Blood Urea Nitrogen 33 mg/dL (7-17); Calcium 7.7 mg/dL (8.4-10.2); Chloride 98 mmol/L (98-107); Glucose 165 mg/dL (74-99); Magnesium 2.6 mg/dL (1.6-2.3); Non-African American GFR(CKD) >90 (>60 ml/min/1.73 sqM); Potassium 5.1 mmol/L (3.5-5.1); Sodium 139 mmol/L (137-145); Total Bilirubin 0.4 mg/dL (0.2-1.3); Total Protein 5.1 g/dL (6.3-8.2)
[2023-02-04 16:58] LABS: Anion Gap 5 mmol/L; Carbon Dioxide 36 mmol/L (22-30)
[2023-02-04 17:03] LABS: Partial Thromboplastin Time 23.6 sec (22.0-30.0); Prothrombin Time 10.3 sec (9.0-12.0)
[2023-02-04 17:18] LABS: Anisocytosis Slight; Basophils # (A) 0.1 k/uL (0-0.2); Basophils % (A) 0 %; Eosinophils % (A) 0 %; HCT 26.8 % (34.0-46.0); HGB 8.1 gm/dL (11.4-16.0); Hypochromasia Marked; Lymphocytes # (A) 0.6 k/uL (1.0-4.8); Lymphocytes % (A) 3 %; MCH 22.7 pg (25.0-35.0); MCHC 30.4 g/dL (31.0-37.0); MCV 74.9 fL (80.0-100.0); Mean Platelet Volume 8.6; Microcytosis Moderate; Monocytes # (A) 0.7 k/uL (0-1.0); Monocytes % (A) 3 %; Neutrophils # (A) 19.2 k/uL (1.3-7.7); Neutrophils % (A) 93 %; Platelet Count 332 k/uL (150-450); RBC 3.57 m/uL (3.80-5.40); RDW 18.2 % (11.5-15.5); WBC 20.7 k/uL (3.8-10.6)
[2023-02-04 18:07] LABS: Glucose,Whole Blood 192 mg/dL (70-110)
[2023-02-04] MEDS: MONTELUKAST 10 MG TAB PO SCH (19:49)
[2023-02-04 21:05] LABS: ABG Base Excess 17.7 mmol/L; ABG Oxygen Saturation 94.4 % (94-97); ABG PCO2 69 mmHg (35-45); ABG PO2 73 mmHg (83-108); ABG TCO2 45 mmol/L (19-24); Allen Test Performed? Yes
[2023-02-04 21:07] LABS: ABG HCO3 43 mmol/L (21-25)
[2023-02-04 23:57] LABS: Glucose,Whole Blood 213 mg/dL (70-110)
[2023-02-05] MEDS: HEPARIN SODIUM,PORCINE 5,000 UNIT/ML 1 ML VIAL SQ SCH ×2 (00:11→08:09)
[2023-02-05] MEDS: methylPREDNISolone SOD SUCCI 125 MG/2 ML VIAL IV SCH ×3 (00:11→11:08)
[2023-02-05] MEDS: INSULIN ASPART (NovoLOG) 100 UNIT/ML VIAL SQ SCH ×3 (00:12→12:09)
[2023-02-05] MEDS: ARTIFICIAL TEARS-HYPROMELLOSE DROPS 15 ML BTL BOTH EYES SCH ×4 (00:12→12:10)
[2023-02-05 00:30] LABS: ALT 207 U/L (4-34); AST 56 U/L (14-36); African American GFR (CKD) >90 (>60 ml/min/1.73 sqM); Albumin 2.6 g/dL (3.5-5.0); Alkaline Phosphatase 62 U/L (38-126); Blood Urea Nitrogen 31 mg/dL (7-17); Calcium 7.6 mg/dL (8.4-10.2); Chloride 96 mmol/L (98-107); Glucose 185 mg/dL (74-99); Magnesium 2.5 mg/dL (1.6-2.3); Non-African American GFR(CKD) >90 (>60 ml/min/1.73 sqM); Potassium 4.7 mmol/L (3.5-5.1); Sodium 138 mmol/L (137-145); Total Bilirubin 0.4 mg/dL (0.2-1.3); Total Protein 4.9 g/dL (6.3-8.2)
[2023-02-05 00:36] LABS: Anion Gap 4 mmol/L
[2023-02-05 00:43] LABS: Carbon Dioxide 38 mmol/L (22-30)
[2023-02-05 00:50] LABS: Anisocytosis Slight; Basophils # (A) 0.1 k/uL (0-0.2); Basophils % (A) 0 %; Eosinophils % (A) 0 %; HCT 26.4 % (34.0-46.0); HGB 7.9 gm/dL (11.4-16.0); Hypochromasia Marked; Lymphocytes # (A) 0.7 k/uL (1.0-4.8); Lymphocytes % (A) 4 %; MCH 22.9 pg (25.0-35.0); MCHC 29.8 g/dL (31.0-37.0); MCV 76.7 fL (80.0-100.0); Mean Platelet Volume 8.7; Microcytosis Slight; Monocytes # (A) 0.8 k/uL (0-1.0); Monocytes % (A) 4 %; Neutrophils % (A) 92 %; Platelet Count 308 k/uL (150-450); RBC 3.44 m/uL (3.80-5.40); RDW 17.9 % (11.5-15.5); WBC 19.7 k/uL (3.8-10.6)
[2023-02-05 00:51] LABS: Partial Thromboplastin Time 25.1 sec (22.0-30.0); Prothrombin Time 10.4 sec (9.0-12.0)
[2023-02-05] MEDS: IPRATROPIUM-ALBUTEROL 3 ML NEB INHALATION SCH ×3 (03:39→11:52)
[2023-02-05] MEDS: fentaNYL (PF). 1,000 MCG in SODIUM CHLORIDE 0.9% 80 ML IV SCH (05:20)
[2023-02-05 05:35] LABS: Glucose,Whole Blood 232 mg/dL (70-110)
[2023-02-05 05:42] LABS: ABG Oxygen Saturation 94.6 % (94-97); ABG PH 7.37 (7.35-7.45); ABG PO2 76 mmHg (83-108); ABG TCO2 46 mmol/L (19-24); Allen Test Performed? Yes
[2023-02-05 05:45] LABS: ABG HCO3 43 mmol/L (21-25); ABG PCO2 74 mmHg (35-45)
[2023-02-05 07:13] LABS: Appearance,Urine Clear (Clear); Bilirubin,Urine Negative (Negative); Blood,Urine Negative (Negative); Color,Urine Colorless; Glucose,Urine (UA) Negative (Negative); Ketones,Urine Negative (Negative); Leukocyte Esterase,Urine Negative (Negative); Nitrite,Urine Negative (Negative); Protein,Urine Negative (Negative); Specific Gravity,Urine 1.022 (1.001-1.035); Urobilinogen,Urine <2.0 mg/dL (<2.0)
[2023-02-05] MEDS: CHLORHEXIDINE GLUCONATE 15 ML CUP MUCOUS MEM SCH (08:09)
[2023-02-05] MEDS: PANTOPRAZOLE 40 MG/10 ML VIAL IV SCH (08:09)
[2023-02-05] MEDS: FUROSEMIDE 10 MG/ML 2 ML VIAL IV SCH (08:09)
[2023-02-05] MEDS: bisacodyL 5 MG TABLET.DR PO SCH (08:09)
[2023-02-05] MEDS: PREGABALIN 100 MG CAP PO SCH (08:09)
[2023-02-05] MEDS: DILTIAZEM ORAL 30 MG TAB PO SCH ×2 (08:09→11:08)
[2023-02-05] MEDS: FORMOTEROL FUMARATE 20 MCG/2 ML NEBU INHALATION SCH (08:31)
[2023-02-05] MEDS: BUDESONIDE 1 MG/2 ML NEBU INHALATION SCH (08:31)
--- NOTE | 2023-02-05 08:44 | XR ---
EXAMINATION TYPE: XR chest 1V portable DATE OF EXAM: 02/05/2023 COMPARISON: 02/03/2023 HISTORY: Shortness of breath TECHNIQUE: Single frontal view of the chest is obtained. FINDINGS: Subsegmental changes left lung base. Underlying COPD. ET tube, NG tube and central line st able. No pneumothorax. Osseous structures stable. IMPRESSION: Basilar atelectasis. Correlate for COPD.
--- NOTE | 2023-02-05 09:02 | P.PN ---
Subjective Progress Note Date: 02/05/23 62-year-old female patient with advanced COPD, currently intubated on a mechanical ventilator. She has had efforts to wean and she has failed. She is a registered donor and as of yesterday, yohana was involved in her care for solid organ donation. This morning, the patient is intubated on a mecha nical ventilator. She is currently on fentanyl running at 2 mcg/kg/h and she is also on propofol at 50 mcg/kg/m. She is sedated and paralyzed and Nimbex is running at 2.5 mcg/kg/m. She is fully sedated and paralyzed at this point in time. He is on assist-control mode of mechanical ventilation. She is on rate of 22, tidal volume of 350, FiO2 of 35% and PEEP of 5. The peak airway pressure is 41. Metastatic airway pressure is 22. No chest x-ray from today. Most recent chest x-rays from yesterday and shows some increased interstitial markings bilaterally. She was in a good location. No airspace disease or consolidations. Blood gas shows a pH of 7.4 with episodes of 64 and pO2 of 74. The echoes at 16.8 with a hemoglobin of 7.8 and a platelet count of 326. BUN is at 33 with a creatinine of 0.4 and his sodium level is at 138. UA has been negative. The bronchoscopy that was done on 01/30/2023 showed Aureus, MSSA and the patient is still on IV Rocephin. The patient remains on bronchodilators DuoNeb nebulized treatments [id number]. The patient remains on IV Solu-Me drol 60 mg IV every 6 hours. Enteral feeding was placed on hold because of high residuals. On today's evaluation of 02/05/2023, the patient remains on a mechanical ventilator. The family has agreed for yohana. The patient may be potentially an organ donor. Yohana is involved and the patient will be taken to the operating room today where she was going to be extubated and depending on her progress, she may be a candidate for organ donation. Meanwhile, she has remained on propofol which is running at 50 mcg/kg/m and fentanyl and to microvascular kilogram per hour. The patient is also on Nimbex which will be discontinued prior to her being taken to the operating room. She has clinically stable and hemodynamically stable. She is on assist-control mode of mechanical ventilation at the rate of 22, tidal volumes of 325, FiO2 is at 40% with a PEEP of 5. Current pulse ox is 95%. Blood gas shows a pH of 7.37 with a pCO2 of 74 and pO2 of 76. Rest of the blood work and electrolytes are stable. BUN is at 31 with a creatinine of 0.4 and the sodium is at 138. The white cell cause at 19.7 with a hemoglobin of 7.9. Urinalysis is negative. The patient is afebrile and hemodynamically stable. No other significant events overnight. Most recent bronchoscopy showed staph aureus/MSSA. The patient remains on IV Rocephin. The patient remains on bronchodilators and steroids. She is on Vital HP @ 10 cc/hr Objective - Vital Signs Vital signs: Vital Signs Temp 97.8 F 02/05/23 04:00 Pulse 84 02/05/23 08:52 Resp 22 02/05/23 07:00 BP 98/55 01/30/23 13:00 Pulse Ox 95 02/05/23 07:00 FiO2 40 02/05/23 08:45 Intake & Output 02/04/23 02/05/23 02/05/23 18:59 06:59 18:59 Intake Total 901.211 701.764 Output Total 1373 1100 Balance -471.789 -398.236 Weight 85.7 kg 84.4 kg Intake: IV 112 78 Dextrose 5% in Water 1, 40 000 ml @ 40 mls/hr IV . Q24H [facility] Rx#:[id number] Pressure Bags 72 78 Intake, IV Titration 709.211 493.764 Amount Cisatracurium 200 mg In 200 109.26 Sodium Chloride 0.9% 180 ml @ 1 MCG/KG/MIN 4.452 mls/hr IV .Q24H [facility] Rx#: [id number] cefTRIAXone 1 gm In 50 Sodium Chloride 0.9% 50 ml @ 100 mls/hr IVPB Q24HR [facility] Rx#:[id number] fentaNYL (PF). 1,000 mcg 200 100 In Sodium Chloride 0.9% 80 ml @ 0.5 MCG/KG/HR 3. 71 mls/hr IV .Q24H [facility] Rx #:[id number] propofoL 1,000 mg In 259.211 284.504 Empty Bag 1 bag @ 15 MCG/ KG/MIN 7.348 mls/hr IV . [id number] [facility] Rx#:[id number] Tube Feeding 70 130 Other 10 Output: Urine 1373 1100 Other: Voiding Method Indwelling Catheter Indwelling Catheter ABP, PAP, CO, CI - Last Documented Arterial Blood Pressure 103/52 - Exam No acute distress, sedated, paralyzed, with an orally placed endotracheal tube. HEENT examination is grossly unremarkable. Neck supple. Full range of motion. No adenopathy thyromegaly or neck vein distention. Cardiovascular examination reveals regular rhythm rate. S1-S2 normal. No S3 or S4. No discernible murmur noted. Lungs reveal scattered expiratory rhonchi. No wheezes or crackles. Breath sounds are equal bilaterally. Abdomen soft bowel sounds are heard. No masses or tenderness. Extremities are intact. No cyanosis clubbing or edema. Skin is without rash or lesion. Neurologic examination cannot be assessed as the patient's currently sedated and paralyzed. - Labs CBC & Chem 7: 02/05/23 00:00 02/05/23 00:00 Labs: Abnormal Lab Results - Last 24 Hours (Table) 02/04/23 02/04/23 02/04/23 Range/Units 07:15 11:10 12:00 WBC (3.8-10.6) k/uL RBC (3.80-5.40) m/uL Hgb (11.4-16.0) gm/dL Hct (34.0-46.0) % MCV (80.0-100.0) fL MCH (25.0-35.0) pg MCHC (31.0-37.0) g/dL RDW (11.5-15.5) % Neutrophils # (1.3-7.7) k/uL Lymphocytes # (1.0-4.8) k/uL ABG pCO2 (35-45) mmHg ABG pO2 (83-108) mmHg ABG HCO3 (21-25) mmol/L ABG Total CO2 (19-24) mmol/L ABG O2 Saturation (94-97) % Potassium 5.3 H (3.5-5.1) mmol/L Chloride (98-107) mmol/L Carbon Dioxide 39 H (22-30) mmol/L BUN 33 H (7-17) mg/dL Creatinine 0.41 L (0.52-1.04) mg/dL Glucose 204 H (74-99) mg/dL POC Glucose (mg/dL) 176 H (70-110) mg/dL Calcium 7.6 L (8.4-10.2) mg/dL Magnesium 2.6 H (1.6-2.3) mg/dL AST 37 H (14-36) U/L ALT 173 H (4-34) U/L Total Protein 4.7 L (6.3-8.2) g/dL Albumin 2.6 L (3.5-5.0) g/dL Urine Appearance Turbid H (Clear) Ur Leukocyte Esterase Trace H (Negative) Urine RBC >182 H (0-5) /hpf Urine WBC 105 H (0-5) /hpf Urine WBC Clumps Many H (None) /hpf Urine Mucus Moderate H (None) /hpf Urine Yeast (Budding) Many H (None) /hpf 02/04/23 02/04/23 02/04/23 Range/Units 13:21 16:00 16:00 WBC 20.7 H (3.8-10.6) k/uL RBC 3.57 L (3.80-5.40) m/uL Hgb 8.1 L (11.4-16.0) gm/dL Hct 26.8 L (34.0-46.0) % MCV 74.9 L (80.0-100.0) fL MCH 22.7 L (25.0-35.0) pg MCHC 30.4 L (31.0-37.0) g/dL RDW 18.2 H (11.5-15.5) % Neutrophils # 19.2 H (1.3-7.7) k/uL Lymphocytes # 0.6 L (1.0-4.8) k/uL ABG pCO2 73 H* (35-45) mmHg ABG pO2 67 L (83-108) mmHg ABG HCO3 41 H* (21-25) mmol/L ABG Total CO2 44 H (19-24) mmol/L ABG O2 Saturation 92.2 L (94-97) % Potassium (3.5-5.1) mmol/L Chloride (98-107) mmol/L Carbon Dioxide 36 H (22-30) mmol/L BUN 33 H (7-17) mg/dL Creatinine 0.49 L (0.52-1.04) mg/dL Glucose 165 H (74-99) mg/dL POC Glucose (mg/dL) (70-110) mg/dL Calcium 7.7 L (8.4-10.2) mg/dL Magnesium 2.6 H (1.6-2.3) mg/dL AST 48 H (14-36) U/L ALT 203 H (4-34) U/L Total Protein 5.1 L (6.3-8.2) g/dL Albumin 2.8 L (3.5-5.0) g/dL Urine Appearance (Clear) Ur Leukocyte Esterase (Negative) Urine RBC (0-5) /hpf Urine WBC (0-5) /hpf Urine WBC Clumps (None) /hpf Urine Mucus (None) /hpf Urine Yeast (Budding) (None) /hpf 02/04/23 02/04/23 02/04/23 Range/Units 18:06 21:01 23:56 WBC (3.8-10.6) k/uL RBC (3.80-5.40) m/uL Hgb (11.4-16.0) gm/dL Hct (34.0-46.0) % MCV (80.0-100.0) fL MCH (25.0-35.0) pg MCHC (31.0-37.0) g/dL RDW (11.5-15.5) % Neutrophils # (1.3-7.7) k/uL Lymphocytes # (1.0-4.8) k/uL ABG pCO2 69 H (35-45) mmHg ABG pO2 73 L (83-108) mmHg ABG HCO3 43 H* (21-25) mmol/L ABG Total CO2 45 H (19-24) mmol/L ABG O2 Saturation (94-97) % Potassium (3.5-5.1) mmol/L Chloride (98-107) mmol/L Carbon Dioxide (22-30) mmol/L BUN (7-17) mg/dL Creatinine (0.52-1.04) mg/dL Glucose (74-99) mg/dL POC Glucose (mg/dL) 192 H 213 H (70-110) mg/dL Calcium (8.4-10.2) mg/dL Magnesium (1.6-2.3) mg/dL AST (14-36) U/L ALT (4-34) U/L Total Protein (6.3-8.2) g/dL Albumin (3.5-5.0) g/dL Urine Appearance (Clear) Ur Leukocyte Esterase (Negative) Urine RBC (0-5) /hpf Urine WBC (0-5) /hpf Urine WBC Clumps (None) /hpf Urine Mucus (None) /hpf Urine Yeast (Budding) (None) /hpf 02/05/23 02/05/23 02/05/23 Range/Units 00:00 00:00 05:34 WBC 19.7 H (3.8-10.6) k/uL RBC 3.44 L (3.80-5.40) m/uL Hgb 7.9 L (11.4-16.0) gm/dL Hct 26.4 L (34.0-46.0) % MCV 76.7 L (80.0-100.0) fL MCH 22.9 L (25.0-35.0) pg MCHC 29.8 L (31.0-37.0) g/dL RDW 17.9 H (11.5-15.5) % Neutrophils # 18.0 H (1.3-7.7) k/uL Lymphocytes # 0.7 L (1.0-4.8) k/uL ABG pCO2 (35-45) mmHg ABG pO2 (83-108) mmHg ABG HCO3 (21-25) mmol/L ABG Total CO2 (19-24) mmol/L ABG O2 Saturation (94-97) % Potassium (3.5-5.1) mmol/L Chloride 96 L (98-107) mmol/L Carbon Dioxide 38 H (22-30) mmol/L BUN 31 H (7-17) mg/dL Creatinine 0.47 L (0.52-1.04) mg/dL Glucose 185 H (74-99) mg/dL POC Glucose (mg/dL) 232 H (70-110) mg/dL Calcium 7.6 L (8.4-10.2) mg/dL Magnesium 2.5 H (1.6-2.3) mg/dL AST 56 H (14-36) U/L ALT 207 H (4-34) U/L Total Protein 4.9 L (6.3-8.2) g/dL Albumin 2.6 L (3.5-5.0) g/dL Urine Appearance (Clear) Ur Leukocyte Esterase (Negative) Urine RBC (0-5) /hpf Urine WBC (0-5) /hpf Urine WBC Clumps (None) /hpf Urine Mucus (None) /hpf Urine Yeast (Budding) (None) /hpf 02/05/23 Range/Units 05:40 WBC (3.8-10.6) k/uL RBC (3.80-5.40) m/uL Hgb (11.4-16.0) gm/dL Hct (34.0-46.0) % MCV (80.0-100.0) fL MCH (25.0-35.0) pg MCHC (31.0-37.0) g/dL RDW (11.5-15.5) % Neutrophils # (1.3-7.7) k/uL Lymphocytes # (1.0-4.8) k/uL ABG pCO2 74 H* (35-45) mmHg ABG pO2 76 L (83-108) mmHg ABG HCO3 43 H* (21-25) mmol/L ABG Total CO2 46 H (19-24) mmol/L ABG O2 Saturation (94-97) % Potassium (3.5-5.1) mmol/L Chloride (98-107) mmol/L Carbon Dioxide (22-30) mmol/L BUN (7-17) mg/dL Creatinine (0.52-1.04) mg/dL Glucose (74-99) mg/dL POC Glucose (mg/dL) (70-110) mg/dL Calcium (8.4-10.2) mg/dL Magnesium (1.6-2.3) mg/dL AST (14-36) U/L ALT (4-34) U/L Total Protein (6.3-8.2) g/dL Albumin (3.5-5.0) g/dL Urine Appearance (Clear) Ur Leukocyte Esterase (Negative) Urine RBC (0-5) /hpf Urine WBC (0-5) /hpf Urine WBC Clumps (None) /hpf Urine Mucus (None) /hpf Urine Yeast (Budding) (None) /hpf Assessment and Plan Plan: Acute hypoxemic and hypercapnic respiratory failure, requiring intubation and me chanical ventilation, beginning on 01/24/23. Patient is being seen today in follow-up. The patient remains intubated on a mechanical ventilator, sedated and paralyzed. Clinical impressions are quite elevated. Occupation stable. She has chronic hypoxic and hypercapnic yesterday failure. She has been a failure to wean. She has been a failure to come of the paralytics. Yohana has been involved as the patient is a registered organ donor. S/P bronchoscopy, and BAL, right lower lobe, for increased airway secretions, 01/30/2023. Cultures revealed MSSA and the patient remains on IV Rocephin. Acute exacerbation of COPD, severe History of depression. Coronary artery disease. Methicillin sensitive staph aureus tracheobronchitis/bronchopneumonia. Plan: Continue fentanyl and propofol for now Continue bronchodilators and steroids Continue IV Rocephin Continue Lasix 20 mg IV every 12 hours IV fluids are currently of KVO Obviously of the Nimbex has to be stopped prior to her going to the operating room for organ harvesting We'll also hold enteral feeding for social support Yohana is on the case Awaiting further recommendations from the [facility]. We'll attempt to get off the paralytics and make further recommendations based on progress. Her prognosis remains extremely poor based on the above-mentioned. critical care evaluation done in > 30 min
[2023-02-05 09:18] LABS: Anisocytosis Slight; Basophils % (A) 0 %; Eosinophils % (A) 0 %; HCT 25.8 % (34.0-46.0); HGB 7.9 gm/dL (11.4-16.0); Hypochromasia Marked; Lymphocytes # (A) 0.6 k/uL (1.0-4.8); Lymphocytes % (A) 3 %; MCHC 30.6 g/dL (31.0-37.0); MCV 75.1 fL (80.0-100.0); Mean Platelet Volume 8.8; Microcytosis Moderate; Monocytes # (A) 0.5 k/uL (0-1.0); Monocytes % (A) 3 %; Neutrophils # (A) 14.8 k/uL (1.3-7.7); Neutrophils % (A) 93 %; Platelet Count 299 k/uL (150-450); RBC 3.43 m/uL (3.80-5.40); RDW 18.3 % (11.5-15.5); WBC 15.9 k/uL (3.8-10.6)
[2023-02-05 09:28] LABS: Partial Thromboplastin Time 23.8 sec (22.0-30.0); Prothrombin Time 10.4 sec (9.0-12.0)
[2023-02-05 09:33] LABS: ALT 214 U/L (4-34); AST 50 U/L (14-36); African American GFR (CKD) >90 (>60 ml/min/1.73 sqM); Albumin 2.7 g/dL (3.5-5.0); Alkaline Phosphatase 61 U/L (38-126); Blood Urea Nitrogen 33 mg/dL (7-17); Calcium 7.5 mg/dL (8.4-10.2); Chloride 95 mmol/L (98-107); Glucose 201 mg/dL (74-99); Magnesium 2.5 mg/dL (1.6-2.3); Non-African American GFR(CKD) >90 (>60 ml/min/1.73 sqM); Potassium 5.1 mmol/L (3.5-5.1); Sodium 140 mmol/L (137-145); Total Bilirubin 0.4 mg/dL (0.2-1.3); Total Protein 4.8 g/dL (6.3-8.2)
[2023-02-05 09:39] VITALS: TEMP 97.5
[2023-02-05 09:39] LABS: Anion Gap 8 mmol/L
[2023-02-05 09:56] LABS: Carbon Dioxide 37 mmol/L (22-30)
[2023-02-05] MEDS ORDERED: LORazepam 2 MG/ML INJ IV PRN (10:15)
[2023-02-05] MEDS ORDERED: MORPHINE SULFATE 4 MG/ML SYRINGE IVP ONE (10:15)
[2023-02-05] MEDS ORDERED: MORPHINE SULFATE (100 MG/2 ML) 100 MG in SODIUM CHLORIDE 0.9% 100 ML IV SCH (10:30)
[2023-02-05 11:51] LABS: Glucose,Whole Blood 193 mg/dL (70-110)
[2023-02-05 12:10] VITALS: PULSE 96
[2023-02-05] MEDS: MORPHINE SULFATE 4 MG/ML SYRINGE IV PRN ×4 (12:47→14:08)
--- NOTE | 2023-02-05 12:58 | CA ---
Transthoracic Echo Report Name: Diya Flores Age: 62 Gender: F : 1960 Exam Date: 02/04/2023 08:09 Exam Location: [facility] Ht (in): 62 Wt (lb): 188 Ordering Physician: Negro Moore MD Attending/Referring Phys: [id number], Teresa Rn Examiner Corinne Barba RDCS Procedure CPT: Indications: [facility] life case Cardiac Hx: pt on vent Technical Quality: Technically difficult study Contrast 1: Lumason Total Dose (mL): 3 Contrast 2: Total Dose (mL): MEASUREMENTS (Male / Female) Normal Values 2D ECHO LV Diastolic Diameter PLAX 3.6 cm 4.2 - 5.9 / 3.9 - 5.3 cm LV Systolic Diameter PLAX 2.4 cm IVS Diastolic Thickness 0.9 cm 0.6 - 1.0 / 0.6 - 0.9 cm LVPW Diastolic Thickness 0.9 cm 0.6 - 1.0 / 0.6 - 0.9 cm LV Relative Wall Thickness 0.5 LV Diastolic Volume MOD BP 33.9 cm??? 67 - 155 / 56 - 104 cm??? LV Systolic Volume MOD BP 7.6 cm??? 22 - 58 / 19 - 49 cm??? LV Ejection Fraction MOD BP 77.6 % >= 55 % LV Cardiac Index MOD BP 1188.7 cm???/min???m??? LV Diastolic Volume MOD 4C 34.8 cm??? LV Systolic Volume MOD 4C 8.0 cm??? LV Ejection Fraction MOD 4C 77.1 % LV Cardiac Index MOD 4C 1211.4 cm???/min???m??? LV Diastolic Length 4C 5.9 cm LV Systolic Length 4C 4.8 cm LV Diastolic Volume MOD 2C 30.9 cm??? LV Systolic Volume MOD 2C 7.1 cm??? LV Ejection Fraction MOD 2C 77.2 % LV Cardiac Index MOD 2C 1077.3 cm???/min???m??? LV Diastolic Length 2C 5.4 cm LV Systolic Length 2C 4.2 cm DOPPLER AV Peak Velocity 80.1 cm/s AV Peak Gradient 2.6 mmHg MV Area PHT 2.3 cm??? Mitral E Point Velocity 67.8 cm/s Mitral A Point Velocity 69.7 cm/s Mitral E to A Ratio 1.0 MV Deceleration Time 330.4 ms FINDINGS Left Ventricle Left ventricular ejection fraction is estimated at 65-70 %. Small left ventricular cavity. Left ventricular wall thickness normal. Right Ventricle RV looks enlarged. Unable to estimate the right ventricular systolic pressure. Right Atrium Right atrium not well visualized. Left Atrium Left atrium not well visualized. Mitral Valve Structurally normal mitral valve. No mitral regurgitation. Aortic Valve Aortic valve not well visualized. Tricuspid Valve Tricuspid valve not well visualized. Pulmonic Valve Pulmonic valve not well visualized. Pericardium No pericardial effusion. Aorta Aortic root and proximal ascending aorta not well visualized. CONCLUSIONS Technically suboptimal study secondary to poor echo windows Right ventricle appears enlarged LV function appears normal Previewed by: Dr. Luis Bell MD (Electronically Signed) Final Date: 05 February 2023 12:57
[2023-02-05 15:09] VITALS: BMI 34.0
--- NOTE | 2023-02-05 15:29 | P.PN ---
Subjective Progress Note Date: 02/05/23 62 years old female with past medical history of Asthma, Coronary Artery Disease, COPD Patient presents because of shortness of breath and altered mental status, as per documentation patient has difficulty talking because of her dysonea and she was using accessory muscles. Her respiratory distress was severe and patient required intubation and mechanical ventilation while in the emergency room. patient is afebrile. Blood pressure stable Hemoglobin is 8.7. W68.4. INR 1.0 PH 7.73, pCO2 88 and 67 BMP showing creatinine 0.7, glucose 154, liver enzymes not elevated. Troponin mildly elevated at 0.05. EKG showing sinus tachycardia at 130 ProBNP is elevated 1450 chest x-ray showed COPD however there is linear right upper lobe typical scar or atelectasis per radiologist. However I think fluid overload and cephalization is also suspected per my review especially patient has elevated proBNP. Such changes did not been seen in chest x-ray about 6 months ago. 02/02/2023 Patient is seen and evaluated in ICU; remains intubated Vital signs reviewed reveals temperature of 98, pulse 82, respiration 22 and blood pressure of 9855 -- Blood gases completed this morning reveal pO2 67, pCO2 69, and a pH is 7.34; White count 19, he lobe 7.9, hematocrit 26.9, with a normal platelet count. Sodium 145, potassium 4.7, chlorides 106, CO2 35, BUN 37, creatinine 0.45. Sputum from January 24 showed Staphylococcus aureus. --BAL from January 30, also shows Staphylococcus aureus. --Chest x-rays essentially unchanged. -- Family to make a decision/tracheostomy and PEG tube placement Patient remains DO NOT RESUSCITATE 02/03/2023 Patient is seen and evaluated in room at bedside; family members are not present in the room; family is debating proceeding with gift of life for organ donation Vital signs reveal temperature 99.5, pulse 93, respiration 24 and blood pressure of 105/67 White count 16.9, hemoglobin 7.9, hematocrit 27.3, and platelet count normal. Sodium 142, potassium 5, chlorides 103, CO2 37, BUN 37, and creatinine 0.48. Both sputum and BAL show evidence of methicillin sensitive staph aureus. Chest x-ray shows no acute cardiopulmonary disease and the tip of the endotracheal tube is 4 cm above the prerna. Patient will remain intubated and mechanically ventilated. Family makes further decision 02/04/2023 Patient is seen and evaluated and follow-up in the ICU currently undergoing gift of life workup as patient was a donor. Gift of life with ongoing studies being conducted. Patient will continue on medications including the following fentanyl and is maintained on Cleviprex. Patient continues on antibiotics as well. FiO2 is currently 40% with a PEEP of 5. 02/05/2023 Patient remains on mechanical ventilation undergoing gift of life workup for possible organ donation. Patient will be going to the OR around 1:30 PM today. Review of systems: Unable to obtain as patient remains on sedation and mechanical ventilation Physical exam: GENERAL: The patient is intubated and sedated. HEENT: Pupils are round and equally reacting to light. EOMI. No scleral icterus. No conjunctival pallor. Normocephalic, atraumatic. No pharyngeal erythema. No thyromegaly. CARDIOVASCULAR: S1 and S2 present. No murmurs, rubs, or gallops. PULMONARY: Chest is clear to auscultation, no wheezing , no crackles. ABDOMEN: Soft, nontender, nondistended, normoactive bowel sounds. No palpable organomegaly. MUSCULOSKELETAL: No joint swelling or deformity. EXTREMITIES: No cyanosis, clubbing, or pedal edema. NEUROLOGICAL: Gross neurological examination did not reveal any focal deficits. SKIN: No rashes. no petechiae. Assessment: Acute asthma/COPD exacerbation. Acute hypoxemic respiratory failure requiring intubation and mechanical ventilation Acute tracheobronchitis secondary to MSSA History of depression Acute respiratory acidosis with metabolic compensation Altered mental status most likely metabolic/toxic encephalopathy. No code Plan: Continue with mechanical ventilation as patient is undergoing gift of life evaluation and further workup with plans on possible harvesting in the OR at 1:30 PM. Continue with medications as above. Patient continued on fentanyl and propofol. Patient also maintained on Cleviprex at this time Prognosis remains poor and awaiting possible harvest with organ donation with gift of life following. The impression and plan of care has been dictated by Jessica Leyva, Nurse Practitioner as directed. Dr. Emilie MD I have performed a history and examination and MDM of this patient, discussed the same with the dictator, and agree with the dictator's assessment and plan as written ,documented as a scribe. Based on total visit time, I have performed more than 50% of the visit. Objective - Vital Signs Vital signs: Vital Signs Temp 97.8 F 02/05/23 04:00 Pulse 84 02/05/23 08:52 Resp 22 02/05/23 07:00 BP 98/55 01/30/23 13:00 Pulse Ox 95 02/05/23 07:00 FiO2 40 02/05/23 08:45 Intake & Output 02/04/23 02/05/23 02/05/23 18:59 06:59 18:59 Intake Total 901.211 701.764 Output Total 1373 1100 Balance -471.789 -398.236 Weight 85.7 kg 84.4 kg Intake: IV 112 78 Dextrose 5% in Water 1, 40 000 ml @ 40 mls/hr IV . Q24H [facility] Rx#:[id number] Pressure Bags 72 78 Intake, IV Titration 709.211 493.764 Amount Cisatracurium 200 mg In 200 109.26 Sodium Chloride 0.9% 180 ml @ 1 MCG/KG/MIN 4.452 mls/hr IV .Q24H [facility] Rx#: [id number] cefTRIAXone 1 gm In 50 Sodium Chloride 0.9% 50 ml @ 100 mls/hr IVPB Q24HR [facility] Rx#:[id number] fentaNYL (PF). 1,000 mcg 200 100 In Sodium Chloride 0.9% 80 ml @ 0.5 MCG/KG/HR 3. 71 mls/hr IV .Q24H [facility] Rx #:[id number] propofoL 1,000 mg In 259.211 284.504 Empty Bag 1 bag @ 15 MCG/ KG/MIN 7.348 mls/hr IV . [id number] [facility] Rx#:[id number] Tube Feeding 70 130 Other 10 Output: Urine 1373 1100 Other: Voiding Method Indwelling Catheter Indwelling Catheter ABP, PAP, CO, CI - Last Documented Arterial Blood Pressure 103/52 - Labs CBC & Chem 7: 02/05/23 08:50 02/05/23 08:50 Labs: Abnormal Lab Results - Last 24 Hours (Table) 02/04/23 02/04/23 02/04/23 Range/Units 07:15 11:10 12:00 WBC (3.8-10.6) k/uL RBC (3.80-5.40) m/uL Hgb (11.4-16.0) gm/dL Hct (34.0-46.0) % MCV (80.0-100.0) fL MCH (25.0-35.0) pg MCHC (31.0-37.0) g/dL RDW (11.5-15.5) % Neutrophils # (1.3-7.7) k/uL Lymphocytes # (1.0-4.8) k/uL ABG pCO2 (35-45) mmHg ABG pO2 (83-108) mmHg ABG HCO3 (21-25) mmol/L ABG Total CO2 (19-24) mmol/L ABG O2 Saturation (94-97) % Potassium 5.3 H (3.5-5.1) mmol/L Chloride (98-107) mmol/L Carbon Dioxide 39 H (22-30) mmol/L BUN 33 H (7-17) mg/dL Creatinine 0.41 L (0.52-1.04) mg/dL Glucose 204 H (74-99) mg/dL POC Glucose (mg/dL) 176 H (70-110) mg/dL Calcium 7.6 L (8.4-10.2) mg/dL Magnesium 2.6 H (1.6-2.3) mg/dL AST 37 H (14-36) U/L ALT 173 H (4-34) U/L Total Protein 4.7 L (6.3-8.2) g/dL Albumin 2.6 L (3.5-5.0) g/dL Urine Appearance Turbid H (Clear) Ur Leukocyte Esterase Trace H (Negative) Urine RBC >182 H (0-5) /hpf Urine WBC 105 H (0-5) /hpf Urine WBC Clumps Many H (None) /hpf Urine Mucus Moderate H (None) /hpf Urine Yeast (Budding) Many H (None) /hpf 02/04/23 02/04/23 02/04/23 Range/Units 13:21 16:00 16:00 WBC 20.7 H (3.8-10.6) k/uL RBC 3.57 L (3.80-5.40) m/uL Hgb 8.1 L (11.4-16.0) gm/dL Hct 26.8 L (34.0-46.0) % MCV 74.9 L (80.0-100.0) fL MCH 22.7 L (25.0-35.0) pg MCHC 30.4 L (31.0-37.0) g/dL RDW 18.2 H (11.5-15.5) % Neutrophils # 19.2 H (1.3-7.7) k/uL Lymphocytes # 0.6 L (1.0-4.8) k/uL ABG pCO2 73 H* (35-45) mmHg ABG pO2 67 L (83-108) mmHg ABG HCO3 41 H* (21-25) mmol/L ABG Total CO2 44 H (19-24) mmol/L ABG O2 Saturation 92.2 L (94-97) % Potassium (3.5-5.1) mmol/L Chloride (98-107) mmol/L Carbon Dioxide 36 H (22-30) mmol/L BUN 33 H (7-17) mg/dL Creatinine 0.49 L (0.52-1.04) mg/dL Glucose 165 H (74-99) mg/dL POC Glucose (mg/dL) (70-110) mg/dL Calcium 7.7 L (8.4-10.2) mg/dL Magnesium 2.6 H (1.6-2.3) mg/dL AST 48 H (14-36) U/L ALT 203 H (4-34) U/L Total Protein 5.1 L (6.3-8.2) g/dL Albumin 2.8 L (3.5-5.0) g/dL Urine Appearance (Clear) Ur Leukocyte Esterase (Negative) Urine RBC (0-5) /hpf Urine WBC (0-5) /hpf Urine WBC Clumps (None) /hpf Urine Mucus (None) /hpf Urine Yeast (Budding) (None) /hpf 02/04/23 02/04/23 02/04/23 Range/Units 18:06 21:01 23:56 WBC (3.8-10.6) k/uL RBC (3.80-5.40) m/uL Hgb (11.4-16.0) gm/dL Hct (34.0-46.0) % MCV (80.0-100.0) fL MCH (25.0-35.0) pg MCHC (31.0-37.0) g/dL RDW (11.5-15.5) % Neutrophils # (1.3-7.7) k/uL Lymphocytes # (1.0-4.8) k/uL ABG pCO2 69 H (35-45) mmHg ABG pO2 73 L (83-108) mmHg ABG HCO3 43 H* (21-25) mmol/L ABG Total CO2 45 H (19-24) mmol/L ABG O2 Saturation (94-97) % Potassium (3.5-5.1) mmol/L Chloride (98-107) mmol/L Carbon Dioxide (22-30) mmol/L BUN (7-17) mg/dL Creatinine (0.52-1.04) mg/dL Glucose (74-99) mg/dL POC Glucose (mg/dL) 192 H 213 H (70-110) mg/dL Calcium (8.4-10.2) mg/dL Magnesium (1.6-2.3) mg/dL AST (14-36) U/L ALT (4-34) U/L Total Protein (6.3-8.2) g/dL Albumin (3.5-5.0) g/dL Urine Appearance (Clear) Ur Leukocyte Esterase (Negative) Urine RBC (0-5) /hpf Urine WBC (0-5) /hpf Urine WBC Clumps (None) /hpf Urine Mucus (None) /hpf Urine Yeast (Budding) (None) /hpf 02/05/23 02/05/23 02/05/23 Range/Units 00:00 00:00 05:34 WBC 19.7 H (3.8-10.6) k/uL RBC 3.44 L (3.80-5.40) m/uL Hgb 7.9 L (11.4-16.0) gm/dL Hct 26.4 L (34.0-46.0) % MCV 76.7 L (80.0-100.0) fL MCH 22.9 L (25.0-35.0) pg MCHC 29.8 L (31.0-37.0) g/dL RDW 17.9 H (11.5-15.5) % Neutrophils # 18.0 H (1.3-7.7) k/uL Lymphocytes # 0.7 L (1.0-4.8) k/uL ABG pCO2 (35-45) mmHg ABG pO2 (83-108) mmHg ABG HCO3 (21-25) mmol/L ABG Total CO2 (19-24) mmol/L ABG O2 Saturation (94-97) % Potassium (3.5-5.1) mmol/L Chloride 96 L (98-107) mmol/L Carbon Dioxide 38 H (22-30) mmol/L BUN 31 H (7-17) mg/dL Creatinine 0.47 L (0.52-1.04) mg/dL Glucose 185 H (74-99) mg/dL POC Glucose (mg/dL) 232 H (70-110) mg/dL Calcium 7.6 L (8.4-10.2) mg/dL Magnesium 2.5 H (1.6-2.3) mg/dL AST 56 H (14-36) U/L ALT 207 H (4-34) U/L Total Protein 4.9 L (6.3-8.2) g/dL Albumin 2.6 L (3.5-5.0) g/dL Urine Appearance (Clear) Ur Leukocyte Esterase (Negative) Urine RBC (0-5) /hpf Urine WBC (0-5) /hpf Urine WBC Clumps (None) /hpf Urine Mucus (None) /hpf Urine Yeast (Budding) (None) /hpf 02/05/23 02/05/23 Range/Units 05:40 08:50 WBC 15.9 H (3.8-10.6) k/uL RBC 3.43 L (3.80-5.40) m/uL Hgb 7.9 L (11.4-16.0) gm/dL Hct 25.8 L (34.0-46.0) % MCV 75.1 L (80.0-100.0) fL MCH 23.0 L (25.0-35.0) pg MCHC 30.6 L (31.0-37.0) g/dL RDW 18.3 H (11.5-15.5) % Neutrophils # 14.8 H (1.3-7.7) k/uL Lymphocytes # 0.6 L (1.0-4.8) k/uL ABG pCO2 74 H* (35-45) mmHg ABG pO2 76 L (83-108) mmHg ABG HCO3 43 H* (21-25) mmol/L ABG Total CO2 46 H (19-24) mmol/L ABG O2 Saturation (94-97) % Potassium (3.5-5.1) mmol/L Chloride (98-107) mmol/L Carbon Dioxide (22-30) mmol/L BUN (7-17) mg/dL Creatinine (0.52-1.04) mg/dL Glucose (74-99) mg/dL POC Glucose (mg/dL) (70-110) mg/dL Calcium (8.4-10.2) mg/dL Magnesium (1.6-2.3) mg/dL AST (14-36) U/L ALT (4-34) U/L Total Protein (6.3-8.2) g/dL Albumin (3.5-5.0) g/dL Urine Appearance (Clear) Ur Leukocyte Esterase (Negative) Urine RBC (0-5) /hpf Urine WBC (0-5) /hpf Urine WBC Clumps (None) /hpf Urine Mucus (None) /hpf Urine Yeast (Budding) (None) /hpf
--- NOTE | 2023-02-07 16:34 | CDI ---
Documentation Clarification Form Date: 02/07/2023 04:16:07 PM From: Macy Timmons RN, CCDS Email: [email or web address] Admit Date: 01/24/2023 04:47:00 PM Patient Name: Diya Flores Visit Number: [id number] Discharge Date: 02/05/2023 11:32:00 PM ATTENTION: The Clinical Documentation Specialists (CDI) and [facility] Coding Staff appreciate your assistance in clarifying documentation. Please respond to the clarification below the line at the bottom and electronically sign. The CDI & [facility] Coding staff will review the response and follow-up if needed. Please note: Queries are made part of the Legal Health Record. If you have any questions, please contact the author of this message via ITS. Dr. Aponte E Sheet Your patient had acute respiratory failure, abnormal labs and vital signs. Based on this information and the findings below, is there an additional diagnosis that is clinically appropriate for this patient? History/Risk Factors: Asthma, COPD, CAD. Patient was brought to the ER in extreme respiratory distress and noted to have acute hypoxic and hypercapnic respiratory failure. She was intubated upon initial presentation. Clinical Indicators: H&P: Acute asthma/COPD exacerbation. Acute respiratory acidosis with metabolic compensation Altered mental status most likely metabolic/toxic encephalopathy." 01/24-02/05 WBC: 8.4-13.2-17.5-19.0-20.7-19.7-15.9 01/25 Procalcitonin: 0.14 01/24 ABG: pH 7.20, pCO2 88, HCO3 34 01/24 VS: HR 136-113-117, RR 24 Treatment: Intubation/mechanical ventilation; Duonebs Q4H; 1L 0.9 NS IV bolus on 01/25 Is there an additional diagnosis that is clinically appropriate for this patient? [ ] SIRS, due to COPD exacerbation, with acute respiratory failure and acidosis [ ] Other, please specify [ ] Unable to determine SIRS Criteria: 2 or more of the following may indicate SIRS -Temperature < 96.8F(36C) or > 101.0F (38.3C) -Heart Rate > 90 bpm -Respiratory Rate > 20 breaths/min or PaCO2 < 32 mmHg -White Blood Cell Count > 12,000 or < 4,000 cells/mm3 or > 10% bands no SIRS MTDD
--- NOTE | 2023-02-09 10:14 | P.DS ---
Providers Date of admission: 01/24/23 16:47 Expected date of discharge: 02/05/23 Attending physician: Jeremiah Quezada Consults: 01/24/23 16:47 Consult Physician Stat Consulting Provider: Ceci Dubon Consult Reason/Comments: VDRF, COPD exas Do you want consulting provider notified?: Already Contacted 02/01/23 06:00 Consult Physician Routine Consulting Provider: Nick Morton Consult Reason/Comments: Trach and peg tube Do you want consulting provider notified?: Yes Primary care physician: [facility] Course: Preliminary cause of Chronic obstructive pulmonary disease Final diagnosis SIRS, present on admission secondary to COPD exacerbation with acute respiratory failure and acidosis, requiring mechanical ventilation COPD exacerbation hypoxic respiratory failure Acute tracheobronchitis secondary to MSSA History of depression Acute respiratory acidosis with metabolic compensation Altered mental status most likely metabolic/toxic encephalopathy secondary to respiratory failure and acidosis Gift of life candidate. No code Discharge disposition Patient has according to nursing documentation in the OR time of was 1437. Patient was a gift of life candidate and did donate liver and kidney. Please refer to other nursing documentation and OR documentation reactive to light further HPI. Total time taken greater than 35 minutes. Hospital course Patient was admitted to the hospital and intubated for severe respiratory distress secondary to COPD exacerbation and continue to show clinical decline. Patient was unable to wean off vent and family decided on comfort measures and patient was gift of life candidate. Gift of life evaluated and underwent extensive testing and was brought to the OR with time of 1437. Harvesting was done and patient was able to donate liver and kidney to [employer] life. Please refer to OR documentation for further HPI. Please also refer to other consultation notes including pulmonary intensivists for further HPI. The impression and plan of care has been dictated by Jessica Leyva, Nurse Practitioner as directed. Dr. Emilie MD I have performed a history and examination and MDM of this patient, discussed the same with the dictator, and agree with the dictator's assessment and plan as written ,documented as a scribe. Based on total visit time, I have performed more than 50% of the visit. Patient Condition at Discharge: Serious Plan - Discharge Summary New Discharge Prescriptions: No Action Pregabalin [Lyrica] 100 mg PO BID Pantoprazole Sodium [Protonix] 40 mg PO DAILY PRN PRN Reason: PYROSIS Mirtazapine [Remeron] 15 mg PO HS Albuterol Sulfate [Albuterol Sulfate Hfa] 2 puff PO RT-QID dilTIAZem HCL [dilTIAZem HCL 24Hr ER] 120 mg PO DAILY Montelukast Sodium 10 mg PO HS Escitalopram [Lexapro] 20 mg PO DAILY Budesonide/Formoterol Fumarate [Symbicort 160-4.5 Mcg Inhaler] 2 puff INHALATION RT-BID Ipratropium-Albuterol Nebulize [Duoneb 0.5 mg-3 mg/3 ml Soln] 3 ml INHALATION RT-Q4H Discharge Medication List Albuterol Sulfate [Albuterol Sulfate Hfa] 2 puff PO RT-QID 01/24/23 [History] Budesonide/Formoterol Fumarate [Symbicort 160-4.5 Mcg Inhaler] 2 puff INHALATION RT-BID 01/24/23 [History] Escitalopram [Lexapro] 20 mg PO DAILY 01/24/23 [History] Ipratropium-Albuterol Nebulize [Duoneb 0.5 mg-3 mg/3 ml Soln] 3 ml INHALATION RT-Q4H 01/24/23 [History] Mirtazapine [Remeron] 15 mg PO HS 01/24/23 [History] Montelukast Sodium 10 mg PO HS 01/24/23 [History] Pantoprazole Sodium [Protonix] 40 mg PO DAILY PRN 01/24/23 [History] Pregabalin [Lyrica] 100 mg PO BID 01/24/23 [History] dilTIAZem HCL [dilTIAZem HCL 24Hr ER] 120 mg PO DAILY 01/24/23 [History] Follow up Appointment(s)/Referral(s): Dayanna Singh [Primary Care Provider] - 1-2 days Discharge Disposition: - Preliminary Cause of Preliminary Cause of : COPD exacerbation
== END 2023-02-05 23:32 | disposition expired | DRG 207 ==
LOC: EC 14:20 → 2SICU 16:47
PROVIDERS: ADMIT Hospitalist; ATTEND Hospitalist
PROC: 0BH17EZ Insertion of Endotracheal Airway into Trachea, Via Natural or Artificial Opening (ICD-10-PCS; principal; 2023-01-24)
PROC: 0D9670Z Drainage of Stomach with Drainage Device, Via Natural or Artificial Opening (ICD-10-PCS; principal; 2023-01-24)
PROC: 3E0G76Z Introduction of Nutritional Substance into Upper GI, Via Natural or Artificial Opening (ICD-10-PCS; principal; 2023-01-24)
PROC: 5A1955Z Respiratory Ventilation, Greater than 96 Consecutive Hours (ICD-10-PCS; principal; 2023-01-24)
PROC: 4A133B1 Monitoring of Arterial Pressure, Peripheral, Percutaneous Approach (ICD-10-PCS; 2023-01-25)
PROC: 03HY32Z Insertion of Monitoring Device into Upper Artery, Percutaneous Approach (ICD-10-PCS; 2023-01-25)
PROC: 02HV33Z Insertion of Infusion Device into Superior Vena Cava, Percutaneous Approach (ICD-10-PCS; 2023-01-25)
PROC: 4A133J1 Monitoring of Arterial Pulse, Peripheral, Percutaneous Approach (ICD-10-PCS; 2023-01-25)
PROC: 0B9F8ZX Drainage of Right Lower Lung Lobe, Via Natural or Artificial Opening Endoscopic, Diagnostic (ICD-10-PCS; 2023-01-30)
PROC: 4A133B1 Monitoring of Arterial Pressure, Peripheral, Percutaneous Approach (ICD-10-PCS; 2023-01-30)
PROC: 04HY32Z Insertion of Monitoring Device into Lower Artery, Percutaneous Approach (ICD-10-PCS; 2023-01-30)
PROC: 4A133J1 Monitoring of Arterial Pulse, Peripheral, Percutaneous Approach (ICD-10-PCS; 2023-01-30)
DX: J96.01 Acute respiratory failure with hypoxia (principal); G92.8 Other toxic encephalopathy; J15.211 Pneumonia due to Methicillin susceptible Staphylococcus aureus; J44.1 Chronic obstructive pulmonary disease with (acute) exacerbation; J98.11 Atelectasis; E87.4 Mixed disorder of acid-base balance; J45.901 Unspecified asthma with (acute) exacerbation; J44.0 Chronic obstructive pulmonary disease with (acute) lower respiratory infection; E44.1 Mild protein-calorie malnutrition; I95.9 Hypotension, unspecified; Z20.822 Contact with and (suspected) exposure to COVID-19; J20.8 Acute bronchitis due to other specified organisms; R45.1 Restlessness and agitation; F32.A Depression, unspecified; J96.02 Acute respiratory failure with hypercapnia; I25.10 Atherosclerotic heart disease of native coronary artery without angina pectoris; F17.200 Nicotine dependence, unspecified, uncomplicated; E87.70 Fluid overload, unspecified; Z66 Do not resuscitate; Z51.5 Encounter for palliative care; Z68.34 Body mass index [BMI] 34.0-34.9, adult; Z88.0 Allergy status to penicillin; Z79.899 Other long term (current) drug therapy; Z79.51 Long term (current) use of inhaled steroids
CPT/HCPCS: 31500; 31624; 36415; 36600; 70450; 71045; 74018; 74177; 80048; 80053; 81001; 81003; 82150; 82248; 82550; 82805; 83605; 83690; 83735; 83880; 84100; 84145; 84484; 85025; 85027; 85379; 85384; 85610; 85730; 86850; 86900; 86901; 86920; 87070; 87077; 87102; 87116; 87186; 87205; 87206; 87496; 87498; 87502; 87529; 87634; 87798; 88108; 88305; 89050; 93005; 93306; 94002; 94003; 94640; 96365; 96366; 96375; 99291